=== PATIENT | female | born 1955 | race Caucasian/White ===

== ENCOUNTER 2017-01-14 17:44 | Emergency (ER) | payer MEDICARE, MEDICAID ==
[2017-01-14 18:28] VITALS: BP 126/82
--- NOTE | 2017-01-14 19:05 | UC ---
Respiratory Complaint HPI - HPI Summary HPI Summary: Cough and congestion for three days. She has hoarse voice as well. No fevers. Cough is dry. She has copd and is a smoker. - History of Current Complaint Chief Complaint: UCRespiratory Stated Complaint: CHEST CONGESTION Time Seen by Provider: 01/14/17 18:57 Hx Obtained From: Patient Hx Last Menstrual Period: n/a ?: No Onset/Duration: Gradual Onset, Lasting Days Timing: Constant Severity Initially: Moderate Severity Currently: Moderate Character: Cough: Nonproductive Aggravating Factors: Deep Breaths, Recumbent Position Alleviating Factors: Nothing Associated Signs And Symptoms: Positive: Wheezing, URI, Nasal Congestion, Hoarseness. Negative: Negative, Dyspnea, Fever, Chills, Pleuritic Chest Pain, Hemoptysis, Dizziness, Calf Pain, Calf Swelling - Allergies/Home Medications Allergies/Adverse Reactions: Allergies Allergy/AdvReac Type Severity Reaction Status Date / Time Penicillins Allergy Severe Hives Verified 01/14/17 18:28 Home Medications: Home Medications Gabapentin CAP(*) [Neurontin 300 CAP(*)] 300 mg PO BID 01/14/17 [History Confirmed 01/14/17] PMH/Surg Hx/FS Hx/Imm Hx Previously Healthy: No - copd and a smoker. - Surgical History Surgical History: Yes Surgery Procedure, Year, and Place: Hysterectomy, bilateral knee replacement, ankle surgery, appendectomy, cholecystectomy, R hand tendon surgery, stomach stapling. - Family History Known Family History: Positive: Other - no respiratory distress. - Social History Alcohol Use: Rare Alcohol Amount: states about every 2 weeks has a drink Substance Use Type: None Smoking Status (MU): Heavy Every Day Tobacco Smoker Type: Cigarettes Amount Used/How Often: 1 ppd - Immunization History Most Recent Influenza Vaccination: no Most Recent Tetanus Shot: unknown Most Recent Pneumonia Vaccination: none Review of Systems Constitutional: Negative Respiratory: Cough All Other Systems Reviewed And Are Negative: Yes Physical Exam Triage Information Reviewed: Yes Appearance: No Pain Distress, Well-Nourished, Other: - hoarse voice. No resp distress. Vital Signs: Initial Vital Signs Temp 98.2 F 01/14/17 18:24 Pulse 94 01/14/17 18:24 Resp 16 01/14/17 18:24 BP 126/82 01/14/17 18:24 Pulse Ox 99 01/14/17 18:24 Vital Signs Reviewed: Yes Eye Exam: Normal Eyes: Positive: Conjunctiva Clear ENT Exam: Normal ENT: Positive: Normal ENT inspection, Hearing grossly normal, Pharyngeal erythema, TMs normal. Negative: Tonsillar swelling, Tonsillar exudate, Trismus Neck exam: Normal Neck: Positive: Supple, Nontender, No Lymphadenopathy Respiratory Exam: Normal Respiratory: Positive: Chest non-tender, Lungs clear, No respiratory distress, No accessory muscle use, Crackles, Wheezing. Negative: Respiratory distress, Decreased breath sounds, Rhonchi, Stridor Cardiovascular Exam: Normal Cardiovascular: Positive: RRR, No Murmur, Pulses Normal, Brisk Capillary Refill Abdominal Exam: Normal Abdomen Description: Positive: Nontender, No Organomegaly, Soft Musculoskeletal Exam: Normal Musculoskeletal: Positive: Strength Intact, ROM Intact, No Edema Neurological: Positive: Alert, Muscle Tone Normal. Negative: Fatigued Skin: Negative: rashes UC Diagnostic Evaluation - Laboratory O2 Sat by Pulse Oximetry: 99 Respiratory Course/Dx - Course Course Of Treatment: we counselled on supportive care. start z pack if not improved by day #9. - Differential Dx/Diagnosis Provider Diagnoses: acute copd exacerbation Discharge - Discharge Plan Condition: Good Disposition: HOME Prescriptions: Albuterol HFA INHALER* [Ventolin HFA Inhaler*] 1 puff INH Q4H PRN #1 mdi PRN Reason: Cough Azithromyxin MARILU (NF) [Z-Marilu (Zithromax) 250 mg tabs #6] 1 tab PO .TODAY, THEN 1 DAILY #6 tab Benzonatate CAP* [Tessalon 100 MG CAP*] 100 mg PO TID PRN #20 cap PRN Reason: Cough Methylprednisolone [Medrol Dosepak 4 MG*] 4 mg PO .SEE MARILU INSTRUCTION #21 tab Spacer/Holding Chamber (NF) [Easivent CHAMBER (NF)] 1 applic INH Q4HR PRN #1 device PRN Reason: Cough Patient Education Materials: COPD (Chronic Obstructive Pulmonary Disease) (ED) Referrals: Pablo Blackwood NP [Primary Care Provider] - 2 Days Additional Instructions: start mucinex dm. Begin z pack if symptoms have not improved by day #9.
== END 2017-01-14 19:14 | disposition home or self-care (01) ==
LOC: UCCORT 17:44
DX: J44.1 Chronic obstructive pulmonary disease with (acute) exacerbation (principal)
CPT/HCPCS: 99212; G0463

== ENCOUNTER 2017-02-17 15:04 | Emergency (ER) | payer MEDICARE, MEDICAID ==
--- NOTE | 2017-02-17 16:24 | UC ---
Skin Complaint HPI - HPI Summary HPI Summary: 61 year old male presents with complains of rash under bilateral axilla and breasts. - History of Current Complaint Time Seen by Provider: 02/17/17 16:23 Stated Complaint: SKIN COMP Hx Obtained From: Patient Hx Last Menstrual Period: n/a Onset/Duration: Sudden Onset Skin Exposure Onset/Duration: Days Ago Onset Severity: Moderate Current Severity: Moderate - Allergy/Home Medications Allergies/Adverse Reactions: Allergies Allergy/AdvReac Type Severity Reaction Status Date / Time Penicillins Allergy Severe Hives Verified 02/17/17 16:25 Home Medications: Home Medications Aspirin [Aspirin Childrens 81 MG] 81 mg PO BEDTIME 02/17/17 [History Confirmed 02/17/17] Review of Systems Constitutional: Negative Skin: Rash Eyes: Negative ENT: Negative Respiratory: Negative Cardiovascular: Negative Gastrointestinal: Negative Genitourinary: Negative Motor: Negative Neurovascular: Negative Musculoskeletal: Negative Neurological: Negative Psychological: Negative All Other Systems Reviewed And Are Negative: Yes PMH/Surg Hx/FS Hx/Imm Hx - Surgical History Surgical History: Yes Surgery Procedure, Year, and Place: Hysterectomy, bilateral knee replacement, ankle surgery, appendectomy, cholecystectomy, R hand tendon surgery, stomach stapling. - Family History Known Family History: Positive: Other - no respiratory distress. - Social History Alcohol Use: Rare Alcohol Amount: states about every 2 weeks has a drink Substance Use Type: None Smoking Status (MU): Heavy Every Day Tobacco Smoker Type: Cigarettes Amount Used/How Often: 1 ppd - Immunization History Most Recent Influenza Vaccination: no Most Recent Tetanus Shot: unknown Most Recent Pneumonia Vaccination: none Physical Exam Triage Information Reviewed: Yes Vital Signs Reviewed: Yes Eye Exam: Normal ENT Exam: Normal Dental Exam: Normal Neck exam: Normal Neck: Positive: 1 Respiratory Exam: Normal Cardiovascular Exam: Normal Abdominal Exam: Normal Musculoskeletal Exam: Normal Neurological Exam: Normal Psychological Exam: Normal Skin: Positive: rashes Course/Dx - Diagnoses Provider Diagnoses: rash bilateral axilla. rash un both breasts Discharge - Discharge Plan Condition: Stable Disposition: HOME Prescriptions: Clotrimazole/Betamethasone* [Lotrisone Cream*] 1 applic TOPICAL BID #90 gm Erythromycin TAB* 500 mg PO QID #40 tab Fluconazole 150 MG (NF) [Diflucan 150 mg (NF)] 150 mg PO ONCE #1 tab Patient Education Materials: Tinea Corporis (ED) Referrals: Jacque Deng [Medical Doctor] - Pabol Blackwood NP [Primary Care Provider] -
[2017-02-17 16:36] VITALS: BP 123/66
== END 2017-02-17 16:52 | disposition home or self-care (01) ==
LOC: UCCORT 15:04
DX: R21 Rash and other nonspecific skin eruption (principal); Z72.0 Tobacco use
CPT/HCPCS: 99211; G0463

== ENCOUNTER 2017-03-28 14:06 | Emergency (ER) | payer MEDICARE, MEDICAID ==
--- NOTE | 2017-03-28 15:30 | UC ---
Complaint Female HPI - HPI Summary HPI Summary: 61 year old female presents with complains of rash, dysuria, and trouble swallowing liquids and solids. Patient is a smoker and has lost 12 pounds in 10 days. I will sen dher tot he er to rule out esophageal mass. - History Of Current Complaint Stated Complaint: ST/URINARY Time Seen by Provider: 03/28/17 15:30 Hx Obtained From: Patient Hx Last Menstrual Period: n/a Onset/Duration: Sudden Onset Timing: Constant Severity Initially: Moderate Severity Currently: Moderate Pain Scale Used: 0-10 Numeric - 5 Aggravating Factor(s): Movement Alleviating Factor(s): Position - Allergies/Home Medications Allergies/Adverse Reactions: Allergies Allergy/AdvReac Type Severity Reaction Status Date / Time Penicillins Allergy Severe Hives Verified 03/28/17 15:34 PMH/Surg Hx/FS Hx/Imm Hx Previously Healthy: Yes - Surgical History Surgical History: Yes Surgery Procedure, Year, and Place: Hysterectomy, bilateral knee replacement, ankle surgery, appendectomy, cholecystectomy, R hand tendon surgery, stomach stapling. - Family History Known Family History: Positive: Other - no respiratory distress. - Social History Alcohol Use: Rare Alcohol Amount: states about every 2 weeks has a drink Substance Use Type: None Smoking Status (MU): Heavy Every Day Tobacco Smoker Type: Cigarettes Amount Used/How Often: 1 ppd Household Exposure Type: Cigarettes - Immunization History Most Recent Influenza Vaccination: no Most Recent Tetanus Shot: unknown Most Recent Pneumonia Vaccination: none Review of Systems Constitutional: Negative Skin: Negative Eyes: Negative ENT: Sore Throat Respiratory: Negative Cardiovascular: Negative Gastrointestinal: Negative Genitourinary: Negative Motor: Negative Neurovascular: Negative Musculoskeletal: Negative Neurological: Negative Psychological: Negative All Other Systems Reviewed And Are Negative: Yes Physical Exam Triage Information Reviewed: Yes Vital Signs Reviewed: Yes Eye Exam: Normal ENT Exam: Normal ENT: Positive: Tonsillar swelling Dental Exam: Normal Neck exam: Normal Neck: Positive: 1 Respiratory Exam: Normal Cardiovascular Exam: Normal Abdominal Exam: Normal Musculoskeletal Exam: Normal Neurological Exam: Normal Psychological Exam: Normal Skin Exam: Normal Complaint Female Dx - Differential Dx/Diagnosis Provider Diagnoses: DYSPHAGIA. DYSURIA. RASH Discharge - Discharge Plan Condition: Stable Disposition: OTHER Discharge Disposition Comment: PATIENT SUGGESTED TO GO TO THE ER Patient Education Materials: Esophageal Spasm (ED), Dysphagia (ED) Referrals: Pablo Blackwood NP [Primary Care Provider] - Additional Instructions: patient suggested to go to the er for difficulty swallowing
--- OUTSIDE RECORDS SUMMARY | 2017-03-28 15:33 | XMS REPORT ---
:1955 External Reference #:[id number] Author Organization [facility] Address [address] [address] Phone [phone] Care Team Providers Name Role Phone Pablo Blackwood NP Primary Care Physician Unavailable Payers Type Date Identification Numbers Payment Provider Subscriber Medicare Primary Effective: Policy Number: Medicare Joyce Simpson 2007 [id number] PayID: [id number] [address] [place] [address] [employer] Part [address] Effective: Policy Number: Medicaid ### Joyce Silva 2012 [id number] >11 Calvin PayID: [id number] [address] [place] [address] Problems Date Description Provider Status Onset: 01/07/2007 Benign essential hypertension Raúl Henry MD Active Onset: 01/07/2007 Pure hypercholesterolemia Raúl Henry MD Active Onset: 04/21/2011 Chest pain Clarissa Howell NP Active Onset: 04/21/2011 Coronary arteriosclerosis Clarissa Howell NP Active Onset: 04/21/2011 Palpitations Clarissa Howell NP Active Onset: 08/06/2011 Pre-surgery evaluation Rafal Ruth MD Active Onset: 08/06/2011 Headache Rafal Ruth MD Active Onset: 10/21/2011 Deficiency anemias Rafal Ruth MD Active Onset: 10/21/2011 Overweight Rafal Ruth MD Active Onset: 11/17/2014 Dermatophytosis of the body Rafal Ruth MD Active Onset: 11/17/2014 Transient cerebral ischemia Rafal Ruth MD Active Onset: 11/17/2014 Electrocardiogram abnormal Rafal Ruth MD Active Onset: 08/13/2015 Preoperative cardiovascular Rafal Ruth MD Active examination Onset: 08/13/2015 Coronary atherosclerosis due to Rafal Ruth MD Active calcified coronary lesion Onset: 08/13/2015 Ex-smoker Rafal Ruth MD Active Onset: 06/11/2016 Dyspnea Rafal Ruth MD Active Onset: 12/04/2016 Iron deficiency anemia Pablo Blackwood, N.P. Active Onset: 12/04/2016 Vitamin B12 deficiency (non anaemic) Pablo Blackwood, N.P. Active Family History Date Family Member(s) Problem(s) Comments : (age 77 Years) Father due to Heart Disease : (age 65 Years) Mother due to Stroke Siblings 7 : (age 36 Years) First Sister due to Cancer, Breast Social History Type Date Description Comments Marital Status Occupation Unemployed Cigarette Use Patient is a current cigarette 1 PACK A DAY; 06/11/16 smoker, smokes every day smokes occasional cigarette now ETOH Use Rarely consumes alcohol Recreational Drug Use Denies Drug Use Smoking Patient is a current smoker, smokes every day Daily Caffeine Consumes on average 4 cups of DECAF coffee per day Allergies, Adverse Reactions, Alerts Date Description Reaction Status Severity Comments 01/27/2006 Pen VK active 02/26/2016 Cephalexin active Medications Medication Date Status Form Strength Qnty SIG Indications Ordering Provider Sulfamethoxazole 03/10 Active Tablets 800-160mg 14tabs 1 by /Trimethoprim mouth Mashelle, twice a N.P. day Cyanocobalamin 12/04 Active Solution 1000mcg/M 60units 1ml every L mos Mashelle, N.P. Iron Up 12/04 Active IV Mashelle, N.P. Fluconazole 08/12 Active Tablets 100mg 11tabs 2 by mouth on Mashel, day 1 N.P. then 1 every day x 9 days Gaviscon 07/23 Active Suspension 95-358mg/ 1 15ML tablespoo jeanna Lyles by mouth every night at bedtime Clopidogrel 09/04 Active Tablets 75mg 30tabs Take One Kyra Blackwood Tablet By Pablo, Mouth N.P. Every Day Potassium 12/20 Active Capsules 10Meq 30caps Take One Flory, Chloride ER ER Capsule Rafal, By Mouth Every Day Oxycodone HCL 12/11 Active Tablets 10mg 40tabs 1 po qid prn Masemmanuelle, N.P. Cyclobenzaprine 08/03 Active Tablets 10mg 30tabs take one Jaison tablet by Pablo, mouth two N.P. times a day Amitriptyline 08/03 Active Tablets 25mg 2 po qhs , Mashelle, N.P. Metoprolol 03/11 Active Tablets 50mg 180tabs take one I10 Flory, Tartrate tablet by flaquito Lyles MD twice a day Furosemide 02/19 Active Tablets 20mg 30tabs Take One Tablet By Pablo, Mouth N.P. Every Day Celebrex 01/17 Active Capsules 200mg samples 1 po bid Jaison Pablo, N.P. Lipitor 01/17 Active Tablets 20mg 90tabs Take One Tablet By Flaquito Lyles At MD Bedtime Effexor XR 12/17 Active Caps ER 150mg 30caps Take One 24HR Capsule Pablo, By Mouth N.P. Every Day Alprazolam 06/21 Active Tablets 0.25mg 90tabs 1 by F41.1 mouth Pablo, three N.P. times a day Methotrexate 10/19 Active Tablets 2.5mg / Eppolito Carlos Vargas MD Nitrostat Active Tablets 0.4mg 25tabs 1 sl Flory Sub every 5 tuyet Lyles MD times 3 for chest pain, if no relief, call 911 - [facility] keep on file Topiramate Active Tablets 200mg 1.5 Tabs Unknown 0000 by mouth twice a day Famotidine Active Tablets 20mg 1 by Unknown / mouth bid Enbrel Active Soln as Unknown 0000 Prefill directed Syringe Gabapentin Active Capsules 300mg take one Unknown /0000 capsule by mouth three times a day Azithromycin 02/24 Hx Tablets 250mg 6tabs 2 by mouth day Pablo, - one then N.P. 06/11 1 by mouth every day x 4 days Fluconazole 02/24 Hx Tablets 100mg 10tabs 1 by mouth Mashelle, - every day N.P. 06/11 x Azithromycin 04/16 Hx Tablets 250mg 6tabs 2 by mouth day Mashelle, - one then N.P. 08/12 1 by mouth every day x 4 days Nystatin 03/29 Hx Suspension [id number] 240ml 1 t/ML teaspoon Mashelle, - four N.P. 08/12 times day swish in mouth x 30 secs Diflucan 02/13 Hx Tablets 100mg 9tabs 2 by mouth on Mashel, - day one N.P. 02/24 and 1 by mouth every day x 7 days Ciprofloxacin 12/29 Hx Tablets 500mg 10tabs 1 by [place], mouth Mashelle, - twice a N.P. 08/12 day x days Fluconazole 12/29 Hx Tablets 150mg 2tabs 1 by mouth Mashelle, - today and N.P. 02/21 repeat in 5 days Medical Note 12/15 Hx patient is Pablo, - medically N.P. 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 12/29 Fluconazole 10/23 Hx Tablets 100mg 7tabs 1 by mouth Mashelle, - every day N.P. 11/17 x 7 Nystatin 10/23 Hx Cream [id number] 30gm apply t/GM three Maryannhelle, - times a N.P. 03/29 day to affected area Nicoderm CQ 09/04 Hx Patches 21mg/24HR 14units 1 patch 24HR every day Masyolande, - as N.P. 06/11 Levofloxacin 06/20 Hx Tablets 500mg 10tabs 1 po qd x10 days Masemmanuelle, - N.P. 10/23 Fluocinonide 04/10 Hx Cream 0.05% 60gm apply sparingly Mashelle, - to itchy N.P. 10/23 rash three times a day Fluconazole 01/12 Hx Tablets 100mg 12tabs 2 by mouth day Masemmanuelle, - one then N.P. 04/10 1 by mouth every day x 10 days Levofloxacin 01/12 Hx Tablets 500mg 10tabs 1 po qd x10 days Masemmanuelle, - N.P. 04/10 Nicotine Step 3 10/06 Hx Patches 7mg/24HR on in the 24HR morning Clarissa, - off at [employer]OSS 10/06 night Nicotine 10/06 Hx Patches 7mg/24HR 30units 1 patch 24HR transderm Clarissa, - al qday [employer] 12/20 directed on package Nicotine Step 2 09/05 Hx Patches 14mg/24HR 42units apply new 24HR patch Clarissa, - every 24 [employer] 10/06 hours: mg/day for 6 weeks, then 7 mg/day for 2 weeks, and then finish with 7 mg/day for 2 wks Nicotine Step 1 06/15 Hx Patches 21mg/24HR 42units use as 24HR directed Clarissa, - [employer] 09/05 Levofloxacin 05/24 Hx Tablets 500mg 10tabs 1 po qd x10 days Pablo, - N.P. 06/13 Proair HFA 05/24 Hx Aerosol 108(90Bas 1units 2 puffs e) qid prn Pablo, - mcg/Act N.P. 06/20 Prednisone 05/24 Hx Tablets 10mg 30tabs 4 po x 3 days, Pablo, - then 3 po N.P. 12/20 x 3 days then 2 po x 3 days then 1 po x 3 days Imdur 01/05 Hx Tablets ER 30mg 30tabs 1 po qd 24HR Clarissa, - [employer]OSS 01/26 Plavix 01/05 Hx Tablets 75mg 5tabs 4 tabs po Lynda, day prior Clarissa, - to [employer] 01/26 procedure , 1 tab po am of procedure Fluconazole 10/15 Hx Tablets 100mg 11tabs 2 by , mouth day Mashelle, - one then N.P. 12/20 1 by mouth every day x 10 days Levofloxacin 08/20 Hx Tablets 500mg 10tabs 1 po qd [place] x10 days Masemmanuelle, - N.P. 04/15 Levofloxacin 06/15 Hx Tablets 750mg 10tabs 1 po qd x Jaison 10 days Mashelle, - N.P. 07/14 Fluconazole 06/15 Hx Tablets 100mg 11tabs 2 po day one then Masemmanuelle, - 1 po qd x N.P. 08/20 Levaquin 04/15 Hx Tablets 750mg 10tabs 1 po qd x Jaison 10 days Masemmanuelle, - N.P. 06/15 Zithromax Z-Fernando 02/02 Hx Tablets 250mg 1tabs as directed Devile, - N.P. 04/15 Erythromycin 08/13 Hx Caps 250mg 40caps 1 po qid Part x 10 days Masemmanuelle, - N.P. 10/20 Topamax 08/03 Hx Tablets 200mg 1/2 tab q Jaison, am and 1 Pablo, - tab q hs N.P. 04/10 Cymbalta 08/03 Hx Caps 60mg 30caps 1 po qd Part Mashelle, - N.P. 04/10 Plaquenil 08/03 Hx Tablets 200mg 60tabs 2 by mouth Mashelle, - every day N.P. 12/04 Nicoderm CQ 06/17 Hx Patches 14mg/24HR 28units apply one 24HR patch qd Mashelle, - N.P. 08/03 Nicoderm CQ 05/06 Hx Patches 21mg/24HR 30units as 24HR directed Pablo, - N.P. 06/17 Aspirin 04/21 Hx Tablets 81mg 1 po qd Lynda Clarissa, - SPECIMEN BOSS 11/17 Amitriptyline 01/17 Hx Tablets 10mg 30tabs 1 po qhs [place], Masemmanuelle, - N.P. 08/03 Flexeril 01/17 Hx Tablets 10mg 15tabs 1 po tid Jaison, Masemmanuelle, - N.P. 01/17 Soma 01/17 Hx Tablets 350mg 32tabs 1 po qid [place] Masemmanuelle, - N.P. 08/03 Venlafaxine HCL 09/09 Hx Caps ER 150mg 30caps Take One 24HR Capsule Pablo, - By Mouth N.P. 01/17 Every Day Zithromax Z-Fernando 06/21 Hx Tablets 250mg 1tabs as directed Pablo, - N.P. 01/17 Cheratussin ac 06/21 Hx Syrup 100-10mg/ 236ml 1 5ML teaspoon Pablo, - every 4-6 N.P. 01/17 h prn cough Chantix 01/22 Hx Tablets 0.5mg 60tabs 1po qd 305.1 Per x 3 days Carlos Vargas - then bid 06/21 Zithromax Z-Fernando 07/10 Hx Tablets 250mg 1tabs as Jaison directed Pablo, - N.P. 01/22 Venlafaxine XR 02/27 Hx Tablets ER 150mg 30tabs 1 po qd Jaison 24HR Pablo, - N.P. 07/05 Lasix 11/07 Hx Tablets 20mg 30tabs 1 po qd Trabvickey Jayne Olsen MD 02/19 Nitrostat 10/12 Hx Tablets 0.4mg 30tabs 1 sl prn 714.0 Per Sub Jayne Genao MD 10/19 Gabapentin 08/03 Hx Capsules 300mg 30caps 1 po Per, bid Jayne Genao MD 11/02 Nicoderm CQ 06/27 Hx Patches 7mg/24HR 28units 1 po qd [place] 24HR Devile, - N.P. 06/27 Nicoderm CQ 06/27 Hx Patches 21mg/24HR 28units as 24HR directed Pablo, - N.P. 10/12 Maggi 06/01 Hx Tablets 60mg 60tabs 1 po bid Jaison Pablo, - N.P. 10/12 Enbrel 05/11 Hx Solution 50mg/ml Q week Kjsanjay Jayne Genao MD 01/26 Clarithromycin 05/11 Hx Tablets 500mg 14tabs 1 po Eppriddhi bid x Carlos Vargas - 14 days 10/12 Nicoderm CQ 04/25 Hx Patches 14mg/24HR 28units 1 patch 24HR qd Pablo, - N.P. 05/11 Chantix Starter 03/07 Hx #1Pack 1Pak as Jaison, Directed Pablo, - N.P. 04/25 Bactrim DS 08/18 Hx Tablets 800-160 14tabs 1 po bid Jayne Olsen MD 08/28 Guaifenesin DM 08/18 Hx Tablets ER 600-30mg 30tabs 2 tabs q 12HR 12 hours Jayne Olsen MD 05/11 Effexor XR 03/29 Hx Caps ER 150mg 30caps Take One 24HR Capsule Pablo, - By Mouth N.P. 09/09 Every Day Diltiazem HCL 03/25 Hx Caps ER 180mg 30caps 1 po qd Jaison 24HR Pablo, - N.P. 10/19 Percocet 02/08 Hx Tablets 5-325mg 40tabs 1-2 po q Jaison 6 hr prn Pablo - pain N.P. 08/18 Metoprolol 01/07 Hx Tablets 25mg 60tabs 1 po bid 401.1 Jaison, Tar Pablo, - N.P. 03/11 Prevacid 08/14 Hx Capsules 30mg 30caps 1 po bid 530.11 Mely, DR Dominga Funes, RN MS 06/20 NEUROPSYCHIATRIC AIDE /2014 Levaquin 06/23 Hx Tablets 500mg 10tabs 1 po qd x Jaison 10 days Pablo, - N.P. 01/07 Zithromax Z-Fernando 01/27 Hx Tablets 250mg 1Pak as Jaison, Directed Pablo, - N.P. 02/06 Duratuss GP 01/27 Hx Tablets 1200mg;12 24tabs 1 po q 12 Jaison 0 mg h Pablo, - N.P. 01/07 Enbrel 07/07 Hx Injection 25mg twice A Jaison week Pablo, - N.P. 01/27 warnowitz Methotrexate 07/07 Hx Tablets 2.5mg 9 pills Jaison, Dose weekly Pablo, - N.P. 01/27 Celebrex 07/07 Hx Capsules 200mg 30caps 1 po bid 715.90 Jaison Pablo, - N.P. 10/12 Zithromax Z-Fernando 07/07 Hx Tablets 250mg 1Pak as Jaison, directed Pablo, - N.P. 01/27 Hycotuss 07/07 Hx Liquid 100mg;5mg 120ml 1 tsp ac Jaison, Expectora /5ML hs Pablo, - N.P. 01/27 Clarinex 03/11 Hx Tablets 5mg 30tabs 1 po qd 477.0 July, Lisa Akhtar MD 06/01 Singulair 03/11 Hx Tablets 10mg 30tabs 1 po q pm 477.0 Elaine, Jayne Olsen MD 08/05 Alprazolam 09/19 Hx Tablets 0.25mg 90tabs 1 po tid 300.02 Jaison, Pablo, - N.P. 05/11 Bentyl 08/08 Hx Capsules 20mg 24caps 1 po qid Jaison, prn Pablo, - N.P. 08/18 Tequin 08/08 Hx Tablets 400mg 3tabs 1 po qd x Jaison 3 Masemmanuelle, - N.P. 07/07 Diovan 07/18 Hx Tablets 80mg 30tabs 1 po qd 401.1 Trabout Jayne Olsen MD 08/03 Avelox 07/08 Hx Tablets 400mg 10tabs 1 po qd x [place], 10 days Mashelle, - N.P. 07/07 Avelox 05/16 Hx Tablets 400mg 14tabs 1 po x 14 [place], days Mashelle, - N.P. 05/16 Nasonex 05/16 Hx Suspension 50mcg 1units 2 sprays Jaison, Intranasal [place] ea Pablo, - nostril N.P. 01/07 qd Cipro 05/16 Hx Tablets 500mg 20tabs 1 po bid Jaison x 10 days Mashelle, - N.P. 05/11 Furosemide Hx Tablets 20mg 30tabs 1 po qd Trabout Jayne Olsen MD 10/12 Medications Administered in Office Medication Date Status Form Strength Qnty SIG Indications Ordering Provider PPD Administered Injection Nurses 017 Schedule Grayson PPD Administered Injection Jaison, 014 Mashelle, N.P. Injection, Administered Injection Nuclear Regadenoson 013 Stress (Lexiscan) 0.1 Testing MG PPD Administered Injection Nurses 013 Schedule Grayson PPD Administered Injection Nurses 012 Schedule Grayson PPD Administered Injection Nurses 010 Schedule Grayson PPD Administered Injection Mely, 007 Dominga Funes, RN MS NEUROPSYCHIATRIC AIDE PPD Administered Injection Nurses 007 Schedule Grayson PPD Administered Injection Jaison, 005 Mashelle, N.P. Immunizations CPT Code Status Date Vaccine Lot # [id number] Given 03/10/2017 Influenza Vac, 3 Yrs & Older, Quadrivalent, [id number] Split, [place] Use [id number] Given 12/29/2014 Influenza Vac, 3 Yrs & Older, Quadrivalent, [id number] Split, Im Use Q2038 Given 04/07/2013 Fluzone Trivalent Immunization [id number] Q2038 Given 04/20/2012 Fluzone Trivalent Immunization [id number] Q2038 Given 01/17/2011 Fluzone Trivalent Immunization [id number] 49425 Given 01/22/2010 Tdap (Adacel) Ages 7 And Above Only [id number] 90009 Given 03/07/2009 Influenza Virus Vaccine Pandemic Formulation - [id number] Given 03/07/2009 Afluria Or Fluvirin Flu Vac Intramuscular [id number] 43202 Given 01/31/2008 Afluria Or Fluvirin Flu Vac Intramuscular [id number] 70371 Given 02/23/2006 Afluria Or Fluvirin Flu Vac Intramuscular 44120 Given 02/23/2006 Afluria Or Fluvirin Flu Vac Intramuscular [id number] 01884 Given 03/11/2005 Afluria Or Fluvirin Flu Vac Intramuscular [id number] Vital Signs Date Vital Result Comment 03/10/2017 Body Temperature 98.4 F Weight 218.00 lb Heart Rate 83 /min BP Systolic 111 mmHg BP Diastolic 70 mmHg O2 % BldC Oximetry 96 % 12/04/2016 Body Temperature 97.5 F Weight 218.00 lb Heart Rate 90 /min BP Systolic 122 mmHg BP Diastolic 74 mmHg 09/18/2016 Weight 226.00 lb Heart Rate 64 /min BP Systolic 110 mmHg BP Diastolic 70 mmHg Respiratory Rate 10 /min Height 65 inches 5'5" BMI (Body Mass Index) 37.6 kg/m2 08/19/2016 Body Temperature 96.8 F Weight 235.00 lb Heart Rate 85 /min BP Systolic 126 mmHg BP Diastolic 59 mmHg O2 % BldC Oximetry 98 % 07/23/2016 Weight 235.00 lb Heart Rate 72 /min Reg BP Systolic 110 mmHg BP Diastolic 74 mmHg Height 65 inches 5'5" BMI (Body Mass Index) 39.1 kg/m2 06/11/2016 Weight 238.00 lb Heart Rate 72 /min reg BP Systolic 104 mmHg BP Diastolic 70 mmHg Height 65 inches 5'5" O2 % BldC Oximetry 99 % O2 Saturation Level with Exercise 98 % BMI (Body Mass Index) 39.6 kg/m2 02/25/2016 Body Temperature 97.3 F Weight 233.00 lb Heart Rate 93 /min BP Systolic 128 mmHg BP Diastolic 70 mmHg O2 % BldC Oximetry 96 % 08/13/2015 Weight 226.00 lb BP Systolic 140 mmHg BP Diastolic 78 mmHg BP Systolic Recheck 126 mmHg nj BP Diastolic Recheck 82 mmHg nj Height 65 inches 5'5" BMI (Body Mass Index) 37.6 kg/m2 07/02/2015 Weight 224.00 lb Heart Rate 68 /min BP Systolic 108 mmHg BP Diastolic 68 mmHg Respiratory Rate 14 /min Height 65 inches 5'5" BMI (Body Mass Index) 37.3 kg/m2 04/16/2015 Body Temperature 97.0 F Weight 218.38 lb Heart Rate 72 /min BP Systolic 120 mmHg BP Diastolic 70 mmHg 12/29/2014 Body Temperature 97.5 F Weight 213.00 lb Heart Rate 70 /min BP Systolic 102 mmHg BP Diastolic 60 mmHg 11/17/2014 Weight 213.00 lb Heart Rate 64 /min Reg BP Systolic 104 mmHg BP Diastolic 64 mmHg Height 65 inches 5'5" BMI (Body Mass Index) 35.4 kg/m2 10/23/2014 Body Temperature 97.0 F Weight 213.25 lb Heart Rate 90 /min BP Systolic 110 mmHg BP Diastolic 70 mmHg O2 % BldC Oximetry 97 % 09/04/2014 Body Temperature 97.5 F Weight 214.25 lb Heart Rate 84 /min BP Systolic 104 mmHg BP Diastolic 63 mmHg O2 % BldC Oximetry 98 % 06/20/2014 Weight 225.00 lb Heart Rate 75 /min Reg BP Systolic 108 mmHg BP Diastolic 72 mmHg Respiratory Rate 18 /min 06/20/2014 Body Temperature 97.3 F Weight 226.38 lb Heart Rate 79 /min BP Systolic 118 mmHg BP Diastolic 76 mmHg O2 % BldC Oximetry 97 % 04/10/2014 Body Temperature 98.7 F Weight 225.38 lb Heart Rate 81 /min BP Systolic 108 mmHg BP Diastolic 66 mmHg O2 % BldC Oximetry 98 % 02/02/2014 Body Temperature 98.5 F Weight 231.00 lb Heart Rate 72 /min BP Systolic 130 mmHg BP Diastolic 80 mmHg Respiratory Rate 14 /min Height 65 inches 5'5" BMI (Body Mass Index) 38.4 kg/m2 01/12/2014 Body Temperature 98.5 F Weight 225.12 lb Heart Rate 68 /min BP Systolic 110 mmHg BP Diastolic 70 mmHg 12/20/2013 Weight 229.00 lb Heart Rate 66 /min reg BP Systolic 104 mmHg BP Diastolic 72 mmHg Respiratory Rate 16 /min Height 65 inches 5'5" BMI (Body Mass Index) 38.1 kg/m2 11/29/2013 Body Temperature 98.7 F Weight 223.00 lb Heart Rate 83 /min BP Systolic 110 mmHg BP Diastolic 70 mmHg O2 % BldC Oximetry 97 % 06/15/2013 Weight 233.00 lb Heart Rate 64 /min BP Systolic 106 mmHg BP Diastolic 64 mmHg Height 65 inches 5'5" BMI (Body Mass Index) 38.8 kg/m2 05/24/2013 Body Temperature 96.2 F Weight 233.00 lb Heart Rate 94 /min BP Systolic 140 mmHg BP Diastolic 80 mmHg O2 % BldC Oximetry 91 % 02/22/2013 Body Temperature 99.4 F Weight 233.00 lb Heart Rate 88 /min 87 retake BP Systolic 130 mmHg BP Diastolic 90 mmHg O2 % BldC Oximetry 93 % 98 retake 01/25/2013 Body Temperature 99.0 F Weight 233.00 lb Heart Rate 84 /min BP Systolic 102 mmHg BP Diastolic 70 mmHg Height 65 inches 5'5" BMI (Body Mass Index) 38.8 kg/m2 01/05/2013 Weight 235.00 lb Heart Rate 80 /min BP Systolic 114 mmHg BP Diastolic 64 mmHg Height 65 inches 5'5" BMI (Body Mass Index) 39.1 kg/m2 11/24/2012 Weight 236.00 lb Heart Rate 74 /min BP Systolic 104 mmHg BP Diastolic 64 mmHg Respiratory Rate 16 /min Height 65 inches 5'5" BMI (Body Mass Index) 39.3 kg/m2 08/20/2012 Body Temperature 96.0 F Weight 237.25 lb Heart Rate 108 /min BP Systolic 128 mmHg BP Diastolic 78 mmHg O2 % BldC Oximetry 94 % 06/15/2012 Body Temperature 98.5 F Weight 242.00 lb Heart Rate 94 /min BP Systolic 120 mmHg BP Diastolic 70 mmHg O2 % BldC Oximetry 98 % 05/04/2012 Weight 241.00 lb Heart Rate 88 /min BP Systolic 122 mmHg BP Diastolic 82 mmHg Height 65 inches 5'5" BMI (Body Mass Index) 40.1 kg/m2 04/15/2012 Body Temperature 96.1 F Weight 238.12 lb Heart Rate 114 /min BP Systolic 110 mmHg BP Diastolic 86 mmHg O2 % BldC Oximetry 93 % 11/10/2011 Body Temperature 98.5 F Weight 248.00 lb Heart Rate 87 /min BP Systolic 120 mmHg BP Diastolic 80 mmHg O2 % BldC Oximetry 98 % 10/21/2011 Weight 249.00 lb Heart Rate 80 /min reg BP Systolic 112 mmHg large cuff, LA BP Diastolic 82 mmHg large cuff, LA Respiratory Rate 18 /min Height 65 inches 5'5" BMI (Body Mass Index) 41.4 kg/m2 08/14/2011 Body Temperature 98.5 F Weight 248.00 lb Heart Rate 92 /min BP Systolic 144 mmHg BP Diastolic 86 mmHg O2 % BldC Oximetry 98 % 08/06/2011 Weight 250.00 lb Heart Rate 76 /min BP Systolic 108 mmHg BP Diastolic 70 mmHg Height 68 inches 5'8" BMI (Body Mass Index) 38.0 kg/m2 08/04/2011 Body Temperature 98.2 F Weight 244.00 lb Heart Rate 80 /min BP Systolic 118 mmHg BP Diastolic 68 mmHg O2 % BldC Oximetry 98 % 04/21/2011 Weight 250.00 lb Heart Rate 72 /min BP Systolic 118 mmHg BP Diastolic 60 mmHg 01/17/2011 Body Temperature 98.7 F Weight 237.00 lb Heart Rate 83 /min BP Systolic 112 mmHg BP Diastolic 72 mmHg O2 % BldC Oximetry 99 % 06/21/2010 Body Temperature 98.5 F Weight 242.00 lb Heart Rate 77 /min BP Systolic 100 mmHg BP Diastolic 70 mmHg O2 % BldC Oximetry 98 % 01/22/2010 Body Temperature 99.2 F Weight 235.00 lb Heart Rate 88 /min BP Systolic 128 mmHg BP Diastolic 84 mmHg Height 67 inches 5'7" O2 % BldC Oximetry 98 % BMI (Body Mass Index) 36.8 kg/m2 07/05/2009 Body Temperature 98.5 F Weight 220.00 lb Heart Rate 81 /min BP Systolic 120 mmHg BP Diastolic 80 mmHg Height 68 inches 5'8" O2 % BldC Oximetry 98 % BMI (Body Mass Index) 33.4 kg/m2 11/02/2008 Body Temperature 98.5 F Weight 214.00 lb Heart Rate 85 /min BP Systolic 120 mmHg BP Diastolic 80 mmHg O2 % BldC Oximetry 97 % 10/19/2008 Body Temperature 97.8 F Weight 213.00 lb Heart Rate 88 /min BP Systolic 120 mmHg BP Diastolic 78 mmHg 10/12/2008 Body Temperature 98.7 F Weight 215.00 lb Heart Rate 88 /min BP Systolic 124 mmHg BP Diastolic 72 mmHg O2 % BldC Oximetry 98 % 08/03/2008 Body Temperature 98.1 F Weight 222.00 lb Heart Rate 103 /min BP Systolic 130 mmHg BP Diastolic 82 mmHg O2 % BldC Oximetry 97 % 05/11/2008 Body Temperature 98.4 F Weight 233.00 lb Heart Rate 102 /min BP Systolic 118 mmHg BP Diastolic 76 mmHg O2 % BldC Oximetry 96 % 03/14/2008 Body Temperature 98.8 F Weight 236.00 lb Heart Rate 112 /min BP Systolic 138 mmHg BP Diastolic 86 mmHg 08/19/2007 Body Temperature 98.8 F Weight 234.00 lb Heart Rate 92 /min BP Systolic 120 mmHg BP Diastolic 80 mmHg 01/07/2007 Weight 228.00 lb Heart Rate 114 /min BP Systolic 146 mmHg BP Diastolic 86 mmHg Urine Dipstick - Blood NEGATIVE Urine Dipstick - Protein NEGATIVE Urine Dipstick - Glucose NEGATIVE 06/23/2006 Body Temperature 97.8 F Weight 237.00 lb Heart Rate 100 /min BP Systolic 130 mmHg BP Diastolic 80 mmHg 01/27/2006 Body Temperature 98.6 F Weight 236.00 lb Heart Rate 80 /min BP Systolic 134 mmHg BP Diastolic 82 mmHg 07/07/2005 Body Temperature 99.1 F Weight 234.00 lb Heart Rate 112 /min BP Systolic 124 mmHg BP Diastolic 84 mmHg 03/11/2005 Body Temperature 98.5 F Weight 229.00 lb Heart Rate 112 /min BP Systolic 110 mmHg BP Diastolic 78 mmHg 08/15/2004 Body Temperature 98.4 F Weight 252.00 lb Heart Rate 108 /min BP Systolic 120 mmHg BP Diastolic 70 mmHg 07/08/2004 Body Temperature 98.6 F Weight 250.00 lb Heart Rate 96 /min BP Systolic 130 mmHg BP Diastolic 86 mmHg 06/04/2004 Body Temperature 98.1 F Weight 252.00 lb Heart Rate 120 /min BP Systolic 130 mmHg BP Diastolic 82 mmHg 06/03/2004 Body Temperature 98.6 F Weight 252.00 lb Heart Rate 96 /min BP Systolic 128 mmHg BP Diastolic 76 mmHg 05/16/2004 Body Temperature 98.6 F Weight 220.00 lb Heart Rate 100 /min BP Systolic 120 mmHg BP Diastolic 80 mmHg Results Test Date Test Result H/L Range Note Laboratory test 03/10/2017 Urine Culture Microbiology res 1 finding <SEE NOTE> Hemoglobin A1c 01/20/2017 Hemoglobin A1c 5.5 % 4.1-5.9 Estimated Average Glucose Calc 111 71-140 Laboratory test 02/25/2016 Hepatitis C Virus NONREACTIVE Nonreactive 2 finding Antibody Lipid Treatment 02/25/2016 Cholesterol 135 mg/dL 50-199 2 Triglycerides 120 mg/dL 30-200 2 HDL 46 mg/dL 35-85 2, 3 Chol/ HDL Ratio 2.9 ratio Low 3.7-5.6 2 VLDL 24 mg/dL 2-29 2 LDL (Calc) 65 mg/dL 20-99 2, 4 Alt 14 U/L 3-42 2 Ast 19 U/L 8-42 2 Laboratory test finding 12/29/2014 Urine Culture Microbiology res <SEE 5 NOTE> CBC With Auto Diff 06/20/2014 WBC 8.4 K/uL 4.1-11.0 6 RBC 3.84 M/uL Low 4.00-5.40 6 Hemoglobin 10.0 gm/dL Low 12.0-16.0 6 Hematocrit 31.2 % Low 36.0-47.0 6 MCV 81.3 fL 80.0-97.0 6 MCH 26.1 pg Low 27.0-32.0 6 MCHC 32.1 g/dL 32.0-36.0 6 RDW 19.7 % High 11.5-14.5 6 PLT Count 214 K/ul 140-400 6 Neutrophil 69.6 % 35.0-75.0 6 Lymphocyte 20.5 % 16.0-52.0 6 Monocyte 6.5 % 2.0-10.0 6 Eosinophil 1.9 % 0.0-5.0 6 Basophil 1.5 % 0.0-4.0 6 Abs Neutrophils 5.8 K/uL 2.1-8.0 6 Abs Lymphocytes 1.7 K/uL 0.8-5.5 6 Abmon 0.5 K/uL 0.1-1.0 6 Abs Eosinophils 0.2 K/uL 0.0-0.5 6 Abs Basophils 0.1 K/uL 0.0-0.3 6 Comprehensive Metabolic (CMP) 06/20/2014 Sodium 134 mmol/L 134-142 6 Potassium 4.6 mmol/L 3.5-5.2 6 Chloride 105 mmol/L 97-109 6 Carbon Dioxide 21 mmol/L Low 24-34 6 Glucose 90 mg/dL 70-105 6 BUN 10 mg/dL 6-26 6 Creatinine 0.6 mg/dL 0.5-1.4 6 Calcium 9.0 mg/dL 8.5-10.2 6 Total Protein 6.9 g/dL 6.0-8.0 6 Albumin 4.1 g/dL 3.6-4.9 6 Globulin 2.8 g/dL 2.0-3.5 6 A/G Ratio 1.5 Ratio 1.0-2.2 6 Total Bilirubin 0.3 mg/dL 0.1-1.3 6 Alkaline Phosphatase 88 U/L 24-140 6 Alt 17 U/L 3-42 6 Ast 23 U/L 8-42 6 Anion Gap 13 mmol/L 6-14 6 Freda Egfr >60 >60 6, 7 Non Freda Egfr >60 >60 6, 8 Lipid 06/20/2014 Cholesterol 141 mg/dL 50-199 6 Triglycerides 84 mg/dL 30-200 6 HDL 41 mg/dL 35-85 6, 9 Chol/ HDL Ratio 3.4 ratio Low 3.7-5.6 6 VLDL 17 mg/dL 2-29 6 LDL (Calc) 83 mg/dL 20-99 6, 10 Urine Culture 09/21/2013 Urine Culture See Note 11 Urinalysis With Microscopic 09/21/2013 Urine Color YELLOW Yellow Urine Clarity CLEAR Clear Urine Glucose - Dipstick NEGATIVE mg/dL Negative Urine Bilirubin - Dipstick NEGATIVE Negative Urine Ketone NEGATIVE mg/dL Negative Urine Specific [place] 1.015 1.010-1.030 Urine Blood NEGATIVE Negative Urine PH 7.5 6.5-7.5 Urine Protein - Dipstick NEGATIVE mg/dL Negative Urine Urobilinogen - Dipstick 0.2 E.U./dL 0.2-1.0 Urine Nitrite - Dipstick NEGATIVE Negative Urine Leuk Esterase NEGATIVE Negative Urine RBC NONE SEEN rbc/hpf 0-7 Urine WBC 10-20 wbc/hpf High 0-7 Urine Epithelial Cells VERY FEW NONESEEN/lpf Urine Bacteria VERY FEW NONESEEN BMP (Basic) 01/05/2013 Sodium 139 mmol/L (136-145) Potassium 4.8 mmol/L (3.6-5.2) Chloride 104 mmol/L (100-108) Co2 25 mmol/L (22-31) Anion Gap 10 mmol/L (7-16) Urea Nitrogen 8 mg/dL (7-24) Creatinine 0.8 mg/dL (0.6-1.0) BUN/Creat Ratio 10.0 RATIO (10.0-20.0) Glucose 83 mg/dL (70-99) Calcium 8.8 mg/dL (8.4-10.2) GFR 79 ML/MIN/1.73M2 (>59) GFR ( Amer) >90 ML/MIN/1.73M2 (>59) GFR Interpretation <SEE NOTE> 12 CBC With Diff 01/05/2013 WBC 6.5 K/UL (4.1-11.0) RBC 4.11 M/UL (4.00-5.40) HGB 12.0 GM/DL (12.0-16.0) HCT 35.8 % Low (36.0-47.0) 13 MCV 87.1 FL (80.0-95.0) MCH 29.1 pg (27.0-32.0) MCHC 33.5 g/dL (32.0-36.0) RDW 16.9 % High (10.5-14.5) PLT 182 K/UL (150-400) MPV 8.6 FL (7.1-10.7) Neut % 58.5 % (35.0-75.0) Lymph % 31.2 % (16.0-52.0) Hettinger % 6.0 % (0-8.0) Eos % 3.6 % (0-5.0) Baso % 0.7 % (0-4.0) Neut # 3.8 K/UL (1.8-7.7) Lymph # 2.0 K/UL (1.2-4.8) Hettinger # 0.4 K/UL (0-0.8) Eos # 0.2 K/UL (0-0.5) Baso # 0.0 K/UL (0-0.2) Lipid 08/20/2012 Cholesterol 157 mg/dL 50-199 14 Triglycerides 232 mg/dL High 30-200 14 HDL 37 mg/dL 35-85 14, 15 Chol/ HDL Ratio 4.2 ratio 3.7-5.6 14 VLDL 46 mg/dL High 2-29 14 LDL (Calc) 74 mg/dL 20-99 14, 16 Comprehensive Metabolic (CMP) 08/20/2012 Sodium 140 mmol/L 134-142 14 Potassium 4.7 mmol/L 3.5-5.2 14 Chloride 106 mmol/L 97-109 14 Carbon Dioxide 25 mmol/L 24-34 14 Glucose 112 mg/dL High 70-105 14 BUN 13 mg/dL 6-26 14 Creatinine 0.8 mg/dL 0.5-1.4 14 Calcium 9.5 mg/dL 8.5-10.2 14 Total Protein 7.3 g/dL 6.0-8.0 14 Albumin 4.5 g/dL 3.6-4.9 14 Globulin 2.8 g/dL 2.0-3.5 14 A/G Ratio 1.6 Ratio 1.0-2.2 14 Total Bilirubin 0.3 mg/dL 0.1-1.3 14 Alkaline Phosphatase 93 U/L 24-140 14 Alt 25 U/L 3-42 14 Ast 30 U/L 8-42 14 Anion Gap 14 mmol/L 6-14 14 Freda Egfr >60 >60 14, 17 Non Freda Egfr >60 >60 14, 18 Laboratory test finding 08/20/2012 TSH 1.09 uIU/mL 0.34-5.60 14 Vitamin B12 392 pg/mL 180-914 14 CBC With Auto Diff 08/20/2012 WBC 7.1 K/uL 4.1-11.0 14 RBC 4.24 M/uL 4.00-5.40 14 Hemoglobin 12.1 gm/dL 12.0-16.0 14 Hematocrit 36.7 % 36.0-47.0 14 MCV 86.6 fL 80.0-97.0 14 MCH 28.4 pg 27.0-32.0 14 MCHC 32.8 g/dL 32.0-36.0 14 RDW 18.6 % High 11.5-14.5 14 PLT Count 234 K/ul 140-400 14 Neutrophil 64.0 % 35.0-75.0 14 Lymphocyte 25.2 % 16.0-52.0 14 Monocyte 6.2 % 2.0-10.0 14 Eosinophil 3.6 % 0.0-5.0 14 Basophil 1.0 % 0.0-4.0 14 Abs Neutrophils 4.5 K/uL 2.1-8.0 14 Abs Lymphocytes 1.8 K/uL 0.8-5.5 14 Abs Monocytes 0.4 K/uL 0.1-1.0 14 Abs Eosinophils 0.3 K/uL 0.0-0.5 14 Abs Basophils 0.1 K/uL 0.0-0.3 14 Lipid 08/11/2011 Cholesterol 157 mg/dL 50-199 19 Triglycerides 188 mg/dL 30-200 19 HDL 39 mg/dL 35-85 19, 20 Chol/ HDL Ratio 4.0 ratio 3.7-5.6 19 VLDL 38 mg/dL High 2-29 19 LDL (Calc) 80 mg/dL 20-129 19, 21 CBC With Auto Diff 08/11/2011 WBC 7.7 K/uL 4.1-11.0 19 RBC 4.32 M/uL 4.00-5.40 19 Hemoglobin 11.5 gm/dL Low 12.0-16.0 19 Hematocrit 35.2 % Low 36.0-47.0 19 MCV 81.6 fL 80.0-97.0 19 MCH 26.5 pg Low 27.0-32.0 19 MCHC 32.5 g/dL 32.0-36.0 19 RDW 19.6 % High 11.5-14.5 19 PLT Count 199 K/ul 140-400 19 Neutrophil 61.5 % 35.0-75.0 19 Lymphocyte 27.1 % 16.0-52.0 19 Monocyte 7.4 % 2.0-10.0 19 Eosinophil 2.6 % 0.0-5.0 19 Basophil 1.4 % 0.0-4.0 19 Abs Neutrophils 4.8 K/uL 2.1-8.0 19 Abs Lymphocytes 2.1 K/uL 0.8-5.5 19 Abs Monocytes 0.6 K/uL 0.1-1.0 19 Abs Eosinophils 0.2 K/uL 0.0-0.5 19 Abs Basophils 0.1 K/uL 0.0-0.3 19 Comprehensive Metabolic (CMP) 08/11/2011 Sodium 137 mmol/L 134-142 19 Potassium 4.7 mmol/L 3.5-5.2 19 Chloride 105 mmol/L 97-109 19 Carbon Dioxide 25 mmol/L 24-34 19 Glucose 93 mg/dL 70-105 19 BUN 16 mg/dL 6-26 19 Creatinine 0.9 mg/dL 0.5-1.4 19 Calcium 9.6 mg/dL 8.5-10.2 19 Total Protein 7.5 g/dL 6.0-8.0 19 Albumin 4.5 g/dL 3.6-4.9 19 Globulin 3.0 g/dL 2.0-3.5 19 A/G Ratio 1.5 Ratio 1.0-2.2 19 Total Bilirubin 0.3 mg/dL 0.1-1.3 19 Alkaline Phosphatase 94 U/L 24-140 19 Alt 27 U/L 3-42 19 Ast 26 U/L 8-42 19 Anion Gap 12 mmol/L 6-14 19 Freda Egfr >60 >60 19, 22 Non Freda Egfr >60 >60 19, 23 CMP 01/29/2010 Sodium 136 mmol/L 135-144 24 Potassium 4.8 mmol/L 3.6-5.2 24, 25 Chloride 104 mmol/L 97-110 24 Carbon Dioxide 27 mmol/L 23-32 24 Glucose 86 mg/dL 70-105 24 BUN 7 mg/dL 6-22 24 Creatinine 0.7 mg/dL 0.5-1.3 24 BUN/CR 10 Ratio 24 Calcium 9.4 mg/dL 8.6-10.2 24 Total Protein 6.6 g/dL 5.8-7.8 24 Albumin 3.8 g/dL 3.5-4.8 24 Globulin 2.8 g/dL 2.0-3.5 24 A/G Ratio 1.4 Ratio 1.0-2.2 24 Total Bilirubin 0.6 mg/dL 0.3-1.2 24 Alkaline Phosphatase 99 U/L 24-140 24 Alt 25 U/L 5-45 24 Ast 32 U/L 12-40 24 Anion Gap 10 mmol/L 8-16 24 GFR Calculation > 60 mL/min 60-175 24, 26 GFR For > 60 mL/min 60-175 24, 27 CBC With Auto Diff 01/29/2010 WBC 7.0 K/ul 4.0-10.9 24 RBC 4.28 M/ul 4.20-5.40 24 Hemoglobin 11.4 GM/dl Low 12.5-16.0 24 Hematocrit 34.8 % Low 36.0-47.0 24 MCV 81.3 FL 80.0-97.0 24 MCH 26.7 pg Low 27.0-31.0 24 MCHC 32.9 g/dL 32.0-36.0 24 RDW 21.7 % High 11.5-14.5 24 Platelet Count 254 K/ul 140-440 24 Neutrophils 68.3 % 50-70 24 Lymphocytes 19.1 % Low 20-44 24 Monocytes 7.9 % 2-9 24 Eosinophil 3.8 % 0-4 24 Basophil 0.9 % 0-2 24 Absolute Neutrophils 4.8 K/ul 2.05-7.63 24 Absolute Lymphocytes 1.3 K/ul 0.8-4.8 24 Absolute Monocytes 0.6 K/ul 0.1-1.0 24 Absolute Eosinophils 0.3 K/ul 0.1-0.5 24 Absolute Basophils 0.1 K/ul 0.0-0.3 24 Hematology Comment (Comm2) N/A 24 1 Occult Blood X 3 -In House 11/14/2008 1 Occult Blood (In-House) NEG #2 Occult Blood NEG #3 Occult Blood NEG Laboratory test finding 10/20/2008 Vitamin D, 25 Hydroxy 30 ng/mL Low 31- 100 Vitamin B12 376 pg/mL 180-914 CBC With Auto Diff 10/20/2008 WBC 6.2 K/ul 4.0-10.9 RBC 4.26 M/ul 4.20-5.40 Hemoglobin 11.2 GM/dl Low 12.5-16.0 Hematocrit 33.9 % Low 36.0-47.0 MCV 79.5 FL Low 80.0-97.0 MCH 26.2 pg Low 27.0-31.0 MCHC 33.0 g/dL 32.0-36.0 RDW 18.4 % High 11.5-14.5 Platelet Count 201 K/ul 140-440 Neutrophils 60.8 % 50-70 Lymphocytes 24.2 % 20-44 Monocytes 9.8 % High 2-9 Eosinophil 2.9 % 0-4 Basophil 2.3 % High 0-2 Absolute Neutrophils 3.8 K/ul 2.05-7.63 Absolute Lymphocytes 1.5 K/ul 0.8-4.8 Absolute Monocytes 0.6 K/ul 0.1-1.0 Absolute Eosinophils 0.2 K/ul 0.1-0.5 Absolute Basophils 0.1 K/ul 0.0-0.3 Hematology Comment (Comm2) N/A Iron Panel 10/20/2008 Iron, Total 18 g/dL Low 28-170 Transferrin 350 mg/dL 192-382 Tibc (Calc) 489 g/dL High 261-478 % Saturation (Calc) 3.7 % Low 13.0-45.0 Laboratory test 10/20/2008 TSH 1.51 uIU/ml 0.34-5.60 finding Laboratory test 10/12/2008 D-Dimer, Sensitive - 219 NG/ML 0-349.999 28, 29 finding LA Laboratory test 09/30/2008 CK 180 U/L 26-190 finding Troponin-I 0.0 NG/ML 0.0-0.6 30 Laboratory test finding 09/30/2008 CK 172 U/L 26-190 Troponin-I 0.1 NG/ML 0.0-0.6 31 Oximetry 09/30/2008 Oximetry 99 % High 93-98 Fio2 21 21-100 Heart Rate 97 BPM Patient Status RESTING Laboratory test finding 09/29/2008 CK-MB (Mass) 3.7 ng/mL 0.0-9.0 Relative % Index 1.4 % <5 32 Magnesium 2.0 mg/dL 1.7-2.3 CBC W/Automated Diff 09/29/2008 White Blood Count 7.9 K/uL 3.1-10.7 Red Blood Count 4.12 M/uL 3.90-5.40 Hemoglobin 10.8 gm/dL Low 11.6-15.8 Hematocrit 33.8 % Low 36.0-46.1 Mean Cell Volume 82.0 fl 80.9-99.0 Mean Corpuscular HGB 26.2 pg 25.9-32.7 Mean Corpuscular HGB Conc 32.0 g/dL 30.8-34.3 Platelet Count 174 K/uL 155-360 Red Cell Distri Width %CV 17.2 % High 11.7-14.4 Mean Platelet Volume 10.6 fL 8.9-12.4 Neut% 62.6 % 40.4-72.8 Lymph % 26.8 % 17.0-46.1 Hettinger % 6.5 % 4.3-13.2 Eo% 2.7 % 0.0-6.6 Bas% 1.4 % High 0.0-1.1 Neut# 4.9 K/uL 1.0-7.0 Lymph # 2.1 K/uL 0.8-3.4 Hettinger # 0.5 K/uL 0.3-0.9 Eos # 0.2 K/uL 0.0-0.5 Baso # 0.1 K/uL 0.0-0.1 Red Cell Distri Width SD 50 fl High 3-47 Laboratory test finding 09/29/2008 CK 270 U/L High 26-190 Troponin-I 0.0 NG/ML 0.0-0.6 33 Comprehensive Metabolic Panel 09/29/2008 Glucose 96 mg/dL 76-115 BUN 13 mg/dL 5-23 Creatinine 0.7 mg/dL 0.5-1.4 Glom Filtration Rate, Estimate >60 mL/min >60 If >60 mL/min >60 34 BUN/Creat 18.5 Sodium 139 mEq/L 136-145 Potassium 3.8 mEq/L 3.5-5.1 Chloride 103 mEq/L 98-107 Carbon Dioxide 25 mEq/L 21-32 Anion Gap 15 mEq/L 8-16 Calcium 9.0 mg/dL 8.5-10.1 Total Protein 7.7 g/dL 6.3-8.0 Albumin 3.8 g/dL 3.5-5.0 Globulin 3.9 gm/dL 1.9-4.3 Alb/Glob 1.0 Bilirubin,Total 0.2 mg/dL 0.2-1.2 Sgot/Ast 30 U/L 16-40 SGPT/Alt 38 U/L 30-65 Alkaline Phosphatase 129 U/L 50-136 Laboratory test finding 09/29/2008 Act Partial Thrombo 25.8 seconds 21.7- 35.7 Time Protime 09/29/2008 Protime 13.1 seconds 11.8-14.6 Inr 1.0 0.9-1.1 35 Laboratory test finding 09/29/2008 D-Dimer, Quantitative 0.38 ug/mL 36 CBC With Auto Diff 05/12/2008 WBC 6.2 K/ul 4.0-10.9 37 RBC 4.67 M/ul 4.20-5.40 37 Hemoglobin 11.9 GM/dl Low 12.5-16.0 37 Hematocrit 36.1 % 36.0-47.0 37 MCV 77.2 FL Low 80.0-97.0 37 MCH 25.4 pg Low 27.0-31.0 37 MCHC 32.9 g/dL 32.0-36.0 37 RDW 19.5 % High 11.5-14.5 37 Platelet Count 236 K/ul 140-440 37 Neutrophils 56.9 % 50-70 37 Lymphocytes 29.5 % 20-44 37 Monocytes 9.3 % High 2-9 37 Eosinophil 3.8 % 0-4 37 Basophil 0.5 % 0-2 37 Absolute Neutrophils 3.5 K/ul 2.05-7.63 37 Absolute Lymphocytes 1.8 K/ul 0.8-4.8 37 Absolute Monocytes 0.6 K/ul 0.1-1.0 37 Absolute Eosinophils 0.2 K/ul 0.1-0.5 37 Absolute Basophils 0.0 K/ul 0.0-0.3 37 Hematology Comment (Comm2) N/A 37 CMP 05/12/2008 Sodium 138 mmol/L 135-144 37 Potassium 4.2 mmol/L 3.6-5.2 37 Chloride 99 mmol/L 97-110 37 Carbon Dioxide 28 mmol/L 23-33 37 Glucose 87 mg/dL 70-105 37 BUN 8 mg/dL 6-22 37 Creatinine 0.6 mg/dL 0.5-1.3 37 BUN/CR 13 Ratio 12.0-20.0 37 Calcium 9.5 mg/dL 8.6-10.2 37 Total Protein 7.2 g/dL 5.8-7.8 37 Albumin 3.7 g/dL 3.5-4.8 37 Globulin 3.5 g/dL 2.0-3.5 37 A/G Ratio 1.1 Ratio 1.0-2.2 37 Total Bilirubin 0.5 mg/dL 0.3-1.2 37 Alkaline Phosphatase 135 U/L 24-140 37 Alt 29 U/L 4-45 37 Ast 36 U/L 12-40 37 Anion Gap 15 mmol/L 8-16 37 GFR Calculation > 60 mL/min 37, 38 GFR For > 60 mL/min 37, 39 Lipid Panel 05/12/2008 Cholesterol 200 mg/dL High 50-199 37 Triglycerides 322 mg/dL High 10-150 37, 40 HDL 28 mg/dL Low 35-85 37, 41 Chol/HDL Ratio 7.1 Ratio 37, 42 VLDL 64 mg/dL 37 LDL (Calc) Triglyceride moon <SEE NOTE> mg/dL 37, 43 Laboratory test finding 05/12/2008 Vitamin D, 25 Hydroxy 19 ng/mL Low 31- 100 37 Direct LDL 136 mg/dL High 20-129 37 CBC With Auto Diff 08/19/2007 WBC-LA 6.8 K/UL 4.1-11.0 44 RBC -LA 4.46 M/UL 4.00-5.40 44 Hemoglobin - LA 11.6 GM/DL Low 12.0-16.0 44 Hematocrit - LA 36.1 % 36.0-47.0 44 MCV -LA 81.0 FL 80.0-95.0 44 MCH -LA 26.1 pg (27.0-32.0) 44 MCHC -LA 32.2 g/dL 32.0-36.0 44 RDW -LA 20.2 % High 10.5-14.5 44 Platelet Count 225 K/ul 150-400 44 MPV -LA 8.8 FL 7.1-10.7 44 Dtype -LA AUTOMATED DIFFER <SEE NOTE> 44, 45 Neutrophil % -LA 54.8 % 35.0-75.0 44 Lymphocytes % -LA 29.7 % 16.0-52.0 44 Monocytes % -LA 11.5 % High 0-8.0 44 Eosinophils % -LA 3.3 % 0-5.0 44 Basophils % -LA 0.7 % 0-4.0 44 Absoulte Neutrophils -LA 3.7 K/UL 1.8-7.7 44 Absolute Lymphocytes -LA 2.0 K/UL 1.2-4.8 44 Absolute Monocytes -LA 0.8 K/UL 0-0.8 44 Absolute Eosinophils -LA 0.2 K/UL 0-0.5 44 Absolute Basophils -LA 0.0 K/UL 0-0.2 44 Lipid TX Panel 08/19/2007 Ast (Sgot) Liver Enzyme - LA 36 U/L 11-39 44 Alt (SGPT) Liver Enzyme -LA 48 U/L 25-69 44 Cholesterol DELETED mg/dL 50-199 44 Triglycerides DELETED mg/dL 10-150 44 HDL DELETED mg/dL 35-85 44 LDL (Calc) DELETED mg/dL 20-129 44 Chol/HDL Ratio DELETED Ratio 44 VLDL DELETED mg/dL 44 Basic (BMP) 08/19/2007 Sodium 144 mmol/L 136-145 44, 46 Potassium-LA 5.4 mmol/L High 3.6-5.2 44 Chloride - LA 104 mmol/L 100-108 44 Co2 (Carbon Dioxide) - LA 29 mmol/L 22-31 44 Glucose - LA 93 mg/dL 70-99 44 Calcium 9.5 mg/dL 8.4-10.2 44, 47 BUN 14 mg/dL 7-24 44, 48 Creatinine, Serum 0.8 mg/dL 0.6-1.0 44 BUN/Creat Ratio - LA 17.5 RATIO 10.0-20.0 44 Anion Gap - LA 11 mmol/L 7-16 44 GFR - LA 81 ML/MIN/1. 59.001-9999 44 GFR () - LA >90 ML/MIN/1. (>59) 44 Laboratory test 08/19/2007 TSH, Ultrasensitive-LA 1.130 mIU/mL 0.360- 3.740 44 finding Lipid Panel 08/19/2007 Cholesterol - LA 193 mg/dL 0-200 44 Triglyceride-LA 235 mg/dL High 30-200 44 HDL Cholesterol - LA 33 mg/dL (>40) 44, 49 Cholesterol/HDL Ratio-LA 5.8 RATIO 44, 50 LDL Cholesterol-LA 113 mg/dL 0-129.999 44, 51 Basic (BMP) 05/28/2006 Sodium-Na 139 mmol/L 136-145 52 Potassium-LA 4.9 mmol/L 3.6-5.2 52 Chloride - LA 101 mmol/L 100-108 52 Co2 (Carbon Dioxide) - LA 29 mmol/L 22-31 52 Glucose - LA 82 mg/dL 70-99 52 Calcium - LA 8.9 mg/dL 8.4-10.2 52 Urea Nitrogen (BUN) - LA 11 mg/dL 7-24 52 Creatinine, Serum 0.9 mg/dL 0.6-1.0 52 BUN/Creat Ratio - LA 12.2 RATIO 10.0-20.0 52 Anion Gap - LA 9 mmol/L 7-16 52 GFR - LA 71 ML/MIN/1.7 59.001-9999 52 GFR () - LA 86 ML/MIN/1.7 59.001-9999 52 CBC 10/21/2004 WBC 7.4 K/ul 4.1-10.9 RBC 4.24 M/ul 4.20-6.30 Hemoglobin 12.7 GM/dl 12.5-15.0 Hematocrit 38.4 % 36.0-47.0 MCV 90.5 FL 80.0-97.0 MCH 29.9 pg 26.0-32.0 MCHC 33.1 g/dL 31.0-36.0 RDW 14.1 % 11.5-14.5 Platelet Count 244 K/ul 140-440 Neutrophils 72.5 % High 50-70 Lymphocytes 18.7 % Low 20-44 Monocytes 7.2 % 2-9 Eosinophil 0.9 % 0-4 Basophil 0.7 % 0-2 Absolute Neutrophils 5.3 K/ul 2.05-7.63 Absolute Lymphocytes 1.4 K/ul 0.8-4.8 Absolute Monocytes 0.5 K/ul 0.1-1.0 Absolute Eosinophils 0.1 K/ul 0.1-0.5 Absolute Basophils 0.1 K/ul 0.1-0.3 Laboratory test finding 10/21/2004 TSH 0.58 uIU/ml 0.50-6.00 CMP 10/21/2004 Sodium 143 mmol/L 135-145 Potassium 4.8 mmol/L 3.4-5.3 Chloride 107 mmol/L 98-111 Carbon Dioxide 30 mmol/L 22-33 Glucose 87 mg/dL 70-105 BUN 9 mg/dL 6-26 Creatinine 1.0 mg/dL 0.5-1.5 BUN/CR 9 Ratio Low 12.0-20.0 Calcium 9.2 mg/dL 8.6-10.3 Total Protein 6.8 g/dL 6.2-8.3 Albumin 4.0 g/dL 3.5-5.0 Globulin 2.8 g/dL 2.7-4.3 A/G Ratio 1.4 Ratio 1.0-2.2 Total Bilirubin 0.6 mg/dL 0.1-1.3 Ast 26 U/L 8-42 Alt 22 U/L 3-42 Alkaline Phosphatase 73 U/L 24-108 Anion Gap 11 mmol/L 10-20 Laboratory test finding 05/11/2003 Potassium 4.7 mmol/L 3.4-5.3 Hepatic Liver Panel 06/09/2002 Total Protein 7.7 g/dL 6.2-8.3 Albumin 4.1 g/dL 3.5-5.0 Total Bilirubin 0.5 mg/dL 0.1-1.3 Direct Bilirubin 0.0 mg/dL 0.0-0.4 Ast 42 U/L 8-42 Alt 35 U/L 3-42 Alkaline Phosphatase 81 U/L 24-108 Laboratory test finding 05/26/2002 TSH 1.70 uIU/ml 0.50-6.00 Laboratory test finding 04/01/2002 Esr 47 MM/HR High 0-20 Rheumatoid Factor Screen NEGATIVE CBC 03/19/2002 WBC 7.7 K/ul 4.1-10.9 RBC 4.65 M/ul 4.2-6.3 Hemoglobin 11.7 GM/dl Low 12.0-16.0 Hematocrit 36.6 % Low 37.0-51.0 MCV 78.8 FL Low 80-97 MCH 25.1 pg Low 26.0-32.0 MCHC 31.8 g/dL 31.0-36.0 RDW 13.8 % 11.5-14.5 Platelet Count 317 K/ul 140-440 Neutrophils 72.2 % High 50-70 Lymphocytes 20.5 % 20-44 Monocytes 4.2 % 2-9 Eosinophil 2.6 % 0-4 Basophil 0.5 % 0-2 Absolute Neutrophils 5.6 K/ul 2.05-7.63 Absolute Lymphocytes 1.6 K/ul 0.8-4.8 Absolute Monocytes 0.3 K/ul 0.1-1.0 Absolute Eosinophils 0.2 K/ul 0.1-0.5 Absolute Basophils 0.0 K/ul Low 0.1-0.3 Laboratory test finding 03/19/2002 Esr 50 MM/HR High 0-20 Lipid Panel 03/19/2002 Cholesterol 207 mg/dL High 50-199 Triglycerides 278 mg/dL High 30-200 HDL 34 mg/dL Low 35-85 Chol/HDL Ratio 6.1 Ratio VLDL 56 mg/dL LDL (Calc) Triglyceride moon <SEE NOTE> mg/dL 20-129 53 Laboratory test finding 03/19/2002 [place] Screen Screen for DEIDRE p <SEE 54 NOTE> Basic (BMP) 03/19/2002 Sodium 143 mmol/L 135-145 Potassium 5.1 mmol/L 3.4-5.3 Chloride 108 mmol/L 98-111 Carbon Dioxide 26 mmol/L 22-33 Glucose 92 mg/dL 70-105 BUN 14 mg/dL 6-26 Creatinine 0.9 mg/dL 0.5-1.5 BUN/CR 16 Ratio 12.0-20.0 Anion Gap 14 mmol/L 10-20 Calcium 9.6 mg/dL 8.6-10.3 Laboratory test finding 03/19/2002 Direct LDL 140 mg/dL High 20-129 1 Microbiology results SOURCE Clean Catch Midstream COLONY COUNT >100,000 CFU/ML PRELIMINARY RESULT Gram Negative Julio. ID & Sensitivity to Follow. FINAL RESULT Escherichia coli (Isolate 1) FINAL RESULT Beta hemolytic strep group B. NOTE: Streptococcal sensitivities are predictable and are therefore NOT routinely performed. If you need specific antibiotics tested, please consult the laboratory. Sensitivity Analysis Isolate 1 --------- AMIKACIN <=16 S AMOXICILLIN/CLAVULANATE <=8/4 S AMPICILLIN <=8 S AMPICILLIN/SULBACTAM <=8/4 S CEFAZOLIN <=2 S CEFEPIME <=8 S CEFOTAXIME <=2 S CEFTRIAXONE <=1 S CEFUROXIME 8 S CIPROFLOXACIN <=1 S ERTAPENEM <=0.5 S GENTAMYCIN <=2 S IMIPENEM <=1 S LEVOFLOXACIN <=2 S NITROFURANTOIN <=32 S PIPERACILLIN/TAZOBACTAM <=16 S TETRACYCLINE <=4 S TOBRAMYCIN <=4 S TRIMETHOPRIM/SULFAMETHOXAZ <=2/38 S S=Sensitive;I=Indeterminate;R=Resistant 2 This sample is drawn by:[email or web address] 3 Per NCEP ATP III Guidelines: Results lower than 40 mg/dL are suggestive of increased risk for coronary artery disease. Results > or=to 60 mg/dL are considered a negative risk factor. 4 Per NCEP ATP III Guidelines: Normal Population <130 Patients with medical conditions: CHD/DM Optimal: <100 Borderline high: 130-159 High: 160-189 Very high: >189 5 Microbiology results SOURCE MIDU COLONY COUNT >100,000 CFU/ML PRELIMINARY RESULT Gram Negative Julio. ID & Sensitivity to Follow. FINAL RESULT Escherichia coli (Isolate 1) Sensitivity Analysis Isolate 1 --------- AMIKACIN <=16 S AMPICILLIN <=8 S AMPICILLIN/SULBACTAM <=8/4 S CEFAZOLIN <=2 S CEFEPIME <=8 S CEFTAZIDIME <=1 S CEFTRIAXONE <=1 S CIPROFLOXACIN <=1 S ERTAPENEM <=0.5 S GENTAMYCIN <=2 S IMIPENEM <=1 S LEVOFLOXACIN <=2 S NITROFURANTOIN <=32 S PIPERACILLIN/TAZOBACTAM <=16 S TETRACYCLINE <=4 S TOBRAMYCIN <=4 S TRIMETHOPRIM/SULFAMETHOXAZ <=2/38 S S=Sensitive;I=Indeterminate;R=Resistant 6 This sample is drawn by:[email or web address] 7 Concerning GFR Guidelines for Americans: Normal function or mild renal disease, if clinically at risk: >/=60 mL/min Moderately decreased: 30-59 Severely decreased: 15-29 Renal failure: <15 8 Concerning GFR Guidelines: Normal function or mild renal disease, if clinically at risk: >/=60 mL/min Moderately decreased: 30-59 Severely decreased: 15-29 Renal failure: <15 Glomerular Filtration Rate (GFR) is estimated based on the MDRD equation, which assumes a steady state for creatinine as recommended by the National Kidney Disease Education Program in conjunction with the National Institutes of Health and the National Kidney Foundation. Clinical conditions in which it may be necessary to measure GFR by using clearance methods include extremes of age and body size, severe malnutrition or obesity, diseases of skeletal muscle, paraplegia or quadriplegia, vegetarian diet, rapidly changing kidney function, and calculation of the dose of potentially toxic drugs that are excreted by the kidneys. 9 Per NCEP ATP III Guidelines: Results lower than 40 mg/dL are suggestive of increased risk for coronary artery disease. Results > or=to 60 mg/dL are considered a negative risk factor. 10 Per NCEP ATP III Guidelines: Normal Population <130 Patients with medical conditions: CHD/DM Optimal: <100 Borderline high: 130-159 High: 160-189 Very high: >189 11 COLONY COUNT ! 1,000 - 5,000 CFU/ml Organism 1 ! URETHRAL ERIKA 12 NORMAL KIDNEY FUNCTION OR MILD DISEASE - GFR >OR=60 CHRONIC KIDNEY DISEASE - GFR 15 - 59 RENAL FAILURE - GFR <15 Est. GFR calculation based on the MDRD study equation, which assumes a steady state for creatinine. Est. GFR should not be used for medication dosing. 13 PERFORMED AT [place] [id number] 14 This sample is drawn by:LISSETH/TAZ 15 Per NCEP ATP III Guidelines: Results lower than 40 mg/dL are suggestive of increased risk for coronary artery disease. Results > or=to 60 mg/dL are considered a negative risk factor. 16 Per NCEP ATP III Guidelines: Optimal: <100 Near optimal: 100-129 Borderline high: 130-159 High: 160-189 Very high: >189 17 Concerning GFR Guidelines for Americans: Normal function or mild renal disease, if clinically at risk: >/=60 mL/min Moderately decreased: 30-59 Severely decreased: 15-29 Renal failure: <15 18 Concerning GFR Guidelines: Normal function or mild renal disease, if clinically at risk: >/=60 mL/min Moderately decreased: 30-59 Severely decreased: 15-29 Renal failure: <15 Glomerular Filtration Rate (GFR) is estimated based on the MDRD equation, which assumes a steady state for creatinine as recommended by the National Kidney Disease Education Program in conjunction with the National Institutes of Health and the National Kidney Foundation. Clinical conditions in which it may be necessary to measure GFR by using clearance methods include extremes of age and body size, severe malnutrition or obesity, diseases of skeletal muscle, paraplegia or quadriplegia, vegetarian diet, rapidly changing kidney function, and calculation of the dose of potentially toxic drugs that are excreted by the kidneys. 19 This sample is drawn by:STEFANO/YULIANA 20 Per NCEP ATP III Guidelines: Results lower than 40 mg/dL are suggestive of increased risk for coronary artery disease. Results > or=to 60 mg/dL are considered a negative risk factor. 21 Per NCEP ATP III Guidelines: Optimal: <100 Near optimal: 100-129 Borderline high: 130-159 High: 160-189 Very high: >189 22 Concerning GFR Guidelines for Americans: Normal function or mild renal disease, if clinically at risk: >/=60 mL/min Moderately decreased: 30-59 Severely decreased: 15-29 Renal failure: <15 23 Concerning GFR Guidelines: Normal function or mild renal disease, if clinically at risk: >/=60 mL/min Moderately decreased: 30-59 Severely decreased: 15-29 Renal failure: <15 Glomerular Filtration Rate (GFR) is estimated based on the MDRD equation, which assumes a steady state for creatinine as recommended by the National Kidney Disease Education Program in conjunction with the National Institutes of Health and the National Kidney Foundation. Clinical conditions in which it may be necessary to measure GFR by using clearance methods include extremes of age and body size, severe malnutrition or obesity, diseases of skeletal muscle, paraplegia or quadriplegia, vegetarian diet, rapidly changing kidney function, and calculation of the dose of potentially toxic drugs that are excreted by the kidneys. 24 PLEASE SEND CBC,CMP RESULTS TO DR SAMM ROMERO IN [place].SAMPLE DRAWN BY [employer] 25 The difference between the most recent result of 4.2 and the current result of 4.8 exceeds the absolute delta value of 0.5 as defined for this test. 26 Concerning GFR GUIDELINES: Normal Function or Mild Renal Disease, if clinically at risk: >/=60mL/min Moderately decreased: 30-59 Severely decreased: 15-29 Renal Failure: <15 Glomerular Filtration Rate (GFR) is estimated based on the MDRD equation, which assumes a steady state for creatinine as recommended by the National Kidney Disease Education Program in conjunction with the National Institutes of Health and the National Kidney Foundation. Clinical conditions in which it may be necessary to measure GFR by using clearance methods include extremes of age and body size, severe malnutrition or obesity, diseases of skeletal muscle, paraplegia or quadriplegia, vegetarian diet, rapidly changing kidney function, and calculation of the dose of potentially toxic drugs that are excreted by the kidneys. 27 Concerning GFR GUIDELINES: Normal Function or Mild Renal Disease, if clinically at risk: >/=60mL/min Moderately decreased: 30-59 Severely decreased: 15-29 Renal Failure: <15 28 LAB DRAW KSN 29 Unless otherwise specified, testing performed by [facility] [address] [place] [id number] 30 0 - 0.6 NG/ML: NO EVIDENCE OF MYOCARDIAL INJURY 0.7 - 1.5 NG/ML: MILD ELEVATION, SUGGESTING POSSIBLE MYOCARDIAL INJURY > 1.5 NG/ML: CONSISTENT WITH MYOCARDIAL INJURY 31 0 - 0.6 NG/ML: NO EVIDENCE OF MYOCARDIAL INJURY 0.7 - 1.5 NG/ML: MILD ELEVATION, SUGGESTING POSSIBLE MYOCARDIAL INJURY > 1.5 NG/ML: CONSISTENT WITH MYOCARDIAL INJURY 32 < 5%=non AMI 5 - 10%=borderline for AMI > 10%=positive for AMI FOR DIAGNOSTIC PURPOSES, THE CK-MB RESULT (MASS AND RELATIVE PERCENT INDEX) SHOULD BE USED IN CONJUNCTION WITH OTHER PERTINENT CLINICAL DATA. 33 0 - 0.6 NG/ML: NO EVIDENCE OF MYOCARDIAL INJURY 0.7 - 1.5 NG/ML: MILD ELEVATION, SUGGESTING POSSIBLE MYOCARDIAL INJURY > 1.5 NG/ML: CONSISTENT WITH MYOCARDIAL INJURY 34 Note: Persistent reduction for 3 months or more in an eGFR <60 mL/min/1.73 m2 defines CKD. Patients with eGFR values >/=60 mL/min/1.73 m2 may also have CKD if evidence of persistent proteinuria is present. The original MDRD equation for estimated GFR is not valid for patients less than 18 years of age. Additional information may be found at www.kdoqi.org. 35 THERAPEUTIC INR RANGE: 2.0 - 3.0 DVT, Pulmonary embolus, prophylaxis against venous thrombosis or systemic embolization in high risk patients. 2.5 - 3.5 Mechanical heart valves 36 Note: [facility] has established a 97.89% negative predictive value for thrombotic disease when a cutoff value of 0.5 ug/mL is used. Additional performance parameters for local prevalence of 94.4% as follows: PPV: 9.92%, Sensitivity: 76.47%, Specificity: 61.12% 37 This sample is drawn by: 38 Concerning GFR GUIDELINES: Normal Function or Mild Renal Disease, if clinically at risk: >/=60mL/min Moderately decreased: 30-59 Severely decreased: 15-29 Renal Failure: <15 Glomerular Filtration Rate (GFR) is estimated based on the MDRD equation, which assumes a steady state for creatinine as recommended by the National Kidney Disease Education Program in conjunction with the National Institutes of Health and the National Kidney Foundation. Clinical conditions in which it may be necessary to measure GFR by using clearance methods include extremes of age and body size, severe malnutrition or obesity, diseases of skeletal muscle, paraplegia or quadriplegia, vegetarian diet, rapidly changing kidney function, and calculation of the dose of potentially toxic drugs that are excreted by the kidneys. 39 Concerning GFR GUIDELINES: Normal Function or Mild Renal Disease, if clinically at risk: >/=60mL/min Moderately decreased: 30-59 Severely decreased: 15-29 Renal Failure: <15 40 SPECIMEN SLIGHTLY LIPEMIC 41 PER NCEP ATP III GUIDELINES: RESULTS LOWER THAN 40 MG/DL ARE SUGGESTIVE OF INCREASED RISK FOR CORONARY ARTERY DISEASE. RESULTS > OR=TO 60 MG/DL ARE CONSIDERED A NEGATIVE RISK FACTOR. 42 INTERPRETATION OF CHOL-HDL RATIO CHD RISK FEMALE MALE VERY HIGH >8.3 >14.3 HIGH 5.6 - 8.3 6.7 - 14.3 AVERAGE 3.7 - 5.6 4.0 - 6.7 BELOW AVERAGE 2.5 - 3.7 2.7 - 4.0 PROTECTED <2.5 <2.7 43 Triglyceride value>300mg/dl, see Direct LDL result PER NCEP ATP III GUIDELINES: OPTIMAL: <100 NEAR OPTIMAL: 100 - 129 BORDERLINE HIGH: 130 - 159 HIGH: 160 - 189 VERY HIGH: >189 44 Test deleted. Reason: MEDICAID 45 AUTOMATED DIFFERENTIAL 46 * 47 * 48 * 49 PER NCEP ATP III GUIDELINES: RESULTS LOWER THAN 40 MG/DL ARE SUGGESTIVE OF INCREASED RISK FOR CORONARY ARTERY DISEASE. RESULTS > OR=TO 60 MG/DL ARE CONSIDERED A NEGATIVE RISK FACTOR. 50 INTERPRETATION OF CHOL-HDL RATIO CHD RISK FEMALE MALE VERY HIGH >8.3 >14.3 HIGH 5.6- 8.3 6.7- 14.3 AVERAGE 3.7- 5.6 4.0- 6.7 BELOW AVERAGE 2.5- 3.7 2.7- 4.0 PROTECTED <2.5 <2.7 51 PER NCEP ATP III GUIDELINES: OPTIMAL < 100 NEAR OPTIMAL 100 - 129 BORDERLINE HIGH 130 - 159 HIGH 160 - 189 VERY HIGH > 189 52 CC: [facility] FAX: [phone] ATTN: JONNY Duran Triglyceride value >250 mg/dl, see Direct LDL result 54 Screen for DEIDRE positive. Sent to Ref Lab for IFA Confirmation with titer and pattern if appropriate. Procedures Date CPT Code Description Status 03/10/2017 13866 Admin Of Inj (Therapeutic Phrophylactic Or Diagnostic Completed Subq Inj 06/11/[address] Review & Interpretation & Completed Report Only 06/11/2016 92634 Electrocardiogram Complete Completed 11/07/2015 Mammogram Completed 08/13/2015 73270 Electrocardiogram Complete Completed 01/16/2015 Colonoscopy Completed 12/29/2014 88640 Admin Of Inj (Therapeutic Phrophylactic Or Diagnostic Completed Subq Inj 11/17/2014 08637 Electrocardiogram Complete Completed 06/20/2014 15507 Electrocardiogram Complete Completed 12/20/2013 01778 Electrocardiogram Complete Completed 05/24/2013 49588 Measure Blood Oxygen Level Single Determination Completed 04/07/2013 88963 Admin Of Inj (Therapeutic Phrophylactic Or Diagnostic Completed Subq Inj 02/22/2013 53199 Measure Blood Oxygen Level Single Determination Completed 01/11/2013 41911 Coronary Angiography With LEFT Heart Catheterization Completed 12/29/2012 27312 Cardiovascular Stress Test W/Interpretation & Completed Report 12/29/2012 43179 Myocardial Perfusion Imaging,Multiple Studies At Completed Rest&Or Stress 11/24/2012 67605 Electrocardiogram Complete Completed 10/12/2012 50397 Admin Of Inj (Therapeutic Phrophylactic Or Diagnostic Completed Subq Inj 04/15/2012 82965 Measure Blood Oxygen Level Single Determination Completed 04/05/2012 Mammogram Completed 10/21/2011 40292 Electrocardiogram Complete Completed 08/04/2011 86043 Electrocardiogram Complete Completed 11/20/2010 Mammogram Completed 06/21/2010 75154 Measure Blood Oxygen Level Single Determination Completed 01/22/2010 68456 Admin Of Inj (Therapeutic Phrophylactic Or Diagnostic Completed Subq Inj 03/07/2009 79980 Admin Of Inj (Therapeutic,Prophylactic Or Diagnostic Completed Subq Or Intr 12/20/2008 Colonoscopy Completed 10/12/2008 36676 Spirometry /PFT W/O Bronchodialator Completed 07/03/2008 Bone Mineral Density Test Completed 07/03/2008 Mammogram Completed 05/28/2006 59707 Electrocardiogram Complete Completed 04/20/2003 60535 Electrocardiogram Complete Completed Encounters Type Date Location Provider CPT E/M Dx Office Visit 12/04/2016 10:00a Pablo Lowe, N.P. G0438 Z00.8 B37.0 I10 B35.9 Office Visit 09/18/2016 8:40a [facility]iology Clarissa Howell NP [id number] R06.02 I25.10 I10 E78.00 R94.31 Office Visit 08/19/2016 1:30p Pablo Lowe 96616 B37.0 N.P. Office Visit 07/23/2016 9:30a [facility] [place] [address] R06.02 E66.3 I25.84 I10 Z87.891 E78.00 R94.31 Office Visit 06/11/2016 11:00a [facility] [place] [address] R06.02 E66.3 I25.84 I10 Z87.891 E78.00 R94.31 Office Visit 02/25/2016 2:00p Pablo Lowe, N.P. 26339 Z11.59 J01.00 Z13.220 E66.9 Z72.89 Office Visit 08/13/2015 3:00p [facility] [place] [address] Z01.810 I25.84 Z87.891 I10 E78.0 R94.31 G45.9 Office Visit 07/02/2015 1:20p [facility] Clarissa Howell NP 00240T I25.84 Z87.891 I25.10 I10 E78.0 Office Visit 04/16/2015 1:00p Pablo Lowe, N.P. 00457 J06.9 J02.9 Office Visit 12/29/2014 8:00a Pablo Lowe, N.P. 59985 R30.0 Z23 Office Visit 11/17/2014 9:15a [facility] [place] [address] 110.5 435.9 V72.83 272.0 401.1 414.01 785.1 278.02 794.31 Office Visit 10/23/2014 2:30p Pablo Lowe, N.P. 42286 110.5 Office Visit 09/04/2014 11:15a Pablo Lowe, N.P. 69085 435.9 Office Visit 06/20/2014 9:30a Pablo Lowe, N.P. 47377 V72.83 272.0 Office Visit 06/20/2014 2:00p [facility] [place] [address] V72.83 272.0 401.1 414.01 785.1 278.02 Office Visit 04/10/2014 8:45a Pablo Lowe, 67581 782.1 N.P. Office Visit 02/02/2014 2:20p [facility] [place] [address] 401.1 414.01 785.1 276.9 478.9 Office Visit 01/12/2014 1:30p Pablo Lowe, N.P. 99890 529.0 461.0 Office Visit 12/20/2013 10:20a [facility] [place] [address] 401.1 272.0 414.01 785.1 Office Visit 11/29/2013 11:00a Pablo Lowe, N.P. 64866 401.1 272.0 V04.81 V74.1 Office Visit 06/15/2013 10:20a [facility] Clarissa Howell NP 28720Q 414.01 401.1 272.0 Office Visit 05/24/2013 3:15p Pablo Lowe, N.P. 09556 466.0 786.2 Office Visit 02/22/2013 11:15a Pablo Lowe, N.P. 12372 786.2 466.0 Office Visit 01/25/2013 10:00a [facility] [place] [address] 478.9 272.0 401.1 786.50 414.01 Office Visit 01/05/2013 10[facility]a [facility] Clarissa Howell [facility] [id number] 786.50 414.01 401.1 272.0 Office Visit 11/24/2012 2:00p [facility] Prerna Tobias OPAL [id number] 786.50 414.01 272.0 401.1 785.1 Office Visit 08/20/2012 11:00a Pablo Lowe, N.P. 93650 281.9 780.79 529.0 401.1 272.0 461.0 Office Visit 06/15/2012 2:30p Pablo Lowe, N.P. 43177 529.0 461.0 Office Visit 05/04/2012 10:00a [facility] Clarissa Howell NP [id number] 414.01 272.0 401.1 Office Visit 04/15/2012 2:15p Pablo Lowe, N.P. 30974 466.0 786.2 Office Visit 11/10/2011 2:00p Pablo Lowe, 42418 V72.83 N.P. Office Visit 10/21/2011 9:20a [facility] [place] [address] 272.0 V72.83 V72.84 401.1 414.01 281.9 278.02 Office Visit 08/14/2011 3:30p Pablo Lowe, 65514 527.9 N.P. Office Visit 08/06/2011 10:20a [facility] [place] [address] V72.83 401.1 V72.84 272.0 414.01 784.0 Office Visit 08/04/2011 10:30a Pablo Lowe, N.P. 74132 V72.84 401.1 281.9 Office Visit 04/21/2011 10:00a [facility]iology Clarissa Howell NP 14535A 401.1 786.59 272.0 414.01 785.1 Office Visit 01/17/2011 10:45a Pablo Lowe, N.P. 29904 784.0 V04.81 Office Visit 06/21/2010 9:00a Pablo Lowe, N.P. 38580 466.0 Office Visit 01/22/2010 2:30[place] [address] V72.84 401.1 714.0 305.1 V06.1 V04.89 Office Visit 07/05/2009 9:00a Pablo Lowe, N.P. 65278 V70.5 Office Visit 11/02/2008 1:50p [place] [address] 401.1 714.0 786.59 Office Visit 10/19/2008 2:30[place] [address] 401.1 714.0 786.59 704.00 780.79 Office Visit 10/12/2008 1:50p [place] [address] 786.59 401.1 714.0 780.50 Office Visit 08/03/2008 2:10p [place] [address] 729.2 079.99 784.0 401.1 Office Visit 05/11/2008 1:50p [place] [address] 461.0 714.0 780.79 401.1 Office Visit 03/14/2008 11:00a Pablo Lowe, N.P. 70435 461.0 Office Visit 08/19/2007 1:38p Pablo Lowe, N.P. 67178 461.0 Office Visit 08/19/2007 1:10p [place] [address] 272.0 401.1 780.79 461.0 Office Visit 01/07/2007 1:45p [place] [address] V72.84 401.1 714.0 272.2 715.90 327.23 530.11 300.02 477.0 Office Visit 06/23/2006 10:00a Pablo Lowe, N.P. 69946 034.0 461.0 Office Visit 05/28/2006 9:15a Pablo Lowe, N.P. 67097 V72.84 374.30 Office Visit 01/27/2006 3:30p Pablo Lowe, N.P. 35054 465.9 Office Visit 07/07/2005 3:15p Pablo Lowe, N.P. 48526 466.0 Office Visit 03/11/2005 2:00p Pablo Lowe, N.P. 83542 461.0 995.3 V04.81 Office Visit 10/21/2004 1:15p Pablo Lowe, N.P. 51997 401.1 780.79 424.0 714.0 Office Visit 08/15/2004 12:30p Pablo Lowe, N.P. 03460 789.00 Office Visit 08/08/2004 5:00p Pablo Lowe, N.P. 63068 789.00 Office Visit 07/08/2004 11:15a Pablo Lowe, N.P. 15433 401.1 477.0 789.00 530.11 Office Visit 06/04/2004 2:45p Pablo Lowe, N.P. 89435 053.9 785.6 Office Visit 06/03/2004 1:15p Pablo Lowe, N.P. 14246 401.1 300.02 053.9 Office Visit 05/16/2004 11:15a Pablo Lowe, N.P. 27531 401.1 461.0 Office Visit 03/12/2004 2:45p Pablo Lowe, N.P. 76961 715.10 530.11 461.0 Office Visit 10/05/2003 2:00p Pablo Lowe, N.P. 29888 300.02 569.3 455.3 Office Visit 08/31/2003 11:00a Pablo Lowe, N.P. 34756 401.1 530.11 719.00 726.90 Office Visit 08/10/2003 2:00p Pablo Lowe, N.P. 37012 719.47 Office Visit 04/20/2003 2:30p [place] [address] V72.83 401.1 272.2 719.46 Office Visit 12/19/2002 2:30p Pablo Lowe, N.P. 97252 477.0 Office Visit 11/03/2002 1:45p Raú[place] [address] 709.09 228.00 300.02 Office Visit 08/25/2002 1:15p Pablo Lowe, N.P. 37590 381.01 401.1 626.2 Office Visit 08/08/2002 3:15p Pablo Loew, N.P. 56143 401.1 461.0 465.9 477.0 Office Visit 06/16/2002 4:00p Pablo Lowe, N.P. 12961 716.90 535.00 Office Visit 06/09/2002 3:00p Pablo Lowe, N.P. 94866 789.00 Office Visit 05/26/2002 3:00p Pablo Lowe, N.P. 62646 V72.3 Office Visit 03/14/2002 4:00[place] [address] 461.0 401.1 715.90 Office Visit 02/28/2002 4:00[place] [address] 715.90 401.1 461.0 Office Visit 02/07/2002 4:00[place] [address] 401.1 473.9 Office Visit 01/31/2002 3:45[place] [address] 461.0 719.40 401.1 Office Visit 01/06/2002 3:15[place] [address] 466.0 401.1 381.01 Plan of Care Future Appointment(s):03/26/2017 9:00 am - Rafal Ruth MD at [facility] Ppsizajntm61/19/2017 - Pablo Blackwood, N.P.J02.9 Acute pharyngitis, unspecifiedComments:increase clear liquids, OTC robitussin, tylenol/ cigxqvllvE48.0 [id number] Encounter for immunizationComments:parent counseled regarding vaccine-need for, risks of not getting immun. and poss SE of vacc parentcounseled regarding vaccine-need for, risks of not getting immun. and poss SE of vaccAllNew Medication:Sulfamethoxazole/Trimethoprim DS 800-160 mg
[2017-03-28 15:41] VITALS: BP 116/56
== END 2017-03-28 16:14 ==
LOC: UCCORT 14:06
DX: R30.0 Dysuria (principal); R13.10 Dysphagia, unspecified; R21 Rash and other nonspecific skin eruption; F17.210 Nicotine dependence, cigarettes, uncomplicated; Z88.0 Allergy status to penicillin
CPT/HCPCS: 81003; 87086; 87651; 99212; G0463

== ENCOUNTER 2017-03-28 17:23 | Inpatient (IN) | payer MEDICARE, MEDICAID ==
[2017-03-28] MEDS ORDERED: Lidocaine 2% VISCOUS* 15 ML UDC PO ONE (18:53)
[2017-03-28] MEDS ORDERED: NS 0.9% 1000 ML* 2,000 ML IV ONE (18:53)
[2017-03-28] MEDS ORDERED: Al Hydrox/Mg Hydrox/Simet LIQ* 30 ML UDC PO ONE (18:53)
[2017-03-28 19:26] LABS: ABS Basophils 0.2 10^3/ul (0-0.2); ABS Eosinophils 0.5 10^3/ul (0-0.6); ABS Lymphocytes 2.2 10^3/ul (1.0-4.8); ABS Monocytes 1.2 10^3/ul (0-0.8); ABS Neutrophils 10.1 10^3/ul (1.5-7.7); ABS Nucleated RBC 0 10^3/ul; Eosinophil % 3.4 % (0-6); Hematocrit 41 % (35-47); Hemoglobin 14.3 g/dl (12.0-16.0); Lymphocyte % 15.4 % (25-47); Mean Corpuscular HGB Conc 35 g/dl (31-36); Mean Corpuscular Hemoglobin 33 pg (27-31); Mean Corpuscular Volume 94 fL (80-97); Mean Platelet Volume 7 um3 (7.4-10.4); Nucleated Red Blood Cells % 0; Platelet Count 250 10^3/ul (150-450); Red Blood Count 4.36 10^6/ul (4.0-5.4); Red Cell Distribution Width 14 % (10.5-15); White Blood Count 14.1 10^3/ul (3.5-10.8)
[2017-03-28 19:35] LABS: INR 0.95 (0.77-1.02)
[2017-03-28 19:37] LABS: EGFR Non-African American 108.6 (>60)
[2017-03-28] MEDS ORDERED: Iohexol 300* (CONTRAST) 10 ML SDV IV ONE (20:19)
--- NOTE | 2017-03-28 21:06 | RAD ---
INDICATION: Throat pain, horse voice. COMPARISON: Comparison is made with a prior CT angiogram of the neck from August 28, 2014. TECHNIQUE: A CT scan of the neck was performed with intravenous contrast following intravenous injection of 50 ml of Omnipaque 300 nonionic contrast. Contiguous axial sections were obtained from the skull base through the lung apices. Images were reconstructed in the coronal and sagittal planes. FINDINGS: The airway is patent. The epiglottis appears within normal limits. There is mild bilateral symmetric thickening of the aryepiglottic folds suggestive of inflammation or infection. No retropharyngeal soft tissue swelling is noted. No significant enlarged nodes are seen. The parotid and submandibular glands appear to be within normal limits. The thyroid gland appears normal. The lung apices appear clear. The paranasal sinuses and mastoid air cells appear clear. No significant focal osseous abnormality is seen. IMPRESSION: THICKENING OF THE ARYEPIGLOTTIC FOLDS SUGGESTIVE OF INFLAMMATION OR INFECTION. IF THE PATIENT'S SYMPTOMS PERSIST RECOMMEND DIRECT INSPECTION.
[2017-03-28 21:29] LABS: Urine Appearance Clear; Urine Blood Negative (Negative); Urine Color Yellow; Urine Ketones Negative (Negative); Urine Protein Negative (Negative); Urine Specific Gravity 1.004 (1.010-1.030); Urine Urobilinogen Negative (Negative)
[2017-03-28] MEDS ORDERED: cefTRIAXone(*) 1 GM in NS 0.9% 50 ML* 50 ML IVPB ONE ×2 (21:57→22:23)
[2017-03-28] MEDS ORDERED: NS 0.9% 1000 ML* 1,000 ML IV SCH (22:15)
--- NOTE | 2017-03-28 23:01 | ED ---
Bartolo Coker Tecjoon, scribed for Angel Martin MD on 03/28/17 at 1858 . Complex/Multi-Sys Presentation - HPI Summary HPI Summary: This patient is a 61 year old female presenting to [facility] with a chief complaint of throat pain since a week ago. Patient states that when she tries to swallow, it feels like its going down the wrong pipe. The pain is rated 9/10 in severity. Symptoms aggravated by swallowing. Symptoms alleviated by nothing. Patient additionally reports chills, rash all over body, diarrhea. Patient denies fever, ear pain, abd pain. Patient states that she also has a vaginal yeast infection. Patient was negative for a rapid strep throat test. Patient has a hx of reflux. - History Of Current Complaint Chief Complaint: EDThroatPain Time Seen by Provider: 03/28/17 18:35 Hx Obtained From: Patient Onset/Duration: Gradual Onset, Lasting Weeks - 1, Still Present Timing: Constant Severity Currently: Severe - 9/10 Location: Pain At: - throat Aggravating Factor(s): swallowing Alleviating Factor(s): nothing Associated Signs And Symptoms: Positive: Diarrhea, Other - chills, rash all over body". Negative: Abdominal Pain - Allergies/Home Medications Allergies/Adverse Reactions: Allergies Allergy/AdvReac Type Severity Reaction Status Date / Time Penicillins Allergy Severe Hives Verified 03/28/17 15:34 Home Medications: Home Medications Certolizumab Pegol [Cimzia] 200 mg SC MONTHLY 03/28/17 [History Confirmed ] PMH/Surg Hx/FS Hx/Imm Hx Previously Healthy: No Endocrine/Hematology History: Denies: Hx Diabetes, Hx Thyroid Disease Cardiovascular History: Reports: Hx Hypertension, Other Cardiovascular Problems/ Disorders - states leaky valve Denies: Hx Pacemaker/ICD Respiratory History: Reports: Hx Chronic Obstructive Pulmonary Disease (COPD), Other Respiratory Problems/Disorders - COPD Denies: Hx Asthma GI History: Reports: Other GI Disorders - cholecystectomy, stomach stapling Denies: Hx Ulcer Musculoskeletal History: Reports: Hx Arthritis, Other Musculoskeletal History - tendon surgery R hand, bilat knee replacements Sensory History: Reports: Hx Contacts or Glasses Denies: Hx Hearing Aid Opthamlomology History: Reports: Hx Contacts or Glasses Psychiatric History: Reports: Hx Depression Denies: Hx Panic Disorder - Surgical History Surgery Procedure, Year, and Place: Hysterectomy, bilateral knee replacement, ankle surgery, appendectomy, cholecystectomy, R hand tendon surgery, stomach stapling. Infectious Disease History: No Infectious Disease History: Reports: Hx Shingles Denies: Hx Hepatitis, Hx Human Immunodeficiency Virus (HIV), Traveled Outside the [place] in Last 30 Days - Family History Known Family History: Positive: Hypertension - Social History Alcohol Use: Occasionally Alcohol Amount: states about every 2 weeks has a drink Hx Substance Use: No Substance Use Type: Reports: None Hx Tobacco Use: Yes Smoking Status (MU): Heavy Every Day Tobacco Smoker Type: Cigarettes Amount Used/How Often: 1/2 PPD Review of Systems Positive: Chills. Negative: Fever ENT: Negative - ear pain Positive: Sore Throat Positive: Diarrhea. Negative: Abdominal Pain Positive: Rash All Other Systems Reviewed And Are Negative: Yes Physical Exam - Summary Physical Exam Summary: General: well-appearing, no pain distress Skin: Scattering of plaque rash on feet and rash and each plaque is 3-4mm in size Head: normal Eyes: EOMI, MELANI ENT: voice is hoarse. Oral mucosa is erythematous Neck: supple, nontender Respiratory: CTA, breath sounds present Cardiovascular: RRR Abdomen: soft, nontender Bowel: present Musculoskeletal: normal, strength/ROM intact Neurological: normal, sensory/motor intact, A&O x3 Psychological: affect/mood appropriate Triage Information Reviewed: Yes Vital Signs On Initial Exam: Initial Vitals Temp Pulse Resp BP Pulse Ox 97.2 F 89 18 114/62 100 03/28/17 17:33 03/28/17 17:33 03/28/17 17:33 03/28/17 17:33 03/28/17 17:33 Vital Signs Reviewed: Yes - Gaffney Coma Scale Coma Scale Total: 15 Diagnostics - Vital Signs Vital Signs Temp Pulse Resp BP Pulse Ox 03/28/17 17:33 97.2 F 89 18 114/62 100 - Laboratory Lab Results: Lab Results 03/28/17 03/28/17 03/28/17 Range/Units 19:10 19:10 19:10 WBC (3.5-10.8) 10^3/ul RBC (4.0-5.4) 10^6/ul Hgb (12.0-16.0) g/dl Hct (35-47) % MCV (80-97) fL MCH (27-31) pg MCHC (31-36) g/dl RDW (10.5-15) % Plt Count (150-450) 10^3/ul MPV (7.4-10.4) um3 Neut % (Auto) (38-83) % Lymph % (Auto) (25-47) % Lamb % (Auto) (1-9) % Eos % (Auto) (0-6) % Baso % (Auto) (0-2) % Absolute Neuts (auto) (1.5-7.7) 10^3/ul Absolute Lymphs (auto) (1.0-4.8) 10^3/ul Absolute Monos (auto) (0-0.8) 10^3/ul Absolute Eos (auto) (0-0.6) 10^3/ul Absolute Basos (auto) (0-0.2) 10^3/ul Absolute Nucleated RBC 10^3/ul Nucleated RBC % ESR (0-30) mm/Hr INR (Anticoag Therapy) 0.95 (0.77-1.02) APTT 30.4 (26.0-36.3) seconds Sodium 130 L (133-145) mmol/L Potassium TNP Chloride 107 (101-111) mmol/L Carbon Dioxide 18 L (22-32) mmol/L Anion Gap 5 (2-11) mmol/L BUN 8 (6-24) mg/dL Creatinine 0.57 (0.51-0.95) mg/dL Est GFR ( Amer) 139.6 (>60) Est GFR (Non-Af Amer) 108.6 (>60) BUN/Creatinine Ratio 14.0 (8-20) Glucose 74 (70-100) mg/dL Lactic Acid (0.5-2.0) mmol/L Calcium 8.8 (8.6-10.3) mg/dL Magnesium TNP Total Bilirubin 0.40 (0.2-1.0) mg/dL AST TNP ALT 29 (7-52) U/L Alkaline Phosphatase 81 (34-104) U/L C-Reactive Protein 6.91 H (< 5.00) mg/L B-Natriuretic Peptide 184 H ( - 100) pg/mL Total Protein 7.2 (6.4-8.9) g/dL Albumin 4.0 (3.2-5.2) g/dL Globulin 3.2 (2-4) g/dL Albumin/Globulin Ratio 1.3 (1-3) TSH 1.03 (0.34-5.60) mcIU/mL Urine Color Urine Appearance Urine pH (5-9) Ur Specific [place] (1.010-1.030) Urine Protein (Negative) Urine Ketones (Negative) Urine Blood (Negative) Urine Nitrate (Negative) Urine Bilirubin (Negative) Urine Urobilinogen (Negative) Ur Leukocyte Esterase (Negative) Urine WBC (Auto) (Absent) Urine RBC (Auto) (Absent) Ur Squamous Epith Cells (Absent) Urine Bacteria (Absent) Urine Glucose (Negative) 03/28/17 03/28/17 03/28/17 Range/Units 19:10 19:10 20:59 WBC 14.1 H (3.5-10.8) 10^3/ul RBC 4.36 (4.0-5.4) 10^6/ul Hgb 14.3 (12.0-16.0) g/dl Hct 41 (35-47) % MCV 94 (80-97) fL MCH 33 H (27-31) pg MCHC 35 (31-36) g/dl RDW 14 (10.5-15) % Plt Count 250 (150-450) 10^3/ul MPV 7 L (7.4-10.4) um3 Neut % (Auto) 71.6 (38-83) % Lymph % (Auto) 15.4 L (25-47) % Lamb % (Auto) 8.5 (1-9) % Eos % (Auto) 3.4 (0-6) % Baso % (Auto) 1.1 (0-2) % Absolute Neuts (auto) 10.1 H (1.5-7.7) 10^3/ul Absolute Lymphs (auto) 2.2 (1.0-4.8) 10^3/ul Absolute Monos (auto) 1.2 H (0-0.8) 10^3/ul Absolute Eos (auto) 0.5 (0-0.6) 10^3/ul Absolute Basos (auto) 0.2 (0-0.2) 10^3/ul Absolute Nucleated RBC 0 10^3/ul Nucleated RBC % 0 ESR 15 (0-30) mm/Hr INR (Anticoag Therapy) (0.77-1.02) APTT (26.0-36.3) seconds Sodium (133-145) mmol/L Potassium 3.5 Chloride (101-111) mmol/L Carbon Dioxide (22-32) mmol/L Anion Gap (2-11) mmol/L BUN (6-24) mg/dL Creatinine (0.51-0.95) mg/dL Est GFR ( Amer) (>60) Est GFR (Non-Af Amer) (>60) BUN/Creatinine Ratio (8-20) Glucose (70-100) mg/dL Lactic Acid 0.9 (0.5-2.0) mmol/L Calcium (8.6-10.3) mg/dL Magnesium 2.0 Total Bilirubin (0.2-1.0) mg/dL AST 32 ALT (7-52) U/L Alkaline Phosphatase (34-104) U/L C-Reactive Protein (< 5.00) mg/L B-Natriuretic Peptide ( - 100) pg/mL Total Protein (6.4-8.9) g/dL Albumin (3.2-5.2) g/dL Globulin (2-4) g/dL Albumin/Globulin Ratio (1-3) TSH (0.34-5.60) mcIU/mL Urine Color Urine Appearance Urine pH (5-9) Ur Specific [place] (1.010-1.030) Urine Protein (Negative) Urine Ketones (Negative) Urine Blood (Negative) Urine Nitrate (Negative) Urine Bilirubin (Negative) Urine Urobilinogen (Negative) Ur Leukocyte Esterase (Negative) Urine WBC (Auto) (Absent) Urine RBC (Auto) (Absent) Ur Squamous Epith Cells (Absent) Urine Bacteria (Absent) Urine Glucose (Negative) 03/28/17 Range/Units 21:05 WBC (3.5-10.8) 10^3/ul RBC (4.0-5.4) 10^6/ul Hgb (12.0-16.0) g/dl Hct (35-47) % MCV (80-97) fL MCH (27-31) pg MCHC (31-36) g/dl RDW (10.5-15) % Plt Count (150-450) 10^3/ul MPV (7.4-10.4) um3 Neut % (Auto) (38-83) % Lymph % (Auto) (25-47) % Lamb % (Auto) (1-9) % Eos % (Auto) (0-6) % Baso % (Auto) (0-2) % Absolute Neuts (auto) (1.5-7.7) 10^3/ul Absolute Lymphs (auto) (1.0-4.8) 10^3/ul Absolute Monos (auto) (0-0.8) 10^3/ul Absolute Eos (auto) (0-0.6) 10^3/ul Absolute Basos (auto) (0-0.2) 10^3/ul Absolute Nucleated RBC 10^3/ul Nucleated RBC % ESR (0-30) mm/Hr INR (Anticoag Therapy) (0.77-1.02) APTT (26.0-36.3) seconds Sodium (133-145) mmol/L Potassium Chloride (101-111) mmol/L Carbon Dioxide (22-32) mmol/L Anion Gap (2-11) mmol/L BUN (6-24) mg/dL Creatinine (0.51-0.95) mg/dL Est GFR ( Amer) (>60) Est GFR (Non-Af Amer) (>60) BUN/Creatinine Ratio (8-20) Glucose (70-100) mg/dL Lactic Acid (0.5-2.0) mmol/L Calcium (8.6-10.3) mg/dL Magnesium Total Bilirubin (0.2-1.0) mg/dL AST ALT (7-52) U/L Alkaline Phosphatase (34-104) U/L C-Reactive Protein (< 5.00) mg/L B-Natriuretic Peptide ( - 100) pg/mL Total Protein (6.4-8.9) g/dL Albumin (3.2-5.2) g/dL Globulin (2-4) g/dL Albumin/Globulin Ratio (1-3) TSH (0.34-5.60) mcIU/mL Urine Color Yellow Urine Appearance Clear Urine pH 7.0 (5-9) Ur Specific [place] 1.004 L (1.010-1.030) Urine Protein Negative (Negative) Urine Ketones Negative (Negative) Urine Blood Negative (Negative) Urine Nitrate Negative (Negative) Urine Bilirubin Negative (Negative) Urine Urobilinogen Negative (Negative) Ur Leukocyte Esterase 2+ H (Negative) Urine WBC (Auto) 1+(6-10/hpf) H (Absent) Urine RBC (Auto) Trace(0-2/hpf) (Absent) Ur Squamous Epith Cells Present H (Absent) Urine Bacteria Absent (Absent) Urine Glucose Negative (Negative) Result Diagrams: 03/28/17 19:10 03/28/17 20:59 Lab Statement: Any lab studies that have been ordered have been reviewed, and results considered in the medical decision making process. - CT CT Neck CT Interpretation: Positive (See Comments) - IMPRESSION: THICKENING OF THE ARYEPIGLOTTIC FOLDS SUGGESTIVE OF INFLAMMATION OR INFECTION. IF THE PATIENT'S SYMPTOMS PERSIST RECOMMEND DIRECT INSPECTION. ED physician has reviewed this radiology report. CT Interpretation Completed By: Radiologist Neetu Multi-Symp Course/Dx Course Of Treatment: CT SHOWS THICKENING OF THE ARYEPIGLOTTIC FOLDS. THIS WAS DISCUSSED WITH DR PENA, ENT. THE PLAN IS IV ROCEPHIN AND ADMISSION. NO STEROIDS AT THIS TIME THE PATIENT IS POTENTIALLY IMMUNOCOMPROMISED FROM RA MEDICATIONS. THERE IS NO AIRWAY COMPROMISE IN THE EMERGENCY DEPARTMENT. ADMIT HOSPITALIST. - Diagnoses Provider Diagnoses: Sore throat Discharge - Discharge Plan Condition: Stable Disposition: ADMITTED TO [facility] Referrals: Pablo Blackwood NP [Primary Care Provider] - The documentation as recorded by the Bartolo conte Tecjoon accurately reflects the service I personally performed and the decisions made by me, Angel Martin MD.
--- NOTE | 2017-03-29 03:34 | HP ---
H&P (Free Text) History and Physical: PCP: Hermilo Laws NP Date/Time: 03/29/2017 0100 CC: sore throat HPI: Mrs Simpson is a 61YO female HX RA on certolizumab & methotrexate who experienced the onset of sore throat ~1 week ago with gradual progression yesterday to severe pain preventing her from being able to swallow as well as a choking sensation for which she presented. She denied F/C, sweats, N/V, diarrhea , headache, chest pain, cough, congestion, or other issues. Choking sensation is worse in supine position. CT neck reveals swollen aryepiglottic folds giving rise to concern of progression to epiglotitis and potential airway obstruction. A MD Mel ORL was consulted advising no initial steroids to avoid further immunocompromise, IV ceftriaxone, & close observation. PMedHx CVA w/ residual dysesthesia LUE RA on certolizumab & methotrexate COPD HTN HLD anxiety GERD Ambulatory Orders ALPRAZolam TAB* [Xanax TAB*] 0.25 mg PO DAILY 09/29/12 Amitriptyline TAB* [Elavil TAB*] 50 mg PO QPM 09/29/12 Atorvastatin* [Lipitor*] 20 mg PO QPM 09/29/12 Cyclobenzaprine TAB* [Flexeril 10 MG TAB*] 20 mg PO QPM 09/29/12 Furosemide TAB* [Lasix TAB*] 20 mg PO DAILY PRN 09/29/12 Hydroxychloroquine TAB* [Plaquenil TAB*] 400 mg PO DAILY 09/29/12 Methotrexate TAB* 2.5 mg PO WEEKLY 09/29/12 Metoprolol Tartrate TAB* [Lopressor TAB*] 50 mg PO BID 09/29/12 Topiramate TAB(*) [Topamax(*)] 300 mg PO BID 09/29/12 Venlafaxine TAB (NF) [Effexor TAB (NF)] 150 mg PO DAILY 09/29/12 celeCOXIB CAP* [Celebrex CAP*] 200 mg PO BID 09/29/12 Famotidine TAB* [Pepcid TAB*] 20 mg PO BID 08/28/14 Potassium Chlor TAB* [Klor Con ER TAB 10 MEQ*] 10 mg PO DAILY 08/28/14 Clopidogrel TAB* [Plavix TAB*] 75 mg PO DAILY 10/11/14 Gabapentin CAP(*) [Neurontin 300 CAP(*)] 300 mg PO BID 01/14/17 Aspirin [Aspirin Childrens 81 MG] 81 mg PO BEDTIME 02/17/17 Certolizumab Pegol [Cimzia] 200 mg SC MONTHLY 03/28/17 Allergies Penicillins Allergy (Severe, Verified 03/28/17 15:34) Hives PSurgHx cholecystectomy gastric bypass appendectomy tubal ligation B TKA SocHx: 1/2-3/4 PPD cigarettes, no alcohol or recreational drugs; , lives with a roommate; full code status FamHx: daughter: passed of aplastic anemia of unkown cause ROS: as above, otherwise reviewed and all were negative vitals: Vital Signs Temp 36.4 C 03/29/17 02:37 Pulse 90 03/29/17 04:15 Resp 19 03/29/17 04:15 BP 139/86 03/29/17 04:15 Pulse Ox 94 03/29/17 04:15 Intake & Output 03/28/17 03/28/17 03/29/17 11:59 23:59 11:59 Intake Total 1100 Balance 1100 Weight 92.533 kg 94.7 kg Intake: IV Fluids 1100 Constitutional: NAD, normally developed, obese white female HEENM: atraumatic; sclera/conjunctiva: anicteric/clear; hearing: clinically intact; oropharynx: mild/mod erythema, mucosa moist, managing secretions Neck: soft tissue: no nuchal rigidity, tender anteriorly; thyroid: normal Pulmonary: clear to auscultation bilaterally, good aeration, no accessory muscle use CV: RR/RR, normal S1S2, no carotid bruit, no jugular venous distention, 2+ B DP/ PT, no edema Abdominal: soft, non-distended, non-tender, no rebound/guarding/rigidity, normoactive bowel sounds, no hepatosplenomegaly or masses, no costovertebral angle tenderness Musculoskeletal: general: grossly intact w/o tenderness w/ palpation Integumental: normal appearance and texture of exposed skin Psychiatric orientation: AA&O to PPS affect: calm mood: cooperative eye contact: good content: reliable responses: timely insight: good Testing: Lab Results 03/28/17 03/28/17 03/28/17 Range/Units 19:10 19:10 19:10 WBC (3.5-10.8) 10^3/ul RBC (4.0-5.4) 10^6/ul Hgb (12.0-16.0) g/dl Hct (35-47) % MCV (80-97) fL MCH (27-31) pg MCHC (31-36) g/dl RDW (10.5-15) % Plt Count (150-450) 10^3/ul MPV (7.4-10.4) um3 Neut % (Auto) (38-83) % Lymph % (Auto) (25-47) % [place] % (Auto) (1-9) % Eos % (Auto) (0-6) % Baso % (Auto) (0-2) % Absolute Neuts (auto) (1.5-7.7) 10^3/ul Absolute Lymphs (auto) (1.0-4.8) 10^3/ul Absolute Monos (auto) (0-0.8) 10^3/ul Absolute Eos (auto) (0-0.6) 10^3/ul Absolute Basos (auto) (0-0.2) 10^3/ul Absolute Nucleated RBC 10^3/ul Nucleated RBC % ESR (0-30) mm/Hr INR (Anticoag Therapy) 0.95 (0.77-1.02) APTT 30.4 (26.0-36.3) seconds Sodium 130 L (133-145) mmol/L Potassium TNP Chloride 107 (101-111) mmol/L Carbon Dioxide 18 L (22-32) mmol/L Anion Gap 5 (2-11) mmol/L BUN 8 (6-24) mg/dL Creatinine 0.57 (0.51-0.95) mg/dL Est GFR ( Amer) 139.6 (>60) Est GFR (Non-Af Amer) 108.6 (>60) BUN/Creatinine Ratio 14.0 (8-20) Glucose 74 (70-100) mg/dL Lactic Acid (0.5-2.0) mmol/L Calcium 8.8 (8.6-10.3) mg/dL Magnesium TNP Total Bilirubin 0.40 (0.2-1.0) mg/dL AST TNP ALT 29 (7-52) U/L Alkaline Phosphatase 81 (34-104) U/L C-Reactive Protein 6.91 H (< 5.00) mg/L B-Natriuretic Peptide 184 H ( - 100) pg/mL Total Protein 7.2 (6.4-8.9) g/dL Albumin 4.0 (3.2-5.2) g/dL Globulin 3.2 (2-4) g/dL Albumin/Globulin Ratio 1.3 (1-3) TSH 1.03 (0.34-5.60) mcIU/mL Urine Color Urine Appearance Urine pH (5-9) Ur Specific [place] (1.010-1.030) Urine Protein (Negative) Urine Ketones (Negative) Urine Blood (Negative) Urine Nitrate (Negative) Urine Bilirubin (Negative) Urine Urobilinogen (Negative) Ur Leukocyte Esterase (Negative) Urine WBC (Auto) (Absent) Urine RBC (Auto) (Absent) Ur Squamous Epith Cells (Absent) Urine Bacteria (Absent) Urine Glucose (Negative) 03/28/17 03/28/17 03/28/17 Range/Units 19:10 19:10 20:59 WBC 14.1 H (3.5-10.8) 10^3/ul RBC 4.36 (4.0-5.4) 10^6/ul Hgb 14.3 (12.0-16.0) g/dl Hct 41 (35-47) % MCV 94 (80-97) fL MCH 33 H (27-31) pg MCHC 35 (31-36) g/dl RDW 14 (10.5-15) % Plt Count 250 (150-450) 10^3/ul MPV 7 L (7.4-10.4) um3 Neut % (Auto) 71.6 (38-83) % Lymph % (Auto) 15.4 L (25-47) % [place] % (Auto) 8.5 (1-9) % Eos % (Auto) 3.4 (0-6) % Baso % (Auto) 1.1 (0-2) % Absolute Neuts (auto) 10.1 H (1.5-7.7) 10^3/ul Absolute Lymphs (auto) 2.2 (1.0-4.8) 10^3/ul Absolute Monos (auto) 1.2 H (0-0.8) 10^3/ul Absolute Eos (auto) 0.5 (0-0.6) 10^3/ul Absolute Basos (auto) 0.2 (0-0.2) 10^3/ul Absolute Nucleated RBC 0 10^3/ul Nucleated RBC % 0 ESR 15 (0-30) mm/Hr INR (Anticoag Therapy) (0.77-1.02) APTT (26.0-36.3) seconds Sodium (133-145) mmol/L Potassium 3.5 Chloride (101-111) mmol/L Carbon Dioxide (22-32) mmol/L Anion Gap (2-11) mmol/L BUN (6-24) mg/dL Creatinine (0.51-0.95) mg/dL Est GFR ( Amer) (>60) Est GFR (Non-Af Amer) (>60) BUN/Creatinine Ratio (8-20) Glucose (70-100) mg/dL Lactic Acid 0.9 (0.5-2.0) mmol/L Calcium (8.6-10.3) mg/dL Magnesium 2.0 Total Bilirubin (0.2-1.0) mg/dL AST 32 ALT (7-52) U/L Alkaline Phosphatase (34-104) U/L C-Reactive Protein (< 5.00) mg/L B-Natriuretic Peptide ( - 100) pg/mL Total Protein (6.4-8.9) g/dL Albumin (3.2-5.2) g/dL Globulin (2-4) g/dL Albumin/Globulin Ratio (1-3) TSH (0.34-5.60) mcIU/mL Urine Color Urine Appearance Urine pH (5-9) Ur Specific [place] (1.010-1.030) Urine Protein (Negative) Urine Ketones (Negative) Urine Blood (Negative) Urine Nitrate (Negative) Urine Bilirubin (Negative) Urine Urobilinogen (Negative) Ur Leukocyte Esterase (Negative) Urine WBC (Auto) (Absent) Urine RBC (Auto) (Absent) Ur Squamous Epith Cells (Absent) Urine Bacteria (Absent) Urine Glucose (Negative) 03/28/17 Range/Units 21:05 WBC (3.5-10.8) 10^3/ul RBC (4.0-5.4) 10^6/ul Hgb (12.0-16.0) g/dl Hct (35-47) % MCV (80-97) fL MCH (27-31) pg MCHC (31-36) g/dl RDW (10.5-15) % Plt Count (150-450) 10^3/ul MPV (7.4-10.4) um3 Neut % (Auto) (38-83) % Lymph % (Auto) (25-47) % [place] % (Auto) (1-9) % Eos % (Auto) (0-6) % Baso % (Auto) (0-2) % Absolute Neuts (auto) (1.5-7.7) 10^3/ul Absolute Lymphs (auto) (1.0-4.8) 10^3/ul Absolute Monos (auto) (0-0.8) 10^3/ul Absolute Eos (auto) (0-0.6) 10^3/ul Absolute Basos (auto) (0-0.2) 10^3/ul Absolute Nucleated RBC 10^3/ul Nucleated RBC % ESR (0-30) mm/Hr INR (Anticoag Therapy) (0.77-1.02) APTT (26.0-36.3) seconds Sodium (133-145) mmol/L Potassium Chloride (101-111) mmol/L Carbon Dioxide (22-32) mmol/L Anion Gap (2-11) mmol/L BUN (6-24) mg/dL Creatinine (0.51-0.95) mg/dL Est GFR ( Amer) (>60) Est GFR (Non-Af Amer) (>60) BUN/Creatinine Ratio (8-20) Glucose (70-100) mg/dL Lactic Acid (0.5-2.0) mmol/L Calcium (8.6-10.3) mg/dL Magnesium Total Bilirubin (0.2-1.0) mg/dL AST ALT (7-52) U/L Alkaline Phosphatase (34-104) U/L C-Reactive Protein (< 5.00) mg/L B-Natriuretic Peptide ( - 100) pg/mL Total Protein (6.4-8.9) g/dL Albumin (3.2-5.2) g/dL Globulin (2-4) g/dL Albumin/Globulin Ratio (1-3) TSH (0.34-5.60) mcIU/mL Urine Color Yellow Urine Appearance Clear Urine pH 7.0 (5-9) Ur Specific [place] 1.004 L (1.010-1.030) Urine Protein Negative (Negative) Urine Ketones Negative (Negative) Urine Blood Negative (Negative) Urine Nitrate Negative (Negative) Urine Bilirubin Negative (Negative) Urine Urobilinogen Negative (Negative) Ur Leukocyte Esterase 2+ H (Negative) Urine WBC (Auto) 1+(6-10/hpf) H (Absent) Urine RBC (Auto) Trace(0-2/hpf) (Absent) Ur Squamous Epith Cells Present H (Absent) Urine Bacteria Absent (Absent) Urine Glucose Negative (Negative) CXR, personally reviewed: IMPRESSION: THICKENING OF THE ARYEPIGLOTTIC FOLDS SUGGESTIVE OF INFLAMMATION OR INFECTION. IF THE PATIENT'S SYMPTOMS PERSIST RECOMMEND DIRECT INSPECTION. 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
[2017-03-29] MEDS ORDERED: Acetaminophen SUPP* 650 MG SUPP PR PRN (05:59)
[2017-03-29] MEDS ORDERED: Albuterol 2.5 MG/3 ML NEB.SOL* (0.083%) INH PRN (05:59)
[2017-03-29] MEDS ORDERED: LORazepam INJ* 2 MG/ML 1 ML VIAL IV PRN (05:59)
[2017-03-29] MEDS ORDERED: Ondansetron INJ* 2 MG/ML VIAL IV PRN (05:59)
[2017-03-29] MEDS ORDERED: NS 0.9% 1000 ML* 1,000 ML IV SCH (06:00)
[2017-03-29] MEDS ORDERED: cefTRIAXone VIAL(*) 1,000 MG in NS 0.9% 50 ML* 50 ML IVPB SCH (06:00)
[2017-03-29 07:10] LABS: EGFR Non-African American 363.6 (>60)
[2017-03-29] MEDS ORDERED: Pantoprazole IV* 40 MG IV SCH (09:00)
[2017-03-29] MEDS: cefTRIAXone VIAL(*) 1,000 MG in NS 0.9% 50 ML* 50 ML IVPB SCH ×2 (09:37→21:11)
[2017-03-29 09:39] LABS: ABS Basophils 0.2 10^3/ul (0-0.2); ABS Eosinophils 0.4 10^3/ul (0-0.6); ABS Lymphocytes 2.1 10^3/ul (1.0-4.8); ABS Monocytes 0.8 10^3/ul (0-0.8); ABS Neutrophils 5.5 10^3/ul (1.5-7.7); ABS Nucleated RBC 0 10^3/ul; Eosinophil % 4.5 % (0-6); Hematocrit 37 % (35-47); Hemoglobin 12.5 g/dl (12.0-16.0); Lymphocyte % 23.2 % (25-47); Mean Corpuscular HGB Conc 34 g/dl (31-36); Mean Corpuscular Hemoglobin 33 pg (27-31); Mean Corpuscular Volume 96 fL (80-97); Mean Platelet Volume 8 um3 (7.4-10.4); Nucleated Red Blood Cells % 0; Platelet Count 197 10^3/ul (150-450); Red Blood Count 3.83 10^6/ul (4.0-5.4); Red Cell Distribution Width 14 % (10.5-15)
--- NOTE | 2017-03-29 13:58 | PN ---
Progress Note - Progress Note Date of Service: 03/29/17 Note: CRITICAL CARE MEDICINE Date: 03/29/17 Time: 1320 SUBJECTIVE: Patient seen and examined. sister at bedside PHYSICAL EXAM: Vital Signs: Reviewed. Neurologic: stable. communicating well. HEENT: pupils equal. Sclera anicteric. Trachea midline. no edema palpable. coarse voice Cardiovascular: S1 S2 Respiratory: no distress. good phases. no stridor. Abdomen: Soft, nt. Extremities: Warm. Access: piv LABS: Reviewed. IMAGING: Reviewed. MEDICATIONS: Reviewed. ASSESSMENT: 61 F Tx for epiglottis h/o RA on immunosuppressives copd - without exac PLAN: doing fine. Throat feels about the same to her. no breathing issues. on C3. wbc down. steroids reserved. can start clears until ent eval. ent eval pending for direct visualization but non-emergent need. She may need some more time with IV abx to ensure improving direction prior to out of hosp dispo needs but shes ok for floor If any change can consider steroids. Supportive and preventative care as ordered. Disposition: ok for floor; pt expressed understanding Code Status: Full Critical Care Time: 20min FRikki Cornejo DO
[2017-03-29] MEDS ORDERED: Cyclobenzaprine TAB* 10 MG PO PRN (17:12)
[2017-03-29] MEDS ORDERED: Cyclobenzaprine TAB* 10 MG PO SCH (18:00)
[2017-03-29] MEDS: Amitriptyline TAB* 25 MG PO SCH (18:13)
[2017-03-29] MEDS: Metoprolol Tartrate TAB* 50 mg PO SCH (20:44)
[2017-03-29] MEDS: Famotidine TAB* 20 MG PO SCH (20:45)
[2017-03-29] MEDS: Aspirin Low Dose CHEW TAB* 81 MG PO SCH (20:45)
[2017-03-29] MEDS ORDERED: Fluconazole 100 MG TAB* TAB PO ONE (22:27)
[2017-03-30 05:52] LABS: ABS Basophils 0.1 10^3/ul (0-0.2); ABS Eosinophils 0.4 10^3/ul (0-0.6); ABS Lymphocytes 1.6 10^3/ul (1.0-4.8); ABS Monocytes 0.5 10^3/ul (0-0.8); ABS Neutrophils 4.8 10^3/ul (1.5-7.7); ABS Nucleated RBC 0 10^3/ul; Eosinophil % 5.2 % (0-6); Hematocrit 37 % (35-47); Hemoglobin 12.8 g/dl (12.0-16.0); Lymphocyte % 21.7 % (25-47); Mean Corpuscular HGB Conc 35 g/dl (31-36); Mean Corpuscular Hemoglobin 33 pg (27-31); Mean Corpuscular Volume 94 fL (80-97); Mean Platelet Volume 7 um3 (7.4-10.4); Nucleated Red Blood Cells % 0; Platelet Count 210 10^3/ul (150-450); Red Blood Count 3.93 10^6/ul (4.0-5.4); Red Cell Distribution Width 14 % (10.5-15); White Blood Count 7.3 10^3/ul (3.5-10.8)
[2017-03-30 06:08] LABS: EGFR Non-African American 158.8 (>60)
[2017-03-30] MEDS: Famotidine TAB* 20 MG PO SCH ×2 (10:31→20:21)
[2017-03-30] MEDS: ALPRAZolam TAB* 0.25 MG PO SCH (10:32)
[2017-03-30] MEDS: Metoprolol Tartrate TAB* 50 mg PO SCH ×2 (10:32→20:21)
[2017-03-30] MEDS: Clopidogrel TAB* 75 MG PO SCH (10:33)
[2017-03-30] MEDS: Venlafaxine EXT RELEASE CAP* 75 MG PO SCH (10:34)
[2017-03-30] MEDS: cefTRIAXone VIAL(*) 1,000 MG in NS 0.9% 50 ML* 50 ML IVPB SCH ×2 (10:34→21:59)
--- NOTE | 2017-03-30 16:02 | PN ---
Subjective Date of Service: 03/30/17 Interval History: Tolerating liquids well. Pain in throat better today. No new c/o. Objective Active Medications: Acetaminophen (Tylenol Supp*) 650 mg [place] Q6H PRN PRN Reason: FEVER/PAIN Albuterol (Ventolin 2.5 Mg/3 Ml Neb.Janet*) 2.5 mg INH Q2H PRN PRN Reason: SOB/WHEEZING Alprazolam (Xanax Tab*) 0.25 mg PO DAILY [facility] Last Admin: 03/30/17 10:32 Dose: 0.25 mg Amitriptyline HCl (Elavil Tab*) 50 mg PO QPM [facility] Last Admin: 03/29/17 18:13 Dose: 50 mg Aspirin (Aspirin Low Dose Tab*) 81 mg PO BEDTIME [facility] Last Admin: 03/29/17 20:45 Dose: 81 mg Atorvastatin Calcium (Lipitor*) 20 mg PO QPM [facility] Celecoxib (Celebrex Cap*) 200 mg PO BID [facility] Clopidogrel Bisulfate (Plavix Tab*) 75 mg PO DAILY [facility] Last Admin: 03/30/17 10:33 Dose: 75 mg Cyclobenzaprine HCl (Flexeril Tab*) 10 mg PO TID PRN PRN Reason: SPASMS Last Admin: 03/29/17 18:14 Dose: 10 mg Famotidine (Pepcid Tab*) 20 mg PO BID [facility] Last Admin: 03/30/17 10:31 Dose: 20 mg Gabapentin (Neurontin Cap(*)) 300 mg PO BID [facility] Ceftriaxone Sodium 1,000 mg/ (Sodium Chloride) 50 mls @ 200 mls/hr IVPB Q12H [facility] Last Admin: 03/30/17 10:34 Dose: 200 mls/hr Lorazepam (Ativan Inj*) 0.5 mg IV Q6H PRN PRN Reason: ANXIETY Metoprolol Tartrate (Lopressor Tab*) 50 mg PO BID [facility] Last Admin: 03/30/17 10:32 Dose: 50 mg Ondansetron HCl (Zofran Inj*) 4 mg IV Q6H PRN PRN Reason: NAUSEA Topiramate (Topamax(*)) 300 mg PO BID [facility] Venlafaxine HCl (Effexor Xr Cap*) 150 mg PO DAILY [facility] Last Admin: 03/30/17 10:34 Dose: Not Given Vital Signs - 8 hr 03/30/17 03/30/17 03/30/17 08:00 08:17 08:19 Temperature 97.1 F Pulse Rate 64 87 Respiratory 15 13 Rate Blood Pressure 146/89 138/90 (mmHg) O2 Sat by Pulse 98 98 Oximetry 03/30/17 03/30/17 03/30/17 09:13 09:15 10:32 Temperature 97.1 F Pulse Rate 92 Respiratory 16 16 16 Rate Blood Pressure 154/73 (mmHg) O2 Sat by Pulse 100 Oximetry 03/30/17 13:11 Temperature Pulse Rate Respiratory 16 Rate Blood Pressure (mmHg) O2 Sat by Pulse Oximetry Oxygen Devices in Use Now: None Appearance: Alert, sitting on the edge of her bed. In fair spirits. Looks comfortable. Eyes: No Scleral Icterus Neck: NL Appearance and Movements; NL JVP, No Thyroid Enlargement, Masses Respiratory: Symmetrical Chest Expansion and Respiratory Effort, Clear to Auscultation, Clear to Percussion Cardiovascular: NL Sounds; No Murmurs; No JVD, RRR, No Edema, - Extremities: No Edema, No Clubbing, Cyanosis, - Skin: No Rash or Ulcers, No Nodules or Sclerosis, - Neurological: Alert and Oriented x 3, NL Sensation Result Diagrams: 03/30/17 05:40 03/30/17 05:40 Additional Lab and Data: Lab Results 03/28/17 03/28/17 03/28/17 Range/Units 19:10 19:10 19:10 WBC (3.5-10.8) 10^3/ul RBC (4.0-5.4) 10^6/ul Hgb (12.0-16.0) g/dl Hct (35-47) % MCV (80-97) fL MCH (27-31) pg MCHC (31-36) g/dl RDW (10.5-15) % Plt Count (150-450) 10^3/ul MPV (7.4-10.4) um3 Neut % (Auto) (38-83) % Lymph % (Auto) (25-47) % [place] % (Auto) (1-9) % Eos % (Auto) (0-6) % Baso % (Auto) (0-2) % Absolute Neuts (auto) (1.5-7.7) 10^3/ul Absolute Lymphs (auto) (1.0-4.8) 10^3/ul Absolute Monos (auto) (0-0.8) 10^3/ul Absolute Eos (auto) (0-0.6) 10^3/ul Absolute Basos (auto) (0-0.2) 10^3/ul Absolute Nucleated RBC 10^3/ul Nucleated RBC % ESR (0-30) mm/Hr INR (Anticoag Therapy) 0.95 (0.77-1.02) APTT 30.4 (26.0-36.3) seconds Sodium 130 L (133-145) mmol/L Potassium TNP Chloride 107 (101-111) mmol/L Carbon Dioxide 18 L (22-32) mmol/L Anion Gap 5 (2-11) mmol/L BUN 8 (6-24) mg/dL Creatinine 0.57 (0.51-0.95) mg/dL Est GFR ( Amer) 139.6 (>60) Est GFR (Non-Af Amer) 108.6 (>60) BUN/Creatinine Ratio 14.0 (8-20) Glucose 74 (70-100) mg/dL Lactic Acid (0.5-2.0) mmol/L Calcium 8.8 (8.6-10.3) mg/dL Magnesium TNP Total Bilirubin 0.40 (0.2-1.0) mg/dL AST TNP ALT 29 (7-52) U/L Alkaline Phosphatase 81 (34-104) U/L C-Reactive Protein 6.91 H (< 5.00) mg/L B-Natriuretic Peptide 184 H ( - 100) pg/mL Total Protein 7.2 (6.4-8.9) g/dL Albumin 4.0 (3.2-5.2) g/dL Globulin 3.2 (2-4) g/dL Albumin/Globulin Ratio 1.3 (1-3) TSH 1.03 (0.34-5.60) mcIU/mL Urine Color Urine Appearance Urine pH (5-9) Ur Specific [place] (1.010-1.030) Urine Protein (Negative) Urine Ketones (Negative) Urine Blood (Negative) Urine Nitrate (Negative) Urine Bilirubin (Negative) Urine Urobilinogen (Negative) Ur Leukocyte Esterase (Negative) Urine WBC (Auto) (Absent) Urine RBC (Auto) (Absent) Ur Squamous Epith Cells (Absent) Urine Bacteria (Absent) Urine Glucose (Negative) 03/28/17 03/28/17 03/28/17 Range/Units 19:10 19:10 20:59 WBC 14.1 H (3.5-10.8) 10^3/ul RBC 4.36 (4.0-5.4) 10^6/ul Hgb 14.3 (12.0-16.0) g/dl Hct 41 (35-47) % MCV 94 (80-97) fL MCH 33 H (27-31) pg MCHC 35 (31-36) g/dl RDW 14 (10.5-15) % Plt Count 250 (150-450) 10^3/ul MPV 7 L (7.4-10.4) um3 Neut % (Auto) 71.6 (38-83) % Lymph % (Auto) 15.4 L (25-47) % [place] % (Auto) 8.5 (1-9) % Eos % (Auto) 3.4 (0-6) % Baso % (Auto) 1.1 (0-2) % Absolute Neuts (auto) 10.1 H (1.5-7.7) 10^3/ul Absolute Lymphs (auto) 2.2 (1.0-4.8) 10^3/ul Absolute Monos (auto) 1.2 H (0-0.8) 10^3/ul Absolute Eos (auto) 0.5 (0-0.6) 10^3/ul Absolute Basos (auto) 0.2 (0-0.2) 10^3/ul Absolute Nucleated RBC 0 10^3/ul Nucleated RBC % 0 ESR 15 (0-30) mm/Hr INR (Anticoag Therapy) (0.77-1.02) APTT (26.0-36.3) seconds Sodium (133-145) mmol/L Potassium 3.5 Chloride (101-111) mmol/L Carbon Dioxide (22-32) mmol/L Anion Gap (2-11) mmol/L BUN (6-24) mg/dL Creatinine (0.51-0.95) mg/dL Est GFR ( Amer) (>60) Est GFR (Non-Af Amer) (>60) BUN/Creatinine Ratio (8-20) Glucose (70-100) mg/dL Lactic Acid 0.9 (0.5-2.0) mmol/L Calcium (8.6-10.3) mg/dL Magnesium 2.0 Total Bilirubin (0.2-1.0) mg/dL AST 32 ALT (7-52) U/L Alkaline Phosphatase (34-104) U/L C-Reactive Protein (< 5.00) mg/L B-Natriuretic Peptide ( - 100) pg/mL Total Protein (6.4-8.9) g/dL Albumin (3.2-5.2) g/dL Globulin (2-4) g/dL Albumin/Globulin Ratio (1-3) TSH (0.34-5.60) mcIU/mL Urine Color Urine Appearance Urine pH (5-9) Ur Specific [place] (1.010-1.030) Urine Protein (Negative) Urine Ketones (Negative) Urine Blood (Negative) Urine Nitrate (Negative) Urine Bilirubin (Negative) Urine Urobilinogen (Negative) Ur Leukocyte Esterase (Negative) Urine WBC (Auto) (Absent) Urine RBC (Auto) (Absent) Ur Squamous Epith Cells (Absent) Urine Bacteria (Absent) Urine Glucose (Negative) 03/28/17 Range/Units 21:05 WBC (3.5-10.8) 10^3/ul RBC (4.0-5.4) 10^6/ul Hgb (12.0-16.0) g/dl Hct (35-47) % MCV (80-97) fL MCH (27-31) pg MCHC (31-36) g/dl RDW (10.5-15) % Plt Count (150-450) 10^3/ul MPV (7.4-10.4) um3 Neut % (Auto) (38-83) % Lymph % (Auto) (25-47) % [place] % (Auto) (1-9) % Eos % (Auto) (0-6) % Baso % (Auto) (0-2) % Absolute Neuts (auto) (1.5-7.7) 10^3/ul Absolute Lymphs (auto) (1.0-4.8) 10^3/ul Absolute Monos (auto) (0-0.8) 10^3/ul Absolute Eos (auto) (0-0.6) 10^3/ul Absolute Basos (auto) (0-0.2) 10^3/ul Absolute Nucleated RBC 10^3/ul Nucleated RBC % ESR (0-30) mm/Hr INR (Anticoag Therapy) (0.77-1.02) APTT (26.0-36.3) seconds Sodium (133-145) mmol/L Potassium Chloride (101-111) mmol/L Carbon Dioxide (22-32) mmol/L Anion Gap (2-11) mmol/L BUN (6-24) mg/dL Creatinine (0.51-0.95) mg/dL Est GFR ( Amer) (>60) Est GFR (Non-Af Amer) (>60) BUN/Creatinine Ratio (8-20) Glucose (70-100) mg/dL Lactic Acid (0.5-2.0) mmol/L Calcium (8.6-10.3) mg/dL Magnesium Total Bilirubin (0.2-1.0) mg/dL AST ALT (7-52) U/L Alkaline Phosphatase (34-104) U/L C-Reactive Protein (< 5.00) mg/L B-Natriuretic Peptide ( - 100) pg/mL Total Protein (6.4-8.9) g/dL Albumin (3.2-5.2) g/dL Globulin (2-4) g/dL Albumin/Globulin Ratio (1-3) TSH (0.34-5.60) mcIU/mL Urine Color Yellow Urine Appearance Clear Urine pH 7.0 (5-9) Ur Specific [place] 1.004 L (1.010-1.030) Urine Protein Negative (Negative) Urine Ketones Negative (Negative) Urine Blood Negative (Negative) Urine Nitrate Negative (Negative) Urine Bilirubin Negative (Negative) Urine Urobilinogen Negative (Negative) Ur Leukocyte Esterase 2+ H (Negative) Urine WBC (Auto) 1+(6-10/hpf) H (Absent) Urine RBC (Auto) Trace(0-2/hpf) (Absent) Ur Squamous Epith Cells Present H (Absent) Urine Bacteria Absent (Absent) Urine Glucose Negative (Negative) Microbiology and Other Data: Microbiology 03/29/17 02:37 Nasal Screen MRSA (PCR)(KAYLIE) - Final Nasal Mrsa Positive Assess/Plan/Problems-Billing Assessment: - Patient Problems (1) Pharyngitis Current Visit: Yes Status: Acute Code(s): J02.9 - ACUTE PHARYNGITIS, UNSPECIFIED SNOMED Code(s): 004084656 Comment: Thickening of the ariepiglottic folds seen on CT scan. Continue ceftriaxone. Dr. Leal to see 03/30. (2) Rheumatoid arthritis Current Visit: Yes Status: Acute Code(s): M06.9 - RHEUMATOID ARTHRITIS, UNSPECIFIED SNOMED Code(s): 44455714 Comment: Patient sees a [facility] in [place]. MTX, certolizumab, hydroxychloroquine on hold. until infection completely resolved. (3) Tobacco abuse Current Visit: Yes Status: Acute Code(s): Z72.0 - TOBACCO USE SNOMED Code( s): 985888381 Comment: Pt advised to quit smoking and avoid second hand smoke. Nicotine patch ordered.
[2017-03-30] MEDS: Amitriptyline TAB* 25 MG PO SCH (17:38)
[2017-03-30] MEDS: Atorvastatin* 20 MG TAB PO SCH (17:39)
[2017-03-30] MEDS: Fluconazole ORAL.SUSP* 40 MG/ML 35 ML BTL PO SCH (18:34)
[2017-03-30] MEDS: Topiramate TAB(*) 100 MG PO SCH (20:21)
[2017-03-30] MEDS: Aspirin Low Dose CHEW TAB* 81 MG PO SCH (20:22)
[2017-03-30] MEDS: celeCOXIB CAP* 200 MG PO SCH (20:23)
[2017-03-30] MEDS: Gabapentin CAP(*) 300 MG PO SCH (20:24)
[2017-03-30] MEDS ORDERED: Nicotine Patch Removal NOTE PATCH OFF SCH (21:00)
--- NOTE | 2017-03-30 22:12 | CONS ---
CONSULTATION REPORT: DATE OF CONSULT: 03/30/17 This is for the hospitalist service by Dr. Leal. BRIEF HISTORY: This pleasant 61-year-old female presented to the emergency room on Thursday night with significant odynophagia and mild symptoms suggestive of laryngitis. She was admitted, placed on IV antibiotics as there is clinical suspicion of laryngeal edema. There was no evidence of airway compromise. She was not stridorous, but she did have moderate odynophagia. She has a remote history in the past having had significant symptoms of dysphagia with a feeling of choking. She is also immunocompromised in that she is taking medication for rheumatoid arthritis. She had been placed on IV antibiotic Rocephin with gradual improvement in her symptoms. She continued to have odynophagia at the bedside. She was handling her secretions without difficulty. PHYSICAL EXAMINATION: On physical examination, the ear canals are clear. Nasal cavity, oral cavity and oropharynx is unremarkable. PROCEDURE NOTE: Flexible endoscopy was carried out through the left nare. It was evidently obvious that the patient had evidence of aryepiglottic and arytenoid erythema with some whitish plaque suggestive of an acute laryngitis, possible bacterial etiology versus fungal etiology. The airway was adequate without any evidence of laryngeal edema suggestive of airway compromise. The glottis, otherwise was clear. There was some erythema of the aryepiglottic area with some arytenoid edema. CLINICAL IMPRESSION: The patient with what appears to be laryngitis, possible bacterial etiologies predominantly involving the posterior larynx and posterior pharyngeal mucosa. This could represent some fungal etiology versus a bacterial etiology. She is on Rocephin. I would add Diflucan 150 mg liquid once a day. I will reexamine her tomorrow. If she is clinically slowly improving, we will probably have to discharge her on Diflucan as well as a third generation cephalosporin. She may be somewhat immunocompromised and this may be contributing to her acute infection. [id number]/[facility] #: [id number] MTDD
[2017-03-31] MEDS ORDERED: Nicotine PATCH 21 MG/24 HR* PATCH TRANSDERM SCH (09:00)
[2017-03-31] MEDS: Topiramate TAB(*) 100 MG PO SCH (09:03)
[2017-03-31] MEDS: Metoprolol Tartrate TAB* 50 mg PO SCH (09:03)
[2017-03-31] MEDS: celeCOXIB CAP* 200 MG PO SCH (09:04)
[2017-03-31] MEDS: Clopidogrel TAB* 75 MG PO SCH (09:05)
[2017-03-31] MEDS: ALPRAZolam TAB* 0.25 MG PO SCH (09:05)
[2017-03-31] MEDS: Fluconazole ORAL.SUSP* 40 MG/ML 35 ML BTL PO SCH (09:05)
[2017-03-31] MEDS: Famotidine TAB* 20 MG PO SCH (09:05)
[2017-03-31] MEDS: Venlafaxine EXT RELEASE CAP* 75 MG PO SCH (09:05)
[2017-03-31] MEDS: Gabapentin CAP(*) 300 MG PO SCH (09:06)
[2017-03-31 12:04] VITALS: BP 123/73
[2017-03-31] MEDS ORDERED: Clotrimazole 1% CREAM* 30 GM TOPICAL SCH (13:00)
--- NOTE | 2017-03-31 13:09 | PN ---
Subjective Date of Service: 03/31/17 Interval History: Somewhat better today, less pain, tolerating full liquid diet. C/O rash L axilla. Objective Active Medications: Acetaminophen (Tylenol Supp*) 650 mg [place] Q6H PRN PRN Reason: FEVER/PAIN Albuterol (Ventolin 2.5 Mg/3 Ml Neb.Janet*) 2.5 mg INH Q2H PRN PRN Reason: SOB/WHEEZING Alprazolam (Xanax Tab*) 0.25 mg PO DAILY [facility] Last Admin: 03/31/17 09:05 Dose: 0.25 mg Amitriptyline HCl (Elavil Tab*) 50 mg PO QPM [facility] Last Admin: 03/30/17 17:38 Dose: 50 mg Aspirin (Aspirin Low Dose Tab*) 81 mg PO BEDTIME [facility] Last Admin: 03/30/17 20:22 Dose: 81 mg Atorvastatin Calcium (Lipitor*) 20 mg PO QPM [facility] Last Admin: 03/30/17 17:39 Dose: 20 mg Celecoxib (Celebrex Cap*) 200 mg PO BID [facility] Last Admin: 03/31/17 09:04 Dose: 200 mg Clopidogrel Bisulfate (Plavix Tab*) 75 mg PO DAILY [facility] Last Admin: 03/31/17 09:05 Dose: 75 mg Clotrimazole (Clotrimazole 1%*) 1 applic TOPICAL BID [facility] Cyclobenzaprine HCl (Flexeril Tab*) 10 mg PO TID PRN PRN Reason: SPASMS Last Admin: 03/29/17 18:14 Dose: 10 mg Famotidine (Pepcid Tab*) 20 mg PO BID [facility] Last Admin: 03/31/17 09:05 Dose: 20 mg Fluconazole (Diflucan Oral.Susp*) 150 mg PO DAILY [facility] Stop: 04/05/17 23:00 Last Admin: 03/31/17 09:05 Dose: 150 mg Gabapentin (Neurontin Cap(*)) 300 mg PO BID [facility] Last Admin: 03/31/17 09:06 Dose: 300 mg Ceftriaxone Sodium 1,000 mg/ (Dextrose) 50 mls @ 200 mls/hr IVPB 1000,2200 [facility] Lorazepam (Ativan Inj*) 0.5 mg IV Q6H PRN PRN Reason: ANXIETY Metoprolol Tartrate (Lopressor Tab*) 50 mg PO BID [facility] Last Admin: 03/31/17 09:03 Dose: 50 mg Nicotine (Nicotine Patch 21 Mg/24 Hr*) 1 patch TRANSDERM DAILY [facility] Last Admin: 03/31/17 09:06 Dose: Not Given Ondansetron HCl (Zofran Inj*) 4 mg IV Q6H PRN PRN Reason: NAUSEA Pharmacy Profile Note (Nicotine Patch Removal Note*) 1 note PATCH OFF 2100 [facility] Last Admin: 03/30/17 20:26 Dose: Not Given Topiramate (Topamax(*)) 300 mg PO BID [facility] Last Admin: 03/31/17 09:03 Dose: 300 mg Venlafaxine HCl (Effexor Xr Cap*) 150 mg PO DAILY [facility] Last Admin: 03/31/17 09:05 Dose: 150 mg Vital Signs - 8 hr 03/31/17 03/31/17 03/31/17 07:14 09:00 09:05 Temperature 98.4 F Pulse Rate 68 Respiratory 16 16 14 Rate Blood Pressure 131/60 (mmHg) O2 Sat by Pulse 100 Oximetry 03/31/17 03/31/17 09:06 11:44 Temperature 98.2 F Pulse Rate 65 Respiratory 14 16 Rate Blood Pressure 123/73 (mmHg) O2 Sat by Pulse 97 Oximetry Oxygen Devices in Use Now: None Appearance: Alert, sitting up in bed. In good spirits. Looks comfortable. Eyes: No Scleral Icterus Skin: No Nodules or Sclerosis, - - typical fungal dermatitis 8 x8 cm L axilla. Result Diagrams: 03/30/17 05:40 03/30/17 05:40 Additional Lab and Data: Lab Results 03/28/17 03/28/17 03/28/17 Range/Units 19:10 19:10 19:10 WBC (3.5-10.8) 10^3/ul RBC (4.0-5.4) 10^6/ul Hgb (12.0-16.0) g/dl Hct (35-47) % MCV (80-97) fL MCH (27-31) pg MCHC (31-36) g/dl RDW (10.5-15) % Plt Count (150-450) 10^3/ul MPV (7.4-10.4) um3 Neut % (Auto) (38-83) % Lymph % (Auto) (25-47) % [place] % (Auto) (1-9) % Eos % (Auto) (0-6) % Baso % (Auto) (0-2) % Absolute Neuts (auto) (1.5-7.7) 10^3/ul Absolute Lymphs (auto) (1.0-4.8) 10^3/ul Absolute Monos (auto) (0-0.8) 10^3/ul Absolute Eos (auto) (0-0.6) 10^3/ul Absolute Basos (auto) (0-0.2) 10^3/ul Absolute Nucleated RBC 10^3/ul Nucleated RBC % ESR (0-30) mm/Hr INR (Anticoag Therapy) 0.95 (0.77-1.02) APTT 30.4 (26.0-36.3) seconds Sodium 130 L (133-145) mmol/L Potassium TNP Chloride 107 (101-111) mmol/L Carbon Dioxide 18 L (22-32) mmol/L Anion Gap 5 (2-11) mmol/L BUN 8 (6-24) mg/dL Creatinine 0.57 (0.51-0.95) mg/dL Est GFR ( Amer) 139.6 (>60) Est GFR (Non-Af Amer) 108.6 (>60) BUN/Creatinine Ratio 14.0 (8-20) Glucose 74 (70-100) mg/dL Lactic Acid (0.5-2.0) mmol/L Calcium 8.8 (8.6-10.3) mg/dL Magnesium TNP Total Bilirubin 0.40 (0.2-1.0) mg/dL AST TNP ALT 29 (7-52) U/L Alkaline Phosphatase 81 (34-104) U/L C-Reactive Protein 6.91 H (< 5.00) mg/L B-Natriuretic Peptide 184 H ( - 100) pg/mL Total Protein 7.2 (6.4-8.9) g/dL Albumin 4.0 (3.2-5.2) g/dL Globulin 3.2 (2-4) g/dL Albumin/Globulin Ratio 1.3 (1-3) TSH 1.03 (0.34-5.60) mcIU/mL Urine Color Urine Appearance Urine pH (5-9) Ur Specific [place] (1.010-1.030) Urine Protein (Negative) Urine Ketones (Negative) Urine Blood (Negative) Urine Nitrate (Negative) Urine Bilirubin (Negative) Urine Urobilinogen (Negative) Ur Leukocyte Esterase (Negative) Urine WBC (Auto) (Absent) Urine RBC (Auto) (Absent) Ur Squamous Epith Cells (Absent) Urine Bacteria (Absent) Urine Glucose (Negative) 03/28/17 03/28/17 03/28/17 Range/Units 19:10 19:10 20:59 WBC 14.1 H (3.5-10.8) 10^3/ul RBC 4.36 (4.0-5.4) 10^6/ul Hgb 14.3 (12.0-16.0) g/dl Hct 41 (35-47) % MCV 94 (80-97) fL MCH 33 H (27-31) pg MCHC 35 (31-36) g/dl RDW 14 (10.5-15) % Plt Count 250 (150-450) 10^3/ul MPV 7 L (7.4-10.4) um3 Neut % (Auto) 71.6 (38-83) % Lymph % (Auto) 15.4 L (25-47) % [place] % (Auto) 8.5 (1-9) % Eos % (Auto) 3.4 (0-6) % Baso % (Auto) 1.1 (0-2) % Absolute Neuts (auto) 10.1 H (1.5-7.7) 10^3/ul Absolute Lymphs (auto) 2.2 (1.0-4.8) 10^3/ul Absolute Monos (auto) 1.2 H (0-0.8) 10^3/ul Absolute Eos (auto) 0.5 (0-0.6) 10^3/ul Absolute Basos (auto) 0.2 (0-0.2) 10^3/ul Absolute Nucleated RBC 0 10^3/ul Nucleated RBC % 0 ESR 15 (0-30) mm/Hr INR (Anticoag Therapy) (0.77-1.02) APTT (26.0-36.3) seconds Sodium (133-145) mmol/L Potassium 3.5 Chloride (101-111) mmol/L Carbon Dioxide (22-32) mmol/L Anion Gap (2-11) mmol/L BUN (6-24) mg/dL Creatinine (0.51-0.95) mg/dL Est GFR ( Amer) (>60) Est GFR (Non-Af Amer) (>60) BUN/Creatinine Ratio (8-20) Glucose (70-100) mg/dL Lactic Acid 0.9 (0.5-2.0) mmol/L Calcium (8.6-10.3) mg/dL Magnesium 2.0 Total Bilirubin (0.2-1.0) mg/dL AST 32 ALT (7-52) U/L Alkaline Phosphatase (34-104) U/L C-Reactive Protein (< 5.00) mg/L B-Natriuretic Peptide ( - 100) pg/mL Total Protein (6.4-8.9) g/dL Albumin (3.2-5.2) g/dL Globulin (2-4) g/dL Albumin/Globulin Ratio (1-3) TSH (0.34-5.60) mcIU/mL Urine Color Urine Appearance Urine pH (5-9) Ur Specific [place] (1.010-1.030) Urine Protein (Negative) Urine Ketones (Negative) Urine Blood (Negative) Urine Nitrate (Negative) Urine Bilirubin (Negative) Urine Urobilinogen (Negative) Ur Leukocyte Esterase (Negative) Urine WBC (Auto) (Absent) Urine RBC (Auto) (Absent) Ur Squamous Epith Cells (Absent) Urine Bacteria (Absent) Urine Glucose (Negative) 03/28/17 Range/Units 21:05 WBC (3.5-10.8) 10^3/ul RBC (4.0-5.4) 10^6/ul Hgb (12.0-16.0) g/dl Hct (35-47) % MCV (80-97) fL MCH (27-31) pg MCHC (31-36) g/dl RDW (10.5-15) % Plt Count (150-450) 10^3/ul MPV (7.4-10.4) um3 Neut % (Auto) (38-83) % Lymph % (Auto) (25-47) % [place] % (Auto) (1-9) % Eos % (Auto) (0-6) % Baso % (Auto) (0-2) % Absolute Neuts (auto) (1.5-7.7) 10^3/ul Absolute Lymphs (auto) (1.0-4.8) 10^3/ul Absolute Monos (auto) (0-0.8) 10^3/ul Absolute Eos (auto) (0-0.6) 10^3/ul Absolute Basos (auto) (0-0.2) 10^3/ul Absolute Nucleated RBC 10^3/ul Nucleated RBC % ESR (0-30) mm/Hr INR (Anticoag Therapy) (0.77-1.02) APTT (26.0-36.3) seconds Sodium (133-145) mmol/L Potassium Chloride (101-111) mmol/L Carbon Dioxide (22-32) mmol/L Anion Gap (2-11) mmol/L BUN (6-24) mg/dL Creatinine (0.51-0.95) mg/dL Est GFR ( Amer) (>60) Est GFR (Non-Af Amer) (>60) BUN/Creatinine Ratio (8-20) Glucose (70-100) mg/dL Lactic Acid (0.5-2.0) mmol/L Calcium (8.6-10.3) mg/dL Magnesium Total Bilirubin (0.2-1.0) mg/dL AST ALT (7-52) U/L Alkaline Phosphatase (34-104) U/L C-Reactive Protein (< 5.00) mg/L B-Natriuretic Peptide ( - 100) pg/mL Total Protein (6.4-8.9) g/dL Albumin (3.2-5.2) g/dL Globulin (2-4) g/dL Albumin/Globulin Ratio (1-3) TSH (0.34-5.60) mcIU/mL Urine Color Yellow Urine Appearance Clear Urine pH 7.0 (5-9) Ur Specific [place] 1.004 L (1.010-1.030) Urine Protein Negative (Negative) Urine Ketones Negative (Negative) Urine Blood Negative (Negative) Urine Nitrate Negative (Negative) Urine Bilirubin Negative (Negative) Urine Urobilinogen Negative (Negative) Ur Leukocyte Esterase 2+ H (Negative) Urine WBC (Auto) 1+(6-10/hpf) H (Absent) Urine RBC (Auto) Trace(0-2/hpf) (Absent) Ur Squamous Epith Cells Present H (Absent) Urine Bacteria Absent (Absent) Urine Glucose Negative (Negative) Microbiology and Other Data: Microbiology 03/29/17 02:37 Nasal Screen MRSA (PCR)(KAYLIE) - Final Nasal Mrsa Positive Assess/Plan/Problems-Billing Assessment: - Patient Problems (1) Pharyngitis Status: Acute Code(s): J02.9 - ACUTE PHARYNGITIS, UNSPECIFIED SNOMED Code(s) : 711927047 Comment: Thickening of the ariepiglottic folds seen on CT scan. Continue ceftriaxone. Dr. Leal to [facility] 03/31. If improved will discharge on cefuroxime 500 mg bid x 8 d, clotrimazole cream bid, fluconazole suspension 150 mg daily x 8 days. (2) Rheumatoid arthritis Status: Acute Code(s): M06.9 - RHEUMATOID ARTHRITIS, UNSPECIFIED SNOMED Code (s): 06100511 Comment: Patient sees a [employer] in [place]. MTX, certolizumab, hydroxychloroquine on hold. until infection completely resolved. (3) Tobacco abuse Status: Acute Code(s): Z72.0 - TOBACCO USE SNOMED Code(s): 463602005 Comment: Pt advised to quit smoking and avoid second hand smoke. Nicotine patch ordered. (4) Fungal dermatitis Status: Acute Comment: Clotrimazole cream started 03/31.
[2017-03-31] MEDS: Amitriptyline TAB* 25 MG PO SCH (17:33)
[2017-03-31] MEDS: Atorvastatin* 20 MG TAB PO SCH (17:33)
--- NOTE | 2017-03-31 17:50 | PN ---
Progress Note - Progress Note Date of Service: 03/31/17 Note: Time spent on discharge 45 minutes.
[2017-03-31] MEDS ORDERED: Fluconazole ORAL.SUSP* 40 MG/ML 35 ML BTL PO ONE (18:00)
[2017-03-31] MEDS ORDERED: ceFUROXime TAB(*) 250 MG PO SCH (21:00)
[2017-03-31] MEDS ORDERED: Amoxicillin/Clavulanate TAB* 875 MG PO SCH (21:00)
[2017-03-31] MEDS ORDERED: cefTRIAXone VIAL(*) 1,000 MG in D5W 50 ML BAG* 50 ML IVPB SCH (22:00)
== END 2017-03-31 18:40 | disposition home or self-care (01) | DRG 153 ==
LOC: ED 17:23 → ICU 03-29 01:06 → SSU 03-30 09:12 → OBSVTOIN 03-30 11:00
PROVIDERS: ADMIT Hospitalist; ATTEND Internal Medicine
PROC: 0CJS8ZZ Inspection of Larynx, Via Natural or Artificial Opening Endoscopic (ICD-10-PCS; principal; 2017-03-30)
DX: J02.9 Acute pharyngitis, unspecified (principal); J05.10 Acute epiglottitis without obstruction; B36.9 Superficial mycosis, unspecified; E66.9 Obesity, unspecified; E78.5 Hyperlipidemia, unspecified; F17.210 Nicotine dependence, cigarettes, uncomplicated; M06.9 Rheumatoid arthritis, unspecified; R20.8 Other disturbances of skin sensation; J44.9 Chronic obstructive pulmonary disease, unspecified; F41.9 Anxiety disorder, unspecified; K21.9 Gastro-esophageal reflux disease without esophagitis; Z96.653 Presence of artificial knee joint, bilateral; M19.90 Unspecified osteoarthritis, unspecified site; F32.9 Major depressive disorder, single episode, unspecified; R40.2412 Glasgow coma scale score 13-15, at arrival to emergency department; I10 Essential (primary) hypertension; I69.398 Other sequelae of cerebral infarction; Z88.0 Allergy status to penicillin; Z90.49 Acquired absence of other specified parts of digestive tract; Z98.84 Bariatric surgery status; Z98.51 Tubal ligation status; Z83.2 Family history of diseases of the blood and blood-forming organs and certain disorders involving the immune mechanism; Z68.33 Body mass index [BMI] 33.0-33.9, adult; Z90.710 Acquired absence of both cervix and uterus; Z82.49 Family history of ischemic heart disease and other diseases of the circulatory system
CPT/HCPCS: 36415; 70491; 80048; 80053; 81003; 81015; 83605; 83735; 83880; 84443; 85025; 85610; 85652; 85730; 86140; 87040; 87480; 87491; 87510; 87591; 87641; 87661; 94760; 96374; 96375; 99285; A9270-GY; G0378; J0696; Q9967

== ENCOUNTER 2018-09-28 16:02 | Emergency (ER) | payer MEDICARE, MEDICAID ==
--- OUTSIDE RECORDS SUMMARY | 2018-09-28 16:13 | XMS REPORT | Continuity of Care Document ---
:1955 Author Name Straight Line Edger, System Address Unavailable Unavailable , Care Team Providers Name Role Phone Per KAUFMAN, Jessica Vargas Unavailable Estefany KAUFMAN, Dr. Leonid Hodges Unavailable Kasandra KAUFMAN, Moncho Unavailable Unavailable Valentino KAUFMAN, Sudeep Amanda Unavailable Aleyda KAUFMAN, Ramón Fong Unavailable Zander MSN NPC, Carolina Unavailable Anya Msn Npc, Taryn A Unavailable More LRT, Jessica Unavailable Unavailable Collazo CLAMP OPERATOR, Malorie Unavailable Unavailable Favian CLAMP OPERATOR, Stacy Unavailable Unavailable Slowik CLAMP OPERATOR, Maritza Unavailable Unavailable Reji NPC, Naty M Unavailable Unavailable Unavailable Problems ABNORMAL CHEST CT (R93.89) (793.2) MD Leonid Allison Dr. BRONCHIECTASIS (J47.9) (494.0) Anya, Msn Npc Taryn Amanda CHRONIC SINUSITIS (J32.9) (473.9) MD Leonid Allison Dr. CVA (CEREBRAL INFARCTION) (I63.9) (434.91) MD Leonid Allison Dr. Comments : residual right arm weakness DYSPHONIA (R49.0) (784.42) MD Leonid Allison Dr. Prognosis: Former smoker, cxr appears normal as of 12-Jul-2018 DYSPNEA (R06.00) (786.09) MD Leonid Allison Dr. FIBROMYALGIA (Renamed from DIFFUSE MYOFASCIAL PAIN SYNDROME) (M79.7) (729.1) MD Leonid Allison Dr. HEMOPTYSIS (R04.2) (786.30) MD Leonid Allison Dr. Prognosis: patient had an episode of hemoptysis after discharge from the hospital, but this once again is resolved. She has significant bronchiectasis. as of 12-Jul-2018 HYPERTENSION (I10) (401.9) MD Leonid Allison Dr. OBESITY (Renamed from OBESE) (E66.9) (278.00) MD Leonid Allison Dr. BONITA (OBSTRUCTIVE SLEEP APNEA) (G47.33) (327.23) MD Leonid Allison Dr. Comments: MILD AHI 13 LOW SAT 92% CPAP + 8CM OSTEOARTHRITIS (M19.90) (715.90) MD Leonid Allison Dr. Comments: S/P RIGHT TKR PNEUMONIA (J18.9) (486) AYLA Mendoza Comments: WITH MRSA. hospitalized December 2016 PREOP RESPIRATORY EXAM (Z01.811) (V72.82) MD Leonid Allison Dr. Prognosis: Patient is recovering from a recent sinus infection and continues to have active symptoms of infection. She was also recently on prednisone. We' ll treat with another course of antibiotics. PFT and ch est x-ray are normal. Surgery not prohibitive from our perspective as long as she is infection free. She may require stress steroids given her recent use of prednisone. We recommend the use of nasal CPAP postoperatively. If CPAP is unavailable or she is unable to use it, then the head of the bed should be elevated, sedatives should be avoided, and narcotic exposure should be minimized. as of 12-Jul-2018 RHEUMATOID ARTHRITIS (Renamed from ARTHRITIS OR POLYARTHRITIS, RHEUMATOID) ( M06.9) (714.0) MD Leonid Allison Dr. SHORTNESS OF BREATH (R06.02) (786.05) MD Leonid Allison Dr. STATUS POST GASTRIC BYPASS FOR OBESITY (Renamed from GASTRIC BYPASS STATUS FOR OBESITY) (Z98.84) (V45.86) MD Leonid Allison Dr. Allergies and Adverse Reactions Penicillins (Allergy) Reaction: Hives Medications Albuterol Sulfate (2.5 MG/3ML) 0.083% Inhalation Nebulization Solution; 1 (one ) Ampule every six hours for 30 days Ordered: 15-Apr-2018 Start: 15-Apr-2018 Quantity: 120 {Ampule} Benigno Joyner Npc Taryn Amanda Comments: BILL MEDICARE PART B, USING J CODE Refills: 5 ALPRAZOLAM, 0.25MG (Oral Tablet); Comments: Medication taken 1 as needed (0.25 MG) as needed. AMITRIPTYLINE HCL, 25MG (Oral Tablet); 2 AT bedtime (25 MG) Bactrim DS 800-160 MG Oral Tablet; 1 (one) Tablet every twelve hours for 14 days Ordered: 21-Sep-2018 Start: 21-Sep-2018 Quantity: 28 {Tablet} AYLA Mendoza Naty Akhtar Refills: 0 CELEBREX, 200MG (Oral Capsule); 1 two times daily (200 MG) Cimzia Prefilled 2 X 200 MG/ML Subcutaneous Kit; MONTHLY (2 X 200 MG/ML) CPAP ( Device) (Free Text); AT Comments: DOES NOT USE bedtime CYCLOBENZAPRINE HCL, 10MG (Oral Tablet); 3 AT bedtime (10 MG) Famotidine 20 MG Oral Tablet; 1 Daily (20 MG) FUROSEMIDE, 20MG (Oral Tablet); 1 Daily (20 MG) Gabapentin 300 MG Oral Capsule; 2 THree times daily (300 MG) HYDROXYCHLOROQUINE SULFATE, 200MG (Oral Tablet); 1 Two times daily (200 MG) LIPITOR, 20MG (Oral Tablet); 1 Daily (20 MG) METOPROLOL TARTRATE, 50MG (Oral Tablet); 1 three times daily (50 MG) OXYCODONE-ACETAMINOPHEN, 5-325MG Comments: Medication taken (Oral Tablet); needed (5-325 as needed. MG) RANITIDINE HCL, 150MG (Oral Tablet); 1 Two times daily (150 MG) TOPIRAMATE, 200MG (Oral Tablet); 1 1/2 Daily (200 MG) VENLAFAXINE HCL ER, 150MG (Oral Capsule Extended Release 24 Hour); 1 Daily (150 MG) Ventolin HFA 108 (90 Base) MCG/ACT Inhalation Aerosol Solution; 2 Inhalation four times daily, as needed for 30 days Ordered: 13-Jul-2018 Start: 2018 Quantity: 1 {Inhalation} Benigno Joynerjean Amanda Comments: Medication taken as needed. Refills: 5 C-Pap machine @ +8cm; at bedtime Status: Inactive Doxycycline Monohydrate 100 MG Oral Capsule; 1 (one) Capsule Capsule two times daily for 14 days Ordered: 02-Apr-2018 Start: 02-Apr-2018 End: 2018 Quantity: 28 {Capsule} TAZ Collazo Status: Inactive Refills: 0 Comments: Take probiotics while on antibiotic ENBREL, 25MG (Subcutaneous Kit); End: 16-Jul-2015 Daily (25 MG) Status: Inactive ENBREL, 50MG/ML (Subcutaneous End: 16-Jul-2015 Solution Prefilled Syringe); 1 Status: Inactive injection once a week (50 MG/ML) HYDROCODONE-ACETAMINOPHEN, Status: Inactive 5-500MG (Oral Tablet); 1 at bedtime (5-500 MG) LEVOFLOXACIN, 500MG (Oral Tablet); 1 (one) Tablet daily for 7 days Ordered: 04-Jul-2014 Start: 04-Jul-2014 End: 11-Jul-2014 Quantity: 7 {Tablet} Kitty Dorado Status: Inactive Refills: 0 METHOTREXATE, 2.5MG (Oral Status: Inactive Tablet); 9 tablets once a week (2.5 MG) Moxifloxacin HCl 400 MG Oral Tablet; 1 (one) Tablet daily for 10 days Ordered : 30-Aug-2018 Start: 30-Aug-2018 End: 09-Sep-2018 Quantity: 10 {Tablet} AYLA Mendoza Status: Inactive Refills: 0 Comments: Patient should take probiotics while on medication. At first sign of pain in area of achilles tendon, patient should stop the drug and call. PLAQUENIL, 200MG (Oral Tablet); Status: Inactive 2 tabs daily (200 MG) POTASSIUM CHLORIDE ER, 10MEQ Status: Inactive (Oral Capsule Extended Release); 1 Daily (10 MEQ) predniSONE 5 MG Oral Tablet; 6 Tablet DAILY DECREASING BY 5 MG QOD UNTIL GONE for 12 days Ordered: 30-Aug-2018 Start: 30-Aug-2018 End: 11-Sep-2018 Quantity: 42 {Tablet} AYLA Mendoza Status: Inactive Refills: 0 PREDNISONE, 5MG (Oral Tablet); End: 16-Jul-2015 (5 MG) Status: Inactive SUMATRIPTAN SUCCINATE, 50MG (Oral End: 16-Jul-2015 Tablet); 1 Daily (50 MG) Status: Inactive VENLAFAXINE HCL, 150MG (Oral Status: Inactive Tablet Extended Release 24 Hour); 1 daily (150 MG) Cymbalta 60 MG Oral Capsule End: 11-Sep-2016 Delayed Release Particles; 1 Status: Discontinued Daily (60 MG) ProAir HFA 108 (90 Base) MCG/ACT Inhalation Aerosol Solution; 2 (two) Puff(s) four times daily as needed for 30 days Ordered: 18-Dec-2017 Start: 2017 End: 13-Jul-2018 Quantity: 1 {Inhaler} TAZ Collazo Status: Discontinued Refills: 6 Comments: Medication taken as needed. Please substitute formulary preferred med prn Procedures EXHALED NITRIC OXIDE MEASUREMENT (92576) Status: Completed 12-Jul-2018 PRE AND POST (23157) Status: Completed 12-Jul-2018 RESPIRATORY FLOW VOLUME LOOP (56689) Status: Completed 04-Jul-2014 PRE AND POST (64190) Status: Completed 04-Jul-2014 Arthroscopic Ankle Surgery - Left Status: Completed Sep-2011 Comments: DR CHAPMAN Chest X-ray Status: Completed 12-Jul-2018 Comments: Lungs grossly clear. Improved compared to 01/21/18. Chest X-ray Status: Completed 16-Jul-2015 Comments: compared to 07/04/14: stable, no infiltrates, effusions, normal cariac and mediastinal contours Cpap titration Status: Completed Comments: [facility] sleep lab; 04/08/2005 CT Scan of Chest Status: Completed 10-Dec-2017 Comments: Diffuse left lower lobe and lingular airspace disease with air bronchograms, and RLL patchy infiltrates, with tiny areas of necrosis. #02/08/18 : Left lower lobe bronchiectasis. Persistent but decreased left lower lobe infiltrate and decreased groundglass changes compared to hospital CT from 01/20/18. #04/15/18:Improved left upper lobe groundglass opacities. Bronchiectasis unchanged. Unchanged left l ower lobe atelectasis and/or pneumonia, unchanged secretions within the trachea. New 2 mm nodules (3), MARIA ISABEL. FeNO Status: Completed 12-Jul-2018 Comments: 17 ppb Flu Vaccine Status: Completed 21-Jan-2014 Flu Vaccine Status: Completed 21-Dec-2014 Comments: 12/2016 Hospitalization Status: Completed 05-Jan-2018 Comments: Abnormal. [facility]; consultation Mary KAUFMAN; LLL pneumonia on chest film Hospitalization Status: Completed Jun-2017 Comments: [facility], sinusitis and RLL pneumonia PFT Status: Completed 12-Jul-2018 Comments: Possible moderate restriction. Forced vital capacity 1.83 (50%) , FEV1 1.51 (53%), FEV1/FVC 83%. Improved compared to 04/15/18. PFT Status: Completed 15-Apr-2018 Comments: Restriction Possible. No Obstruction. FVC 1.63 (44%) FEV1 1.32 ( 46%) FEV1/FVC ratio 81, slightly decreased from previous study of 12/10/2017 PFT Status: Completed 10-Dec-2017 Comments: Restriction Possible. No Obstruction. FVC 1.75 (47%) FEV1 1.41 ( 49%) ratio 80 PFT Status: Completed 04-Jul-2014 Comments: Normal. FEV1 2.34 (83) Polysomnography Status: Completed Comments: [facility] sleep lab; 02/26/2005 QUAD REPAIR Status: Completed 2008 Comments: Right. DR CHAPMAN Sputum gram stain C & S Status: Completed Comments: Positive. (12/18/), + MRSA, and (03/07/18) + for MRSA, and corynebacterium striatum # 05/26/18: Many Moraxella catarrhalis. Sputum gram stain C & S Status: Completed 02-Sep-2018 Comments: MRSA and Klebsiella pneumoniae treated with moxifloxacin per Dr Allison Total Knee Replacement - Right Status: Completed 2008 Comments: DR CHAPMAN CXR PA & LAT ([id number])Result: Are you or could Status: Completed Jun-2018 you become ?: No; When was you last CXR/CT?: over week ago; Crystal Grinder: IGNACIA Pacheco CT THORAX W/O DYE ([id number])Result: Are you or Date: 15-Apr-2018 could you become ?: No; When was you last Status: Completed 2018 CXR/CT?: over week ago; Crystal Grinder: Jessica More, LRT PRE AND POST W/ RT ([id number])Result: Hemoptysis: No Status: Completed 2018 CAT SCAN OF CHEST: CT THORAX W/O DYE ([id number])Result: Date: 10-Apr-2018 Are you or could you become ?: No; Status: Completed 2018 When was you last CXR/CT?: over week ago; Crystal Grinder: LETICIA PachecoT CT THORAX W/O DYE ([id number])Result: Are you or Date: 08-Feb-2018 could you become ?: No; When was you last Status: Completed 2018 CXR/CT?: over week ago; Crystal Grinder: LETICIA PachecoT PRE AND POST ([id number])Result: Hemoptysis: No Status: Completed 10-Dec-2017 CAT SCAN OF CHEST: CT THORAX W/O DYE ([id number])Result: Status: Completed 2017 Are you or could you become ?: No; When was you last CXR/CT?: over week ago; Crystal Grinder: LETICIA PachecoT CHEST X-RAY, PA AND LATERAL ([id number])Result: Are you Status: Completed 2015 or could you become ?: No; When was you last CXR/CT?: OVER WEEK AGO; Crystal Grinder: LETICIA PachecoT CHEST X-RAY, PA AND LATERAL ([id number])Result: Are you Status: Completed 2014 or could you become ?: No; When was you last CXR/CT?: over 1 week ago; Crystal Grinder: IGNACIA Pacheco Immunizations Influenza (3 years and up) On: Jan-2011 Influenza (3 years and up) On: 21-Jan-2014 Influenza (3 years and up) On: 21-Dec-2014 Comments:approx date Influenza (3 years and up) On: 13-Jan-2017 Comments:Date approximate Family History Negative Family History of: Status: Active Comments: LUNG DISEASE Social History Tobacco use: Former smoker. Smoked Comments: 1-2 PPD FOR 24 YRS, QUIT IN cigarettes. 2004, restarted and quit 03/2017 Former smoker Female Plan of Treatment CAT SCAN OF CHEST: CT THORAX W/O DYE ([id number]) Start: 10-Nov-2018 Intent PRE AND POST W/ RT ([id number]) Start: 10-Nov-2018 Intent Pre/Post ([id number]) Start: 14-Nov-2011 Intent RESPIRATORY FLOW VOLUME LOOP ([id number]) Start: 14-Nov-2011 Intent Medical; PRE AND POST RT - Start: 29-Sep-2018 9:15 Appointment Request [facility] Resp Therapy [place] 2, RT2 Medical; CT SCAN CHEST - Start: 29-Sep-2018 9:30 Appointment Request [facility] XRAY [facility] Medical; CT SCAN CHEST - Start: 11-Nov-2018 14:30 Appointment Request [facility] XRAY [facility], Xray Medical; PRE AND POST RT - Start: 11-Nov-2018 14:45 Appointment Request [facility] Resp Therapy [facility], RT Medical; FOLLOW UP 30 - 4MO FU NP30,PPRT Start: 11-Nov-2018 15:00 Appointment Request [facility] Anya, Benigno Amanda SPUTUM CULTURE ([id number]) Start: 30-Aug-2018 16:46 Request SPUTUM CYTOLOGY ([id number]) Start: 24-May-2018 16:53 Request [employer]UM AF[employer] ([id number]) Start: 10-Dec-2017 15:59 Request SPUTUM CYTOLOGY ([id number]) Start: 10-Dec-2017 15:38 Request PNEUMONIA : Referral to Vacation Guide? IMMUNOLOGY Indication:PNEUMONIA BONITA (OBSTRUCTIVE SLEEP APNEA) : FU EITHER Indication:BONITA (OBSTRUCTIVE SLEEP APNEA) BONITA (OBSTRUCTIVE SLEEP APNEA) : FU EITHER - Estefany/Anya Indication:BONITA (OBSTRUCTIVE SLEEP APNEA) Results SPUTUM CULTURE ([id number]) Ordered On: 24-May-2018 CULTURE, SPUTUM see document (Normal) SPUTUM CULTURE ([id number]) Ordered On: 01-Mar-2018 CULTURE, SPUTUM see document (Normal) SPUTUM CULTURE ([id number]) Ordered On: 10-Dec-2017 CULTURE, SPUTUM SEE DOCUMENT (Normal) SPUTUM CULTURE ([id number]) Ordered On: 13-Nov-2017 CULTURE, SPUTUM see document (Normal) Vital Signs 12-Jul-2018 15:00 Temperature 96.7 f Comments: Method: Tympanic Pulse 88 /min Comments: Pattern: Regular Respiration Rate 16 /min Comments: Pattern: Unlabored O2 SAT 98 % Comments: Room air BP Systolic 118 mm[Hg] Comments: Patient Position: Sitting; Cuff Location: Left Arm; Cuff Size: Large BP Diastolic 72 mm[Hg] Comments: Patient Position: Sitting; Cuff Location: Left Arm; Cuff Size: Large Weight 191 lb Height 67 in BMI 29.91 kg/m2 BSA 1.98 m2 15-Apr-2018 11:10 Temperature 97.5 f Comments: Method: Tympanic Pulse 69 /min Comments: Pattern: Regular Respiration Rate 14 /min Comments: Pattern: Unlabored O2 SAT 96 % Comments: Room air BP Systolic 110 mm[Hg] Comments: Patient Position: Sitting; Cuff Location: Left Arm; Cuff Size: Large BP Diastolic 64 mm[Hg] Comments: Patient Position: Sitting; Cuff Location: Left Arm; Cuff Size: Large Weight 186 lb Height 67 in BMI 29.13 kg/m2 BSA 1.96 m2 08-Feb-2018 11:30 Temperature 98.5 f Comments: Method: Tympanic Pulse 76 /min Comments: Pattern: Regular Respiration Rate 20 /min Comments: Pattern: Unlabored O2 SAT 95 % Comments: Room air BP Systolic 110 mm[Hg] Comments: Patient Position: Sitting; Cuff Location: Left Arm; Cuff Size: Large BP Diastolic 62 mm[Hg] Comments: Patient Position: Sitting; Cuff Location: Left Arm; Cuff Size: Large Weight 192 lb Height 67 in BMI 30.07 kg/m2 BSA 1.99 m2 10-Dec-2017 14:43 Temperature 97.5 f Comments: Method: Tympanic Pulse 73 /min Comments: Pattern: Regular Respiration Rate 12 /min Comments: Pattern: Unlabored O2 SAT 96 % Comments: Room air BP Systolic 116 mm[Hg] Comments: Patient Position: Sitting; Cuff Location: Left Arm; Cuff Size: Standard BP Diastolic 72 mm[Hg] Comments: Patient Position: Sitting; Cuff Location: Left Arm; Cuff Size: Standard Weight 194 lb Height 67 in BMI 30.38 kg/m2 BSA 2 m2 13-Nov-2017 15:21 Temperature 97.6 f Comments: Method: Tympanic Pulse 68 /min Comments: Pattern: Regular Respiration Rate 12 /min Comments: Pattern: Unlabored O2 SAT 99 % Comments: Room air BP Systolic 106 mm[Hg] Comments: Patient Position: Sitting; Cuff Location: Left Arm; Cuff Size: Standard BP Diastolic 80 mm[Hg] Comments: Patient Position: Sitting; Cuff Location: Left Arm; Cuff Size: Standard Weight 196 lb Height 67 in BMI 30.7 kg/m2 BSA 2 m2 11-Sep-2016 11:48 Temperature 97.7 f Comments: Method: Tympanic Pulse 70 /min Comments: Pattern: Regular Respiration Rate 20 /min Comments: Pattern: Unlabored O2 SAT 98 % Comments: Room air BP Systolic 90 mm[Hg] Comments: Patient Position: Sitting; Cuff Location: Left Arm; Cuff Size: Large BP Diastolic 62 mm[Hg] Comments: Patient Position: Sitting; Cuff Location: Left Arm; Cuff Size: Large Weight 227 lb Height 67 in BMI 35.55 kg/m2 BSA 2.13 m2 16-Jul-2015 13:08 Temperature 98 f Comments: Method: Tympanic Pulse 100 /min Comments: Pattern: Regular Respiration Rate 16 /min Comments: Pattern: Unlabored O2 SAT 96 % Comments: Room air BP Systolic 110 mm[Hg] Comments: Patient Position: Sitting; Cuff Location: Left Arm; Cuff Size: Standard BP Diastolic 70 mm[Hg] Comments: Patient Position: Sitting; Cuff Location: Left Arm; Cuff Size: Standard Weight 223 lb Height 67 in BMI 34.93 kg/m2 BSA 2.12 m2 04-Jul-2014 13:26 Temperature 97.1 f Comments: Method: Tympanic Pulse 80 /min Comments: Pattern: Regular Respiration Rate 16 /min Comments: Pattern: Unlabored O2 SAT 92 % Comments: Room air BP Systolic 120 mm[Hg] Comments: Patient Position: Sitting; Cuff Location: Left Arm; Cuff Size: Large BP Diastolic 70 mm[Hg] Comments: Patient Position: Sitting; Cuff Location: Left Arm; Cuff Size: Large Weight 221 lb Height 67 in BMI 34.61 kg/m2 BSA 2.11 m2 14-Nov-2011 12:48 Temperature 96.8 f Pulse 64 /min Comments: Pattern: Regular Respiration Rate 16 /min Comments: Pattern: Unlabored O2 SAT 97 % Comments: Room air BP Systolic 118 mm[Hg] Comments: Patient Position: Sitting; Cuff Location: Left Arm; Cuff Size: Standard BP Diastolic 78 mm[Hg] Comments: Patient Position: Sitting; Cuff Location: Left Arm; Cuff Size: Standard Weight 251 lb Height 67.5 in BMI 38.73 kg/m2 BSA 2.24 m2 Advance Directives HIPAA - Effective on 07/12/2018. Expiration date unspecified Effective: 2018 Consent of Care Agreement - Effective on 12/10/2017. Effective: 10-Dec-2017 Expiration date unspecified Encounters Historical Summary 06-Sep-2018 9:26 To 06-Sep-2018 16:37 [facility] Medication Order 30-Aug-2018 16:41 To 31-Aug-2018 8:20 Encounter Diagnosis: PNEUMONIA [facility] Office Medication Order 13-Jul-2018 9:42 To 13-Jul-2018 9:50 Encounter Diagnosis: BRONCHIECTASIS [facility] Historical Summary 13-Jul-2018 9:28 To 13-Jul-2018 9:30 [facility] Office Visit 12-Jul-2018 15:00 To 12-Jul-2018 15:35 Encounter Reason: Abnormal Chest Imaging - The referring provider is Dr. JESSICA YOUNG. The primary physician is TAI [facility] Office Whitney GOEL NP (The patient was seen for routine annual BONITA fu in Oct 2017. She has mild BONITA with an AHI 13, low saturation 92% and is intermittently compliant with CPAP at 8 cm. She has a history of chronic sinusitis, obesity, previous CVA, rheumatoid arthritis and osteoarthritis status post right total knee replacement, history of gastric bypass surgery, and hypertension.She is on methotrexate and plaquenil for her RA. She is a former smoker of one to 2 packs a day who quit in 2004 restarted in 2015, and quit in March 2017. We received a request in August 2017 to see the pa kailey who had been hospitalized In [facility], in late June 2017 with cough, stridor, and shortness of breath. She was also inpt at [facility] in May 2017, reported by the pt. She had throat swelling, ultimately was placed in the ICU for 5 days but did not require intubation or mechanical ventilation she was on antibiotics and steroids she was seen by ENT and reportedly and laryngosc opy. in [place], She was seen in consultation by ENT also. A CT neck with contrast did show ethmoidal and maxillary sinusitis. A CT of the chest did show right lower lobe airspace disease a nd the patient was treated iinpatient , and further antibiotic treatment outpatient. Her stridor improved but the patient has continued voice changes, shortness of breath and purulent sputum pro duction. She developed diffuse pneumonia in November 2017. Sputum culture grew MRSA. Treated with 14 day course of Avelox. Admitted January 07, 2018 with left lower lobe pneumonia and also secondary to MRSA. Treated with vancomycin. Repeat sputum culture 01/09 negative for MRSA. Discharge 01/14 on IV antibiotics which were completed in 01/18. Readmitted 01/19 with several episodes of hemoptysis. CT chest on 01/20 showed patchy consolidation of bronchiectasis in the left lower lobe with a few scattered groundglass changes. She denied shortness of breath and fever and hemoptysis resolved at that time. Sputum culture showed normal vanesa. She remained off agents for rheumatoid arthritis. Hemoptysis later recurred. In February, after reporting recurrent cough and hemoptysis, repeat sputum showed MRSA, and corynebacterium striatum. She was treated with 2 wks of Bactrim. Ten days after completing course, she again called reporting cough and shortness of breath were worsening. On 04/02/18, she was started on 2 wk course of Doxycycline. Sputum culture early May 2018 showed Moraxella catarrhalis. She received 2 courses of Avelox and one course of pred nisone.). Radiographic findings include an infiltrate and bronchiectasis. The patient was referred by a primary care provider. Initial presentation was 8 month(s) ago. Presentation included cough and in cidental findings on chest x-ray. Past evaluation has included chest x-ray and chest CT (June AND CT NECK). Treatment has included antibiotics and corticosteroids. The last clinic visit was 3 month(s) ago. Management changes made at the last visit include ordering test(s ) (IMMUNOLOGY EVALUATION). Symptoms include cough (BUT BETTER THAN LAST MONTH) and dyspnea (WALKING), while symptoms do not include hemoptysis or wheezing (OCCASIONALLY). Onset was gradual 8 month(s) ago. The patient describes this as improving (slightly). Associated symptoms do not include fever, weight loss, rash or arthr algia. Current treatment includes antibiotics (completing 14 day course of Doxy ). Risk factors include tobacco use. Encounter Diagnosis: BRONCHIECTASIS, OBESITY ( Renamed from OBESE), BONITA (OBSTRUCTIVE SLEEP APNEA), RHEUMATOID ARTHRITIS ( Renamed from ARTHRITIS OR POLYARTHRITIS, RHEUMATOID) Order Only 24-Jun-2018 8:49 To 24-Jun-2018 9:05 Encounter Diagnosis: PNEUMONIA, BRONCHIECTASIS , ABNORMAL CHEST CT, RHEUMATOID ARTHRITIS (Renamed from ARTHRITIS OR POLYARTHRITIS, RHEUMATOID) [facility] Office Medication Order 10-Jun-2018 16:12 To 10-Jun-2018 16:17 Encounter Diagnosis: BRONCHIECTASIS [facility] Office Medication Order 28-May-2018 14:08 To 28-May-2018 14:54 Encounter Diagnosis: BRONCHIECTASIS [facility] Office Order Only 24-May-2018 16:41 To 24-May-2018 16:58 Encounter Diagnosis: PNEUMONIA [facility] Office Visit 15-Apr-2018 11:04 To 15-Apr-2018 15:56 Encounter Reason: Abnormal Chest Imaging - The referring provider is Dr. JESSICA YOUNG. The primary physician is TAI [facility] Whitney GOEL NP (The patient was seen for routine annual BONITA fu in Oct 2017. She has mild BONITA with an AHI 13, low saturation 92% and is intermittently compliant with CPAP at 8 cm. She has a history of chronic sinusitis, obesity, previous CVA, rheumatoid arthritis and osteoarthritis status post right total knee replacement, history of gastric bypass surgery, and hypertension.She is on methotrexate and plaquenil for her RA. She is a former smoker of one to 2 packs a day who quit in 2004 restarted in 2015, and quit in March 2017. We received a request in August 2017 to see the jordan bonner who had been hospitalized In [facility], in late June 2017 with cough, stridor, and shortness of breath. She was also inpt at [facility] in May 2017, reported by the pt. She had throat swelling, ultimately was placed in the ICU for 5 days but did not require intubation or mechanical ventilation she was on antibiotics and steroids she was seen by ENT and reportedly and laryngosc opy. in [place], She was seen in consultation by ENT also. A CT neck with contrast did show ethmoidal and maxillary sinusitis. A CT of the chest did show right lower lobe airspace disease a nd the patient was treated iinpatient , and further antibiotic treatment outpatient. Her stridor improved but the patient has continued voice changes, shortness of breath and purulent sputum pro duction. She developed diffuse pneumonia in November 2017. Sputum culture grew MRSA. Treated with 14 day course of Avelox. Admitted January 07, 2018 with left lower lobe pneumonia and also secondary to MRSA. Treated with vancomycin. Repeat sputum culture 01/09 negative for MRSA. Discharge 01/14 on IV antibiotics which were completed in 01/18. Readmitted 01/19 with several episodes of hemoptysis. CT chest on 01/20 showed patchy consolidation of bronchiectasis in the left lower lobe with a few scattered groundglass changes. She denied shortness of breath and fever and hemoptysis resolved at that time. Sputum culture showed normal vnaesa. She remained off agents for rheumatoid arthritis. Hemoptysis later recurred. In February, after reporting recurrent cough and hemoptysis, repeat sputum showed MRSA, and corynebacterium striatum. She was treated with 2 wks of Bactrim. Ten days after completing course, she again called reporting cough and shortness of breath were worsening. On 04/02/18, she was started on 2 wk course of Doxycycline.). Radiographic findings include an infiltrate and bronchiectasis. The patient was referred by a primary care provider. I nitial presentation was 8 month(s) ago. Presentation included cough and incidental findings on chest x-ray. Past evaluation has included chest x-ray and chest CT (June AND CT NECK). Treatment has included antibiotics and corticosteroids. The last clinic visit was 2 month (s) ago. Management changes made at the last visit include ordering test(s) ( SPUTUM CULTURE and CT CHEST). Symptoms include cough and dyspnea (WALKING, unchanged), while symptoms do not include hemoptysis (recently resolved) or wheezing. Onset was gradual 8 month(s) ago. The patient describes this as improving (slightly). A ssociated symptoms do not include fever, weight loss, rash or arthralgia. Current treatment includes antibiotics (completing 14 day course of Doxy). Risk factors include tobacco use. Encounter Diagnosis: BRONCHIECTASIS, PNEUMONIA Historical Summary 02-Apr-2018 13:07 To 02-Apr-2018 13:49 Encounter Reason: Abnormal Chest Imaging - The referring provider is Dr. JESSICA YOUNG. The primary physician is [facility] Marcelo GOEL NP (The patient was seen for routine annual BONITA fu in Oct 2017. She has mild BONITA with an AHI 13, low saturation 92% and is intermittently compliant with CPAP at 8 cm. She has a history of chronic sinusitis, obesity, previous CVA, rheumatoid arthritis and osteoarthritis status post right total knee replacement, history of gastric bypass surgery, and hypertension.She is on methotrexate and plaquenil for her RA. She is a former smoker of one to 2 packs a day who quit in 2004 restarted in 2015, and quit in March 2017. We received a request in August 2017 to see the jordan bonner who had been hospitalized In [facility], in late June 2017 with cough, stridor, and shortness of breath. She was also inpt at [facility] in May 2017, reported by the pt. She had throat swelling, ultimately was placed in the ICU for 5 days but did not require intubation or mechanical ventilation she was on antibiotics and steroids she was seen by ENT and reportedly and laryngosc opy. in [place], She was seen in consultation by ENT also. A CT neck with contrast did show ethmoidal and maxillary sinusitis. A CT of the chest did show right lower lobe airspace disease a nd the patient was treated iinpatient , and further antibiotic treatment outpatient. Her stridor improved but the patient has continued voice changes, shortness of breath and purulent sputum pro duction. She developed diffuse pneumonia in November 2017. Sputum culture grew MRSA. Treated with 14 day course of Avelox. Admitted January 07, 2018 with left lower lobe pneumonia and also secondary to MRSA. Treated with vancomycin. Repeat sputum culture 01/09 negative for MRSA. Discharge 01/14 on IV antibiotics which were completed in 01/18. Readmitted 01/19 with several episodes of hemoptysis. CT chest on 01/20 showed patchy consolidation of bronchiectasis in the left lower lobe with a few scattered groundglass changes. She denied shortness of breath and fever and hemoptysis resolved at that time. Sputum culture showed normal vanesa. She remained off agents for rheumatoid arthritis. Hemoptysis later recurred. In February, after reporting recurrent cough and hemoptysis, repeat sputum showed MRSA, and corynebacterium striatum. She was treated with 2 wks of Bactrim. Ten days after completing course, she again called reporting cough and shortness of breath were worsening. On 04/02/18, she was started on 2 wk course of Doxycycline.). The patient was referred by a primary care provider. Initial presentation was 6 month(s) ago. Presentation included co ugh and incidental findings on chest x-ray. Past evaluation has included chest x-ray and chest CT (June AND CT NECK). Treatment has included antibiotics and corticosteroids. The last clinic vi sit was 2 month(s) ago. Management changes made at the last visit include ordering test(s) (SPUTUM CULTURE). Symptoms include cough, dyspnea (WALKING) and wheezing (SLIGHT OVER NECK), while symptoms do not include hemoptysis (RESOLVED AGAIN). Onset was gradual 8 month(s) ago. Onset followed a recent respiratory illness (SINUS INFECTION). The patient describes this as improving (slightly). Associated s ymptoms do not include fever, weight loss, rash or arthralgia. The patient is not currently being treated for this problem. Risk factors include tobacco use. Encounter Diagnosis: PNEUMONIA Medication Order 08-Mar-2018 16:20 To 09-Mar-2018 8:30 Encounter Diagnosis: PNEUMONIA [facility] Office Order Only 01-Mar-2018 14:59 To 01-Mar-2018 15:49 Encounter Diagnosis: PNEUMONIA [facility] Office Historical Summary 08-Feb-2018 11:22 To 08-Feb-2018 11:36 Encounter Reason: Abnormal Chest Imaging - The referring provider is Dr. JESSICA YOUNG. The primary physician is TAI [facility] Office Whitney GOEL NP (The patient was seen for routine annual BONITA fu in Oct 2017. She has mild BONITA with an AHI 13, low saturation 92% and is intermittently compliant with CPAP at 8 cm. She has a history of chronic sinusitis, obesity, previous CVA, rheumatoid arthritis and osteoarthritis status post right total knee replacement, history of gastric bypass surgery, and hypertension.She is on methotrexate and plaquenil for her RA. She is a former smoker of one to 2 packs a day who quit in 2004 restarted in 2015, and quit in March 2017. We received a request in August 2017 to see the jordan bonner who had been hospitalized In [facility], in late June 2017 with cough, stridor, and shortness of breath. She was also inpt at [facility] in May 2017, reported by the pt. She had throat swelling, ultimately was placed in the ICU for 5 days but did not require intubation or mechanical ventilation she was on antibiotics and steroids she was seen by ENT and reportedly and laryngosc opy. in [place], She was seen in consultation by ENT also. A CT neck with contrast did show ethmoidal and maxillary sinusitis. A CT of the chest did show right lower lobe airspace disease a nd the patient was treated iinpatient , and further antibiotic treatment outpatient. Her stridor improved but the patient has continued voice changes, shortness of breath and purulent sputum pro duction. She developed diffuse pneumonia in November 2017. Sputum culture grew MRSA. Treated with 14 day course of Avelox. Admitted January 07, 2018 with left lower lobe pneumonia and also secondary to MRSA. Treated with vancomycin. Repeat sputum culture 01/09 negative for MRSA. Discharge 01/14 on IV antibiotics which were completed in 01/18. Readmitted 01/19 with several episodes of hemoptysi s. CT chest on 01/20 showed patchy consolidation of bronchiectasis in the left lower lobe with a few scattered groundglass changes. She denied shortness of breath and fever and hemoptysis resolved at that time. Sputum culture showed normal vanesa. She remained off agents for rheumatoid arthritis. Hemoptysis later recurred.). The patient was referred by a primary care provider. Initial presentation was 6 month(s) ago. Presentation included cough and incidental findings on chest x-ray. Past evaluation has included chest x-ray and chest CT ([facility] AND CT NECK). Treatment has included antibi otics and corticosteroids. Symptoms include cough and dyspnea, while symptoms do not include hemoptysis. Onset was gradual 8 month(s) ago. Onset followed a recent respiratory illness (SINUS INFECTION). The patient describes this as improving (slightly). Associated symptoms do not include fever, weight loss, rash or arthralgia. The patient is not currently being treated for this problem. Risk factors include tobacco use. Office Visit 08-Feb-2018 11:17 To 08-Feb-2018 12:08 Encounter Reason: Abnormal Chest Imaging - The referring provider is Dr. JESSICA YOUNG. The primary physician is [facility] Pulmonary [facility] Marcelo GOEL NP (The patient was seen for routine annual BONITA fu in Oct 2017. She has mild BONITA with an AHI 13, low saturation 92% and is intermittently compliant with CPAP at 8 cm. She has a history of chronic sinusitis, obesity, previous CVA, rheumatoid arthritis and osteoarthritis status post right total knee replacement, history of gastric bypass surgery, and hypertension.She is on methotrexate and plaquenil for her RA. She is a former smoker of one to 2 packs a day who quit in 2004 restarted in 2015, and quit in March 2017. We received a request in August 2017 to see the jordan bonner who had been hospitalized In [facility], in late June 2017 with cough, stridor, and shortness of breath. She was also inpt at [facility] in May 2017, reported by the pt. She had throat swelling, ultimately was placed in the ICU for 5 days but did not require intubation or mechanical ventilation she was on antibiotics and steroids she was seen by ENT and reportedly and laryngosc opy. in [place], She was seen in consultation by ENT also. A CT neck with contrast did show ethmoidal and maxillary sinusitis. A CT of the chest did show right lower lobe airspace disease a nd the patient was treated iinpatient , and further antibiotic treatment outpatient. Her stridor improved but the patient has continued voice changes, shortness of breath and purulent sputum pro duction. She developed diffuse pneumonia in November 2017. Sputum culture grew MRSA. Treated with 14 day course of Avelox. Admitted January 07, 2018 with left lower lobe pneumonia and also secondary to MRSA. Treated with vancomycin. Repeat sputum culture 01/09 negative for MRSA. Discharge 01/14 on IV antibiotics which were completed in 01/18. Readmitted 01/19 with several episodes of hemoptysis. CT chest on 01/20 showed patchy consolidation of bronchiectasis in the left lower lobe with a few scattered groundglass changes. She denied shortness of breath and fever and hemoptysis resolved at that time. Sputum culture showed normal vanesa. She remained off agents for rheumatoid arthritis. Hemoptysis later recurred.). The patient was referred by a primary care provider. Initial presentation was 6 month(s) ago. Presentation included cough and incidental findings on chest x-ray. Past evaluation has included chest x-ray and chest CT (June AND CT NECK). Treatment has included antibiotics and corticosteroids. The last clinic visit was 2 month(s) ago. Management changes made at the last visit include ordering test(s) (SPUTUM CULTURE). Symptoms inc lude cough, dyspnea (WALKING) and wheezing (SLIGHT OVER NECK), while symptoms do not include hemoptysis (RESOLVED AGAIN). Onset was gradual 8 month(s) ago. Onset followed a recent respiratory illness (S INUS INFECTION). The patient describes this as improving (slightly). Associated symptoms do not include fever, weight loss, rash or arthralgia. The patient is not currently being treated for this problem. Risk factors include tobacco use. Encounter Diagnosis: BRONCHIECTASIS, HEMOPTYSIS , PNEUMONIA, BONITA (OBSTRUCTIVE SLEEP APNEA) Historical Summary 07-Jan-2018 10:30 To 07-Jan-2018 10:34 [facility] Office Medication Order 23-Dec-2017 10:40 To 23-Dec-2017 12:02 Encounter Diagnosis: PNEUMONIA [facility] Office Medication Order 18-Dec-2017 13:33 To 21-Dec-2017 8:03 Encounter Diagnosis: SHORTNESS OF BREATH [place] [facility] Office Office Visit 10-Dec-2017 15:00 To 11-Dec-2017 10:02 Encounter Reason: Abnormal Chest Imaging - The referring provider is Dr. JESSICA YOUNG. The primary physician is [facility] Pulmonary [facility] Office Whitney GOEL NP (The patient was seen for routine annual BONITA fu in Oct 2017. She has mild BONITA with an AHI 13, low saturation 92% and is intermittently compliant with CPAP at 8 cm. She has a history of chr onic sinusitis, obesity, previous CVA, rheumatoid arthritis and osteoarthritis status post right total knee replacement, history of gastric bypass surgery, and hypertension.She is on methotrexate and pl aquenil for her RA. She is a former smoker of one to 2 packs a day who quit in 2004 restarted in 2015, and quit in March 2017. We received a request in August 2017 to see the patient who had paulie ayala hospitalized In [facility], in late June with cough, stridor, and shortness of breath. She was also inpt at [facility] in May 2017, reported by the pt. She had throat swelling, ult imately was placed in the ICU for 5 days but did not require intubation or mechanical ventilation she was on antibiotics and steroids she was seen by ENT and reportedly and laryngoscopy. in [facility] he was seen in consultation by ENT also. A CT neck with contrast did show ethmoidal and maxillary sinusitis. A CT of the chest did show right lower lobe airspace disease and the patient was treated ii npatient , and further antibiotic treatment outpatient. Her stridor improved but the patient has continued voice changes, shortness of breath and purulent sputum production.). The patient was referred by a primary care provider. Initial presentation was 6 month(s) ago. Presentation included cough and incidental findings on chest x-ray. Past evaluation has included chest x-ray and chest CT ([facility] AND CT NECK). Treatment has included antibiotics and corticosteroids. Symptoms include cough and dyspnea, while symptoms do not include hemoptysis. Onset was gradual 8 month(s) ago. Onset followed a recent respiratory illness (SINUS INFECTION). The patient describes this as improving (slightly). Associated symptoms do not include fever, weight loss, rash or arthralgia. The patient is not current ly being treated for this problem. Risk factors include tobacco use., [ ADDITIONAL REASON] Sleep follow up - The referring provider is Dr. SLAUGHTER. The primary physician is Daniel YOUNG. The sleep disorder is characterized as obstructive sleep apnea (MILD AHI 13 LOW SAT 92% ). The last office visit was 14 month(s) ago. No changes in management were made at the last vis it. The patient gets approximately 7 hours of sleep per night. The patient is not currently being treated for this problem. Symptoms are exacerbated by fatigue (WITH ANEMIA, IRON INFUSIONS PERIODICALLY) . Associated symptoms include nocturia, while associated symptoms do not include morning headaches or shortness of breath. Since diagnosis the disease has been unchanged. Pertinent medical history inclu partha obesity. Initial diagnosis of sleep disorder was 10 year(s) ago. Recently the disease has been unchanged. Past evaluation has included complete polysomnography. Encounter Diagnosis: SHORTNESS OF BREATH, ABNORMAL CHEST CT, CHRONIC SINUSITIS, BONITA (OBSTRUCTIVE SLEEP APNEA) Office Visit 13-Nov-2017 15:21 To 13-Nov-2017 16:59 Encounter Reason: Sleep follow up - The referring provider is Dr. SLAUGHTER. The primary physician is Dr. JESSICA YOUNG (The [facility] Office patient was scheduled for annual followup for sleep apnea in August 2017. She has mild BONITA with an AHI 13, low saturation 92% and is intermittently compliant with CPAP at 8 cm. She has a history of sinusitis, obesity, previous CVA, rheumatoid arthritis and osteoarthritis status post right total knee replacement, history of gastric bypass surgery, and hypertension.She is on methotrexate and plaq uenil for her RA. She is a former smoker of one to 2 packs a day who quit in 2004 restarted briefly and quit in March 2017. We received a request in August 2017 to see the patient who would been hospitalized in late June with cough, stridor, and shortness of breath. She was seen in consultation by ENT. A CT neck with contrast did show ethmoidal and maxillary sinusitis. A CT of the chest did show right lower lobe airspace disease and the patient was treated appropriately. Her stridor improved but the patient has continued voice changes, shortness of breath and purulent sputum production.). The sleep disorder is characterized as obstructive sleep apnea ( MILD AHI 13 LOW SAT 92% ). The last office visit was 14 month(s) ago. No changes in management were made at the last visit. The patient gets approximately 7 hours of sleep per night. The patient is not currently being treated for this problem. Symptoms are exacerbated by fatigue ( WITH ANEMIA, IRON INFUSIONS PERIODICALLY). A ssociated symptoms include nocturia, while associated symptoms do not include morning headaches or shortness of breath. Since diagnosis the disease has been unchanged. Pertinent medical history includes obesity. Initial diagnosis of sleep disorder was 10 year(s) ago. Recently the disease has been unchanged. Past evaluation has included complete polysomnography. Encounter Diagnosis: BONITA (OBSTRUCTIVE SLEEP APNEA), SHORTNESS OF BREATH Office Visit 11-Sep-2016 11:48 To 11-Sep-2016 13:59 Encounter Reason: Sleep follow up - The referring provider is Dr. SLAUGHTER. The primary physician is Dr. JESSICA YOUNG. The [facility] Office sleep disorder is characterized as obstructive sleep apnea (MILD AHI 13 LOW SAT 92% ). The last office visit was 1 year(s) ago. No changes in management were made at the last visit. The patient gets ap proximately 7 hours of sleep per night. Current treatment includes CPAP therapy. By report there is fair compliance with treatment (USING MORE OFTEN), fair tolerance of treatment and fair symptom contro l. Current symptoms include sleepiness when sedentary (WHEN NOT USING) and unrefreshing sleep, while current symptoms do not include excessive daytime sleepiness, witnessed apnea during sleep, witnessed gasping during sleep or weight gain. The patient describes this as improving. Symptoms are exacerbated by fatigue (WITH ANEMIA, IRON INFUSIONS PERIODICALLY). Symptoms are relieved by CPAP use. Associat ed symptoms include nocturia, while associated symptoms do not include morning headaches or shortness of breath. Since diagnosis the disease has been unchanged. Pertinent medical history includes obesit y. Initial diagnosis of sleep disorder was 9 year(s) ago. Recently the disease has been unchanged. Past evaluation has included complete polysomnography. Encounter Diagnosis: BONITA (OBSTRUCTIVE SLEEP APNEA), OBESITY (Renamed from OBESE) Office Visit 16-Jul-2015 12:49 To 16-Jul-2015 15:59 Encounter Reason: Sleep follow up - The referring provider is Dr. SLAUGHTER. The primary physician is Dr. JESSICA YOUNG. The [facility] Office sleep disorder is characterized as obstructive sleep apnea (MILD AHI 13 LOW SAT 92% ). The last office visit was 1 year(s) ago. No changes in management were made at the last visit. The patient gets ap proximately 7 hours of sleep per night. Current treatment includes none (Can't sleep with it). By report there is poor compliance with treatment and poor tolerance of treatment. Current symptoms include sleepiness when sedentary and unrefreshing sleep, while current symptoms do not include excessive daytime sleepiness, witnessed apnea during sleep, witnessed gasping during sleep or weight gain. The jordan bonner describes this as unchanged. Associated symptoms include nocturia, while associated symptoms do not include morning headaches or shortness of breath. Since diagnosis the disease has been unchanged . Pertinent medical history includes obesity. Initial diagnosis of sleep disorder was 8 year(s) ago. Recently the disease has been unchanged. Past evaluation has included complete polysomnography. Encounter Diagnosis: SLEEP APNEA, DYSPHONIA, OBESITY (Renamed from OBESE), CVA (CEREBRAL INFARCTION) Office Visit 04-Jul-2014 12:43 To 04-Jul-2014 13:54 Encounter Reason: Pre-Op Visit - The procedure scheduled is a Right thumb CMC arthroplasty on July 10, 2014. The [facility] Office mervat for the procedure will be [place]. The chief complaint is Joint pain. Recent symptoms include chills, cough (green/yellow mucous), dyspnea and poor exercise tolerance, while recent symptoms do not include fever, fatigue, chest pain, dysuria, urinary frequency, nausea , vomiting, diarrhea, abdominal pain, easy bruising or lower extremity swelling. Pertinent medical history includes prior an esthesia, cardiovascular disease (SLIGHT "LEAKY HEART VALVE"), sleep apnea ( untreated), corticosteroid use in the last six months (By Dr Slaughter) and frequent aspirin use (81 mg), while pertinent medical h istory does not include previous anesthesia reaction, diabetes, renal disease, gastrointestinal disease, thromboembolic problems, clotting disorder, bleeding disorder, transfusion reaction or impaired i mmunity. Pertinent social history includes tobacco use and wearing dentures or partial plates (UPPER AND LOWER), while pertinent social history does not include aspirin use. After surgery the patient pl ans to recover at home with family and in a rehabilitation center., [ ADDITIONAL REASON] Sleep follow up - The referring provider is Dr. SLAUGHTER. The primary physician is Daniel YOUNG. The sleep disorder is characterized as obstructive sleep apnea (MILD AHI 13 LOW SAT 92% ). The last office visit was 22 month(s) ago. No changes in management were made at the last vis it. Current treatment includes none (Can't sleep with it). By report there is poor compliance with treatment and poor tolerance of treatment. Current symptoms include sleepiness when sedentary and weigh t gain, while current symptoms do not include excessive daytime sleepiness, witnessed apnea during sleep, witnessed gasping during sleep or unrefreshing sleep. The patient describes this as unchanged. A ssociated symptoms include nocturia, while associated symptoms do not include morning headaches or shortness of breath. Pertinent medical history includes obesity. Initial diagnosis of sleep disorder wa s 7 year(s) ago. Recently the disease has been unchanged. Past evaluation has included complete polysomnography. Encounter Diagnosis: PREOP RESPIRATORY EXAM, SLEEP APNEA, ACUTE SINUSITIS Office Visit 14-Nov-2011 12:42 To 14-Nov-2011 13:53 Encounter Reason: Sleep follow up - The referring provider is Dr. SLAUGHTER. The primary physician is Dr. JESSICA YOUNG. The [facility] Office sleep disorder is characterized as obstructive sleep apnea (MILD AHI 13 LOW SAT 92% ). The last office visit was 22 month(s) ago. No changes in management were made at the last visit. Current treatment includes none ("I CAN'T SLEEP WITH IT AT ALL", HAS ONLY SLEPT WITH IT TWICE, SAYS SHE TRIES IT ONCE PER WEEK). By report there is poor compliance with treatment and poor tolerance of treatment. Current symptoms include sleepiness when sedentary and weight gain, while current symptoms do not include excessive daytime sleepiness, witnessed apnea during sleep, witnessed gasping during sleep or unrefresh ing sleep. The patient describes this as unchanged. Associated symptoms do not include morning headaches, nocturia or shortness of breath. Pertinent medical history includes obesity. Initial diagnosis o f sleep disorder was 7 year(s) ago. Recently the disease has been unchanged. Past evaluation has included complete polysomnography., [ADDITIONAL REASON] Pre -Op Visit - The procedure scheduled is a LEFT TOTAL KNEE REPLACEMTN on 2011 AT [facility]. The surgeon for the procedure will be DR ROMERO. The chief complaint is KNEE PAIN, ARTHRITIS. Recent symptoms include poor exercise tolerance, while recent symptoms do not include fever, chills, fatigue, chest pain, cough, dyspnea, dysuria, urinary frequency , nausea, vomiting, diarrhea, abdominal pain, easy bruising or lower extremity swelling. The patient's last [facility] visit was 22 month(s) ago. Pertinent medical history includes prior anesthesia, cardiovascular disease (SLIGHT "LEAKY HEART VALVE"), sleep apnea and frequent aspirin use (OFF SINCE LAST WEEK), while pertinent medical history does not include previous anesthesia reaction, diabetes, renal disease, gastrointestinal disease, thromboembolic problems, clotting disorder, bleeding disorder, transfusion camilo ction, impaired immunity or corticosteroid use in the last six months. Pertinent social history includes wearing dentures or partial plates (UPPER AND LOWER), while pertinent social history does not inc lude aspirin use or tobacco use. After surgery the patient plans to recover in a rehabilitation center. Encounter Diagnosis: SLEEP APNEA (780.57), OBESITY (278.00), PREOP PULMONARY/RESPIRATORY EXAM (V72.82) Historical Summary 02-Jan-2011 8:43 To 02-Jan-2011 8:54 [facility] Office Historical Summary 31-Dec-2010 17:01 To 31-Dec-2010 17:10 [facility] Office Payers Medicare [facility] [address] [facility] [id number] [place] Group Number: [id number] tel: Medicaid/[employer] [address] [facility] [address] [place] Group Number: [id number] tel: ROSA FIGUEREDO [id number] [facility] [id number] tel:
--- OUTSIDE RECORDS SUMMARY | 2018-09-28 16:14 | XMS REPORT | Continuity of Care Document ---
:1955 Author Organization [facility] Address [address], [place] [id number] Phone Care Team Providers Name Role Phone Moncho Slaughter MD Unavailable Unavailable Allergies, Adverse Reactions, Alerts Substance Reaction Status Penicillins Active Medications Medication Instructions Dosage Effective Dates Status Comments (start - stop) Percocet 5 mg-325 take 1 tablet by - Active MDD# 4 DO mg tablet oral route every NOT FILL TILL 6 hours as needed 09/05/18 Plaquenil 200 mg TAKE TWO TABLETS - Active tablet BY MOUTH EVERY DAY methotrexate sodium take 9 Tablet by 22.5 MG - Active 2.5 mg tablet Oral route every week CELECOXIB 200 MG TAKE ONE CAPSULE - Active CAPSULE BY MOUTH TWICE A DAY NEEDED prednisone 5 mg take 1 q.i.d., - Active tablet t.id., b.i.d. and q.d. each for 3 days amitriptyline 25 mg take 2 Tablet by 50 MG - Active tablet oral route every bedtime levofloxacin 500 mg take 1 tablet by 500 MG - Active tablet oral route every 24 hours gabapentin 300 mg take 2 capsule by 600 MG - Active capsule oral route 3 times every day Plavix 75 mg tablet take 1 tablet by 75 MG - Active oral route every day Topamax 200 mg take 1 tablet by 200 MG - Active tablet oral route every day Lasix 20 mg tablet take 1 tablet by 20 MG - Active oral route every day as needed Effexor 37.5 mg Tab take 1 tablet 37.5 MG - Active (37.5MG) by oral route every day with food Lipitor 20 mg Tab take 1 tablet 20 MG - Active (20MG) by oral route every day Percocet 5 mg-325 take 1 tablet by - No Longer MDD# 4 DO mg tablet oral route every Active NOT FILL TILL 6 hours as needed 08/06/18 Problems Condition Effective Dates Clinical Status Comments (start - stop) Rheumatoid arthritis w/o rheumatoid factor, multiple sites Rheumatoid arthritis w/o rheumatoid factor, multiple sites Rheumatoid arthritis w/o rheumatoid factor, multiple sites Other intermediate teacher (current) drug therapy Rheumatoid arthritis w/o rheumatoid factor of multiple sites Other intermediate teacher (current) drug therapy Rheumatoid arthritis w/o rheumatoid factor of multiple sites Other intermediate teacher (current) drug therapy Rheumatoid arthritis w/o rheumatoid factor of multiple sites Rheumatoid arthritis w/o rheumatoid factor of multiple sites Other correction (current) drug therapy Rheumatoid arthritis w/o rheumatoid factor of multiple sites Other correction (current) drug therapy Rheumatoid arthritis w/o rheumatoid factor of multiple sites Other correction (current) drug therapy Rheumatoid arthritis w/o rheumatoid factor of multiple sites Other correction (current) drug therapy Rheumatoid arthritis w/o rheumatoid factor of multiple sites Other intermediate teacher (current) drug therapy Iron deficiency anemia, unspecified Anemia, unspecified Rheumatoid arthritis w/o rheumatoid factor of multiple sites Other intermediate teacher (current) drug therapy Rheumatoid arthritis w/o rheumatoid factor of multiple sites Rheumatoid arthritis, unspecified Other correction (current) drug therapy Rheumatoid factor negative - Active High risk drug monitoring - Active Mapped from [facility] status Chronic Conditions table on 07/31/2014 by the ICD9 to SNOMED Bulk Mapping Utility. 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 Onset date 03/14/2014; last addressed on 03/14/2014. Localized, primary - Active Mapped from [facility] osteoarthritis of the hand Chronic Conditions table on 05/30/2014 by the ICD9 to SNOMED Bulk Mapping Utility. The mapped diagnosis code was Osteoarthritis, primary, hand, 715.14, added by Moncho Slaughter MD, with responsible provider Moncho Slaughter MD. Onset date 06/02/2012; last addressed on 03/14/2014. Rheumatoid arthritis - Active Mapped from [facility] Chronic Conditions table on 05/30/2014 by the ICD9 to SNOMED Bulk Mapping Utility. The mapped diagnosis code was Rheumatoid Arthritis, 714.0, added by Moncho Slaughter MD, with responsible provider Moncho Slaughter MD. Onset date 03/03/2012; last addressed on 03/14/2014. Procedures Procedure Date No information Results Test Name Date and Time Measure Units Reference Range Abnormal Flag Status Comments No information Advance Directives Directive Yes / No Effective Date File Name No information Encounters Encounter Practice Location Reason(s) Diagnoses Date Provider Providers Description For Visit Copied on Encounter Arthritis Arthritis Aug- Kasandra KAUFMAN [facility] Moncho. [facility] [address] [facility], [facility], [place], [place], [place], [id number], [place], [place]. [id number], tel:[phone] [place] [address] tel:[phone] Arthritis Arthritis Kasandra KAUFMAN [facility] Moncho. [facility] [address] [facility], [facility], [place], [place], [place], [id number], [place], [place]. [id number], tel:[phone] [place] 946174 tel:[phone] Arthritis Arthritis July- Kasandra KAUFMAN [facility] Moncho. [facility] [address] [place], [facility], [place], [place], [place], [id number], [place], [place]. [id number], tel:[phone] [place] 747752 tel:[phone] Arthritis Arthritis July- Kasandra KAUFMAN [facility] Moncho. [facility] [address] [place], [facility], [place], [place], [place], [id number], [place], [place]. [id number], tel:[phone] [place] 467741 tel:[phone] Arthritis Arthritis July-1 Kasandra KAUFMAN [facility] 0 Moncho. [facility] [address] [place], [facility], [place], [place], [place], [id number], [place], [place]. [id number], tel:[phone] [place] 241714 tel:[phone] Arthritis Arthritis Rheumatoid Apr-1 Kasandra KAUFMAN [facility] arthritis w/o Moncho. 5794 Provider: Zehra Shahid rheumatoid 9 [facility], 5[facility] PLLC jeimyHi Downing MD, [facility] multiple sites [place], [address] [place], [place], [facility], [id number], [facility], [facility], [place]. [place], [id number], tel:[phone] [email or web address] [address] [place], [address]. tel:[phone] tel:[phone] lting Provider: Roberto Dobson MD, [facility] [address], [address], [place], [address]. tel:[phone] lting Provider: Rafal Ruth MD, [address] [facility] [address], [place], [address]. tel:[phone] lting Provider: Prerna Euceda MD, [address] [facility], [address], [place], [address]. tel:[phone] [facility] Provider: Moncho Slaughter MD, [address], [place], [id number]. tel:[phone] Arthritis Arthritis Rheumatoid Dec-0 Kasandra KAUFMAN [facility] arthritis w/o Moncho. 5794 Provider: Zehra Shahid rheumatoid 8 [facility], 5794 PLLC Hi munson Downing MD, [facility] multiple sites [place], [address] [place], [place], [facility], [id number], St, [facility], [place]. [place], [id number], tel:[phone] [facility] [address] [place], [address]. tel:[phone] tel:[phone] lting Provider: Roberto Dobson MD, [facility] [address], [address], [place], [address]. tel:[phone] lting Provider: Rafal Ruth MD, [address] [facility]. [address], [place], [address]. tel:[phone] lting Provider: Prerna Euceda MD, [address] [facility], [address], [place], [address]. tel:[phone] ring Provider: Moncho Slaughter MD, [address], [place], [id number]. tel:[phone] Arthritis Arthritis Rheumatoid Oct-2 Kasandra KAUFMAN [facility] arthritis w/o Moncho. 8392 Provider: Zehra Shahid rheumatoid 8 [facility], 5794 PLLC factor, Rashida Do MD, [facility], [address] [place] [address], [facility], [facility], intermediate teacher [id number], Blvd. [facility], (current) drug [place]. [place], [id number], therapy tel:[phone] [place], [place] [address] [place], [address]. tel:[phone] tel:[phone] lting Provider: Roberto Dobson MD, [facility] [place] [facility], [address], [place], [address]. tel:[phone] lting Provider: Ramón Jurado MD, [address] [place], [address]. tel:[phone] lting Provider: Prerna Euceda MD, [address] [facility], [address], [place], [address]. tel:[phone] [facility] Provider: Moncho Slaughter MD, [address], [place], [id number]. tel:[phone] Arthritis Arthritis Rheumatoid July- Kasandra KAUFMAN [facility] arthritis w/o Moncho. 1604 Provider: Zehra Shahid rheumatoid 8 [facility], 5794 PLLC factor of Rashida Do MD, [facility], [address] [place] [address], [facility], [place], intermediate teacher [id number], Blvd. [facility], (current) drug [place]. [place], [id number], therapy tel:[phone] [place], [place] [address] [place], [address]. tel:+ tel:[phone] lting Provider: Roberto Dobson MD, [facility] [address], Suite [facility], [place], [address]. tel:[phone] lting Provider: Ramón Jurado MD, [address] [place], [address]. tel:[phone] lting Provider: Tom Haley MD, [address] [place] [address], [address]. tel:[phone] ring Provider: Moncho Slaughter MD, [address], [place], [id number]. tel:[phone] Arthritis Arthritis Rheumatoid Mar-2 Kasandra KAUFMAN [facility] arthritis w/o 8-201 Moncho. 5794 Provider: Associates Associates rheumatoid 8 [facility], [facility], Rashida KAUFMAN, [facility], [address] [place] [address], [facility], [facility] [place], intermediate teacher [id number], [address]. [address] [place], (current) drug [place]. [place], [id number], therapy tel:+[phone] [place] [address] [place], [address]. tel:+ tel:[phone] lting Provider: Roberto Dobson MD, [facility] [address], Suite [facility], [place], [address]. tel:[phone] lting Provider: Ramón Jurado MD, [address] [place], [address]. tel:[phone] lting Provider: Tom Haley MD, [address] [place], [address]. tel:[phone] ring Provider: Moncho Slaughter MD, [address], [place], [id number]. tel:[phone] Arthritis Arthritis Rheumatoid Apr- Kasandra KAUFMAN [facility] arthritis w/o Moncho. 5794 Provider: Zehra Shahid rheumatoid 8 [facility], 5794 PLLC factor of Rashida Do MD, [facility], [address] [place], [place], [facility], [id number], [address]. [address] [place], [place]. [place], [id number], tel:[phone] [place], [place] [address] [place], [address]. tel:[phone] tel:[phone] lting Provider: Roberto Dobson MD, [facility] [address], [address] [place] [address], [address]. tel:[phone] lting Provider: Ramón Jurado MD, [address] [place], [address]. tel:[phone] lting Provider: Yonis Leal MD, [address] [place] [address], [address]. tel:[phone] ring Provider: Moncho Slaughter MD, [address], [place], [id number]. tel:[phone] Arthritis Arthritis Rheumatoid Dec-0 Kasandra KAUFMAN [facility] arthritis w/o Moncho. 5794 Provider: Zehra salazar 7 [facility], 5794 PLLC factor of Rashida Do MD, [facility], [address], [facility], [facility], intermediate teacher [id number], Bl[address]. [address] [place], (current) drug [place]. [place], [id number], therapy tel:[phone] [place], [place] [address] [place], [address]. tel:[phone] tel:[phone] lting Provider: Roberto Dobson MD, [facility] [address], [place] [address], [place], [address]. tel:[phone] lting Provider: Ramón Jurado MD, [address] [place], [address]. tel:[phone] lting Provider: [facility], [address] [place], [address]. tel:[phone] ring Provider: Moncho Slaughter MD, [address], [place], [id number]. tel:[phone] Arthritis Arthritis Rheumatoid Alli-0 Kasandra KAUFMAN [facility] arthritis w/o Moncho. 5794 Provider: Zehra Shahid [facility] 7 [facility], 5794 PLLC factor of Rashida Do MD, [facility], [address] [place] [address], [facility], [facility], intermediate teacher [id number], Bl[address]. [address] [place], (current) drug [place]. [place], [id number], therapy tel:[phone] [place], [place] [address] [place], [address]. tel:[phone] tel:[phone] lting Provider: Roberto Dobson MD, [facility] [address], Suite [facility], [place], [address]. tel:[phone] lting Provider: Ramón Jurado MD, [address] [place] [address], [address]. tel:[phone] lting Provider: [place] [facility], [address] [place], [address]. tel:[phone] ring Provider: Moncho Slaughter MD, [address], [place], [id number]. tel:[phone] Arthritis Arthritis Rheumatoid Mar- Kasandra KAUFMAN Consulting [facility] Health arthritis w/o Moncho. 5794 Provider: Zehra Shahid rheumatoid 7 [facility], 5794 PLLC factor of Rashida Do MD, [facility], [address], [facility], [place], intermediate teacher [id number], Blvd. [facility], (current) drug [place]. [place], [id number], therapy tel:+[phone] [place], [place] [address] [place], [address]. tel:+ tel:[phone] lting Provider: Roberto Dobson MD, [facility] [address], Suite [facility], [place], [address]. tel:[phone] lting Provider: Ramón Jurado MD, [address] [place], [address]. tel:[phone] lting Provider: [facility], [address] [place], [address]. tel:[phone] [facility] Provider: Moncho Slaughter MD, [address], [place], [id number]. tel:[phone] Arthritis Arthritis Rheumatoid Sep-2 Kasandra KAUFMAN Consulting [facility] arthritis w/o 6-201 Moncho. 5794 Provider: Associates Associates rheumatoid 6 [facility], 5[facility], [facility], [address] [place] [address], [facility], [facility] [place], correction [id number], Blvd. [facility], (current) drug [place]. [place], [id number], therapy tel:+4 [place], [place] [address] [place], [address]. tel: [phone] lting Provider: Roberto Dobson MD, [facility] [address], Suite [facility], [place], [address]. tel:[phone] lting Provider: Ramón Jurado MD, [address] [place], [address]. tel:[phone] ring Provider: Moncho Slaughter MD, [address], [place], [id number]. tel:[phone] Arthritis Arthritis Rheumatoid Alli-2 Kasandra KAUFMAN Consulting [facility] arthritis w/o Moncho. 5794 Provider: Associates Associates rheumatoid 6 [facility], 5794 PLLC factor of Rashida Do MD, [facility] [place], [address], [facility], [facility] [place], correction [id number], Blvd. [facility], (current) drug [place]. [place], [id number], therapyIron tel:[phone] [place], [place] [address] [place], [address]. tel:[phone] anemia, tel:[phone] unspecified [phone] lting Provider: Roberto Dobson MD, [facility] [address], [place], [address]. tel:[phone] ring Provider: Moncho Slaughter MD, [address], [place], [id number]. tel:[phone] Arthritis Arthritis Anemia, Mar-2 Kasandra KAUFMAN [facility] unspecified [place]. 5[facility] 6 [facility], [address] [place], [facility], [place], [place], [place], [id number], [place], [place]. [id number], tel:[phone] [place] 283961 tel:[phone] Arthritis Arthritis Rheumatoid Mar-2 Kasandra KAUFMAN Consulting [facility] arthritis w/o 3 Moncho. 5794 Provider: Zehra Shahid rheumatoid 6 [facility] Roberto Dobson [facility], 5794 PLLC factor of MD Hi, [facility] [place], Neurology [place], [facility], Services Of [place], intermediate teacher [id number], [address], (current) drug [place] [id number], therapy tel:+[phone] St, [facility] [place] [address] 101, tel:[phone] [place], [place], [address]. tel:[phone] ring Provider: Moncho Slaughter MD, [address], [place], [id number]. tel:[phone] Arthritis Arthritis Rheumatoid Dec-2 Kasandra KAUFMAN Consulting [facility] arthritis w/o Moncho. 5794 Provider: Zehra Shahid rheumatoid 5 [facility] Roberto Delunaid PLLC, 5794 PLLC factor of MD Hi, [facility] multiple sites [place], Neurology [place], [place], Services Of [place], [id number], [address], [place] [place] [place] [id number], tel:[phone] [address] [place] [address] 101, tel:[phone] [place], [place], [address]. tel:[phone] ring Provider: Moncho Slaughter MD, [address], [place], [id number]. tel:[phone] Arthritis Arthritis Rheumatoid Jan- Kasandra KAUFMAN Consulting [facility] arthritis, Moncho. 5794 Provider: Zehra Shahid unspecifiedOth 5 [facility] Roberto Dobson [facility], 5794 PLLC er intermediate teacher MD Hi, [facility] (current) drug [place], Neurology [facility], Services Of [place], [id number], [address], [place] [place] [place] [id number], tel:[phone] [address] [place] [address] 101, tel:[phone] [place], [place], [address]. tel:[phone] ring Provider: Moncho Slaughter MD, [address], [place], [address]. tel:[phone] Arthritis Arthritis Kasandra KAUFMAN Consulting [facility] Moncho. 5794 Provider: Zehra Shahid [address] [place] [address] Roberto [facility], 5794 PLLC MD Hi, [facility] [place], Neurology [place], [place], Services Of [place], [id number], [address], [place] [place] [place] [id number], tel:[phone] [place] [address] 101, tel:+[phone] [place], [place], [address]. tel:[phone] ring Provider: Moncho Slaughter MD, [address], [place], [id number]. tel:[phone] Arthritis Arthritis Sep-2 Kasandra KAUFMAN Consulting [facility] Moncho. 5794 Provider: Associates Associates 4 [facility] Myron [facility], [address] [facility], [address] [facility], [place], [place], [place], [place], [id number], [place], [place], [address]. [id number], tel:+ tel:[phone] tel:+ [facility] [phone] Provider: Moncho Slaughter MD, [address], [place], [id number]. tel:[phone] Arthritis Arthritis May- Kasandra KAUFMAN Referring [facility] Moncho. 5794 Provider: Zehra Associates 3 [facility] Moncho [facility]aughter [facility], 5[address] DESTINY Do MD, [address] [place], [place], [facility], [id number], [place], [place], [place], [id number], tel: [phone]. [place] [address] tel: tel: [phone] Arthritis Arthritis Feb- Kasandra KAUFMAN Referring [facility] Moncho. 5794 Provider: Zehra Associates 2 [facility] Moncho Slaughter [facility], 5794 [facility], [address] [place], [place], [facility], [id number], [place], [place], [place]. [place], [id number], tel: [phone]. [place] [address] tel:[phone] tel:[phone] Arthritis Arthritis Stuart-0 Kasandra KAUFMAN Referring [facility] Moncho. 5794 Provider: Associates Associates 2 [facility] Moncho DIXON, 5794 [facility], [address] [facility], [place], [place], [place], [id number], [place], [place], [place]. [place], [id number], tel:[phone]. [place] 87[address]82 tel:+[phone] tel:[phone] Arthritis Arthritis Kasandra KAUFMAN [facility] 8-201 Moncho. 5794 Provider: Associates Associates 1 Harpreet Moncho Slaughter [facility], 5794 [facility] MD Hi, [address]794 [facility] Jackeline, [facility], [place], [place], [place], [id number], [place], [place], [place]. [place], [id number], tel:[phone]. [place] 720782 tel:+[phone] tel:[phone] 712401 Family History Family Member Diagnosis Age At Onset Mother Rheumatoid arthritis Immunizations Vaccine Date Status Comments Pneumococcal conjugate PCV 13 administered Note: patient best knowledge ; Source: Other Provider Influenza, injectable, MDCK, administered Note: patient best knowledge Flucelvax Quad 2017-2018Y ; Source: Other Provider Influenza, injectable, administered Note: patient best knowledge quadrivalent, split virus, 18 ; Source: Other Provider years or older Afluria Quad 3156-1091 Influenza, injectable, administered Note: patient best knowledge trivalent, split virus, 4 ; Source: Other Provider years and older, Fluvirin 5822-6248 Influenza, split virus, administered Note: patient best knowledge ; injectable, 3 years and older Source: Other Provider Fluvirin 5869-8349 Flu (split) (3 yrs or older) administered Source: New Immunization Record Influenza virus vaccine, administered Source: Other Provider Injection Yet to receive administered Source: New Immunization Record pneumo (2 yrs or older) administered Source: Other Provider (PPV23) Payers Payer name Insurance type Covered constitution party ID Authorization(s) Medicare [id number] Medicaid MC [id number] Social History Type Description Quantity Date Captured Comments Alcohol Use Details Unknown Caffeine Use Details Unknown Tobacco Use Status Unknown Smoking Status Unknown Sex Female Vital Signs Date / Height Weight BMI Pulse Blood Temperature Respiratory Body Head BMI Pulse Inhaled Time: Rate Pressure Rate Surface Circumference percentile [place] Area No information Chief Complaint And Reason For Visit No information Reason For Referral Reason For Referral No information Plan Of Treatment Date Type Action Status Goal Tobacco cessation counseling completed Goal Tobacco cessation counseling completed Appointment Joyce Simpson BOOKED History Of Present Illness Encounter Date Complaint History Of Present Illness No information Functional Status Date Functional Assessment No information Medications Administered Medication Instructions Dosage Effective Dates (start - stop) Status Comments No information Instructions Date Instruction Additional Information Be sure to have the new doctor send me a copy of his reports. We'll get the labs you had done. Be sure a copy of any labs are sent to me. Call if problems develop. Call if problems develop. We'l get the labs you had done. Risks/benefits of medications discussed, handout given on [facility]
--- OUTSIDE RECORDS SUMMARY | 2018-09-28 16:14 | XMS REPORT | Continuity of Care Document ---
:1955 Author Name [employer] Address Unavailable Unavailable , Care Team Providers Name Role Phone Per KAUFMAN, Jessica Vargas Unavailable Estefany KAUFMAN, Dr. Leonid Hodges Unavailable Kasandra KAUFMAN, Moncho Unavailable Unavailable Valentino KAUFMAN, Sudeep Amanda Unavailable Aleyda KAUFMAN, Ramón Fong Unavailable Zander MSN NPC, Carolina Unavailable Anya Msn Npc, Taryn A Unavailable More LRT, Jessica Unavailable Unavailable Collazo [employer] CHAIN DIRECTOR, Malorie Unavailable Unavailable Favian GLOBAL SUPPLY CHAIN DIRECTOR, Stacy Unavailable Unavailable Slowik [employer]LO[employer]PPLY CHAIN DIRECTOR, Maritza Unavailable Unavailable Reji NPC, Naty M [...] med prn Procedures EXHALED NITRIC OXIDE MEASUREMENT ([id number]) Status: Completed 12-Jul-2018 PRE AND POST ([id number]) Status: Completed 12-Jul-2018 RESPIRATORY FLOW VOLUME LOOP ([id number]) Status: Completed 04-Jul-2014 PRE AND POST ([id number]) Status: Completed 04-Jul-2014 Arthroscopic Ankle Surgery - Left Status: Completed Sep-2011 Comments: DR CHAPMAN Chest X-ray Status: Completed 12-Jul-2018 Comments: Lungs grossly clear. Improved compared to 01/21/18. Chest X-ray Status: Completed 16-Jul-2015 Comments: compared to 07/04/14: stable, no infiltrates, effusions, normal cariac and mediastinal contours Cpap titration Status: Completed Comments: [facility] sleep lab; 04/08/2005 CT Scan of Chest [...] chest film Hospitalization Status: Completed Jun-2017 Comments: [facility], sinusitis and RLL pneumonia PFT Status: [...] FEV1 2.34 (83) Polysomnography Status: Completed Comments: [facility] sleep lab; 02/26/2005 QUAD REPAIR Status: Completed [...] Comments: DR CHAPMAN CXR PA & LAT ([id number])Result: Are you or could Status: Completed Jun-2018 you become ?: No; When was you last CXR/CT?: over week ago; Campus Supervisor: IGNACIA Pacheco CT THORAX W/O DYE ([id number])Result: Are you or Date: 15-Apr-2018 could you become ?: No; When was you last Status: Completed 2018 CXR/CT?: over week ago; Campus Supervisor: Jessica More, LRT PRE AND POST W/ RT ([id number])Result: Hemoptysis: No Status: Completed 2018 CAT SCAN OF CHEST: CT THORAX W/O DYE ([id number])Result: Date: 10-Apr-2018 Are you or could you become ?: No; Status: Completed 2018 When was you last CXR/CT?: over week ago; Campus Supervisor: LETICIA PachecoT CT THORAX W/O DYE ([id number])Result: Are you or Date: 08-Feb-2018 could you become ?: No; When was you last Status: Completed 2018 CXR/CT?: over week ago; Campus Supervisor: LETICIA PachecoT PRE AND POST ([id number])Result: Hemoptysis: No Status: Completed 10-Dec-2017 CAT SCAN OF CHEST: CT THORAX W/O DYE ([id number])Result: Status: Completed 2017 Are you or could you become ?: No; When was you last CXR/CT?: over week ago; Campus Supervisor: LETICIA PachecoT CHEST X-RAY, PA AND LATERAL ([id number])Result: Are you Status: Completed 2015 or could you become ?: No; When was you last CXR/CT?: OVER WEEK AGO; Campus Supervisor: LETICIA PachecoT CHEST X-RAY, PA AND LATERAL ([id number])Result: Are you Status: Completed 2014 or could you become ?: No; When was you last CXR/CT?: over 1 week ago; Campus Supervisor: IGNACIA Pacheco Immunizations Influenza (3 years and [...] SCAN OF CHEST: CT THORAX W/O DYE ([id number]) Start: 10-Nov-2018 Intent PRE AND POST W/ RT ([id number]) Start: 10-Nov-2018 Intent Pre/Post ([id number]) Start: 14-Nov-2011 Intent RESPIRATORY FLOW VOLUME LOOP ([id number]) Start: 14-Nov-2011 Intent Medical; PRE AND POST RT - Start: 29-Sep-2018 9:15 Appointment Request [facility] Resp Therapy [place] 2, RT2 Medical; CT SCAN CHEST - Start: 29-Sep-2018 9:30 Appointment Request [facility] XRAY [place], Xray Medical; CT SCAN CHEST - Start: 11-Nov-2018 14:30 Appointment Request [facility] XRAY [facility], Xray Medical; PRE AND POST RT - Start: 11-Nov-2018 14:45 Appointment Request [facility] Resp Therapy [facility], RT Medical; FOLLOW UP 30 - 4MO FU NP30,PPRT Start: 11-Nov-2018 15:00 Appointment Request [facility] Anya, Benigno Amanda SPUTUM CULTURE ([id number]) Start: 30-Aug-2018 16:46 Request SPUTUM CYTOLOGY ([id number]) Start: 24-May-2018 16:53 Request [employer] ([id number]) Start: 10-Dec-2017 15:59 Request SPUTUM CYTOLOGY ([id number]) Start: 10-Dec-2017 15:38 Request PNEUMONIA : Referral to Yard Specialist? IMMUNOLOGY Indication:PNEUMONIA BONITA (OBSTRUCTIVE SLEEP APNEA) : FU EITHER Indication:BONITA (OBSTRUCTIVE SLEEP APNEA) BONITA (OBSTRUCTIVE SLEEP APNEA) : FU EITHER - Estefany/Anya Indication:BONITA (OBSTRUCTIVE SLEEP APNEA) Results SPUTUM CULTURE ([id number]) Ordered On: 24-May-2018 CULTURE, SPUTUM see document (Normal) SPUTUM CULTURE ([id number]) Ordered On: 01-Mar-2018 CULTURE, SPUTUM see document (Normal) SPUTUM CULTURE ([id number]) Ordered On: 10-Dec-2017 CULTURE, SPUTUM SEE DOCUMENT (Normal) SPUTUM CULTURE ([id number]) Ordered On: 13-Nov-2017 CULTURE, SPUTUM see document [...] 16:41 To 31-Aug-2018 8:20 Encounter Diagnosis: PNEUMONIA [facility] Office Medication Order 13-Jul-2018 9:42 To 13-Jul-2018 9:50 Encounter Diagnosis: BRONCHIECTASIS [facility] Historical Summary 13-Jul-2018 9:28 To 13-Jul-2018 9:30 [facility] Office Visit 12-Jul-2018 15:00 To 12-Jul-2018 15:35 Encounter Reason: Abnormal Chest Imaging - The referring provider is Dr. JESSICA YOUNG. The primary physician is TAI [facility] Whitney GOEL NP (The patient was [...] had been hospitalized In [facility], in late June 2017 with cough, stridor, and shortness of breath. She was also inpt at [facility] in May 2017, reported by the pt. She had throat swelling, ultimately was placed in the ICU for 5 days but did not require intubation or mechanical ventilation she was on antibiotics and steroids she was seen by ENT and reportedly and laryngosc opy. 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 OR POLYARTHRITIS, RHEUMATOID) [facility] Office Medication Order 10-Jun-2018 16:12 To 10-Jun-2018 16:17 Encounter Diagnosis: BRONCHIECTASIS [facility] Office Medication Order 28-May-2018 14:08 To 28-May-2018 14:54 Encounter Diagnosis: BRONCHIECTASIS [facility] Office Order Only 24-May-2018 16:41 To 24-May-2018 16:58 Encounter Diagnosis: PNEUMONIA [facility] Office Visit 15-Apr-2018 11:04 To 15-Apr-2018 15:56 Encounter Reason: Abnormal Chest Imaging - The referring provider is Dr. JESSICA YOUNG. The primary physician is [facility] Whitney GOEL NP (The patient was [...] had been hospitalized In [facility], in late June 2017 with cough, stridor, and shortness of breath. She was also inpt at [facility] in May 2017, reported by the pt. She had throat swelling, ultimately was placed in the ICU for 5 days but did not require intubation or mechanical ventilation she was on antibiotics and steroids she was seen by ENT and reportedly and laryngosc opy. in [place], She was seen in consultation by ENT [...] Dr. JESSICA YOUNG. The primary physician is [facility] Marcelo GOEL NP (The patient was seen [...] had been hospitalized In [facility], in late June 2017 with cough, stridor, and shortness of breath. She was also inpt at [facility] in May 2017, reported by the pt. She had throat swelling, ultimately was placed in the ICU for 5 days but did not require intubation or mechanical ventilation she was on antibiotics and steroids she was seen by ENT and reportedly and laryngosc opy. in [place], She was seen in consultation by ENT [...] 16:20 To 09-Mar-2018 8:30 Encounter Diagnosis: PNEUMONIA [facility] Office Order Only 01-Mar-2018 14:59 To 01-Mar-2018 15:49 Encounter Diagnosis: PNEUMONIA [facility] Office Historical Summary 08-Feb-2018 11:22 To 08-Feb-2018 11:36 Encounter Reason: Abnormal Chest Imaging - The referring provider is Dr. JESSICA YOUNG. The primary physician is [facility] Whitney GOEL NP (The [...] had been hospitalized In [facility], in late June 2017 with cough, stridor, and shortness of breath. She was also inpt at [facility] in May 2017, reported by the pt. She had throat swelling, ultimately was placed in the ICU for 5 days but did not require intubation or mechanical ventilation she was on antibiotics and steroids she was seen by ENT and reportedly and laryngosc opy. in [place], She was seen in consultation by ENT [...] Dr. JESSICA YOUNG. The primary physician is [facility] Marcelo GOEL NP (The patient was seen [...] had been hospitalized In [facility], in late June 2017 with cough, stridor, and shortness of breath. She was also inpt at [facility] in May 2017, reported by the pt. She had throat swelling, ultimately was placed in the ICU for 5 days but did not require intubation or mechanical ventilation she was on antibiotics and steroids she was seen by ENT and reportedly and laryngosc opy. in [place], She was seen in consultation by ENT [...] Historical Summary 07-Jan-2018 10:30 To 07-Jan-2018 10:34 [facility] Office Medication Order 23-Dec-2017 10:40 To 23-Dec-2017 12:02 Encounter Diagnosis: PNEUMONIA [facility] Office Medication Order 18-Dec-2017 13:33 To 21-Dec-2017 8:03 Encounter Diagnosis: SHORTNESS OF BREATH [place] [facility] Office Visit 10-Dec-2017 15:00 To 11-Dec-2017 10:02 Encounter Reason: Abnormal Chest Imaging - The referring provider is Dr. JESSICA YOUNG. The primary physician is [facility] Whitney GOEL NP (The patient was [...] paulie ayala hospitalized In [facility], in late June with cough, stridor, and shortness of breath. She was also inpt at [facility] in May 2017, reported by the pt. She had throat swelling, ult imately was placed in the ICU for 5 days but did not require intubation or mechanical ventilation she was on antibiotics and steroids she was seen by ENT and reportedly and laryngoscopy. in [facility] he was seen in consultation by [...] included chest x-ray and chest CT ([facility]). Treatment has included antibiotics [...] primary physician is Dr. JESSICA YOUNG ([facility] Office patient was scheduled for [...] primary physician is Dr. JESSICA YOUNG. [facility] Office sleep disorder is characterized [...] primary physician is Dr. JESSICA YOUNG. [facility] Office sleep disorder is characterized [...] [facility]plasty on July 10, 2014. The [facility] mervat for the procedure will [...] primary physician is Dr. JESSICA YOUNG. [facility] Office sleep disorder is characterized [...] LEFT TOTAL KNEE REPLACEMTN on 2011 AT [place]. The surgeon for the procedure will be DR ROMERO. The chief complaint is KNEE PAIN, ARTHRITIS. Recent symptoms include poor exercise tolerance, while recent symptoms do not include fever, chills, fatigue, chest pain, cough, dyspnea, dysuria, urinary frequency , nausea, vomiting, diarrhea, abdominal pain, easy bruising or lower extremity swelling. The patient's last [facility] visit was 22 month(s) ago. Pertinent [...] Historical Summary 02-Jan-2011 8:43 To 02-Jan-2011 8:54 [facility] Historical Summary 31-Dec-2010 17:01 To 31-Dec-2010 17:10 [facility] Office Payers Medicare [facility] [address] [facility] [id number] [place] Group Number: [id number] tel: Medicaid/[employer] C [address] [facility] [address] [place] Group Number: NONE tel: ROSA FIGUEREDO [address] [facility] [id number] tel:
--- OUTSIDE RECORDS SUMMARY | 2018-09-28 16:14 | XMS REPORT | Continuity of Care Document ---
:1955 Author Name Sales Promotion Coordinator, System Address Unavailable Unavailable , Care Team Providers Name Role Phone Per KAUFMAN, Jessica Vargas Unavailable Estefany KAUFMAN, Dr. Leonid Hodges Unavailable Kasandra KAUFMAN, Moncho Unavailable Unavailable Valentino KAUFMAN, Sudeep Amanda Unavailable Aleyda KAUFMAN, Ramón Fong Unavailable nAya Msn Npc, Taryn A Unavailable Favian END LATHE OPERATOR, Stacy Unavailable Unavailable Zander MSN NPC, Senatobia Unavailable More LRT, Jessica Unavailable Unavailable Vale END LATHE OPERATOR, Malorie Unavailable Unavailable Reji NPC, Naty M Unavailable Katherin END LATHE OPERATOR, Maritza Unavailable Unavailable Unavailable Unavailable Problems ABNORMAL CHEST CT (R93.89) (793.2) MD Leonid Allison Dr. BRONCHIECTASIS (J47.9) (494.0) Anya, Msn Npc Taryn A CHRONIC SINUSITIS (J32.9) (473.9) MD Leonid Allison [...] OBESITY (Renamed from OBESE) (E66.9) (278.00) MD eLonid Allison Dr. BONITA (OBSTRUCTIVE SLEEP APNEA) (G47.33) [...] med prn Procedures EXHALED NITRIC OXIDE MEASUREMENT (91687) Status: Completed 12-Jul-2018 PRE AND POST ([id number]) Status: Completed 12-Jul-2018 RESPIRATORY FLOW VOLUME LOOP ([id number]) Status: Completed 04-Jul-2014 PRE AND POST (77009) Status: Completed 04-Jul-2014 Arthroscopic Ankle Surgery - Left Status: Completed Sep-2011 Comments: DR CHAPMAN Chest X-ray Status: Completed 12-Jul-2018 Comments: Lungs grossly clear. Improved compared to 01/21/18. Chest X-ray Status: Completed 16-Jul-2015 Comments: compared to 07/04/14: stable, no infiltrates, effusions, normal cariac and mediastinal contours Cpap titration Status: Completed Comments: [facility] sleep lab; 04/08/2005 CT Scan of Chest [...] chest film Hospitalization Status: Completed Jun-2017 Comments: [facility], sinusitis and RLL pneumonia PFT Status: [...] FEV1 2.34 (83) Polysomnography Status: Completed Comments: [facility] sleep lab; 02/26/2005 QUAD REPAIR Status: Completed [...] Comments: DR CHAPMAN CXR PA & LAT ([id number])Result: Are you or could Status: Completed Jun-2018 you become ?: No; When was you last CXR/CT?: over week ago; Customer Project Manager: IGNACIA Pacheco CT THORAX W/O DYE ([id number])Result: Are you or Date: 15-Apr-2018 could you become ?: No; When was you last Status: Completed 2018 CXR/CT?: over week ago; Customer Project Manager: Jessica More, LRT PRE AND POST W/ RT ([id number])Result: Hemoptysis: No Status: Completed 2018 CAT SCAN OF CHEST: CT THORAX W/O DYE ([id number])Result: Date: 10-Apr-2018 Are you or could you become ?: No; Status: Completed 2018 When was you last CXR/CT?: over week ago; Customer Project Manager: LETICIA PachecoT CT THORAX W/O DYE ([id number])Result: Are you or Date: 08-Feb-2018 could you become ?: No; When was you last Status: Completed 2018 CXR/CT?: over week ago; Customer Project Manager: LETICIA PachecoT PRE AND POST ([id number])Result: Hemoptysis: No Status: Completed 10-Dec-2017 CAT SCAN OF CHEST: CT THORAX W/O DYE ([id number])Result: Status: Completed 2017 Are you or could you become ?: No; When was you last CXR/CT?: over week ago; Customer Project Manager: LETICIA PachecoT CHEST X-RAY, PA AND LATERAL ([id number])Result: Are you Status: Completed 2015 or could you become ?: No; When was you last CXR/CT?: OVER WEEK AGO; Customer Project Manager: LETICIA PachecoT CHEST X-RAY, PA AND LATERAL ([id number])Result: Are you Status: Completed 2014 or could you become ?: No; When was you last CXR/CT?: over 1 week ago; Customer Project Manager: IGNACIA Pacheco Immunizations Influenza (3 years and [...] SCAN OF CHEST: CT THORAX W/O DYE ([id number]) Start: 10-Nov-2018 Intent PRE AND POST W/ RT ([id number]) Start: 10-Nov-2018 Intent Pre/Post ([id number]) Start: 14-Nov-2011 Intent RESPIRATORY FLOW VOLUME LOOP ([id number]) Start: 14-Nov-2011 [address]; [address] SCAN CHEST - Start: 11-Nov-2018 14:30 Appointment Request [facility], Xray Medical; PRE AND POST RT - Start: 11-Nov-2018 14:45 Appointment Request [facility] Resp Therapy [facility], RT Medical; FOLLOW UP 30 - 4MO FU NP30,PPRT Start: 11-Nov-2018 15:00 Appointment Request [facility] Anya, Msn Npc Taryn Amanda SPUTUM CULTURE ([id number]) Start: 30-Aug-2018 16:46 Request SPUTUM CYTOLOGY ([id number]) Start: 24-May-2018 16:53 Request [employer]UM AFB ([id number]) Start: 10-Dec-2017 15:59 Request SPUTUM CYTOLOGY ([id number]) Start: 10-Dec-2017 15:38 Request PNEUMONIA : Referral to Hot Plate Press Operator? IMMUNOLOGY Indication:PNEUMONIA BONITA (OBSTRUCTIVE SLEEP APNEA) : FU EITHER Indication:BONITA (OBSTRUCTIVE SLEEP APNEA) BONITA (OBSTRUCTIVE SLEEP APNEA) : FU EITHER - Estefany/Anya Indication:BONITA (OBSTRUCTIVE SLEEP APNEA) Results SPUTUM CULTURE ([id number]) Ordered On: 24-May-2018 CULTURE, SPUTUM see document (Normal) SPUTUM CULTURE ([id number]) Ordered On: 01-Mar-2018 CULTURE, SPUTUM see document (Normal) SPUTUM CULTURE ([id number]) Ordered On: 10-Dec-2017 CULTURE, SPUTUM SEE DOCUMENT (Normal) SPUTUM CULTURE ([id number]) Ordered On: 13-Nov-2017 CULTURE, SPUTUM see document [...] Historical Summary 06-Sep-2018 9:26 To 06-Sep-2018 16:37 [facility] Office Medication Order 30-Aug-2018 16:41 To 31-Aug-2018 8:20 Encounter Diagnosis: PNEUMONIA [facility] Office Medication Order 13-Jul-2018 9:42 To 13-Jul-2018 9:50 Encounter Diagnosis: BRONCHIECTASIS [facility] Historical Summary 13-Jul-2018 9:28 To 13-Jul-2018 9:30 [facility] Office Office Visit 12-Jul-2018 15:00 To 12-Jul-2018 15:35 Encounter Reason: Abnormal Chest Imaging - The referring provider is Dr. JESSICA YOUNG. The primary physician is T[facility] Whitney GOEL NP (The patient [...] in August 2017 to see the jordan kailey who had been hospitalized In [facility], in late June 2017 with cough, stridor, and shortness of breath. She was also inpt at [facility] in May 2017, reported by the pt. She had throat swelling, ultimately was placed in the ICU for 5 days but did not require intubation or mechanical ventilation she was on antibiotics and steroids she was seen by ENT and reportedly and laryngosc opy. 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, RHEUMATOID) [facility] Office Medication Order 10-Jun-2018 16:12 To 10-Jun-2018 16:17 Encounter Diagnosis: BRONCHIECTASIS [facility] Medication Order 28-May-2018 14:08 To 28-May-2018 14:54 Encounter Diagnosis: BRONCHIECTASIS [facility] Office Order Only 24-May-2018 16:41 To 24-May-2018 16:58 Encounter Diagnosis: PNEUMONIA [facility] Office Visit 15-Apr-2018 11:04 To 15-Apr-2018 15:56 Encounter Reason: Abnormal Chest Imaging - The referring provider is Dr. JESSICA YOUNG. The primary physician is [facility] Whitney GOEL NP (The patient [...] pa kailey who had been hospitalized In [facility], in late June 2017 with cough, stridor, and shortness of breath. She was also inpt at [facility] in May 2017, reported by the pt. She had throat swelling, ultimately was placed in the ICU for 5 days but did not require intubation or mechanical ventilation she was on antibiotics and steroids she was seen by ENT and reportedly and laryngosc opy. in [place], She was seen in consultation by ENT [...] has included chest x-ray and chest CT ([place] AND CT NECK). Treatment has included antibiotics [...] Dr. JESSICA YOUNG. The primary physician is [facility] Marcelo GOEL NP (The patient was [...] in August 2017 to see the jordan kailey who had been hospitalized In [facility], in late June 2017 with cough, stridor, and shortness of breath. She was also inpt at [facility] in May 2017, reported by the pt. She had throat swelling, ultimately was placed in the ICU for 5 days but did not require intubation or mechanical ventilation she was on antibiotics and steroids she was seen by ENT and reportedly and laryngosc opy. in [place], She was seen in consultation by ENT [...] 16:20 To 09-Mar-2018 8:30 Encounter Diagnosis: PNEUMONIA [facility] Office Order Only 01-Mar-2018 14:59 To 01-Mar-2018 15:49 Encounter Diagnosis: PNEUMONIA [facility] Office Historical Summary 08-Feb-2018 11:22 To 08-Feb-2018 11:36 Encounter Reason: Abnormal Chest Imaging - The referring provider is Dr. JESSICA YOUNG. The primary physician is TAI [facility] Whitney GOEL NP (The patient [...] in August 2017 to see the jordan macesalvatore who had been hospitalized In [facility], in late June 2017 with cough, stridor, and shortness of breath. She was also inpt at [facility] in May 2017, reported by the pt. She had throat swelling, ultimately was placed in the ICU for 5 days but did not require intubation or mechanical ventilation she was on antibiotics and steroids she was seen by ENT and reportedly and laryngosc opy. in [place], She was seen in consultation by ENT [...] included chest x-ray and chest CT ([facility] AND CT NECK). Treatment has included antibi [...] Dr. JESSICA YOUNG. The primary physician is [facility] Marcelo GOEL NP (The patient was [...] in August 2017 to see the jordan kailey who had been hospitalized In [facility], in late June 2017 with cough, stridor, and shortness of breath. She was also inpt at [facility] in May 2017, reported by the pt. She had throat swelling, ultimately was placed in the ICU for 5 days but did not require intubation or mechanical ventilation she was on antibiotics and steroids she was seen by ENT and reportedly and laryngosc opy. in [place], She was seen in consultation by ENT [...] Historical Summary 07-Jan-2018 10:30 To 07-Jan-2018 10:34 [facility] Office Medication Order 23-Dec-2017 10:40 To 23-Dec-2017 12:02 Encounter Diagnosis: PNEUMONIA [facility] Office Medication Order 18-Dec-2017 13:33 To 21-Dec-2017 8:03 Encounter Diagnosis: SHORTNESS OF BREATH [facility] Office Visit 10-Dec-2017 15:00 To 11-Dec-2017 10:02 Encounter Reason: Abnormal Chest Imaging - The referring provider is Dr. JESSICA YOUNG. The primary physician is [facility] Office Whitney GOEL NP (The patient [...] patient who had paulie ayala hospitalized In [facility], in late June with cough, stridor, and shortness of breath. She was also inpt at [facility] in May 2017, reported by the pt. She had throat swelling, ult imately was placed in the ICU for 5 days but did not require intubation or mechanical ventilation she was on antibiotics and steroids she was seen by ENT and reportedly and laryngoscopy. in [facility] he was seen in consultation by ENT [...] included chest x-ray and chest CT ([facility] AND [facility] NECK). Treatment has included antibiotics [...] primary physician is Dr. JESSICA YOUNG (The [facility] Office patient was scheduled for [...] primary physician is Dr. JESSICA YOUNG. The [facility] Office sleep disorder is characterized [...] primary physician is Dr. JESSICA YOUNG. The [facility] Office sleep disorder is characterized [...] [facility] arthroplasty on July 10, 2014. The [facility] mervat for the procedure will be [...] primary physician is Dr. JESSICA YOUNG. The [facility] Office sleep disorder is characterized [...] LEFT TOTAL KNEE REPLACEMTN on 2011 AT [facility]. The surgeon for the procedure will be DR ROMERO. The chief complaint is KNEE PAIN, ARTHRITIS. Recent symptoms include poor exercise tolerance, while recent symptoms do not include fever, chills, fatigue, chest pain, cough, dyspnea, dysuria, urinary frequency , nausea, vomiting, diarrhea, abdominal pain, easy bruising or lower extremity swelling. The patient's last self regional healthcare visit was 22 month(s) ago. Pertinent medical [...] Historical Summary 02-Jan-2011 8:43 To 02-Jan-2011 8:54 [facility] Historical Summary 31-Dec-2010 17:01 To 31-Dec-2010 17:10 [facility] Office Payers Medicare [facility] [address] [facility] [address] [place] Group Number: NONE tel: Medicaid/[employer] C [address] [facility] [address] [place] Group Number: NONE tel: ROSA FIGUEREDO [address] [facility] [id number] tel:
--- OUTSIDE RECORDS SUMMARY | 2018-09-28 16:14 | XMS REPORT | Continuity of Care Document ---
:1955 Author Organization [facility] Address [address], [place] [id number] Phone Care Team Providers Name Role Phone Moncho Slaughter MD Unavailable Unavailable Allergies, Adverse Reactions, Alerts Substance Reaction Status Penicillins Active Medications Medication Instructions Dosage Effective Dates Status Comments (start - stop) Celebrex 200 mg TAKE ONE CAPSULE - Active capsule BY MOUTH TWICE A DAY NEEDED Percocet 5 mg-325 take 1 tablet by - Active MDD# 4 DO mg tablet oral route every NOT FILL TILL 6 hours as needed 09/05/18 Plaquenil 200 mg TAKE TWO TABLETS - Active tablet BY MOUTH EVERY DAY methotrexate sodium take 9 Tablet by 22.5 MG - Active 2.5 mg tablet Oral route every week prednisone 5 mg take 1 q.i.d., - [...] Active (20MG) by oral route every day CELECOXIB 200 MG TAKE ONE CAPSULE - No Longer CAPSULE BY MOUTH TWICE A Active DAY NEEDED Problems Condition Effective Dates Clinical Status Comments (start - stop) Rheumatoid arthritis w/o rheumatoid factor, multiple sites Rheumatoid arthritis w/o rheumatoid factor, multiple sites Rheumatoid arthritis w/o rheumatoid factor, multiple sites Other care home (current) drug therapy Rheumatoid arthritis w/o rheumatoid factor of multiple sites Other [employer] [facility] (current) drug therapy Rheumatoid arthritis w/o rheumatoid factor of multiple sites Other care home (current) drug therapy Rheumatoid arthritis w/o rheumatoid factor of multiple sites Rheumatoid arthritis w/o rheumatoid factor of multiple sites Other [employer] [facility] (current) drug therapy Rheumatoid arthritis w/o rheumatoid factor of multiple sites Other [employer] [facility] (current) drug therapy Rheumatoid arthritis w/o rheumatoid factor of multiple sites Other care home (current) drug therapy Rheumatoid arthritis w/o rheumatoid factor of multiple sites Other [employer] [facility] (current) drug therapy Rheumatoid arthritis w/o rheumatoid factor of multiple sites Other [facility] customer [facility] (current) drug therapy Iron deficiency anemia, unspecified Anemia, unspecified Rheumatoid arthritis w/o rheumatoid factor of multiple sites Other [employer] [facility] (current) drug therapy Rheumatoid arthritis w/o rheumatoid factor of multiple sites Rheumatoid arthritis, unspecified Other care home (current) drug therapy Rheumatoid factor negative - Active High risk drug monitoring - Active Mapped from [facility] status Chronic Conditions table on 07/31/2014 by the ICD9 to SNOMED Bulk Mapping Utility. The mapped diagnosis code was intermediate project manager use of medication, V58.69, added by Moncho Slaughter MD, with responsible provider Moncho Slaughter MD. Onset date 03/14/2014; last addressed on 03/14/2014. Localized, primary - Active Mapped from [facility] osteoarthritis of the hand Chronic Conditions table on 05/30/2014 by the ICD9 to SNOMED Bulk Mapping Utility. The mapped diagnosis code was Osteoarthritis, primary, hand, 715.14, added by Moncho Slaughter MD, with responsible provider Moncho Slaughter MD. Onset date 06/02/2012; last addressed on 03/14/2014. Rheumatoid arthritis - Active Mapped from [facility] Chronic Conditions table on 05/30/2014 by the [...] Copied on Encounter Arthritis Arthritis Aug- Kasandra [facility] Moncho. [facility] 9 [facility], 5794 [facility], [facility], [place], [place], [place], [id number], [place], [place]. [id number], tel:[phone] [place] [phone] tel:[phone] Arthritis Arthritis Kasandra [facility] Moncho. 5[facility] 9 [facility], 5[address] [facility] [place], [facility] [place], [place], [place], [place], [id number], [place], [place]. [id number], tel:[phone] [place] [phone] tel:[phone] Arthritis Arthritis Kasandra [facility] Moncho. 5[facility] 9 [facility], 5794 PLLC [place], [facility] [place], [place], [place], [place], [id number], [place], [place]. [id number], tel:[phone] [place] [phone] tel:[phone] Arthritis Arthritis Kasandra [facility] Moncho. 57[facility]achel [facility] 9 [facility], 5[address] PLLC [place], [facility] [place], [place], [place], [place], [id number], [place], [place]. [id number], tel:[phone] [place] [phone] tel:[phone] Arthritis Arthritis July- Kasandra [facility] 0- Moncho. 5[address] [facility] 9 [facility], 5[address] PLL[facility] [place], [facility] [place], [place], [place], [place], [id number], [place], [place]. [id number], tel:[phone] [place] [phone] tel:[phone] Arthritis Arthritis Rheumatoid Apr-1 Kasandra [facility] arthritis w/o Moncho. 5794 Provider: Zehra Shahid rheumatoid 9 [facility], 5794 PLLC Hi munson Downing MD, [facility] multiple sites [place], [address] [place], [place], [place], [id number], [address] Suite [place], [place]. [place], [id number], tel:[phone] [facility], [place] [address] [place], [address]. tel: tel:[phone] lting Provider: Roberto Dobson MD, [facility] Of [address], [address], [place], [address]. tel:[phone] lting Provider: Rafal Ruth MD, [address] [facility] [address], [place], [address]. tel:[phone] lting Provider: Prerna Euceda MD, [address] [place] [address], [address], [place], [address]. tel:[phone] [facility] Provider: Moncho Slaughter MD, [address] [place], [place], [id number]. tel:[phone] Arthritis Arthritis Rheumatoid Dec-0 Kasandra [facility] arthritis w/o Moncho. 5794 Provider: Zehra Shahid rheumatoid 8 [facility], 5794 PLLC Hi munson Downing MD, [facility] multiple sites [place], [address] [place], [place], [place], [id number], St, Suite [place], [place]. [place], [id number], tel:+ [facility], [address] [place], [address]. tel:[phone] tel:[phone] lting Provider: Roberto Dobson MD, [facility] [address], [address], [place], [address]. tel:[phone] lting Provider: Rafal Ruth MD, [address] [facility], [place], [address]. tel:[phone] lting Provider: Prerna Euceda MD, [address] [facility], [address], [place], [address]. tel:[phone] ring Provider: Moncho Slaughter MD, [address] [place], [place], [id number]. tel:[phone] Arthritis Arthritis Rheumatoid Oct-2 Kasandra [facility] arthritis w/o Moncho. 5794 Provider: Zehra Shahid [facility] 8 [facility], 5794 PLLC factor, [place], [facility], [address] [place] [address], [facility], [facility], [employer] customer [employer] [id number], [address] Suite [place], (current) drug [place]. [place], [id number], therapy tel:[phone] [place], [place] [address] [place], [address]. tel:[phone] tel:[phone] lting Provider: Roberto Dobson MD, [facility] [place] [address] [facility], [address], [place], [address]. tel:[phone] lting Provider: Ramón Jurado MD, [address] [place], [address]. tel:[phone] lting Provider: Prerna Euceda MD, [address] [facility], [address], [place], [address]. tel:[phone] ring Provider: Moncho Slaughter MD, [address] [place], [place], [id number]. tel:[phone] Arthritis Arthritis Rheumatoid July-0 Kasandra [facility] arthritis w/o Moncho. 5794 Provider: Zehra Shahid rheumatoid 8 [facility], 5794 PLLC factor of [place], [facility], [address] [place] [address], [facility], [facility], care home [id number], [address] [place], (current) drug [place]. [place], [id number], therapy tel:[phone] [place], [place] [address] [place], [address]. tel:[phone] tel:[phone] lting Provider: Roberto Dobson MD, [facility] [address], [address], [place], [address]. tel:[phone] lting Provider: Ramón Jurado MD, [address] [place], [address]. tel:[phone] lting Provider: Tom Haley MD, [address] [place], [address]. tel:[phone] [facility] Provider: Moncho Slaughter MD, [address] [place], [place], [id number]. tel:[phone] Arthritis Arthritis Rheumatoid Mar-2 Kasandra [facility] arthritis w/o Moncho. 5794 Provider: Associates Associates rheumatoid 8 [facility], [address] [place] [address], Rashida KAUFMAN, [facility], [address] [place], [facility], [facility], care home [id number], Blvd. [facility], (current) drug [place]. [place], [id number], therapy tel:[phone] [place], [place] [address] [place], [address]. tel:[phone] tel:[phone] lting Provider: Roberto Dobson MD, [facility] [address], Suite [facility], [place], [address]. tel:[phone] lting Provider: Ramón Jurado MD, [address] [place], [address]. tel:[phone] lting Provider: Tom Haley MD, [address] [place], [address]. tel:[phone] [facility] Provider: Moncho Slaughter MD, [address] [place], [place], [id number]. tel:[phone] Arthritis Arthritis Rheumatoid Apr- Kasandra [facility] arthritis w/o 7 Moncho. 5794 Provider: Zehra Shahid rheumatoid 8 [facility], 5794 PLLC factor of Rashida Do MD, [facility], [address] [place] [address], [place], [facility], [id number], Blvd[address] Suite [place], [place]. [place], [id number], tel:[phone] [place], [place] [address] [place], [address]. tel:[phone] tel:[phone] lting Provider: Roberto Dobson MD, Neurology Services Of [address], [address]. tel:[phone] lting Provider: Ramón Jurado MD, [address] [place], [address]. tel:[phone] lting Provider: Yonis Leal MD, [address] [place] [address], [address]. tel:[phone] ring Provider: Moncho Slaughter MD, [address] [place], [place], [id number]. tel:[phone] Arthritis Arthritis Rheumatoid Dec-0 Kasandra [facility] arthritis w/o 4201 Moncho. 5794 Provider: Zehar Shahid rheumatoid 7 [facility], 5794 PLLC factor of [place] Do MD, [facility], [address] [place] [address], [facility], [facility], care home [id number], Blvd. [address] [place], (current) drug [place]. [place], [id number], therapy tel:[phone] [place] [address] [place], [address]. tel:[phone] tel:[phone] lting Provider: Roberto Dobson MD, [facility] [address], [address], [address]. tel:[phone] lting Provider: Ramón Jurado MD, [address] [place], [address]. tel:[phone] lting Provider: [place] [facility] [place], [address] [place], [address]. tel:[phone] ring Provider: Moncho Slaughter MD, [address] [place], [place], [id number]. tel:[phone] Arthritis Arthritis Rheumatoid Alli-0 Kasandra [facility] arthritis w/o Moncho. 5794 Provider: Zehra Shahid [facility] 7 [facility], 5794 PLLC factor of [place] Do MD, [facility], [address] [place] [address], [facility] [place], [facility] [place], care home [id number], [address] [place], (current) drug [place]. [place], [id number], therapy tel:[phone] [place], [place] [address] [place], [address]. tel:[phone] tel:[phone] lting Provider: Roberto Dobson MD, [facility] [address], [address], [place], [address]. tel:[phone] lting Provider: Ramón Jurado MD, [address] [place] [address], [address]. tel:[phone] lting Provider: [place] [facility] [place], [address] [place], [address]. tel:[phone] ring Provider: Moncho Slaughter MD, [address] [place], [place], [id number]. tel:[phone] Arthritis Arthritis Rheumatoid Stuart-2 Kasandra [facility] arthritis w/o Moncho. 5794 Provider: Zehra Shahid rheumatoid 7 [facility], 5794 PLLC factor of [place] Do MD, [facility] [place], [address] [place], [facility] [place], [facility] [place], care home [id number], Blvd. [address] [place], (current) drug [place]. [place], [id number], therapy tel:[phone] [place], [place] [address] [place], [address]. tel:[phone] tel:[phone] lting Provider: Roberto Dobson MD, [facility] [address], Suite [facility], [place], [address]. tel:[phone] lting Provider: Ramón Jurado MD, [address] [place], [address]. tel:[phone] lting Provider: [place] [facility], [address] [place], [address]. tel:[phone] ring Provider: Moncho Slaughter MD, [address] [place], [place], [id number]. tel:[phone] Arthritis Arthritis Rheumatoid Sep-2 Kasandra [facility] arthritis w/o Moncho. 5794 Provider: Zehra Shahid [address], 5794 [facility], [facility], [address] [place], [facility], [facility], [employer] customer service [id number], Blvd. [facility], (current) drug [place]. [place], [id number], therapy tel:[phone] [place], [place] [address] [place], [address]. tel:[phone] tel:[phone] lting Provider: Roberto Dobson MD, [facility] [address], Suite [facility], [place], [address]. tel:[phone] lting Provider: Ramón Jurado MD, [address] [place], [address]. tel:[phone] ring Provider: Moncho Slaughter MD, [address] [place], [place], [id number]. tel:[phone] Arthritis Arthritis Rheumatoid Alli-2 Kasandra [facility] arthritis w/o Moncho. 5794 Provider: Zehra salazar 6 [facility], 5794 PLLC factor of Rashida Do MD, [facility] [place], 260 [facility], [facility] [place], care home [id number], [facility]. [facility], (current) drug [place]. [place], [id number], therapyIron tel:[phone] [place], [place] deficiency [address] [place], [address]. tel:[phone] anemia, tel:[phone] lting Provider: Roberto Dobson MD, [facility] [place] [address] [facility], [address], [place], [address]. tel:[phone] ring Provider: Moncho Slaughter MD, [address] [place], [place], [id number]. tel:[phone] Arthritis Arthritis Anemia, Mar-2 Kasandra KAUFMAN [facility] unspecified Moncho. [address] [facility], 5794 [facility], [place], [place], [place], [id number], [place], [place]. [id number], tel:[phone] [place] 638735 tel:[phone] Arthritis Arthritis Rheumatoid Mar-2 Kasandra [facility] arthritis w/o Moncho. 5794 Provider: Zehra Shahid rheumatoid 6 [facility] Dob[facility], 5794 PLLC factor of [place], [facility] [place], Neurology [facility], Services Of [place], [employer] customer service [id number], [address], (current) drug [place]. [place] [place] [id number], therapy tel:+[phone] St, [facility] [place] 86[address] 101, tel:+[phone] [place], [place], [address]. tel:[phone] ring Provider: Moncho Slaughter MD, [address] [place], [place], [id number]. tel:[phone] Arthritis Arthritis Rheumatoid Dec-2 Kasandra [facility] arthritis w/o Moncho. 5794 Provider: Zehra Shahid rheumatoid 5 [facility], 5794 PLLC factor of [place] Hi, [facility] sites [place], Neurology [place], [place], Services Of [place], [id number], [address], [place]. [address]. [place] [id number], tel:[phone] [address] [place] [address] 101, tel:[phone] [place], [place], [address]. tel:[phone] ring Provider: Moncho Slaughter MD, [address] [place], [place], [id number]. tel:[phone] Arthritis Arthritis Rheumatoid Nov- Kasandra [facility] arthritis, Moncho. 5794 Provider: Zehra Shahid unspecifiedOth 5 [facility], 5794 PLLC intermodal customer service MD Hi, [facility] (current) drug [place], [facility], Services Of [place], [id number], [address], [place]. [address] [place] [id number], tel:[phone] [address] [place] [address] 101, tel:+[phone] [place], [place], [address]. tel:[phone] ring Provider: Moncho Slaughter MD, [address] [place], [place], [id number]. tel:[phone] Arthritis Arthritis Sep- Kasandra [facility] Moncho. 5794 Provider: Zehra Shahid 5 [facility], 5794 PLL MD Hi, [facility] [place], Neurology [place], [place], Services Of [place], [id number], [place], [place]. [address] [place] [id number], tel:[phone] [address] [place] [address] 101, tel:+[phone] [place], [place], [address]. tel:[phone] ring Provider: Moncho Slaughter MD, [address] [place], [place], [address]. tel:[phone] Arthritis Arthritis Sep-2 Kasandra [facility] Moncho. 5794 Provider: Associates Associates 4 [facility] Myron [facility], 5794 [facility], [address] [facility], [place], [place], [place], [id number], [place], [place], [address]. [id number], tel:[phone] tel:[phone] tel:[phone] [facility] [phone] Provider: Moncho Slaughter MD, [address] [place], [place], [id number]. tel:[phone] Arthritis Arthritis May- Kasandra KAUFMAN Referring [facility] Moncho. 5794 Provider: Associates Associates 3 [facility] Moncho Slaughter [facility], 5794 [facility] Do MD, [address] [place], [place], [facility], [id number], [place], [place], [place]. [place], [address], tel:[phone]. [place] 615028 tel: tel: [phone] Arthritis Arthritis Feb- Kasandra KAUFMAN Referring [facility] Moncho. 5794 Provider: Associates Associates 2 [facility] Moncho Slaughter [facility], 5794 [facility] Do [facility], [address] [place], [place], [facility], [id number], [place], [place], [place], [address], tel:[phone]. [place] 646384 tel:+[phone] tel:[phone] Arthritis Arthritis Stuart-0 Kasandra KAUFMAN Referring [facility] Moncho. 5794 Provider: Associates Associates 2 [facility] Moncho Slaughter [facility], 5794 [facility] Do MD, [address] [facility], [place], [place], [place], [id number], [place], [place], [place], [address], tel:[phone]. [place] 718631 tel:[phone] tel:[phone] Arthritis Arthritis Aug- Kasandra KAUFMAN [facility] 8-201 Moncho. 5794 Provider: Associates Associates 1 [facility] Moncho Slaughter [facility], 5794 [facility] MD Hi, 5794 [facility], [facility], [place], [place], [place], [id number], [place], [place], [place]. [place], [id number], tel:[phone]. [place] 619853 tel:[phone] tel:[phone] Family History Family Member Diagnosis Age At Onset Mother Rheumatoid arthritis Immunizations Vaccine Date Status Comments Pneumococcal conjugate PCV 13 administered Note: patient best knowledge ; Source: Other Provider Influenza, injectable, MDCK, administered Note: patient best knowledge Flucelvax Quad 2017-2019Y ; Source: Other Provider Influenza, injectable, administered Note: patient best knowledge quadrivalent, split virus, 18 ; Source: Other Provider years or older Afluria Quad 5246-2875 Influenza, injectable, administered Note: patient best knowledge trivalent, split virus, 4 ; Source: Other Provider years and older, Fluvirin 8703-8478 Influenza, split virus, administered Note: patient best knowledge ; injectable, 3 years and older Source: Other Provider Fluvirin 6792-8915 Flu (split) (3 yrs or older) administered Source: New Immunization Record Influenza virus vaccine, administered Source: Other Provider Injection Yet to receive administered Source: New Immunization Record pneumo (2 yrs or older) administered Source: Other Provider (PPV23) Payers Payer name Insurance type Covered libertarian ID Authorization(s) Medicare [id number] Medicaid [id number] Social History Type Description Quantity Date Captured Comments Sex Female Vital Signs Date / Height [...] Goal Tobacco cessation counseling completed Appointment Joyce Sipmson BOOKED History Of Present Illness Encounter Date [...]
--- OUTSIDE RECORDS SUMMARY | 2018-09-28 16:15 | XMS REPORT | Continuity of Care Document ---
:1955 External Reference #:[id number] Author Name Pablo Blackwood N.Carlos Alberto. Address [address] [place] [id number] Care Team Providers Name Role Phone Pablo Blackwood NP Primary Care Physician Unavailable Payers Date Identification Numbers Payment Provider Subscriber Effective: 2006 Policy Number: [id number] Medicare Part B Joyce Simpson Group Name: [facility] [address] PayID: [id number] [place] [address] Effective: 2012 Policy Number: [id number] Medicaid Joyce Simpson PayID: [id number] [address] [place] [address] Problems Active Problems Provider Date Benign essential hypertension Raúl Henry MD Onset: 01/07/2007 Pure hypercholesterolemia Raúl Henry MD Onset: 01/07/2007 Chest pain Clarissa Howell NP Onset: 04/21/2011 Coronary arteriosclerosis Clarissa Howell NP Onset: 04/21/2011 Palpitations Clarissa Howell NP Onset: 04/21/2011 Pre-surgery evaluation Rafal Ruth MD Onset: 08/06/2011 Headache Rafal Ruth MD Onset: 08/06/2011 Deficiency anemias Rafal Ruth MD Onset: 10/21/2011 Overweight Rafal Ruth MD Onset: 10/21/2011 Dermatophytosis of the body Rafal Ruth MD Onset: 11/17/2014 Transient cerebral ischemia Rafal Ruth MD Onset: 11/17/2014 Electrocardiogram abnormal Rafal Ruth MD Onset: 11/17/2014 Preoperative cardiovascular examination Rafal Ruth MD Onset: 08/13/2015 Coronary atherosclerosis due to calcified Rafal Ruth MD Onset: 08/13/2015 coronary lesion Ex-smoker Rafal Ruth MD Onset: 08/13/2015 Dyspnea Rafal Ruth MD Onset: 06/11/2016 Iron deficiency anemia Pablo Blackwood, N.P. Onset: 12/04/2016 Vitamin B12 deficiency (non anaemic) Pablo Blackwood, N.P. Onset: 12/04/2016 Methicillin resistant Staphylococcus aureus Pablo Blackwood, N.P. Onset: infection Low blood pressure Cate Macdonald NP Onset: 03/25/2018 History of cerebrovascular accident without Cate Macdonald NP Onset: 2018 residual deficits Dizziness and giddiness Cate Macdonald NP Onset: 05/31/2018 Mitral valve disorder Cate Macdonald NP Onset: 05/31/2018 Tricuspid valve disorder, non-rheumatic Cate Macdonald NP Onset: 05/31/2018 Aortic valve disorder Cate Macdonald NP Onset: 05/31/2018 Hypertensive heart disease without heart Rafal uRth MD Onset: 07/01/2018 failure Family History Date Family Member(s) Observation Comments : (age 77 Years) Father due to Heart Disease : (age 65 Years) Mother due to Stroke Siblings 7 : (age 36 Years) First Sister due to Cancer, Breast Social History Type Date Description Comments Sex Unknown Marital Status Occupation Unemployed Tobacco Use Start: Unknown End: Unknown Former Cigarette Smoker Smoking Status Reviewed: 07/01/18 Former Cigarette Smoker ETOH Use Rarely consumes alcohol Recreational Drug Use Denies Drug Use Tobacco Use Start: Unknown End: Unknown Patient is a former smoker Allergies, Adverse Reactions, Alerts Active Allergies Reaction Severity Comments Date Pen VK 01/27/2006 Cephalexin 02/26/2016 Medications Active Medications SIG Qnty Indications Ordering Date Provider Venlafaxine HCL ER Take One 30caps Jaison, 07/12/2018 75mg Capsule By Pablo, N.P. Caps ER 24HR Mouth Every Day Venlafaxine HCL ER Take One 30caps Jaison, 06/24/2018 150mg Capsule By Masyolande, N.P. Caps ER 24HR Mouth Every Day Fluconazole 1 by mouth 14tabs Jaison, 06/24/2018 100mg Tablets every day x 14 Mashelle, N.P. 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 Shingrix Nebo, 06/23/2017 50mcg Suspension Mashelle, N.P. Rec Pneumovax 23 Nebo, 06/23/2017 25mcg/0.5ML Mashelle, N.P. Injection Cyanocobalamin 1ml every mos 60units Nebo, 12/04/2016 1000mcg/ML Mashelle, N.P. Solution Iron Up Nebo, 12/04/2016 IV Mashelle, N.P. Clopidogrel Bisulfate Take One Tablet 30tabs Nebo, 09/04/2014 75mg By Mouth Every Mashelle, N.P. Tablets Day Oxycodone HCL 1 po qid prn 40tabs Nebo, 12/12/2011 10mg Tablets Mashelle, N.P. Cyclobenzaprine HCL take one tablet 30tabs Nebo, 08/04/2011 10mg by mouth two Mashelle, N.P. Tablets times a day Amitriptyline HCL 2 po qhs Nebo, 08/04/2011 25mg Mashelle, N.P. Tablets Furosemide Take One Tablet 30tabs Nebo, 02/19/2011 20mg Tablets By Mouth Every Mashelle, N.P. Day Lipitor take one tablet 90tabs Rafal Ruth, 01/17/2011 20mg Tablets by mouth at MD bedtime Alprazolam 1 by mouth 90tabs F41.1 Nebo, 06/21/2010 0.25mg Tablets three times a Mashelle, N.P. day Gabapentin take one Unknown 300mg Capsules capsule by mouth three times a day Famotidine 1 by mouth bid Unknown 20mg Tablets Topiramate 1.5 Tabs by Unknown 200mg Tablets mouth twice a day Nitrostat 1 sl every 5 25tabs Rafal Ruth, 0.4mg Tablets Sub minutes times 3 MD for chest pain, if no relief, call 911 - [facility] keep on file History Medications Fluconazole 1 by mouth qd x 7 7tabs Nebo, 06/24/2018 - 150mg days Mashelle, N.P. 06/24/2018 Tablets Ciprofloxacin HCL 1 by mouth twice a 10tabs Jaison, 02/16/2018 - 500mg day x 5 days Mashelle, N.P. 04/29/2018 Tablets Effexor XR Take One Capsule 30caps Jaison, 12/29/2017 - 150mg Caps By Mouth Every Day Mashelle, N.P. 01/18/2018 ER 24HR Bisoprolol Fumarate 1/2 by mouth every 90tabs I10 Rafal Ruth, 2017 - evening MD 05/31/2018 10mg Tablets Effexor XR Take One Capsule 30caps Jaison, 05/28/2017 - 150mg Caps By Mouth Every Day Masemmanuelle, N.P. 06/23/2017 ER 24HR Doxycycline Hyclate 1 by mouth bid x 20caps Nebo, 05/21/2017 - 10 days Masemmanuelle, N.P. 06/26/2017 100mg Capsules Nicotine Transdermal apply as directed Jaison, 05/18/2017 - System Step 1 every day Mashelle, N.P. 11/12/2017 21mg/24HR Patches 24HR Effexor XR 1 po qd 30caps Jaison, 04/20/2017 - 75mg Caps ER Mashelle, N.P. 04/20/2017 24HR Nicotine apply one patch q 21un Jaison, 04/20/2017 - 14mg/24HR 24hours as Devile, N.P. 05/18/2017 Patches 24HR directed Venlafaxine HCL ER Take One Capsule 30caps Jaison, 04/20/2017 - 75mg By Mouth Every Day Mashelle, N.P. 06/24/2018 Caps ER 24HR Sulfamethoxazole/Trim 1 by mouth twice a 14tabs Jaison, 03/10/2017 - ethoprim DS day Devile, N.P. 04/20/2017 800-160mg Tablets Fluconazole 2 by mouth on day 11tabs Jaison, 08/12/2016 - 100mg 1 then 1 every day Mashelle, N.P. 11/12/2017 Tablets x 9 days Gaviscon 1 tablespoon by Rafal Ruth, 07/23/2016 - 95-358mg/15ML mouth every night MD 04/20/2017 Suspension at bedtime Azithromycin 2 by mouth day one 6tabs Nebo, 02/25/2016 - 250mg then 1 by mouth Devile, N.P. 06/11/2016 Tablets every day x 4 days Fluconazole 1 by mouth every 10tabs Nebo, 02/25/2016 - 100mg day x 10 days Masemmanuelle, N.P. 06/11/2016 Tablets Azithromycin 2 by mouth day one 6tabs Nebo, 04/16/2015 - 250mg then 1 by mouth Devile, N.P. 08/13/2015 Tablets every day x 4 days Nystatin 1 teaspoon four 240ml Nebo, 03/29/2015 - [id number]/ML times a day swish Pablo, N.P. 08/13/2015 Suspension in mouth x 30 secs Diflucan 2 by mouth on day 9tabs Nebo, 02/13/2015 - 100mg Tablets one and then 1 by Pablo, N.P. 02/25/2016 mouth every day x 7 days Ciprofloxacin HCL 1 by mouth twice a 10tabs Nebo, 12/29/2014 - 500mg day x 5 days Devile, N.P. 08/13/2015 Tablets Fluconazole 1 by mouth today 2tabs Nebo, 12/29/2014 - 150mg and repeat in 5 Masemmanuelle, N.P. 02/22/2016 Tablets days Medical Note patient is Nebo, 12/15/2014 - medically cleared Pablo, N.P. 12/29/2014 to care for children Fluconazole 2 po day one then 11tabs Nebo, 12/08/2014 - 100mg 1 po qd x 10 days Masemmanuelle, N.P. 12/29/2014 Tablets Fluconazole 1 by mouth every 7tabs Nebo, 10/23/2014 - 100mg day x 7 days Devile, N.P. 11/17/2014 Tablets Nystatin apply three times 30gm Nebo, 10/23/2014 - [id number]/GM a day to affected Pablo, N.P. 03/29/2015 Cream area Nicoderm CQ 1 patch every day 14units Nebo, 09/04/2014 - 21mg/24HR as directed Pablo, N.P. 06/11/2016 Patches 24HR Levofloxacin 1 po qd x10 days 10 Nebo, 06/20/2014 - 500mg Mashelle, N.P. 10/23/2014 Tablets Fluocinonide apply sparingly to 60gm Jaison, 04/10/2014 - 0.05% itchy rash three Mashelle, N.P. 10/23/2014 Cream times a day Fluconazole 2 by mouth day one 12bs Jaison, 01/12/2014 - 100mg then 1 by mouth Mashelle, N.P. 04/10/2014 Tablets every day x 10 days Levofloxacin 1 po qd x10 days 10 Jaison, 01/12/2014 - 500mg Mashelle, N.P. 04/10/2014 Tablets Potassium Chloride ER Take One Capsule 30caps Rafal Ruth, 12/20/2013 - By Mouth Every Day 07/03/2017 10Meq Capsules ER Nicotine Step 3 on in the morning Lynda 10/06/2013 - off at night ROHINI Romo 10/06/2013 7mg/24HR Patches 24HR Nicotine 1 patch 30[facility] Lynda, 10/06/2013 - 7mg/24HR transdermal qday ROHINI Romo 12/20/2013 Patches 24HR as directed on package Nicotine Step 2 apply new patch ariadna Howell, 09/05/2013 - every 24 hours: 14 ROHINI Romo 10/06/2013 14mg/24HR Patches mg/day for 6 24HR weeks, then 7 mg/day for 2 weeks, and then finish with 7 mg/day for 2 wks Nicotine Step 1 use as directed 42mel Howell, 06/15/2013 - ROHINI Romo 09/05/2013 21mg/24HR Patches 24HR Levofloxacin 1 po qd x10 days 10glendy Blackwood, 05/24/2013 - 500mg Mashelle, N.P. 06/13/2013 Tablets Proair HFA 2 puffs qid prn un Jaison, 05/24/2013 - 108(90Base) Mashelle, N.P. 06/20/2014 mcg/Act Aerosol Prednisone 4 po x 3 days, 30 Jaison, 05/24/2013 - 10mg Tablets then 3 po x 3 days Mashelle, N.P. 12/20/2013 then 2 po x 3 days then 1 po x 3 days Imdur 1 po qd 30tabs Lynda, 01/05/2013 - 30mg Tablets ER Clarissa, [employer] MANAGER 01/26/2013 24HR Plavix 4 tabs po day 5tabs Lynda, 01/05/2013 - 75mg Tablets prior to Clarissa, COMMER[employer] FINANCE MANAGER 01/26/2013 procedure, 1 tab po am of procedure Fluconazole 2 by mouth day one 11ta Jaison, 10/15/2012 - 100mg then 1 by mouth Mashelle, N.P. 12/20/2013 Tablets every day x 10 days Levofloxacin 1 po qd x10 days 10ta Jaison, 08/20/2012 - 500mg Mashelle, N.P. 04/15/2013 Tablets Fluconazole 2 po day one then 11ta Nebo, 06/15/2012 - 100mg 1 po qd x 10 days Mashelle, N.P. 08/20/2012 Tablets Levofloxacin 1 po qd x 10 days 10 Nebo, 06/15/2012 - 750mg Mashelle, N.P. 07/14/2012 Tablets Levaquin 1 po qd x 10 days 10ta Nebo, 04/15/2012 - 750mg Tablets Mashelle, N.P. 06/15/2012 Zithromax Z-Fenrando as directed 1ta Nebo, 02/03/2012 - 250mg Mashelle, N.P. 04/15/2012 Tablets Erythromycin 1 po qid x 10 days 40caps Jaison, 08/14/2011 - 250mg Caps Pablo, N.P. 10/21/2011 DR Sprague Topamax 1/2 tab q am and 1 Jaison, 08/04/2011 - 200mg Tablets tab q hs Devile, N.P. 04/10/2014 Cymbalta 1 po qd 30caps Jaison, 08/04/2011 - 60mg Caps DR Shah, N.P. 04/10/2014 Part Plaquenil 2 by mouth every 60tabs Jaison, 08/04/2011 - 200mg Tablets day Masemmanuelle, N.P. 12/04/2016 Nicoderm CQ apply one patch qd 28units Jaison, 06/18/2011 - 14mg/24HR Pablo, N.P. 08/04/2011 Patches 24HR Nicoderm CQ as directed 30units Jaison, 05/06/2011 - 21mg/24HR Pablo, N.P. 06/18/2011 Patches 24HR Aspirin 1 po qd Lynda, 04/21/2011 - 81mg Tablets ROHINI Romo 11/17/2014 Metoprolol Tartrate take one tablet by 180tabs I10 Rafal Ruth 2010 - mouth twice a day 11/13/2017 50mg Tablets Amitriptyline HCL 1 po qhs 30tabs Jaison, 01/17/2011 - 10mg Pablo, N.P. 08/04/2011 Tablets Celebrex 1 po bid samples Jaison, 01/17/2011 - 200mg Capsules Pablo, N.P. 04/20/2017 Flexeril 1 po tid 15tabs Jaison, 01/17/2011 - 10mg Tablets Pablo, N.P. 01/17/2011 Soma 1 po qid 32tabs Jaison, 01/17/2011 - 350mg Tablets Pablo, N.P. 08/04/2011 Effexor XR Take One Capsule 30caps Jaison, 12/17/2010 - 150mg Caps By Mouth Every Day Pablo, N.P. 04/20/2017 ER 24HR Venlafaxine HCL Take One Capsule 30caps Jaison, 09/09/2010 - 150mg By Mouth Every Day Pablo, N.P. 01/17/2011 Caps ER 24HR Zithromax Z-Fernando as directed 1tabs Jaison, 06/21/2010 - 250mg Pablo, N.P. 01/17/2011 Tablets Cheratussin ac 1 teaspoon every 236ml Jaison, 06/21/2010 - 4-6 h prn cough Pablo, N.P. 01/17/2011 100-10mg/5ML Syrup Chantix 1po qd x 3 60tabs 305.1 Carlos Albarado 01/22/2010 - 0.5mg Tablets days then bid MD Sam 06/21/2010 Zithromax Z-Fernando as directed 1tabs Jaison 07/10/2009 - 250mg Pablo, N.P. 01/22/2010 Tablets Venlafaxine XR 1 po qd 30tabs Jaison, 02/27/2009 - 150mg Pablo, N.P. 07/05/2009 Tablets ER 24HR Lasix 1 po qd 30tabs Elaine, 11/07/2008 - 20mg Tablets MD Raúl 02/19/2011 Methotrexate 9/WK Carlos Albarado 10/19/2008 - 2.5mg MD Sam 01/18/2018 Tablets Nitrostat 1 sl prn 30tabs 714.0 Carlos Albarado 10/12/2008 - 0.4mg Tablets MD Sam 10/19/2008 Sub Gabapentin 1 po bid 30caps Carlos Albarado 08/03/2008 - 300mg MD Sam 11/02/2008 Capsules Nicoderm CQ 1 po qd 28unariadna Blackwood, 06/27/2008 - 7mg/24HR aPblo, N.P. 06/27/2008 Patches 24HR Nicoderm CQ as directed 28unariadna Blackwood, 06/27/2008 - 21mg/24HR Pablo, N.P. 10/12/2008 Patches 24HR Maggi 1 po bid 60tabs Jaison, 06/01/2008 - 60mg Tablets Pablo, N.P. 10/12/2008 Enbrel Q week Carlos Albarado 05/11/2008 - 50mg/ml Solution MD Sam 01/26/2013 Clarithromycin 1 po bid x 14tabs Carlos Albarado 05/11/2008 - 500mg 14 days MD Sam 10/12/2008 Tablets Nicoderm CQ 1 patch qd 28unariadna Blackwood, 04/25/2008 - 14mg/24HR Pablo, N.P. 05/11/2008 Patches 24HR Chantix Starter Pack as Directed 1Probert Blackwood, 03/07/2008 - Pablo, N.P. 04/25/2008 #1Pack Bactrim DS 1 po bid 14tabs Trabout, 08/19/2007 - 800-160 MD Raúl 08/29/2007 Tablets Guaifenesin DM 2 tabs q 12 hours 30tabs Trabout, 08/19/2007 - 600-30mg MD Raúl 05/11/2008 Tablets ER 12HR Effexor XR Take One Capsule 30caps Jaison, 03/29/2007 - 150mg Caps By Mouth Every Day Mashelle, N.P. 09/09/2010 ER 24HR Diltiazem HCL 1 po qd 30caps Nebo, 03/25/2007 - 180mg Devile, N.P. 10/19/2008 Caps ER 24HR Percocet 1-2 po q 6 hr prn 40tabs Nebo, 02/08/2007 - 5-325mg pain Pablo, N.P. 08/19/2007 Tablets Metoprolol Tartrate 1 po bid 60tabs 401.1 Nebo, 01/07/2007 - Mashelle, N.P. 03/11/2011 25mg Tablets Prevacid 1 po bid 30caps 530.11 Dominga Boone 08/14/2006 - 30mg Capsules C, RN MS [employer] 06/20/2014 DR Piper 1 po qd x 10 days 10tabs Nebo, 06/23/2006 - 500mg Tablets Mashelle, N.P. 01/07/2007 Zithromax Z-Fernando as Directed 1Pak Nebo, 01/27/2006 - 250mg Mashelle, N.P. 02/06/2006 Tablets Duratuss GP 1 po q 12 h 24tabs Nebo, 01/27/2006 - 1200mg;120 Mashelle, N.P. 01/07/2007 mg Tablets Hycotuss Expectorant 1 tsp ac hs 120ml Nebo, 07/07/2005 - Mashelle, N.P. 01/27/2006 100mg;5mg/5ML Liquid Zithromax Z-Fernando as directed 1Pak Nebo, 07/07/2005 - 250mg Mashelle, N.P. 01/27/2006 Tablets Celebrex 1 po bid 30caps 715.90 Nebo, 07/07/2005 - 200mg Capsules Mashelle, N.P. 10/12/2008 Methotrexate Dose 9 pills weekly Nebo, 07/07/2005 - Pack Mashelle, N.P. 01/27/2006 2.5mg Tablets Enbrel twice A week Nebo, 07/07/2005 - 25mg Injection Devile, N.P. 01/27/2006 warnowitz Clarinex 1 po qd 30tabs 477.0 [facility], 03/11/2005 - 5mg Tablets Lisa Akhtar MD 06/01/2008 Singulair 1 po q pm 30tabs 477.0 Trabout, 03/11/2005 - 10mg Tablets MD Raúl 08/06/2011 Alprazolam 1 po tid 90tabs 300.02 Nebo, 09/19/2004 - 0.25mg Devile, N.P. 05/11/2008 Tablets Bentyl 1 po qid prn 24caps Jaison, 08/08/2004 - 20mg Capsules Pablo, N.P. 08/19/2007 Tequin 1 po qd x 3 3tabs Jaison, 08/08/2004 - 400mg Tablets Pablo, N.P. 07/07/2005 Diovan 1 po qd 30tabs 401.1 Trabout, 07/18/2004 - 80mg Tablets MD Raúl 08/04/2011 Avelox 1 po qd x 10 days 10tabs Jaison, 07/08/2004 - 400mg Tablets Pablo, N.P. 07/07/2005 Avelox 1 po x 14 days 14tabs Jaison, 05/16/2004 - 400mg Tablets Devile, N.P. 05/16/2004 Nasonex Intranasal 2 sprays ea 1units Jaison, 05/16/2004 - [place]on nostril qd Devile, N.P. 01/07/2007 50mcg Suspension Cipro 1 po bid x 10 days 20tabs Jaison, 05/16/2004 - 500mg Tablets Pablo, N.P. 05/11/2008 Furosemide 1 po qd 30tabs Trabout, - 20mg Tablets MD Raúl 10/12/2008 Enbrel as directed Unknown - Soln Prefill 06/26/[address] Slaughter - taking Unknown - 50mg Tablets 75mg/day 11/12/2017 Cimzia Unknown - 2X 200 mg Kit 01/18/2018 Medications Administered in Office Medication SIG Qnty Indications Ordering Provider Date Pablo Cantor N.P. 01/18/2018 Injection PPD Nurses Schedule [place] 09/02/2016 Injection PPD Pablo Blackwood, N.P. 11/29/2013 Injection Injection, Regadenoson Nuclear Stress Testing 12/29/2012 (Lexiscan) 0.1 MG Injection PPD Nurses Schedule [place] 10/12/2012 Injection PPD Nurses Schedule [place] 09/08/2011 Injection PPD Nurses Schedule [place] 07/09/2009 Injection PPD Dominga Boone, RN MS 07/20/2006 Injection [employer] PPD Nurses Schedule [place] 07/20/2006 Injection PPD Pablo Blackwood N.PRikki 10/21/2004 Injection Immunizations CPT Code Status Date Vaccine Lot # [id number] Given 01/13/2018 Pneumococcal 23 Immunization Adult Or Immunosuppressed Patient 45240 Given 01/04/2018 Influenza Vac, Quadrivalent, Split, 0.5mL Dosage, Im Use 77194 Given 03/10/2017 Influenza Vac, Quadrivalent, Split, 0.5mL Dosage, [id number] Im Use 30375 Given 12/29/2014 Influenza Vac, Quadrivalent, Split, 0.5mL Dosage, [id number] Im Use Q2038 Given 04/07/2013 Fluzone Trivalent Immunization [id number] Q2038 Given 04/20/2012 Fluzone Trivalent Immunization [id number] Q2038 Given 01/17/2011 Fluzone Trivalent Immunization [id number] 30613 Given 01/22/2010 Tdap (Adacel) Ages 7 And Above Only [id number] 24749 Given 03/07/2009 Influenza Virus Vaccine Pandemic Formulation - [id number] 20072 Given 03/07/2009 Afluria Or Fluvirin Flu Vac Intramuscular [id number] 33152 Given 01/31/2008 Afluria Or Fluvirin Flu Vac Intramuscular [id number] 00892 Given 02/23/2006 Afluria Or Fluvirin Flu Vac Intramuscular 26525 Given 02/23/2006 Afluria Or Fluvirin Flu Vac Intramuscular [id number] 39994 Given 03/11/2005 Afluria Or Fluvirin Flu Vac Intramuscular [id number] Vital Signs Date Vital Result Comment 07/01/2018 12:30pm Weight 189.00 lb Heart Rate 84 /min BP Systolic 132 mmHg BP Diastolic 80 mmHg Height 65 inches 5'5" BMI (Body Mass Index) 31.4 kg/m2 06/24/2018 11:27am Body Temperature 97.5 F Weight 186.25 lb Heart Rate 116 /min BP Systolic 106 mmHg BP Diastolic 78 mmHg O2 % BldC Oximetry 95 % 05/31/2018 3:20pm Weight 192.00 lb Heart Rate 68 /min reg BP Systolic Sitting 98 mmHg BP Diastolic Sitting 60 mmHg BP Systolic Standing 80 mmHg BP Diastolic Standing 54 mmHg Respiratory Rate 16 /min Height 65 inches 5'5" BMI (Body Mass Index) 31.9 kg/m2 03/25/2018 12:14pm Weight 191.00 lb Heart Rate 68 /min reg BP Systolic 82 mmHg BP Diastolic 52 mmHg BP Systolic Sitting 110 mmHg BP Diastolic Sitting 62 mmHg BP Systolic Standing 96 mmHg BP Diastolic Standing 68 mmHg Respiratory Rate 16 /min Height 65 inches 5'5" BMI (Body Mass Index) 31.8 kg/m2 02/16/2018 10:56am Body Temperature 97.3 F Weight 190.12 lb Heart Rate 69 /min BP Systolic 98 mmHg BP Diastolic 58 mmHg O2 % BldC Oximetry 98 % 01/26/2018 10:04am Body Temperature 96.8 F Weight 193.12 lb Heart Rate 72 /min BP Systolic 128 mmHg BP Diastolic 70 mmHg O2 % BldC Oximetry 97 % 01/18/2018 10:40am Body Temperature 97.5 F Weight 196.12 lb Heart Rate 66 /min BP Systolic 118 mmHg BP Diastolic 78 mmHg Height 65.4 inches 5'5.40" BMI (Body Mass Index) 32.2 kg/m2 11/13/2017 1:10pm Weight 196.00 lb Heart Rate 60 /min BP Systolic 112 mmHg BP Diastolic 70 mmHg Height 65 inches 5'5" O2 % BldC Oximetry 97 % BMI (Body Mass Index) 32.6 kg/m2 06/26/2017 1:45pm Weight 211.00 lb Heart Rate 84 /min reg BP Systolic 118 mmHg BP Diastolic 66 mmHg Respiratory Rate 16 /min Height 65 inches 5'5" BMI (Body Mass Index) 35.1 kg/m2 06/23/2017 10:52am Body Temperature 98.4 F Weight 205.00 lb Heart Rate 75 /min BP Systolic 112 mmHg BP Diastolic 67 mmHg O2 % BldC Oximetry 97 % 05/21/2017 11:37am Body Temperature 97.7 F Weight 212.00 lb Heart Rate 82 /min BP Systolic 112 mmHg BP Diastolic 70 mmHg O2 % BldC Oximetry 98 % 04/20/2017 8:07am Body Temperature 97.2 F Weight 209.50 lb Heart Rate 47 /min BP Systolic 97 mmHg BP Diastolic 72 mmHg Height 65 inches 5'5" O2 % BldC Oximetry 99 % BMI (Body Mass Index) 34.9 kg/m2 03/10/2017 10:50am Body Temperature 98.4 F Weight 218.00 lb Heart Rate 83 /min BP Systolic 111 mmHg BP Diastolic 70 mmHg O2 % BldC Oximetry 96 % 12/04/2016 10:10am Body Temperature 97.5 F Weight 218.00 lb Heart Rate 90 /min BP Systolic 122 mmHg BP Diastolic 74 mmHg 09/18/2016 8:57am Weight 226.00 lb Heart Rate 64 /min BP Systolic 110 mmHg BP Diastolic 70 mmHg Respiratory Rate 10 /min Height 65 inches 5'5" BMI (Body Mass Index) 37.6 kg/m2 08/19/2016 1:31pm Body Temperature 96.8 F Weight 235.00 lb Heart Rate 85 /min BP Systolic 126 mmHg BP Diastolic 59 mmHg O2 % BldC Oximetry 98 % 07/23/2016 9:55am Weight 235.00 lb Heart Rate 72 /min Reg BP Systolic 110 mmHg BP Diastolic 74 mmHg Height 65 inches 5'5" BMI (Body Mass Index) 39.1 kg/m2 06/11/2016 11:43am Weight 238.00 lb Heart Rate 72 /min reg BP Systolic 104 mmHg BP Diastolic 70 mmHg Height 65 inches 5'5" O2 % BldC Oximetry 99 % O2 Saturation Level with Exercise 98 % BMI (Body Mass Index) 39.6 kg/m2 02/25/2016 2:04pm Body Temperature 97.3 F Weight 233.00 lb Heart Rate 93 /min BP Systolic 128 mmHg BP Diastolic 70 mmHg O2 % BldC Oximetry 96 % 08/13/2015 2:47pm Weight 226.00 lb BP Systolic 140 mmHg BP Diastolic 78 mmHg BP Systolic Recheck 126 mmHg nj BP Diastolic Recheck 82 mmHg nj Height 65 inches 5'5" BMI (Body Mass Index) 37.6 kg/m2 07/02/2015 1:27pm Weight 224.00 lb Heart Rate 68 /min BP Systolic 108 mmHg BP Diastolic 68 mmHg Respiratory Rate 14 /min Height 65 inches 5'5" BMI (Body Mass Index) 37.3 kg/m2 04/16/2015 12:44pm Body Temperature 97.0 F Weight 218.38 lb Heart Rate 72 /min BP Systolic 120 mmHg BP Diastolic 70 mmHg 12/29/2014 8:09am Body Temperature 97.5 F Weight 213.00 lb Heart Rate 70 /min BP Systolic 102 mmHg BP Diastolic 60 mmHg 11/17/2014 10:12am Weight 213.00 lb Heart Rate 64 /min Reg BP Systolic 104 mmHg BP Diastolic 64 mmHg Height 65 inches 5'5" BMI (Body Mass Index) 35.4 kg/m2 10/23/2014 2:27pm Body Temperature 97.0 F Weight 213.25 lb Heart Rate 90 /min BP Systolic 110 mmHg BP Diastolic 70 mmHg O2 % BldC Oximetry 97 % 09/04/2014 11:13am Body Temperature 97.5 F Weight 214.25 lb Heart Rate 84 /min BP Systolic 104 mmHg BP Diastolic 63 mmHg O2 % BldC Oximetry 98 % 06/20/2014 2:07pm Weight 225.00 lb Heart Rate 75 /min Reg BP Systolic 108 mmHg BP Diastolic 72 mmHg Respiratory Rate 18 /min 06/20/2014 9:26am Body Temperature 97.3 F Weight 226.38 lb Heart Rate 79 /min BP Systolic 118 mmHg BP Diastolic 76 mmHg O2 % BldC Oximetry 97 % 04/10/2014 9:04am Body Temperature 98.7 F Weight 225.38 lb Heart Rate 81 /min BP Systolic 108 mmHg BP Diastolic 66 mmHg O2 % BldC Oximetry 98 % 02/02/2014 2:40pm Body Temperature 98.5 F Weight 231.00 lb Heart Rate 72 /min BP Systolic 130 mmHg BP Diastolic 80 mmHg Respiratory Rate 14 /min Height 65 inches 5'5" BMI (Body Mass Index) 38.4 kg/m2 01/12/2014 1:32pm Body Temperature 98.5 F Weight 225.12 lb Heart Rate 68 /min BP Systolic 110 mmHg BP Diastolic 70 mmHg 12/20/2013 10:37am Weight 229.00 lb Heart Rate 66 /min reg BP Systolic 104 mmHg BP Diastolic 72 mmHg Respiratory Rate 16 /min Height 65 inches 5'5" BMI (Body Mass Index) 38.1 kg/m2 11/29/2013 11:02am Body Temperature 98.7 F Weight 223.00 lb Heart Rate 83 /min BP Systolic 110 mmHg BP Diastolic 70 mmHg O2 % BldC Oximetry 97 % 06/15/2013 1:16pm Weight 233.00 lb Heart Rate 64 /min BP Systolic 106 mmHg BP Diastolic 64 mmHg Height 65 inches 5'5" BMI (Body Mass Index) 38.8 kg/m2 05/24/2013 3:04pm Body Temperature 96.2 F Weight 233.00 lb Heart Rate 94 /min BP Systolic 140 mmHg BP Diastolic 80 mmHg O2 % BldC Oximetry 91 % 02/22/2013 11:14am Body Temperature 99.4 F Weight 233.00 lb Heart Rate 88 /min 87 retake BP Systolic 130 mmHg BP Diastolic 90 mmHg O2 % BldC Oximetry 93 % 98 retake 01/25/2013 1:36pm Body Temperature 99.0 F Weight 233.00 lb Heart Rate 84 /min BP Systolic 102 mmHg BP Diastolic 70 mmHg Height 65 inches 5'5" BMI (Body Mass Index) 38.8 kg/m2 01/05/2013 10:25am Weight 235.00 lb Heart Rate 80 /min BP Systolic 114 mmHg BP Diastolic 64 mmHg Height 65 inches 5'5" BMI (Body Mass Index) 39.1 kg/m2 11/24/2012 2:37pm Weight 236.00 lb Heart Rate 74 /min BP Systolic 104 mmHg BP Diastolic 64 mmHg Respiratory Rate 16 /min Height 65 inches 5'5" BMI (Body Mass Index) 39.3 kg/m2 08/20/2012 10:56am Body Temperature 96.0 F Weight 237.25 lb Heart Rate 108 /min BP Systolic 128 mmHg BP Diastolic 78 mmHg O2 % BldC Oximetry 94 % 06/15/2012 2:32pm Body Temperature 98.5 F Weight 242.00 lb Heart Rate 94 /min BP Systolic 120 mmHg BP Diastolic 70 mmHg O2 % BldC Oximetry 98 % 05/04/2012 1:24pm Weight 241.00 lb Heart Rate 88 /min BP Systolic 122 mmHg BP Diastolic 82 mmHg Height 65 inches 5'5" BMI (Body Mass Index) 40.1 kg/m2 04/15/2012 2:13pm Body Temperature 96.1 F Weight 238.12 lb Heart Rate 114 /min BP Systolic 110 mmHg BP Diastolic 86 mmHg O2 % BldC Oximetry 93 % 11/10/2011 2:12pm Body Temperature 98.5 F Weight 248.00 lb Heart Rate 87 /min BP Systolic 120 mmHg BP Diastolic 80 mmHg O2 % BldC Oximetry 98 % 10/21/2011 9:34am Weight 249.00 lb Heart Rate 80 /min reg BP Systolic 112 mmHg large cuff, LA BP Diastolic 82 mmHg large cuff, LA Respiratory Rate 18 /min Height 65 inches 5'5" BMI (Body Mass Index) 41.4 kg/m2 08/14/2011 3:41pm Body Temperature 98.5 F Weight 248.00 lb Heart Rate 92 /min BP Systolic 144 mmHg BP Diastolic 86 mmHg O2 % BldC Oximetry 98 % 08/06/2011 10:58am Weight 250.00 lb Heart Rate 76 /min BP Systolic 108 mmHg BP Diastolic 70 mmHg Height 68 inches 5'8" BMI (Body Mass Index) 38.0 kg/m2 08/04/2011 10:21am Body Temperature 98.2 F Weight 244.00 lb Heart Rate 80 /min BP Systolic 118 mmHg BP Diastolic 68 mmHg O2 % BldC Oximetry 98 % 04/21/2011 10:28am Weight 250.00 lb Heart Rate 72 /min BP Systolic 118 mmHg BP Diastolic 60 mmHg 01/17/2011 10:33am Body Temperature 98.7 F Weight 237.00 lb Heart Rate 83 /min BP Systolic 112 mmHg BP Diastolic 72 mmHg O2 % BldC Oximetry 99 % 06/21/2010 9:15am Body Temperature 98.5 F Weight 242.00 lb Heart Rate 77 /min BP Systolic 100 mmHg BP Diastolic 70 mmHg O2 % BldC Oximetry 98 % 01/22/2010 2:31pm Body Temperature 99.2 F Weight 235.00 lb Heart Rate 88 /min BP Systolic 128 mmHg BP Diastolic 84 mmHg Height 67 inches 5'7" O2 % BldC Oximetry 98 % BMI (Body Mass Index) 36.8 kg/m2 07/05/2009 9:05am Body Temperature 98.5 F Weight 220.00 lb Heart Rate 81 /min BP Systolic 120 mmHg BP Diastolic 80 mmHg Height 68 inches 5'8" O2 % BldC Oximetry 98 % BMI (Body Mass Index) 33.4 kg/m2 11/02/2008 2:00pm Body Temperature 98.5 F Weight 214.00 lb Heart Rate 85 /min BP Systolic 120 mmHg BP Diastolic 80 mmHg O2 % BldC Oximetry 97 % 10/19/2008 2:55pm Body Temperature 97.8 F Weight 213.00 lb Heart Rate 88 /min BP Systolic 120 mmHg BP Diastolic 78 mmHg 10/12/2008 2:04pm Body Temperature 98.7 F Weight 215.00 lb Heart Rate 88 /min BP Systolic 124 mmHg BP Diastolic 72 mmHg O2 % BldC Oximetry 98 % 08/03/2008 2:18pm Body Temperature 98.1 F Weight 222.00 lb Heart Rate 103 /min BP Systolic 130 mmHg BP Diastolic 82 mmHg O2 % BldC Oximetry 97 % 05/11/2008 1:52pm Body Temperature 98.4 F Weight 233.00 lb Heart Rate 102 /min BP Systolic 118 mmHg BP Diastolic 76 mmHg O2 % BldC Oximetry 96 % 03/14/2008 11:15am Body Temperature 98.8 F Weight 236.00 lb Heart Rate 112 /min BP Systolic 138 mmHg BP Diastolic 86 mmHg 08/19/2007 1:10pm Body Temperature 98.8 F Weight 234.00 lb Heart Rate 92 /min BP Systolic 120 mmHg BP Diastolic 80 mmHg 01/07/2007 2:14pm Weight 228.00 lb Heart Rate 114 /min BP Systolic 146 mmHg BP Diastolic 86 mmHg Urine Dipstick - Blood NEGATIVE Urine Dipstick - Protein NEGATIVE Urine Dipstick - Glucose NEGATIVE 06/23/2006 10:06am Body Temperature 97.8 F Weight 237.00 lb Heart Rate 100 /min BP Systolic 130 mmHg BP Diastolic 80 mmHg 01/27/2006 3:43pm Body Temperature 98.6 F Weight 236.00 lb Heart Rate 80 /min BP Systolic 134 mmHg BP Diastolic 82 mmHg 07/07/2005 3:14pm Body Temperature 99.1 F Weight 234.00 lb Heart Rate 112 /min BP Systolic 124 mmHg BP Diastolic 84 mmHg 03/11/2005 1:47pm Body Temperature 98.5 F Weight 229.00 lb Heart Rate 112 /min BP Systolic 110 mmHg BP Diastolic 78 mmHg 08/15/2004 12:39pm Body Temperature 98.4 F Weight 252.00 lb Heart Rate 108 /min BP Systolic 120 mmHg BP Diastolic 70 mmHg 07/08/2004 11:49am Body Temperature 98.6 F Weight 250.00 lb Heart Rate 96 /min BP Systolic 130 mmHg BP Diastolic 86 mmHg 06/04/2004 2:57pm Body Temperature 98.1 F Weight 252.00 lb Heart Rate 120 /min BP Systolic 130 mmHg BP Diastolic 82 mmHg 06/03/2004 1:28pm Body Temperature 98.6 F Weight 252.00 lb Heart Rate 96 /min BP Systolic 128 mmHg BP Diastolic 76 mmHg 05/16/2004 11:22am Body Temperature 98.6 F Weight 220.00 lb Heart Rate 100 /min BP Systolic 120 mmHg BP Diastolic 80 mmHg Results Test Date Facility Test Result H/L Range Note [facility] Abnormal 1 finding 18 Culture <SEE NOTE> Respiratory 12/19/19 [facility] Gram Stain <10 SQUAMOUS EPI 2, 3 Culture W/Gram 18 (315)- - <SEE NOTE> St Gram Stain >25 WBC/LPF Gram Stain MODERATE GRAM PO <SEE NOTE> 4 Respiratory Culture METHICILLIN RESI <SEE NOTE> Abnormal 5 Quantity MANY [id number] 12/18/2017 [facility] Oxacillin >=4 R (315)- - Tetracycline <=1 S Trimethoprim/Sulfamethoxazole <=10 S Erythromycin >=8 R Clindamycin >=8 R Moxifloxacin 1 S Vancomycin <=0.5 S Afb Smear And 12/18/2017 [facility] Afb Culture No acid fast 6 Culture (315)- - randall <SEE NOTE> Aot Request 07/19/2017 [facility] Aot Request Test(s) added 7, 8 (315)- - Tests to be added: cpk Comprehensive Metabolic 07/19/2017 [facility] Glucose 97 mg/dL N 74-106 Panel (315)- - BUN 7 mg/dL N 7-18 Creatinine 0.4 mg/dL Low 0.6-1.3 Glom Filtration Rate, Estimate >60 mL/min >60 If >60 mL/min >60 9 BUN/Creat 17.5 ratio Sodium 135 mmol/L Low 136-145 Potassium 4.1 mmol/L N 3.5-5.1 Chloride 104 mmol/L N 98-107 Carbon Dioxide 25 mmol/L N 21-32 Anion Gap 6 mEq/L Low 8-16 Calcium 8.9 mg/dL N 8.5-10.1 Total Protein 7.7 g/dL N 6.4-8.2 Albumin 3.2 g/dL Low 3.4-5.0 Globulin 4.5 g/dL High 1.9-4.3 Alb/Glob 0.7 ratio Bilirubin,Total 0.2 mg/dL N 0.2-1.0 Sgot/Ast 35 U/L N 15-37 SGPT/Alt 47 U/L N 12-78 Alkaline Phosphatase 90 U/L N 45-117 Laboratory test 07/19/2017 [facility] Magnesium 2.0 mg/ dL N 1.8-2.4 finding (315)- - C-Reactive Protein,Quant 24.9 mg/L High <3.0 CK 480 U/L High 26-192 CBS W/Automated Diff 07/19/2017 [facility] White Blood 9.1 K/uL N 3.1-10.7 (315)- - Count Red Blood Count 4.21 M/uL N 3.90-5.40 Hemoglobin 13.7 gm/dL N 11.6-15.8 Hematocrit 39.4 % N 36.0-46.1 Mean Cell Volume 93.6 fl N 80.9-99.0 Mean Corpuscular HGB 32.5 pg N 25.9-32.7 Mean Corpuscular HGB Conc 34.8 g/dL High 30.8-34.3 Platelet Count 251 K/uL N 155-360 Red Cell Distri Width SD 40.0 fl N 3-47 Red Cell Distri Width %CV 11.9 % N 11.7-14.4 Mean Platelet Volume 9.2 fL N 8.9-12.4 Neut% 80.8 % High 40.4-72.8 Lymph % 13.4 % Low 20.0-42.0 [place] % 5.4 % N 4.3-13.2 Eo% 0.2 % N 0.0-6.6 Bas% 0.2 % N 0.0-1.1 Neut# 7.36 K/uL High 1.8-7.0 Lymph # 1.22 K/uL N 1.0-4.0 [place] # 0.49 K/uL N 0.3-0.9 Eos # 0.02 K/uL N 0.0-0.5 Baso # 0.02 K/uL N 0.0-0.1 Slide Review 07/19/2017 [facility] Slide Review (SEE NOTE ) 10 (315)- - Laboratory test 07/18/2017 [facility] Phosphorous 4.0 mg/ dL N 2.5-4.0 finding (315)- - Magnesium 2.1 mg/dL N 1.8-2.4 CK 854 U/L High 26-192 C-Reactive Protein,Quant 70.4 mg/L High <3.0 Basic Metabolic Panel 07/18/2017 [facility] Glucose 108 mg/dL High 74-106 (315)- - BUN 7 mg/dL N 7-18 Creatinine 0.4 mg/dL Low 0.6-1.3 Glom Filtration Rate, Estimate >60 mL/min >60 If >60 mL/min >60 11 BUN/Creat 17.5 ratio Sodium 131 mmol/L Low 136-145 Potassium 4.4 mmol/L N 3.5-5.1 Chloride 98 mmol/L N 98-107 Carbon Dioxide 25 mmol/L N 21-32 Anion Gap 8 mEq/L N 8-16 Calcium 9.0 mg/dL N 8.5-10.1 CBS W/Automated 07/18/2017 [facility] White Blood 11.3 K/ uL High 3.1-10.7 Diff (315)- - Count Red Blood Count 4.04 M/uL N 3.90-5.40 Hemoglobin 13.3 gm/dL N 11.6-15.8 Hematocrit 37.5 % N 36.0-46.1 Mean Cell Volume 92.8 fl N 80.9-99.0 Mean Corpuscular HGB 32.9 pg High 25.9-32.7 Mean Corpuscular HGB Conc 35.5 g/dL High 30.8-34.3 Platelet Count 235 K/uL N 155-360 Red Cell Distri Width SD 39.0 fl N 3-47 Red Cell Distri Width %CV 11.7 % N 11.7-14.4 Mean Platelet Volume 9.1 fL N 8.9-12.4 Neut% 86.0 % High 40.4-72.8 Lymph % 8.9 % Low 20.0-42.0 Gooding % 4.6 % N 4.3-13.2 Eo% 0.2 % N 0.0-6.6 Bas% 0.3 % N 0.0-1.1 Neut# 9.71 K/uL High 1.8-7.0 Lymph # 1.00 K/uL N 1.0-4.0 Gooding # 0.52 K/uL N 0.3-0.9 Eos # 0.02 K/uL N 0.0-0.5 Baso # 0.03 K/uL N 0.0-0.1 Aot Request 07/18/2017 [facility] Aot Request Test(s) added 12 (315)- - Tests to be added: phosphorus magne <SEE NOTE> 13 Laboratory test 07/17/2017 [facility] Legionella Negative Negative 14 finding (315)- - Urinary Antigen Respiratory 07/17/2017 [facility] Gram Stain <10 SQUAMOUS 15 Culture W/Gram St (315)- - EPI <SEE NOTE> Gram Stain <25 WBC/LPF Gram Stain MODERATE GRAM PO <SEE NOTE> 16 Gram Stain RARE GRAM POSITI <SEE NOTE> 17 Gram Stain RARE YEAST LIKE <SEE NOTE> 18 Respiratory Culture METHICILLIN RESI <SEE NOTE> Abnormal 19 Quantity MANY Respiratory Culture RESPIRATORY GRIFFIN <SEE NOTE> 20 Methicillin Resistant 07/17/2017 [facility] Oxacillin >= 4 R S.Aureus (315)- - Tetracycline >=16 R Trimethoprim/Sulfamethoxazole <=10 S Erythromycin >=8 R Clindamycin >=8 R Moxifloxacin 1 S Vancomycin 1 S Legionella Culture 07/17/2017 [facility] Legionella No Legionella 21 (315)- - Culture sp <SEE NOTE> Comprehensive 07/17/2017 [facility] Glucose 105 mg/dL N 74-10 22 Metabolic Panel (315)- - 6 BUN 6 mg/dL Low 7-18 Creatinine 0.6 mg/dL N 0.6-1.3 Glom Filtration Rate, Estimate >60 mL/min >60 If >60 mL/min >60 23 BUN/Creat 10.0 ratio Sodium 128 mmol/L Low 136-145 Potassium 3.8 mmol/L N 3.5-5.1 Chloride 94 mmol/L Low 98-107 Carbon Dioxide 25 mmol/L N 21-32 Anion Gap 9 mEq/L N 8-16 Calcium 8.8 mg/dL N 8.5-10.1 Total Protein 8.3 g/dL High 6.4-8.2 Albumin 3.5 g/dL N 3.4-5.0 Globulin 4.8 g/dL High 1.9-4.3 Alb/Glob 0.7 ratio Bilirubin,Total 0.3 mg/dL N 0.2-1.0 Sgot/Ast 51 U/L High 15-37 SGPT/Alt 53 U/L N 12-78 Alkaline Phosphatase 106 U/L N 45-117 Laboratory test finding 07/17/2017 [facility] CK 1341 U/ L High 26-192 24 (315)- - Troponin-I < 0.015 ng/mL 25 CBS W/Automated 07/17/2017 [facility] White Blood 12.4 K/ uL High 3.1-10.7 Diff (315)- - Count Red Blood Count 4.28 M/uL N 3.90-5.40 Hemoglobin 14.0 gm/dL N 11.6-15.8 Hematocrit 40.0 % N 36.0-46.1 Mean Cell Volume 93.5 fl N 80.9-99.0 Mean Corpuscular HGB 32.7 pg N 25.9-32.7 Mean Corpuscular HGB Conc 35.0 g/dL High 30.8-34.3 Platelet Count 234 K/uL N 155-360 Red Cell Distri Width SD 39.5 fl N 3-47 Red Cell Distri Width %CV 11.9 % N 11.7-14.4 Mean Platelet Volume 8.6 fL Low 8.9-12.4 Neut% 70.5 % N 40.4-72.8 Lymph % 13.8 % Low 20.0-42.0 Gooding % 10.9 % N 4.3-13.2 Eo% 4.1 % N 0.0-6.6 Bas% 0.7 % N 0.0-1.1 Neut# 8.73 K/uL High 1.8-7.0 Lymph # 1.71 K/uL N 1.0-4.0 [place] # 1.35 K/uL High 0.3-0.9 Eos # 0.51 K/uL High 0.0-0.5 Baso # 0.09 K/uL N 0.0-0.1 Slide Review 07/17/2017 [facility] Slide Review DIFF ORDERED (315)- - Differential-WBC 07/17/2017 [facility] Total Cells 100 # CELLS Confirm (315)- - Counted Neutrophils% 67 % N 33-73 Lymph% 16 % Low 20-42 Atypical Lymph% 2 % N 0-7 Monocyte% 11 % High 0-10 Eosinophil% 3 % N 0-5 Basophil% 1 % N 0-2 Platelet Estimate NORMAL Polychromasia 0-1+ Anisocytosis 0-1+ Lipid 06/23/2017 [facility] Cholesterol 162 mg/dL 50-199 26 Triglycerides 87 mg/dL 30-200 HDL 57 mg/dL 35-85 27 Chol/ HDL Ratio 2.8 ratio Low 3.7-5.6 VLDL 17 mg/dL 2-29 LDL (Calc) 87 mg/dL 20-99 28 Comprehensive Met Panel-[facility] 06/23/2017 [facility] Sodium 133 mmol/L Low 135 -146 29 Potassium 5.5 mmol/L High 3.5-5.2 Chloride# 97 mmol/L 97-110 30 Carbon Dioxide 30 mmol/L 24-34 Glucose 90 mg/dL 70-105 BUN 18 mg/dL 6-26 Creatinine 0.6 mg/dL 0.5-1.4 Calcium 9.8 mg/dL 8.5-10.2 Total Protein 7.2 g/dL 6.0-8.0 Albumin 4.3 g/dL 3.6-4.9 Globulin 2.9 g/dL 2.0-3.5 A/G Ratio 1.5 Ratio 1.0-2.2 Total Bilirubin 0.4 mg/dL 0.1-1.3 Alkaline Phosphatase 91 U/L 24-140 Alt 38 U/L 3-42 Ast 32 U/L 8-42 Freda Egfr >60 >60 31 Non Freda Egfr >60 >60 32 Anion Gap 6 mmol/L 5-15 33 Laboratory test 03/10/2017 [facility] Urine Culture Microbiology res Abnormal 34 finding <SEE NOTE> Hemoglobin A1c 01/20/2017 [facility] Hemoglobin A1c 5.5 % 4.1-5 .9 Estimated Average Glucose Calc 111 71-140 [facility] NONREACTIVE Nonreactive 35 finding Antibody Lipid Treatment 02/25/2016 [facility] Cholesterol 135 mg/dL 50-199 Triglycerides 120 mg/dL 30-200 HDL 46 mg/dL 35-85 36 Chol/ HDL Ratio 2.9 ratio Low 3.7-5.6 VLDL 24 mg/dL 2-29 LDL (Calc) 65 mg/dL 20-99 37 Alt 14 U/L 3-42 Ast 19 U/L 8-42 Laboratory test 12/29/2014 [facility] Urine Culture Microbiology res Abnormal 38 finding <SEE NOTE> Lipid 06/20/2014 [facility] Cholesterol 141 mg/dL 50-199 39 Triglycerides 84 mg/dL 30-200 HDL 41 mg/dL 35-85 40 Chol/ HDL Ratio 3.4 ratio Low 3.7-5.6 VLDL 17 mg/dL 2-29 LDL (Calc) 83 mg/dL 20-99 41 Comprehensive Metabolic (CMP) 06/20/2014 [facility] Sodium 134 mmol/L 134- 142 Potassium 4.6 mmol/L 3.5-5.2 Chloride 105 mmol/L 97-109 Carbon Dioxide 21 mmol/L Low 24-34 Glucose 90 mg/dL 70-105 BUN 10 mg/dL 6-26 Creatinine 0.6 mg/dL 0.5-1.4 Calcium 9.0 mg/dL 8.5-10.2 Total Protein 6.9 g/dL 6.0-8.0 Albumin 4.1 g/dL 3.6-4.9 Globulin 2.8 g/dL 2.0-3.5 A/G Ratio 1.5 Ratio 1.0-2.2 Total Bilirubin 0.3 mg/dL 0.1-1.3 Alkaline Phosphatase 88 U/L 24-140 Alt 17 U/L 3-42 Ast 23 U/L 8-42 Anion Gap 13 mmol/L 6-14 Freda Egfr >60 >60 42 Non Freda Egfr >60 >60 43 CBC With Auto Diff 06/20/2014 [facility] 8.4 K/uL 4.1-11.0 RBC 3.84 M/uL Low 4.00-5.40 Hemoglobin 10.0 gm/dL Low 12.0-16.0 Hematocrit 31.2 % Low 36.0-47.0 MCV 81.3 fL 80.0-97.0 MCH 26.1 pg Low 27.0-32.0 MCHC 32.1 g/dL 32.0-36.0 RDW 19.7 % High 11.5-14.5 PLT Count 214 K/ul 140-400 Neutrophil 69.6 % 35.0-75.0 Lymphocyte 20.5 % 16.0-52.0 Monocyte 6.5 % 2.0-10.0 Eosinophil 1.9 % 0.0-5.0 Basophil 1.5 % 0.0-4.0 Abs Neutrophils 5.8 K/uL 2.1-8.0 Abs Lymphocytes 1.7 K/uL 0.8-5.5 Abmon 0.5 K/uL 0.1-1.0 Abs Eosinophils 0.2 K/uL 0.0-0.5 Abs Basophils 0.1 K/uL 0.0-0.3 Urine Culture 09/21/2013 [facility] Urine Culture See Note 44 (315)- - Urinalysis With 09/21/2013 [facility] Urine Color YELLOW Yellow Microscopic (315)- - Urine Clarity CLEAR Clear Urine Glucose - Dipstick NEGATIVE mg/dL Negative Urine Bilirubin - Dipstick NEGATIVE Negative Urine Ketone NEGATIVE mg/dL Negative Urine Specific [place] 1.015 1.010-1.030 Urine Blood NEGATIVE Negative Urine PH 7.5 6.5-7.5 Urine Protein - Dipstick NEGATIVE mg/dL Negative Urine Urobilinogen - Dipstick 0.2 E.U./dL 0.2-1.0 Urine Nitrite - Dipstick NEGATIVE Negative Urine Leuk Esterase NEGATIVE Negative Urine RBC NONE SEEN rbc/hpf 0-7 Urine WBC 10-20 wbc/hpf High 0-7 Urine Epithelial Cells VERY FEW NONESEEN/lpf Urine Bacteria VERY FEW NONESEEN CBC With Diff 01/05/2013 [facility] WBC 6.5 K/UL (4.1-11.0) [phone] RBC 4.11 M/UL (4.00-5.40) HGB 12.0 GM/DL (12.0-16.0) HCT 35.8 % Low (36.0-47.0) 45 MCV 87.1 FL (80.0-95.0) MCH 29.1 pg (27.0-32.0) MCHC 33.5 g/dL (32.0-36.0) RDW 16.9 % High (10.5-14.5) PLT 182 K/UL (150-400) MPV 8.6 FL (7.1-10.7) Neut % 58.5 % (35.0-75.0) Lymph % 31.2 % (16.0-52.0) [place] % 6.0 % (0-8.0) Eos % 3.6 % (0-5.0) Baso % 0.7 % (0-4.0) Neut # 3.8 K/UL (1.8-7.7) Lymph # 2.0 K/UL (1.2-4.8) [place]ing # 0.4 K/UL (0-0.8) Eos # 0.2 K/UL (0-0.5) Baso # 0.0 K/UL (0-0.2) BMP (Basic) 01/05/2013 [facility] Sodium 139 mmol/L (136-145) [phone] Potassium 4.8 mmol/L (3.6-5.2) Chloride 104 mmol/L (100-108) Co2 25 mmol/L (22-31) Anion Gap 10 mmol/L (7-16) Urea Nitrogen 8 mg/dL (7-24) Creatinine 0.8 mg/dL (0.6-1.0) BUN/Creat Ratio 10.0 RATIO (10.0-20.0) Glucose 83 mg/dL (70-99) Calcium 8.8 mg/dL (8.4-10.2) GFR 79 ML/MIN/1.73M2 (>59) GFR ( Amer) >90 ML/MIN/1.73M2 (>59) GFR Interpretation <SEE NOTE> 46 CBC With Auto Diff 08/20/2012 [facility] WBC 7.1 K/uL 4.1-11.0 47 RBC 4.24 M/uL 4.00-5.40 Hemoglobin 12.1 gm/dL 12.0-16.0 Hematocrit 36.7 % 36.0-47.0 MCV 86.6 fL 80.0-97.0 MCH 28.4 pg 27.0-32.0 MCHC 32.8 g/dL 32.0-36.0 RDW 18.6 % High 11.5-14.5 PLT Count 234 K/ul 140-400 Neutrophil 64.0 % 35.0-75.0 Lymphocyte 25.2 % 16.0-52.0 Monocyte 6.2 % 2.0-10.0 Eosinophil 3.6 % 0.0-5.0 Basophil 1.0 % 0.0-4.0 Abs Neutrophils 4.5 K/uL 2.1-8.0 Abs Lymphocytes 1.8 K/uL 0.8-5.5 Abs Monocytes 0.4 K/uL 0.1-1.0 Abs Eosinophils 0.3 K/uL 0.0-0.5 Abs Basophils 0.1 K/uL 0.0-0.3 Laboratory test finding 08/20/2012 [facility] TSH 1.09 uIU/mL 0.34-5.60 Vitamin B12 392 pg/mL 180-914 Comprehensive Metabolic (CMP) 08/20/2012 [facility] Sodium 140 mmol/L 134- 142 Potassium 4.7 mmol/L 3.5-5.2 Chloride 106 mmol/L 97-109 Carbon Dioxide 25 mmol/L 24-34 Glucose 112 mg/dL High 70-105 BUN 13 mg/dL 6-26 Creatinine 0.8 mg/dL 0.5-1.4 Calcium 9.5 mg/dL 8.5-10.2 Total Protein 7.3 g/dL 6.0-8.0 Albumin 4.5 g/dL 3.6-4.9 Globulin 2.8 g/dL 2.0-3.5 A/G Ratio 1.6 Ratio 1.0-2.2 Total Bilirubin 0.3 mg/dL 0.1-1.3 Alkaline Phosphatase 93 U/L 24-140 Alt 25 U/L 3-42 Ast 30 U/L 8-42 Anion Gap 14 mmol/L 6-14 Freda Egfr >60 >60 48 Non Freda Egfr >60 >60 49 Lipid 08/20/2012 [facility] Cholesterol 157 mg/dL 50-199 Triglycerides 232 mg/dL High 30-200 HDL 37 mg/dL 35-85 50 Chol/ HDL Ratio 4.2 ratio 3.7-5.6 VLDL 46 mg/dL High 2-29 LDL (Calc) 74 mg/dL 20-99 51 Comprehensive Metabolic ([facility]) 08/11/2011 [facility] Sodium 137 mmol/L 134- 142 52 Potassium 4.7 mmol/L 3.5-5.2 Chloride 105 mmol/L 97-109 Carbon Dioxide 25 mmol/L 24-34 Glucose 93 mg/dL 70-105 BUN 16 mg/dL 6-26 Creatinine 0.9 mg/dL 0.5-1.4 Calcium 9.6 mg/dL 8.5-10.2 Total Protein 7.5 g/dL 6.0-8.0 Albumin 4.5 g/dL 3.6-4.9 Globulin 3.0 g/dL 2.0-3.5 A/G Ratio 1.5 Ratio 1.0-2.2 Total Bilirubin 0.3 mg/dL 0.1-1.3 Alkaline Phosphatase 94 U/L 24-140 Alt 27 U/L 3-42 Ast 26 U/L 8-42 Anion Gap 12 mmol/L 6-14 Freda Egfr >60 >60 53 Non Freda Egfr >60 >60 54 CBC With Auto Diff 08/11/2011 [facility] WBC 7.7 K/uL 4.1-11.0 RBC 4.32 M/uL 4.00-5.40 Hemoglobin 11.5 gm/dL Low 12.0-16.0 Hematocrit 35.2 % Low 36.0-47.0 MCV 81.6 fL 80.0-97.0 MCH 26.5 pg Low 27.0-32.0 MCHC 32.5 g/dL 32.0-36.0 RDW 19.6 % High 11.5-14.5 PLT Count 199 K/ul 140-400 Neutrophil 61.5 % 35.0-75.0 Lymphocyte 27.1 % 16.0-52.0 Monocyte 7.4 % 2.0-10.0 Eosinophil 2.6 % 0.0-5.0 Basophil 1.4 % 0.0-4.0 Abs Neutrophils 4.8 K/uL 2.1-8.0 Abs Lymphocytes 2.1 K/uL 0.8-5.5 Abs Monocytes 0.6 K/uL 0.1-1.0 Abs Eosinophils 0.2 K/uL 0.0-0.5 Abs Basophils 0.1 K/uL 0.0-0.3 Lipid 08/11/2011 [facility] Cholesterol 157 mg/dL 50-199 Triglycerides 188 mg/dL 30-200 HDL 39 mg/dL 35-85 55 Chol/ HDL Ratio 4.0 ratio 3.7-5.6 VLDL 38 mg/dL High 2-29 LDL (Calc) 80 mg/dL 20-129 56 CBC With Auto Diff 01/29/2010 [facility] (Do not Use) WBC 7.0 K/ul 4.0- 10.9 57 [facility] [place] [address] [phone] RBC 4.28 M/ul 4.20-5.40 Hemoglobin 11.4 GM/dl Low 12.5-16.0 Hematocrit 34.8 % Low 36.0-47.0 MCV 81.3 FL 80.0-97.0 MCH 26.7 pg Low 27.0-31.0 MCHC 32.9 g/dL 32.0-36.0 RDW 21.7 % High 11.5-14.5 Platelet Count 254 K/ul 140-440 Neutrophils 68.3 % 50-70 Lymphocytes 19.1 % Low 20-44 Monocytes 7.9 % 2-9 Eosinophil 3.8 % 0-4 Basophil 0.9 % 0-2 Absolute Neutrophils 4.8 K/ul 2.05-7.63 Absolute Lymphocytes 1.3 K/ul 0.8-4.8 Absolute Monocytes 0.6 K/ul 0.1-1.0 Absolute Eosinophils 0.3 K/ul 0.1-0.5 Absolute Basophils 0.1 K/ul 0.0-0.3 Hematology Comment (Comm2) N/A CMP 01/29/2010 [facility] (Do not Use) Sodium 136 mmol/L 135-144 [facility] [place] [address] [phone] Potassium 4.8 mmol/L 3.6-5.2 58 Chloride 104 mmol/L 97-110 Carbon Dioxide 27 mmol/L 23-32 Glucose 86 mg/dL 70-105 BUN 7 mg/dL 6-22 Creatinine 0.7 mg/dL 0.5-1.3 BUN/CR 10 Ratio Calcium 9.4 mg/dL 8.6-10.2 Total Protein 6.6 g/dL 5.8-7.8 Albumin 3.8 g/dL 3.5-4.8 Globulin 2.8 g/dL 2.0-3.5 A/G Ratio 1.4 Ratio 1.0-2.2 Total Bilirubin 0.6 mg/dL 0.3-1.2 Alkaline Phosphatase 99 U/L 24-140 Alt 25 U/L 5-45 Ast 32 U/L 12-40 Anion Gap 10 mmol/L 8-16 GFR Calculation > 60 mL/min 60-175 59 GFR For > 60 mL/min 60-175 60 1 Occult Blood X 3 11/14/2008 Done In [facility] 1 Occult Blood NEG -In House (In-House) #2 Occult Blood NEG #3 Occult Blood NEG Laboratory test 10/20/2008 [facility] (Do not Use) TSH 1.51 uIU/ml 0.34 -5.60 finding [facility] [place] [address] [phone] Laboratory test 10/20/2008 [facility] (Do not Use) Vitamin D, 30 ng/mL Low 31-100 finding [facility] [address] [place] [address] [phone] Vitamin B12 376 pg/mL 180-914 CBC With Auto Diff 10/20/2008 [facility] (Do not Use) WBC 6.2 K/ul 4.0- 10.9 [facility] [place], [place] [id number] [phone] RBC 4.26 M/ul 4.20-5.40 Hemoglobin 11.2 GM/dl [...] Hematology Comment (Comm2) N/A Iron Panel 10/20/2008 [employer] (Do not Use) Iron, Total 18 g/dL Low 28-170 [facility] [place], [place] [id number] [phone] Transferrin 350 mg/dL 192-382 Tibc (Calc) 489 g/dL High 261-478 % Saturation (Calc) 3.7 % Low 13.0-45.0 Laboratory test 10/12/2008 [facility] (Do not Use) D-Dimer, 219 NG/ML 0 -349.999 61, 62 finding [facility] [place] [address] [place] [phone] Laboratory test 09/30/2008 [facility] CK 180 U/L 26- 190 finding (315)- - Troponin-I 0.0 NG/ML 0.0-0.6 63 Laboratory test finding 09/30/2008 [facility] CK 172 U/L 26-190 (315)- - Troponin-I 0.1 NG/ML 0.0-0.6 64 Oximetry 09/30/2008 [facility] Oximetry 99 % High 93- 98 (315)- - Fio2 21 21-100 Heart Rate 97 BPM Patient Status RESTING Laboratory test 09/29/2008 [facility] CK-MB (Mass) 3.7 ng /mL 0.0-9.0 finding (315)- - Relative % Index 1.4 % <5 65 Magnesium 2.0 mg/dL 1.7-2.3 CBC W/Automated Diff 09/29/2008 [facility] White Blood 7.9 K/uL 3.1-10.7 (315)- - Count Red Blood Count 4.12 M/uL 3.90-5.40 Hemoglobin [...] % 40.4-72.8 Lymph % 26.8 % 17.0-46.1 [place]ing % 6.5 % 4.3-13.2 Eo% 2.7 % 0.0-6.6 Bas% 1.4 % High 0.0-1.1 Neut# 4.9 K/uL 1.0-7.0 Lymph # 2.1 K/uL 0.8-3.4 Gooding # 0.5 K/uL 0.3-0.9 Eos # 0.2 K/uL 0.0-0.5 Baso # 0.1 K/uL 0.0-0.1 Red Cell Distri Width SD 50 fl High 3-47 Laboratory test finding 09/29/2008 [facility] CK 270 U/L High 26-190 (315)- - Troponin-I 0.0 NG/ML 0.0-0.6 66 Comprehensive Metabolic 09/29/2008 [facility] Glucose 96 mg/dL 76-115 Panel (315)- - BUN 13 mg/dL 5-23 Creatinine 0.7 mg/dL 0.5-1.4 Glom Filtration Rate, Estimate >60 mL/min >60 If >60 mL/min >60 67 BUN/Creat 18.5 Sodium 139 mEq/L 136-145 Potassium 3.8 mEq/L 3.5-5.1 Chloride 103 mEq/L 98-107 Carbon Dioxide 25 mEq/L 21-32 Anion Gap 15 mEq/L 8-16 Calcium 9.0 mg/dL 8.5-10.1 Total Protein 7.7 g/dL 6.3-8.0 Albumin 3.8 g/dL 3.5-5.0 Globulin 3.9 gm/dL 1.9-4.3 Alb/Glob 1.0 Bilirubin,Total 0.2 mg/dL 0.2-1.2 Sgot/Ast 30 U/L 16-40 SGPT/Alt 38 U/L 30-65 Alkaline Phosphatase 129 U/L 50-136 Laboratory test 09/29/2008 [facility] Act Partial 25.8 seconds 21.7-35.7 finding (315)- - Thrombo Time Protime 09/29/2008 [facility] Protime 13.1 seconds 11.8-14.6 (315)- - Inr 1.0 0.9-1.1 68 Laboratory test 09/29/2008 [facility] D-Dimer, 0.38 ug/ mL 69 finding (315)- - Quantitative CBC With Auto 05/12/2008 [employer] (Do not Use) WBC 6.2 K/ul 4.0-10 70 Diff [facility] [address] [place] [address] [phone] RBC 4.67 M/ul 4.20-5.40 Hemoglobin 11.9 GM/dl Low 12.5-16.0 Hematocrit 36.1 % 36.0-47.0 MCV 77.2 FL Low 80.0-97.0 MCH 25.4 pg Low 27.0-31.0 MCHC 32.9 g/dL 32.0-36.0 RDW 19.5 % High 11.5-14.5 Platelet Count 236 K/ul 140-440 Neutrophils 56.9 % 50-70 Lymphocytes 29.5 % 20-44 Monocytes 9.3 % High 2-9 Eosinophil 3.8 % 0-4 Basophil 0.5 % 0-2 Absolute Neutrophils 3.5 K/ul 2.05-7.63 Absolute Lymphocytes 1.8 K/ul 0.8-4.8 Absolute Monocytes 0.6 K/ul 0.1-1.0 Absolute Eosinophils 0.2 K/ul 0.1-0.5 Absolute Basophils 0.0 K/ul 0.0-0.3 Hematology Comment (Comm2) N/A CMP 05/12/2008 [facility] (Do not Use) Sodium 138 mmol/L 135-144 [facility] [place] [address] [phone] Potassium 4.2 mmol/L 3.6-5.2 Chloride 99 mmol/L 97-110 Carbon Dioxide 28 mmol/L 23-33 Glucose 87 mg/dL 70-105 BUN 8 mg/dL 6-22 Creatinine 0.6 mg/dL 0.5-1.3 BUN/CR 13 Ratio 12.0-20.0 Calcium 9.5 mg/dL 8.6-10.2 Total Protein 7.2 g/dL 5.8-7.8 Albumin 3.7 g/dL 3.5-4.8 Globulin 3.5 g/dL 2.0-3.5 A/G Ratio 1.1 Ratio 1.0-2.2 Total Bilirubin 0.5 mg/dL 0.3-1.2 Alkaline Phosphatase 135 U/L 24-140 Alt 29 U/L 4-45 Ast 36 U/L 12-40 Anion Gap 15 mmol/L 8-16 GFR Calculation > 60 mL/min 71 GFR For > 60 mL/min 72 Lipid Panel 05/12/2008 [facility] (Do not Use) Cholesterol 200 mg/dL High 50-199 [facility] [place] [address] [phone] Triglycerides 322 mg/dL High 10-150 73 HDL 28 mg/dL Low 35-85 74 Chol/HDL Ratio 7.1 Ratio 75 VLDL 64 mg/dL LDL (Calc) Triglyceride moon <SEE NOTE> mg/dL 76 Laboratory test 05/12/2008 [facility] (Do not Use) Vitamin D, 25 19 ng/mL Low 31-100 finding [facility] [place] [address] [phone] Direct LDL 136 mg/dL High 20-129 CBC With Auto 08/19/2007 [facility] (Do not Use) WBC-LA 6.8 K/UL 4.1- 11.0 77 Diff [facility] [place] [address] [phone] RBC -LA 4.46 M/UL 4.00-5.40 Hemoglobin - LA 11.6 GM/DL Low 12.0-16.0 Hematocrit - LA 36.1 % 36.0-47.0 MCV -LA 81.0 FL 80.0-95.0 MCH -LA 26.1 pg Abnormal (27.0-32.0) MCHC -LA 32.2 g/dL 32.0-36.0 RDW -LA 20.2 % High 10.5-14.5 Platelet Count 225 K/ul 150-400 MPV -LA 8.8 FL 7.1-10.7 Dtype -LA AUTOMATED DIFFER <SEE NOTE> 78 Neutrophil % -LA 54.8 % 35.0-75.0 Lymphocytes % -LA 29.7 % 16.0-52.0 Monocytes % -LA 11.5 % High 0-8.0 Eosinophils % -LA 3.3 % 0-5.0 Basophils % -LA 0.7 % 0-4.0 Absoulte Neutrophils -LA 3.7 K/UL 1.8-7.7 Absolute Lymphocytes -LA 2.0 K/UL 1.2-4.8 Absolute Monocytes -LA 0.8 K/UL 0-0.8 Absolute Eosinophils -LA 0.2 K/UL 0-0.5 Absolute Basophils -LA 0.0 K/UL 0-0.2 Lipid TX Panel 08/19/2007 [facility] (Do not Use) Ast (Sgot) Liver 36 U/L 11-39 [facility] [place] [address] [phone] Alt (SGPT) Liver Enzyme -LA 48 U/L 25-69 Cholesterol DELETED mg/dL 50-199 Triglycerides DELETED mg/dL 10-150 HDL DELETED mg/dL 35-85 LDL (Calc) DELETED mg/dL 20-129 Chol/HDL Ratio DELETED Ratio VLDL DELETED mg/dL Laboratory 08/19/2007 [facility] (Do not Use) TSH, 1.130 0.360-3.740 test finding [facility] Ultrasensitive-LA mIU/[place] [address] [phone] Lipid Panel 08/19/2007 [facility] (Do not Use) Cholesterol - LA 193 0- 200 [facility] mg/[place] [address] [phone] Triglyceride-LA 235 mg/dL High 30-200 HDL Cholesterol - LA 33 mg/dL Abnormal (>40) 79 Cholesterol/HDL Ratio-LA 5.8 RATIO 80 LDL Cholesterol-LA 113 mg/dL 0-129.999 81 Basic ([facility]) 08/19/2007 [facility] (Do not Use) Sodium 144 mmol/L 136- 145 82 [facility] [place] [address] [phone] Potassium-LA 5.4 mmol/L High 3.6-5.2 Chloride - LA 104 mmol/L 100-108 Co2 (Carbon Dioxide) - LA 29 mmol/L 22-31 Glucose - LA 93 mg/dL 70-99 Calcium 9.5 mg/dL 8.4-10.2 83 BUN 14 mg/dL 7-24 84 Creatinine, Serum 0.8 mg/dL 0.6-1.0 BUN/Creat Ratio - LA 17.5 RATIO 10.0-20.0 Anion Gap - LA 11 mmol/L 7-16 GFR - LA 81 ML/MIN/1. 59.001-9999 GFR () - LA >90 ML/MIN/1. (>59) Basic ([facility]) 05/28/2006 [facility] (Do not Use) Sodium-Na 139 mmol/L 136 -145 85 [facility] [place] [address] [phone] Potassium-LA 4.9 mmol/L 3.6-5.2 Chloride - LA 101 mmol/L 100-108 Co2 (Carbon Dioxide) - LA 29 mmol/L 22-31 Glucose - LA 82 mg/dL 70-99 Calcium - LA 8.9 mg/dL 8.4-10.2 Urea Nitrogen (BUN) - LA 11 mg/dL 7-24 Creatinine, Serum 0.9 mg/dL 0.6-1.0 BUN/Creat Ratio - LA 12.2 RATIO 10.0-20.0 Anion Gap - LA 9 mmol/L 7-16 GFR - LA 71 ML/MIN/1.7 59.001-9999 GFR () - LA 86 ML/MIN/1.7 59.001-9999 CMP 10/21/2004 [facility] (Do not Use) Sodium 143 mmol/L 135-145 [facility] [place] [address] [phone] Potassium 4.8 mmol/L 3.4-5.3 Chloride 107 mmol/L [...] Anion Gap 11 mmol/L 10-20 Laboratory test 10/21/2004 [facility] (Do not Use) TSH 0.58 uIU/ml 0.50 -6.00 finding [facility] [address] [phone] CBC 10/21/2004 [facility] (Do not Use) WBC 7.4 K/ul 4.1-10.9 [facility] [place] [address] [phone] RBC 4.24 M/ul 4.20-6.30 Hemoglobin 12.7 GM/dl [...] Absolute Basophils 0.1 K/ul 0.1-0.3 Laboratory test 05/11/2003 [facility] (Do not Use) Potassium 4.7 mmol/L 3.4-5.3 finding [facility] [place] [place] [address] [phone] Hepatic Liver 06/09/2002 [facility] (Do not Use) Total Protein 7.7 g/dL 6.2-8.3 Panel [facility] [place] [address] [phone] Albumin 4.1 g/dL 3.5-5.0 Total Bilirubin 0.5 mg/dL 0.1-1.3 Direct Bilirubin 0.0 mg/dL 0.0-0.4 Ast 42 U/L 8-42 Alt 35 U/L 3-42 Alkaline Phosphatase 81 U/L 24-108 Laboratory test 05/26/2002 [facility] (Do not Use) TSH 1.70 uIU/ml 0.50 -6.00 finding [facility] [address] [phone] Laboratory test 04/01/2002 [facility] (Do not Use) Esr 47 MM/HR High 0- 20 finding [facility] [place] [address] [phone] Rheumatoid Factor Screen NEGATIVE Basic (BMP) 03/19/2002 [facility] (Do not Use) Sodium 143 mmol/L 135- 145 [facility] [place] [address] [phone] Potassium 5.1 mmol/L 3.4-5.3 Chloride 108 mmol/L 98-111 Carbon Dioxide 26 mmol/L 22-33 Glucose 92 mg/dL 70-105 BUN 14 mg/dL 6-26 Creatinine 0.9 mg/dL 0.5-1.5 BUN/CR 16 Ratio 12.0-20.0 Anion Gap 14 mmol/L 10-20 Calcium 9.6 mg/dL 8.6-10.3 Laboratory test 03/19/2002 [facility] (Do not Use) Deidre Screen Screen for 86 finding [facility] DEIDRE p <[place] [address] NOTE> [phone] Lipid Panel 03/19/2002 [facility] (Do not Use) Cholesterol 207 mg/dL High 50-199 [place] [address] [phone] Triglycerides 278 mg/dL High 30-200 HDL 34 mg/dL Low 35-85 Chol/HDL Ratio 6.1 Ratio VLDL 56 mg/dL LDL (Calc) Triglyceride moon <SEE NOTE> mg/dL 20-129 87 Laboratory test 03/19/2002 [facility] (Do not Use) Esr 50 MM/HR High 0- 20 [place] [address] [phone] CBC 03/19/2002 [facility] (Do not Use) WBC 7.7 K/ul 4.1-10.9 [place] [address] [phone] RBC 4.65 M/ul 4.2-6.3 Hemoglobin 11.7 GM/dl [...] Basophils 0.0 K/ul Low 0.1-0.3 Laboratory test 03/19/2002 [facility] (Do not Use) Direct LDL 140 mg/dL High 20-129 [place] [address] [phone] Microbiology results SOURCE Clean Catch Midstream COLONY COUNT >100,000 CFU/ML PRELIMINARY RESULT Gram Negative Julio. ID & Sensitivity to Follow. 02/17/2018 2:42 PM FINAL RESULT Escherichia coli (Isolate 1) Sensitivity Analysis Isolate 1 --------- AMIKACIN <=16 S AMOXICILLIN/CLAVULANATE <=8/4 S AMPICILLIN >16 R AMPICILLIN/SULBACTAM >16/8 R CEFAZOLIN 4 S CEFEPIME <=8 S CEFOTAXIME <=2 S CEFTRIAXONE <=1 S CEFUROXIME <=4 S CIPROFLOXACIN <=1 S ERTAPENEM <=0.5 S GENTAMYCIN <=2 S IMIPENEM <=1 S LEVOFLOXACIN <=2 S NITROFURANTOIN <=32 S PIPERACILLIN/TAZOBACTAM <=16 S TETRACYCLINE >8 R TOBRAMYCIN <=4 S TRIMETHOPRIM/SULFAMETHOXAZ <=2/38 S S=Sensitive;I=Indeterminate;R=Resistant 2 R06.02 3 <10 SQUAMOUS EPITHELIAL CELLS/LPF 4 MODERATE GRAM POSITIVE COCCI 5 METHICILLIN RESISTANT S.AUREUS 6 No acid fast bacilli isolated after 6 weeks Performed at: - [facility] [address] [id number] [employer]: Tammi Puente MD, Phone: [phone] 7 ACUTE EXAC COPD 8 Tests: cpk Instructions: 9 Note: Persistent reduction for 3 months or more in an eGFR <60 mL/min/1.73 m2 defines CKD. Patients with eGFR values >/=60 mL/min/1.73 m2 may also have CKD if evidence of persistent proteinuria is present. The original MDRD equation for estimated GFR is not valid for patients less than 18 years of age. Additional information may be found at www.kdoqi.org. 10 Instrument flagged sample for slide review. Less than 10% Bands seen, no other immature WBC's seen. RBC morphology essentially normal. Platelet estimate=NORMAL 11 Note: Persistent reduction for 3 months or more in an eGFR <60 mL/min/1.73 m2 defines CKD. Patients with eGFR values >/=60 mL/min/1.73 m2 may also have CKD if evidence of persistent proteinuria is present. The original MDRD equation for estimated GFR is not valid for patients less than 18 years of age. Additional information may be found at www.[email or web address]. 12 Tests: phosphorus magnesium crp cpk Instructions: 13 phosphorus magnesium crp cpk 14 Presumptive negative for L. pneumophila serogroup 1 antigen in urine, suggesting no recent or current infection. Legionnaires' disease cannot be ruled out since other serogroups and species may also cause disease. 15 <10 SQUAMOUS EPITHELIAL CELLS/LPF 16 MODERATE GRAM POSITIVE COCCI 17 RARE GRAM POSITIVE BACILLI 18 RARE YEAST LIKE ORGANISMS 19 METHICILLIN RESISTANT S.AUREUS 20 RESPIRATORY ERIKA 21 No Legionella species isolated. Performed at: - [facility] [address] [id number] [employer]: Tammi Puente MD, Phone: [phone] 22 POSSIBLE PNEUMONIA 23 Note: Persistent reduction for 3 months or more in an eGFR <60 mL/min/1.73 m2 defines CKD. Patients with eGFR values >/=60 mL/min/1.73 m2 may also have CKD if evidence of persistent proteinuria is present. The original MDRD equation for estimated GFR is not valid for patients less than 18 years of age. Additional information may be found at www.kdoqi.org. 24 Result confirmed by repeat analysis. 25 0.0 - 0.045 ng/mL: Normal 0.046 - 0.5 ng/mL: Suggestive 0.6 - 1.5 ng/mL: Consistent 26 This sample is drawn by:DL/CT SCAN TECH 27 Per NCEP ATP III Guidelines: Results lower than 40 mg/dL are suggestive of increased risk for coronary artery disease. Results > or=to 60 mg/dL are considered a negative risk factor. 28 Per NCEP ATP III Guidelines: Normal Population <130 Patients with medical conditions: CHD/DM Optimal: <100 Borderline high: 130-159 High: 160-189 Very high: >189 29 Updated reference range on new analyzer 30 Updated reference range on new analyzer 31 Concerning GFR Guidelines for Americans: Normal function or mild renal disease, if clinically at risk: >/=60 mL/min Moderately decreased: 30-59 Severely decreased: 15-29 Renal failure: <15 32 Concerning GFR Guidelines: Normal function or mild [...] drugs that are excreted by the kidneys. 33 Updated Reference Range 34 Microbiology results SOURCE Clean Catch Midstream COLONY [...] TOBRAMYCIN <=4 S TRIMETHOPRIM/SULFAMETHOXAZ <=2/38 S S=Sensitive;I=Indeterminate;R=Resistant 35 This sample is drawn by:LISSETH/CT SCAN TECH 36 Per NCEP ATP III Guidelines: Results lower than 40 mg/dL are suggestive of increased risk for coronary artery disease. Results > or=to 60 mg/dL are considered a negative risk factor. 37 Per NCEP ATP III Guidelines: Normal Population <130 Patients with medical conditions: CHD/DM Optimal: <100 Borderline high: 130-159 High: 160-189 Very high: >189 38 Microbiology results SOURCE MIDU COLONY COUNT >100,000 [...] TOBRAMYCIN <=4 S TRIMETHOPRIM/SULFAMETHOXAZ <=2/38 S S=Sensitive;I=Indeterminate;R=Resistant 39 This sample is drawn by:stefano/yuliana 40 Per NCEP ATP III Guidelines: Results lower than 40 mg/dL are suggestive of increased risk for coronary artery disease. Results > or=to 60 mg/dL are considered a negative risk factor. 41 Per NCEP ATP III Guidelines: Normal Population <130 Patients with medical conditions: CHD/DM Optimal: <100 Borderline high: 130-159 High: 160-189 Very high: >189 42 Concerning GFR Guidelines for Americans: Normal function or mild renal disease, if clinically at risk: >/=60 mL/min Moderately decreased: 30-59 Severely decreased: 15-29 Renal failure: <15 43 Concerning GFR Guidelines: Normal function or mild [...] drugs that are excreted by the kidneys. 44 COLONY COUNT ! 1,000 - 5,000 CFU/ml Organism 1 ! URETHRAL EIRKA 45 PERFORMED AT [facility] [id number] 46 NORMAL KIDNEY FUNCTION OR MILD DISEASE - GFR >OR=60 CHRONIC KIDNEY DISEASE - GFR 15 - 59 RENAL FAILURE - GFR <15 Est. GFR calculation based on the MDRD study equation, which assumes a steady state for creatinine. Est. GFR should not be used for medication dosing. 47 This sample is drawn by:LISSETH/TAZ 48 Concerning GFR Guidelines for Americans: Normal function or mild renal disease, if clinically at risk: >/=60 mL/min Moderately decreased: 30-59 Severely decreased: 15-29 Renal failure: <15 49 Concerning GFR Guidelines: Normal function or mild [...] drugs that are excreted by the kidneys. 50 Per NCEP ATP III Guidelines: Results lower than 40 mg/dL are suggestive of increased risk for coronary artery disease. Results > or=to 60 mg/dL are considered a negative risk factor. 51 Per NCEP ATP III Guidelines: Optimal: <100 Near optimal: 100-129 Borderline high: 130-159 High: 160-189 Very high: >189 52 This sample is drawn by:STEFANO/YULIANA 53 Concerning GFR Guidelines for Americans: Normal function or mild renal disease, if clinically at risk: >/=60 mL/min Moderately decreased: 30-59 Severely decreased: 15-29 Renal failure: <15 54 Concerning GFR Guidelines: Normal function or mild [...] drugs that are excreted by the kidneys. 55 Per NCEP ATP III Guidelines: Results lower than 40 mg/dL are suggestive of increased risk for coronary artery disease. Results > or=to 60 mg/dL are considered a negative risk factor. 56 Per NCEP ATP III Guidelines: Optimal: <100 Near optimal: 100-129 Borderline high: 130-159 High: 160-189 Very high: >189 57 PLEASE SEND CBC,CMP RESULTS TO DR SAMM ROMERO IN [place].SAMPLE DRAWN BY M/ CT SCAN TECH 58 The difference between the most recent result of 4.2 and the current result of 4.8 exceeds the absolute delta value of 0.5 as defined for this test. 59 Concerning GFR GUIDELINES: Normal Function or Mild [...] drugs that are excreted by the kidneys. 60 Concerning GFR GUIDELINES: Normal Function or Mild Renal Disease, if clinically at risk: >/=60mL/min Moderately decreased: 30-59 Severely decreased: 15-29 Renal Failure: <15 61 LAB DRAW KSLPN 62 Unless otherwise specified, testing performed by [facility] [address] [place] [id number] 63 0 - 0.6 NG/ML: NO EVIDENCE OF MYOCARDIAL INJURY 0.7 - 1.5 NG/ML: MILD ELEVATION, SUGGESTING POSSIBLE MYOCARDIAL INJURY > 1.5 NG/ML: CONSISTENT WITH MYOCARDIAL INJURY 64 0 - 0.6 NG/ML: NO EVIDENCE OF MYOCARDIAL INJURY 0.7 - 1.5 NG/ML: MILD ELEVATION, SUGGESTING POSSIBLE MYOCARDIAL INJURY > 1.5 NG/ML: CONSISTENT WITH MYOCARDIAL INJURY 65 < 5%=non AMI 5 - 10%=borderline for AMI > 10%=positive for AMI FOR DIAGNOSTIC PURPOSES, THE CK-MB RESULT (MASS AND RELATIVE PERCENT INDEX) SHOULD BE USED IN CONJUNCTION WITH OTHER PERTINENT CLINICAL DATA. 66 0 - 0.6 NG/ML: NO EVIDENCE OF MYOCARDIAL INJURY 0.7 - 1.5 NG/ML: MILD ELEVATION, SUGGESTING POSSIBLE MYOCARDIAL INJURY > 1.5 NG/ML: CONSISTENT WITH MYOCARDIAL INJURY 67 Note: Persistent reduction for 3 months or more in an eGFR <60 mL/min/1.73 m2 defines CKD. Patients with eGFR values >/=60 mL/min/1.73 m2 may also have CKD if evidence of persistent proteinuria is present. The original MDRD equation for estimated GFR is not valid for patients less than 18 years of age. Additional information may be found at www.kdoqi.org. 68 THERAPEUTIC INR RANGE: 2.0 - 3.0 DVT, Pulmonary embolus, prophylaxis against venous thrombosis or systemic embolization in high risk patients. 2.5 - 3.5 Mechanical heart valves 69 Note: [facility] has established a 97.89% negative predictive value for thrombotic disease when a cutoff value of 0.5 ug/mL is used. Additional performance parameters for local prevalence of 94.4% as follows: PPV: 9.92%, Sensitivity: 76.47%, Specificity: 61.12% 70 This sample is drawn by: 71 Concerning GFR GUIDELINES: Normal Function or Mild [...] drugs that are excreted by the kidneys. 72 Concerning GFR GUIDELINES: Normal Function or Mild Renal Disease, if clinically at risk: >/=60mL/min Moderately decreased: 30-59 Severely decreased: 15-29 Renal Failure: <15 73 SPECIMEN SLIGHTLY LIPEMIC 74 PER NCEP ATP III GUIDELINES: RESULTS LOWER THAN 40 MG/DL ARE SUGGESTIVE OF INCREASED RISK FOR CORONARY ARTERY DISEASE. RESULTS > OR=TO 60 MG/DL ARE CONSIDERED A NEGATIVE RISK FACTOR. 75 INTERPRETATION OF CHOL-HDL RATIO CHD RISK FEMALE MALE VERY HIGH >8.3 >14.3 HIGH 5.6 - 8.3 6.7 - 14.3 AVERAGE 3.7 - 5.6 4.0 - 6.7 BELOW AVERAGE 2.5 - 3.7 2.7 - 4.0 PROTECTED <2.5 <2.7 76 Triglyceride value>300mg/dl, see Direct LDL result PER NCEP ATP III GUIDELINES: OPTIMAL: <100 NEAR OPTIMAL: 100 - 129 BORDERLINE HIGH: 130 - 159 HIGH: 160 - 189 VERY HIGH: >189 77 Test deleted. Reason: MEDICAID 78 AUTOMATED DIFFERENTIAL 79 PER NCEP ATP III GUIDELINES: RESULTS LOWER THAN 40 MG/DL ARE SUGGESTIVE OF INCREASED RISK FOR CORONARY ARTERY DISEASE. RESULTS > OR=TO 60 MG/DL ARE CONSIDERED A NEGATIVE RISK FACTOR. 80 INTERPRETATION OF CHOL-HDL RATIO CHD RISK FEMALE MALE VERY HIGH >8.3 >14.3 HIGH 5.6- 8.3 6.7- 14.3 AVERAGE 3.7- 5.6 4.0- 6.7 BELOW AVERAGE 2.5- 3.7 2.7- 4.0 PROTECTED <2.5 <2.7 81 PER NCEP ATP III GUIDELINES: OPTIMAL < 100 NEAR OPTIMAL 100 - 129 BORDERLINE HIGH 130 - 159 HIGH 160 - 189 VERY HIGH > 189 82 * 83 * 84 * 85 CC: [facility] FAX: [phone] ATTN: JONNY Ramirez Screen for DEIDRE positive. Sent to Ref Lab for IFA Confirmation with titer and pattern if appropriate. 87 Triglyceride value >250 mg/dl, see Direct LDL result Procedures Date Code Description Status 06/17/2018 80404 ECHO Transthoracis 2D W Spectral Doppler Completed 05/31/2018 46724 Electrocardiogram Complete Completed 04/20/2018 [id number] Mammogram Completed 06/26/2017 80511 Electrocardiogram Complete Completed 03/10/2017 12730 Admin Of Inj (Therapeutic Phrophylactic Or Diagnostic Completed Subq Inj 06/11/[address] Review & Interpretation & Report Only Completed 06/11/2016 79023 Electrocardiogram Complete Completed 11/07/2015 [id number] Mammogram Completed 08/13/2015 23872 Electrocardiogram Complete Completed 01/16/2015 [id number] Colonoscopy Completed 12/29/2014 75013 Admin Of Inj (Therapeutic Phrophylactic Or Diagnostic Completed Subq Inj 11/17/2014 33841 Electrocardiogram Complete Completed 06/20/2014 38987 Electrocardiogram Complete Completed 12/20/2013 79216 Electrocardiogram Complete Completed 05/24/2013 30649 Measure Blood Oxygen Level Single Determination Completed 04/07/2013 91720 Admin Of Inj (Therapeutic Phrophylactic Or Diagnostic Completed Subq Inj 02/22/2013 22002 Measure Blood Oxygen Level Single Determination Completed 01/11/2013 23002 Coronary Angiography With LEFT Heart Catheterization Completed 12/29/2012 98995 Cardiovascular Stress Test W/Interpretation & Report Completed 12/29/2012 65692 Myocardial Perfusion Imaging,Multiple Studies AT Completed Rest&Or Stress 11/24/2012 75655 Electrocardiogram Complete Completed 10/12/2012 41115 Admin Of Inj (Therapeutic Phrophylactic Or Diagnostic Completed Subq Inj 04/15/2012 58257 Measure Blood Oxygen Level Single Determination Completed 04/05/2012 [id number] Mammogram Completed 10/21/2011 44634 Electrocardiogram Complete Completed 08/04/2011 56176 Electrocardiogram Complete Completed 11/20/2010 [id number] Mammogram Completed 06/21/2010 33466 Measure Blood Oxygen Level Single Determination Completed 01/22/2010 64708 Admin Of Inj (Therapeutic Phrophylactic Or Diagnostic Completed Subq Inj 03/07/2009 56951 Admin Of Inj (Therapeutic,Prophylactic Or Diagnostic Completed Subq Or Intr 12/20/2008 [id number] Colonoscopy Completed 10/12/2008 42698 Spirometry /PFT W/O Bronchodialator Completed 07/03/2008 [id number] Bone Mineral Density Test Completed 07/03/2008 [id number] Mammogram Completed 05/28/2006 13050 Electrocardiogram Complete Completed 04/20/2003 15866 Electrocardiogram Complete Completed Encounters Type Date Location Provider Dx Diagnosis Office Visit 07/01/2018 [facility] Rafal Ruht, R06.02 Shortness of 12:30p Cardiology breath Z86.73 Prsnl hx of TIA (TIA), and cereb infrc w/o resid deficits I11.9 Hypertensive heart disease without heart failure I34.0 Nonrheumatic mitral (valve) insufficiency I36.1 Nonrheumatic tricuspid (valve) insufficiency E78.00 Pure hypercholesterolemia, unspecified Z68.31 Body mass index (BMI) 31.0-31.9, adult Office Visit 06/24/2018 11:30a Pablo Lowe, N.P. N76.0 Acute vaginitis B35.9 Dermatophytosis, unspecified Z13.31 Encounter for screening for depression Office Visit 05/31/2018 2:30p [facility] Torres, R06.02 Shortness of Cardiology ROHINI Esposito breath I95.9 Hypotension, unspecified R42 Dizziness and giddiness Z01.810 Encounter for preprocedural cardiovascular examination Z86.73 Prsnl hx of TIA (TIA), and cereb infrc w/o resid deficits E78.00 Pure hypercholesterolemia, unspecified I34.0 Nonrheumatic mitral (valve) insufficiency I36.1 Nonrheumatic tricuspid (valve) insufficiency I35.1 Nonrheumatic aortic (valve) insufficiency Z68.31 Body mass index (BMI) 31.0-31.9, adult Office Visit 03/25/2018 11:30a [facility] Torres, [facility]25.10 [facility] ROHINI Esposito disease of [place] coronary artery w/o ang pctrs I10 Essential (primary) hypertension E78.00 Pure hypercholesterolemia, unspecified R06.02 Shortness of breath R94.31 Abnormal electrocardiogram [ECG] [EKG] I95.9 Hypotension, unspecified Z86.73 Prsnl hx of TIA (TIA), and cereb infrc w/o resid deficits Z68.31 Body mass index (BMI) 31.0-31.9, adult Office Visit 02/16/2018 10:45a Pablo Lowe, R30.0 Dysuria N.P. Office Visit 01/18/2018 10:30a Pablo Lowe, Z00.01 Encounter for N.P. general adult medical exam w abnormal findings J15.211 Pneumonia due to methicillin suscep staph M05.89 Oth rheumatoid arthritis w rheumatoid factor [facility] F33.0 Major depressive disorder, recurrent, mild Z11.1 Encounter for screening for respiratory tuberculosis Z68.32 Body mass index (BMI) 32.0-32.9, adult Office Visit 11/13/2017 1:00p [facility] Rafal Ruth, I10 Essential ( primary) Cardiology hypertension E78.00 Pure hypercholesterolemia, unspecified I25.10 Aths[facility] heart disease of [place] coronary artery w/o ang pctrs R06.02 Shortness of breath Z68.32 Body mass index (BMI) 32.0-32.9, adult Office Visit 06/26/2017 12:50p [facility] Torres, I10 Essential (primary) Cardiology ROHINI Esposito hypertension E78.00 Pure hypercholesterolemia, unspecified R94.31 Abnormal electrocardiogram [ECG] [EKG] R06.02 Shortness of breath Z68.35 Body mass index (BMI) 35.0-35.9, adult Office Visit 06/23/2017 10:00a Pablo Lowe I10 Essential ( primary) N.P. hypertension E78.00 Pure hypercholesterolemia, unspecified Office Visit 05/21/2017 11:45a Pablo Lowe, J01.00 Acute maxillary N.P. sinusitis, unspecified Office Visit 04/20/2017 8:00a Pablo Lowe B35.9 Dermatophytosis, N.P. unspecified F41.1 Generalized anxiety disorder F39 Unspecified mood [affective] disorder Z72.0 Tobacco use Office Visit 03/10/2017 10:45a Pablo Lowe, J02.9 Acute pharyngitis, N.P. unspecified R30.0 Dysuria Z23 Encounter for immunization Office Visit 12/04/2016 10:00a Pablo Lowe, Z00.8 Encounter for other N.P. general examination B37.0 Candidal stomatitis I10 Essential (primary) hypertension B35.9 Dermatophytosis, unspecified Office Visit 09/18/2016 8:40a [facility] Lynda, R06.02 Shortness of Cardiology ROHINI Romo breath I25.10 Athscl heart disease of [place] coronary artery w/o ang pctrs I10 Essential (primary) hypertension E78.00 Pure hypercholesterolemia, unspecified R94.31 Abnormal electrocardiogram [ECG] [EKG] Office Visit 08/19/2016 1:30p Yanira Blackwood B37.0 Candidal Maryannhelle, N.P. stomatitis Office Visit 07/23/2016 9:30a [facility] Rafal Ruth, R06.02 Shortness of Cardiology breath E66.3 Overweight I25.84 Coronary atherosclerosis due to calcified coronary lesion I10 Essential (primary) hypertension Z87.891 Personal history of nicotine dependence E78.00 Pure hypercholesterolemia, unspecified R94.31 Abnormal electrocardiogram [ECG] [EKG] Office Visit 06/11/2016 11:00a [facility] Rafal Ruth, R06.02 Shortness of Cardiology breath E66.3 Overweight I25.84 Coronary atherosclerosis due to calcified coronary lesion I10 Essential (primary) hypertension Z87.891 Personal history of nicotine dependence E78.00 Pure hypercholesterolemia, unspecified R94.31 Abnormal electrocardiogram [ECG] [EKG] Office Visit 02/25/2016 2:00p Pablo Lowe, Z11.59 Encounter for N.P. screening for other viral diseases J01.00 Acute maxillary sinusitis, unspecified Z13.220 Encounter for screening for lipoid disorders E66.9 Obesity, unspecified Z72.89 Other problems related to lifestyle Office Visit 08/13/2015 [facility] Flory, Z01.810 Encounter for 3:00p Cardiology MD Rafal preprocedural cardiovascular examination I25.84 Coronary atherosclerosis due to calcified coronary lesion Z87.891 Personal history of nicotine dependence I10 Essential (primary) hypertension E78.0 Pure hypercholesterolemia R94.31 Abnormal electrocardiogram [ECG] [EKG] G45.9 Transient cerebral ischemic attack, unspecified Office Visit 07/02/2015 [facility] Lynda, I25.84 Coronary 1:20p Cardiology ROHINI Romo atherosclerosis due to calcified coronary lesion Z87.891 Personal history of nicotine dependence I25.10 Athscl heart disease [place] coronary artery w/o ang pctrs I10 Essential (primary) hypertension E78.0 Pure hypercholesterolemia Office Visit 04/16/2015 1:00p Pablo Lowe, J06.9 Acute upper N.P. respiratory infection, unspecified J02.9 Acute pharyngitis, unspecified Office Visit 12/29/2014 8:00a Pablo Lowe N.P. R30.0 Dysuria Z23 Encounter for immunization Office Visit 11/17/2014 [facility] Flory, 110.5 Dermatophytosis Body 9:15a Cardiology MD Rafal 435.9 TIA Ischemia Cerebral Transient Unspec V72.83 Examination Preoperative Other Spec 272.0 Hypercholesterolemia Pure 401.1 Hypertension Benign 414.01 Coronary Atherosclerosis [place] 785.1 Palpitations 278.02 Overweight 794.31 Electrocardiogram (ECG) (EKG) Abnormal Office Visit 10/23/2014 2:30p Pablo Lowe, 110.5 Dermatophytosis Body N.P. Office Visit 09/04/2014 11:15a Pablo Lowe, 435.9 TIA Ischemia Cerebral N.P. Transient Unspec Office Visit 06/20/2014 9:30a Pablo Lowe V72.83 Examination N.P. Preoperative Other Spec 272.0 Hypercholesterolemia Pure Office Visit 06/20/2014 2:00p Monroe Ruth V72.83 Examination Cardiology MD Rafal Preoperative Other Spec 272.0 Hypercholesterolemia Pure 401.1 Hypertension Benign 414.01 Coronary Atherosclerosis [place] 785.1 Palpitations 278.02 Overweight Office Visit 04/10/2014 8:45a Yanira Blackwood 782.1 Rash & Other Pablo, N.P. Nonspec Skin Eruption Office Visit 02/02/2014 2:20p Monroe Howell, 401.1 Hypertension Cardiology ROHINI Romo Benign 414.01 Coronary Atherosclerosis [place] 785.1 Palpitations 276.9 Electrolyte & Fluid Disorder Not Elsewhere Class 478.9 Upper Resp Tract Disease Other & Unspec Office Visit 01/12/2014 1:30p Pablo Lowe, N.P. 529.0 Glossitis Tongue 461.0 Sinusitis Acute Maxillary Office Visit 12/20/2013 10:20a Rafal Jang, 401.1 Hypertension Cardiology Benign 272.0 Hypercholesterolemia Pure 414.01 Coronary Atherosclerosis [place] 785.1 Palpitations Office Visit 11/29/2013 11:00a Pablo Lowe 401.1 Hypertension Benign N.P. 272.0 Hypercholesterolemia Pure V04.81 Need For Prophylactic Vaccination & Inoculation/Influenza V74.1 Screening Examination Pulmonary Tuberculosis Office Visit 06/15/2013 Monroe Howell, 414.01 Coronary 10:20a Cardiology ROHINI Romo Atherosclerosis [place] 401.1 Hypertension Benign 272.0 Hypercholesterolemia Pure Office Visit 05/24/2013 3:15p Pablo Lowe, N.P. 466.0 Bronchitis Acute 786.2 Cough Office Visit 02/22/2013 11:15a Pablo Lowe, N.P. 786.2 Cough 466.0 Bronchitis Acute Office Visit 01/25/2013 10:00a [facility] Clarissa Howell, 478.9 Upper Resp Cardiology [employer] Tract Disease Other & Unspec 272.0 Hypercholesterolemia Pure 401.1 Hypertension Benign 786.50 Pain Chest Unspec 414.01 Coronary Atherosclerosis [place] Office Visit 01/05/2013 10:00a [facility] Clarissa Howell, 786.50 Pain Chest Cardiology [employer] Unspec 414.01 Coronary Atherosclerosis [place] 401.1 Hypertension Benign 272.0 Hypercholesterolemia Pure Office Visit 11/24/2012 2:00p [facility] Perrna Tobias 786.50 Pain Chest Cardiology [place] Unspec 414.01 Coronary Atherosclerosis [place] 272.0 Hypercholesterolemia Pure 401.1 Hypertension Benign 785.1 Palpitations Office Visit 08/20/2012 11:00a Pablo Lowe, 281.9 Anemia Deficiency N.P. Unspec 780.79 Malaise And Fatigue Other 529.0 Glossitis Tongue 401.1 Hypertension Benign 272.0 Hypercholesterolemia Pure 461.0 Sinusitis Acute Maxillary Office Visit 06/15/2012 2:30p Pablo Lowe, N.P. 529.0 Glossitis Tongue 461.0 Sinusitis Acute Maxillary Office Visit 05/04/2012 [facility] Lynda, 414.01 Coronary 10:00a Cardiology Clarissa, [employer] Atherosclerosis [place] 272.0 Hypercholesterolemia Pure 401.1 Hypertension Benign Office Visit 04/15/2012 2:15p Pablo Lowe, N.P. 466.0 Bronchitis Acute 786.2 Cough Office 11/10/2011 Yanira Blackwood V72.83 Examination Preoperative Visit 2:00p Mer Shah Spec N.P. [facility]cholesterolemia Visit 9:20a Cardiology MD Rafal Pure V72.83 Examination Preoperative Other Spec V72.84 Examination Preoperative Unspec 401.1 Hypertension Benign 414.01 Coronary Atherosclerosis [place] 281.9 Anemia Deficiency Unspec 278.02 Overweight Office Visit 08/14/2011 Yanira Blackwood, 527.9 Salivary Gland 3:30p Pablo, N.P. Disease Unspec Office Visit 08/06/2011 [facility] Rafal Ruth, V72.83 Examination 10:20a Cardiology Preoperative Other Spec 401.1 Hypertension Benign V72.84 Examination Preoperative Unspec 272.0 Hypercholesterolemia Pure 414.01 Coronary Atherosclerosis [place] 784.0 Headache Office Visit 08/04/2011 10:30a Pablo Lowe, V72.84 Examination N.P. Preoperative Unspec 401.1 Hypertension Benign 281.9 Anemia Deficiency Unspec Office Visit 04/21/2011 10:00a [facility] Lynda, 401.1 Hypertension Cardiology Clarissa, [employer] Benign 786.59 Pain Chest Other 272.0 Hypercholesterolemia Pure 414.01 Coronary Atherosclerosis [place] 785.1 Palpitations Office Visit 01/17/2011 10:45a Pablo Lowe, N.P. 784.0 Headache V04.81 Need For Prophylactic Vaccination & Inoculation/Influenza Office Visit 06/21/2010 9:00a Pablo Lowe, 466.0 Bronchitis Acute N.P. Office Visit 01/22/2010 2:30p Carlos Arboleda, V72.84 Examination MD Preoperative Unspec 401.1 Hypertension Benign 714.0 Rheumatoid Arthritis 305.1 Tobacco Use Disorder V06.1 Udgmkjidgp-Bqrnkdl-Tilchioj Combined (DTaP) V04.89 Need For Prophylactic Vaccination & Inoculation Other Virus Office Visit 07/05/2009 9:00a Pablo Lowe, V70.5 Examination Health Of N.P. Defined Subpopulations Office Visit 11/02/2008 1:50p Carlos Arboleda, 401.1 Hypertension Reinaldo KAUFMAN 714.0 Rheumatoid Arthritis 786.59 Pain Chest Other Office Visit 10/19/2008 2:30p Carlos Arboleda MD 401.1 Hypertension Benign 714.0 Rheumatoid Arthritis 786.59 Pain Chest Other 704.00 Alopecia Unspec 780.79 Malaise And Fatigue Other Office Visit 10/12/2008 1:50p Carlos Arboleda MD 786.59 Pain Chest Other 401.1 Hypertension Benign 714.0 Rheumatoid Arthritis 780.50 Sleep Disturbance Unspec, Non-Covered Office Visit 08/03/2008 2:10p Carlos Arboleda, 729.2 Neuralgia Neuritis & MD Radiculitis Unspec 079.99 Viral Infection Unspec 784.0 Headache 401.1 Hypertension Benign Office Visit 05/11/2008 1:50p Carlos Arboleda MD 461.0 Sinusitis Acute Maxillary 714.0 Rheumatoid Arthritis 780.79 Malaise And Fatigue Other 401.1 Hypertension Benign Office Visit 03/14/2008 11:00a Yanira Blackwood 461.0 Sinusitis Acute Maxillary Mashelle, N.P. Office Visit 08/19/2007 1:38p Yanira Blackwood 461.0 Sinusitis Acute Maxillary Mashelle, N.P. Office Visit 08/19/2007 1:10p Yanira Henry, 272.0 Hypercholesterolemia Pure MD Raúl 401.1 Hypertension Benign 780.79 Malaise And Fatigue Other 461.0 Sinusitis Acute Maxillary Office Visit 01/07/2007 1:45p Raúl Peralta, V72.84 Examination MD Preoperative Unspec 401.1 Hypertension Benign 714.0 Rheumatoid Arthritis 272.2 Hyperlipidemia Mixed 715.90 Osteoarthrosis Unspec Genlzd Or Localzd Site Unspec 327.23 Apnea, Obstructive Sleep Apnea Adult & Pediatric 530.11 Esophagitis Reflux 300.02 Anxiety Disorder Generalized 477.0 Rhinitis Allergic Due To Pollen Office Visit 06/23/2006 10:00a Pablo Lowe, 034.0 Streptococcal Sore N.P. Throat 461.0 Sinusitis Acute Maxillary Office Visit 05/28/2006 9:15a Pablo Lowe, V72.84 Examination N.P. Preoperative Unspec 374.30 Ptosis Of Eyelid Unspec Office Visit 01/27/2006 3:30p Pablo Lowe, 465.9 URI Upper N.P. Respiratory Infections Acute Unspec Sites Office Visit 07/07/2005 3:15p Pablo Lowe, 466.0 Bronchitis Acute N.P. Office Visit 03/11/2005 2:00p Pablo Lowe, 461.0 Sinusitis Acute N.P. Maxillary 995.3 Allergy Unspec V04.81 Need For Prophylactic Vaccination & Inoculation/Influenza Office Visit 10/21/2004 1:15p Pablo Lowe, 401.1 Hypertension Benign N.P. 780.79 Malaise And Fatigue Other 424.0 Mitral Valve Disorder 714.0 Rheumatoid Arthritis Office Visit 08/15/2004 12:30p Pablo Lowe, 789.00 Pain Abdominal Unspec N.P. Site Office Visit 08/08/2004 5:00p Pablo Lowe, 789.00 Pain Abdominal Unspec N.P. Site Office Visit 07/08/2004 11:15a Pablo Lowe, 401.1 Hypertension Benign N.P. 477.0 Rhinitis Allergic Due To Pollen 789.00 Pain Abdominal Unspec Site 530.11 Esophagitis Reflux Office Visit 06/04/2004 2:45p Pablo Lowe, 053.9 Herpes Zoster W/O N.P. Complication 785.6 Lymph Nodes Enlargement Office Visit 06/03/2004 1:15p Pablo Lowe, 401.1 Hypertension Benign N.P. 300.02 Anxiety Disorder Generalized 053.9 Herpes Zoster W/O Complication Office Visit 05/16/2004 11:15a Pablo Lowe, 401.1 Hypertension Benign N.P. 461.0 Sinusitis Acute Maxillary Office Visit 03/12/2004 2:45p Pablo Lowe, 715.10 Osteoarthrosis N.P. Localized Prim Site Unspec 530.11 Esophagitis Reflux 461.0 Sinusitis Acute Maxillary Office Visit 10/05/2003 2:00p Pablo Lowe, 300.02 Anxiety Disorder N.P. Generalized 569.3 Hemorrhage Rectum & Anus 455.3 Hemorrhoids External W/O Complication Office Visit 08/31/2003 11:00a Pablo Loew, 401.1 Hypertension Benign N.P. 530.11 Esophagitis Reflux 719.00 Effusion Joint Site Unspec 726.90 Enthesopathy Unspec Site Office Visit 08/10/2003 2:00p Pablo Lowe, 719.47 Pain Joint Ankle & N.P. Foot Office Visit 04/20/2003 2:30p Raúl Peralta, V72.83 Examination MD Preoperative Other Spec 401.1 Hypertension Benign 272.2 Hyperlipidemia Mixed 719.46 Pain Joint Lower Leg Office Visit 12/19/2002 2:30p Pablo Lowe, 477.0 Rhinitis Allergic N.P. Due To Pollen Office Visit 11/03/2002 1:45p Raúl Peralta, 709.09 Dyschromia Other MD 228.00 Hemangioma Unspec Site 300.02 Anxiety Disorder Generalized Office Visit 08/25/2002 1:15p Pablo Lowe, 381.01 Otitis Media N.P. Serous Acute 401.1 Hypertension Benign 626.2 Menstruation Excessive Or Frequent Office Visit 08/08/2002 3:15p Pablo Lowe, 401.1 Hypertension Benign N.P. 461.0 Sinusitis Acute Maxillary 465.9 URI Upper Respiratory Infections Acute Unspec Sites 477.0 Rhinitis Allergic Due To Pollen Office Visit 06/16/2002 4:00p Pablo Lowe, 716.90 Arthropathy Unspec N.P. Site Unspec 535.00 Gastritis Acute W/O Hemorrhage Office Visit 06/09/2002 3:00p Pablo Lowe, 789.00 Pain Abdominal Unspec N.P. Site Office Visit 05/26/2002 3:00p Pablo Lowe, V72.3 Examination N.P. Gynecological Office Visit 03/14/2002 4:00p Rafa Soni MD 461.0 Sinusitis Acute Maxillary 401.1 Hypertension Benign 715.90 Osteoarthrosis Unspec Genlzd Or Localzd Site Unspec Office Visit 02/28/2002 4:00p Rafa Soni MD 715.90 Osteoarthrosis Unspec Genlzd Or Localzd Site Unspec 401.1 Hypertension Benign 461.0 Sinusitis Acute Maxillary Office Visit 02/07/2002 4:00p Rafa Soni MD 401.1 Hypertension Benign 473.9 Sinusitis Chronic Unspec Office Visit 01/31/2002 3:45p Rafa Soni MD 461.0 Sinusitis Acute Maxillary 719.40 Pain Joint Site Unspec 401.1 Hypertension Benign Office Visit 01/06/2002 3:15p Rafa Soni MD 466.0 Bronchitis Acute 401.1 Hypertension Benign 381.01 Otitis Media Serous Acute Plan of Treatment Future Appointment(s):11/02/2018 1:00 pm - Cate Macdonald NP at [facility]06/24/2018 - Pablo Blackwood N.PRikkiN76.0 Acute vaginitisComments: diflucan 150mg PO as [id number] Dermatophytosis, unspecifiedComments:use lotrimin creama and diflucan as Rx'dkeep area clean and dryZ13.31 Encounter for screening for depressionComments:denies increased feelings depression/anxiety at this timeAllNew Medication:Venlafaxine HCL ER 150 mg - Take One Capsule By Mouth Every DayFluconazole 100 mg - 1 by mouth every day x 14 daysFluconazole 150 mg - 1 by mouth qd x 7 days
--- OUTSIDE RECORDS SUMMARY | 2018-09-28 16:15 | XMS REPORT | Continuity of Care Document ---
:1955 Author Name Insurance Agency Manager, System Address Unavailable Unavailable , Care Team Providers Name Role Phone Per KAUFMAN, Jessica Vargas Unavailable Estefany KAUFMAN, Dr. Leonid Hodges Unavailable Kasandra KAUFMAN, Moncho Unavailable Unavailable Valentino KAUFMAN, Sudeep Amanda Unavailable Aleyda KAUFMAN, Ramón Fong Unavailable Zander MSN NPC, Carolina Unavailable Anya Msn Npc, Taryn A Unavailable More LRT, Jessica Unavailable Unavailable Collazo WASTE ELIMINATION, Malorie Unavailable Unavailable Favian WASTE ELIMINATION, Stacy Unavailable Unavailable Slowik WASTE ELIMINATION, Maritza Unavailable Unavailable Reji NPC, Naty M [...] Ordered: 15-Apr-2018 Start: 15-Apr-2018 Quantity: 120 {Ampule} Anya, Benigno Aguila Taryn Amanda Comments: BILL MEDICARE PART B, USING J CODE Refills: 5 ALPRAZOLAM, 0.25MG (Oral Tablet); Comments: Medication taken 1 as needed (0.25 MG) as needed. AMITRIPTYLINE HCL, 25MG (Oral Tablet); 2 AT bedtime (25 MG) CELEBREX, 200MG (Oral Capsule); 1 two times [...] Tablet); 1 three times daily (50 MG) Moxifloxacin HCl 400 MG Oral Tablet; 1 (one) Tablet daily for 10 days Ordered : 30-Aug-2018 Start: 30-Aug-2018 Quantity: 10 {Tablet} AYLA Mendoza Comments: Patient should take probiotics while on medication. At first sign of pain in area of achilles tendon , patient should stop the drug and call. Refills: 0 OXYCODONE-ACETAMINOPHEN, 5-325MG Comments: Medication taken (Oral Tablet); needed (5-325 as needed. MG) predniSONE 5 MG Oral Tablet; 6 Tablet DAILY DECREASING BY 5 MG QOD UNTIL GONE for 12 days Ordered: 30-Aug-2018 Start: 30-Aug-2018 Quantity: 42 {Tablet} AYLA Mendoza Refills: 0 RANITIDINE HCL, 150MG (Oral Tablet); 1 Two times daily (150 MG) TOPIRAMATE, 200MG (Oral Tablet); 1 1/2 Daily (200 MG) VENLAFAXINE HCL ER, 150MG (Oral Capsule Extended Release 24 Hour); 1 Daily (150 MG) Ventolin HFA 108 (90 Base) MCG/ACT Inhalation Aerosol Solution; 2 Inhalation four times daily, as needed for 30 days Ordered: 13-Jul-2018 Start: 2018 Quantity: 1 {Inhalation} Benigno Joyner Comments: Medication taken as needed. Refills: 5 Bactrim DS 800-160 MG Oral Tablet; 1 (one) Tablet every twelve hours for 14 days Ordered: 08-Mar-2018 Start: 08-Mar-2018 End: 22-Mar-2018 Quantity: 28 {Tablet} AYLA Mendoza Status: Inactive Refills: 0 C-Pap machine @ +8cm; at bedtime Status: [...] Start: 04-Jul-2014 End: 11-Jul-2014 Quantity: 7 {Tablet} Zander AGUILA Woodland Status: Inactive Refills: 0 METHOTREXATE, 2.5MG (Oral Status: Inactive Tablet); 9 tablets once a week (2.5 MG) PLAQUENIL, 200MG (Oral Tablet); Status: Inactive 2 tabs daily (200 MG) POTASSIUM CHLORIDE ER, 10MEQ Status: Inactive (Oral Capsule Extended Release); 1 Daily (10 MEQ) PREDNISONE, 5MG (Oral Tablet); End: 16-Jul-2015 (5 [...] med prn Procedures EXHALED NITRIC OXIDE MEASUREMENT ([id number]) Status: Completed 12-Jul-2018 PRE AND POST ([id number]) Status: Completed 12-Jul-2018 RESPIRATORY FLOW VOLUME LOOP ([id number]) Status: Completed 04-Jul-2014 PRE AND POST ([id number]) Status: Completed 04-Jul-2014 Arthroscopic Ankle Surgery - Left Status: Completed Sep-2011 Comments: DR CHAPMAN Chest X-ray Status: Completed 12-Jul-2018 Comments: Lungs grossly clear. Improved compared to 01/21/18. Chest X-ray Status: Completed 16-Jul-2015 Comments: compared to 07/04/14: stable, no infiltrates, effusions, normal cariac and mediastinal contours Cpap titration Status: Completed Comments: [facility] sleep lab; 04/08/2005 CT Scan [...] chest film Hospitalization Status: Completed Jun-2017 Comments: [facility], sinusitis and RLL pneumonia PFT Status: [...] FEV1 2.34 (83) Polysomnography Status: Completed Comments: [facility] sleep lab; 02/26/2005 QUAD REPAIR [...] Comments: DR CHAPMAN CXR PA & LAT ([id number])Result: Are you or could Status: Completed Jun-2018 you become ?: No; When was you last CXR/CT?: over week ago; Biology Intern: IGNACIA Pacheco CT THORAX W/O DYE ([id number])Result: Are you or Date: 15-Apr-2018 could you become ?: No; When was you last Status: Completed 2018 CXR/CT?: over week ago; Biology Intern: IGNACIA Pacheco PRE AND POST W/ RT ([id number])Result: Hemoptysis: No Status: Completed 2018 CAT SCAN OF CHEST: CT THORAX W/O DYE ([id number])Result: Date: 10-Apr-2018 Are you or could you become ?: No; Status: Completed 2018 When was you last CXR/CT?: over week ago; Biology Intern: Jessica Kahn, LETICIAT CT THORAX W/O DYE ([id number])Result: Are you or Date: 08-Feb-2018 could you become ?: No; When was you last Status: Completed 2018 CXR/CT?: over week ago; Biology Intern: LETICIA PachecoT PRE AND POST ([id number])Result: Hemoptysis: No Status: Completed 10-Dec-2017 CAT SCAN OF CHEST: CT THORAX W/O DYE ([id number])Result: Status: Completed 2017 Are you or could you become ?: No; When was you last CXR/CT?: over week ago; Biology Intern: LETICIA PachecoT CHEST X-RAY, PA AND LATERAL ([id number])Result: Are you Status: Completed 2015 or could you become ?: No; When was you last CXR/CT?: OVER WEEK AGO; Biology Intern: LETICIA PachecoT CHEST X-RAY, PA AND LATERAL ([id number])Result: Are you Status: Completed 2014 or could you become ?: No; When was you last CXR/CT?: over 1 week ago; Biology Intern: IGNACIA Pacheco Immunizations Influenza (3 years and [...] SCAN OF CHEST: CT THORAX W/O DYE ([id number]) Start: 10-Nov-2018 Intent PRE AND POST W/ RT ([id number]) Start: 10-Nov-2018 Intent Pre/Post ([id number]) Start: 14-Nov-2011 Intent RESPIRATORY FLOW VOLUME LOOP ([id number]) Start: 14-Nov-2011 Intent Medical; CT SCAN CHEST - Start: 11-Nov-2018 14:30 [facility]ointment [facility] X[facility] Xray Medical; PRE AND POST RT - Start: 11-Nov-2018 14:45 Appointment Request [facility] Resp Therapy [facility] RT Medical; FOLLOW UP 30 - 4MO FU NP30,PPRT Start: 11-Nov-2018 15:00 Appointment [facility] Anya, Msn Npc Taryn Amanda SPUTUM CULTURE ([id number]) Start: 30-Aug-2018 16:46 Request SPUTUM CYTOLOGY ([id number]) Start: 24-May-2018 16:53 Request SPUTUM AFB ([id number]) Start: 10-Dec-2017 15:59 Request SPUTUM CYTOLOGY ([id number]) Start: 10-Dec-2017 15:38 Request PNEUMONIA : Referral to Automobile Mechanic Helper? IMMUNOLOGY Indication:PNEUMONIA BONITA (OBSTRUCTIVE SLEEP APNEA) : FU EITHER Indication:BONITA (OBSTRUCTIVE SLEEP APNEA) BONITA (OBSTRUCTIVE SLEEP APNEA) : FU EITHER - Estefany/Anya Indication:BONITA (OBSTRUCTIVE SLEEP APNEA) Results SPUTUM CULTURE ([id number]) Ordered On: 24-May-2018 CULTURE, SPUTUM see document (Normal) SPUTUM CULTURE ([id number]) Ordered On: 01-Mar-2018 CULTURE, SPUTUM see document (Normal) SPUTUM CULTURE ([id number]) Ordered On: 10-Dec-2017 CULTURE, SPUTUM SEE DOCUMENT (Normal) SPUTUM CULTURE ([id number]) Ordered On: 13-Nov-2017 CULTURE, SPUTUM see document [...] Historical Summary 06-Sep-2018 9:26 To 06-Sep-2018 16:37 [facility] Office Medication Order 30-Aug-2018 16:41 To 31-Aug-2018 8:20 Encounter Diagnosis: PNEUMONIA [facility] Office Medication Order 13-Jul-2018 9:42 To 13-Jul-2018 9:50 Encounter Diagnosis: BRONCHIECTASIS [facility] Office Historical Summary 13-Jul-2018 9:28 To 13-Jul-2018 9:30 [facility] Office Visit 12-Jul-2018 15:00 To 12-Jul-2018 15:35 Encounter Reason: Abnormal Chest Imaging - The referring provider is Dr. JESSIAC YOUNG. The primary physician is [facility] Whitney GOEL NP (The patient was [...] jordan kailey who had been hospitalized In [facility], in late June 2017 with cough, stridor, and shortness of breath. She was also inpt at [facility] in May 2017, reported by the pt. She had throat swelling, ultimately was placed in the ICU for 5 days but did not require intubation or mechanical ventilation she was on antibiotics and steroids she was seen by ENT and reportedly and laryngosc opy. in [place], She was seen in consultation by ENT [...] for rheumatoid arthritis. Hemoptysis later recurred. In [place], after reporting recurrent cough and hemoptysis, repeat [...] ARTHRITIS (Renamed from ARTHRITIS OR POLYARTHRITIS, RHEUMATOID) [facility] Medication Order 10-Jun-2018 16:12 To 10-Jun-2018 16:17 Encounter Diagnosis: BRONCHIECTASIS [facility] Medication Order 28-May-2018 14:08 To 28-May-2018 14:54 Encounter Diagnosis: BRONCHIECTASIS [facility] Order Only 24-May-2018 16:41 To 24-May-2018 16:58 Encounter Diagnosis: PNEUMONIA [facility] Office Visit 15-Apr-2018 11:04 To 15-Apr-2018 15:56 Encounter Reason: Abnormal Chest Imaging - The referring provider is Dr. JESSICA YOUNG. The primary physician is [facility] Whitney GOEL NP (The patient was [...] pa kailey who had been hospitalized In [facility], in late June 2017 with cough, stridor, and shortness of breath. She was also inpt at [facility] in May 2017, reported by the pt. She had throat swelling, ultimately was placed in the ICU for 5 days but did not require intubation or mechanical ventilation she was on antibiotics and steroids she was seen by ENT and reportedly and laryngosc opy. in [place], She was seen in consultation by ENT [...] included chest x-ray and chest CT ([facility] AND CT NECK). Treatment has included antibiotics [...] Dr. JESSICA YOUNG. The primary physician is [facility] Marcelo GOEL NP (The patient was seen [...] pa kailey who had been hospitalized In [facility], in late June 2017 with cough, stridor, and shortness of breath. She was also inpt at [facility] in May 2017, reported by the pt. She had throat swelling, ultimately was placed in the ICU for 5 days but did not require intubation or mechanical ventilation she was on antibiotics and steroids she was seen by ENT and reportedly and laryngosc opy. in [place], She was seen in consultation by ENT [...] Diagnosis: PNEUMONIA Medication Order 08-Mar-2018 16:20 To 18-Dec-2018 8:30 Encounter Diagnosis: PNEUMONIA [facility] Order Only 01-Mar-2018 14:59 To 01-Mar-2018 15:49 Encounter Diagnosis: PNEUMONIA [facility] Historical Summary 08-Feb-2018 11:22 To 08-Feb-2018 11:36 Encounter Reason: Abnormal Chest Imaging - The referring provider is Dr. JESSICA YOUNG. The primary physician is [facility] Whitney GOEL NP (The patient was [...] jordan kailey who had been hospitalized In [facility], in late June 2017 with cough, stridor, and shortness of breath. She was also inpt at [facility] in May 2017, reported by the pt. She had throat swelling, ultimately was placed in the ICU for 5 days but did not require intubation or mechanical ventilation she was on antibiotics and steroids she was seen by ENT and reportedly and laryngosc opy. in [place], She was seen in consultation by ENT [...] ([place] AND CT NECK). Treatment has included antibi [...] Dr. JESSICA YOUNG. The primary physician is [facility] Marcelo GOEL NP (The patient [...] jordan kailey who had been hospitalized In [facility], in late June 2017 with cough, stridor, and shortness of breath. She was also inpt at [facility] in May 2017, reported by the pt. She had throat swelling, ultimately was placed in the ICU for 5 days but did not require intubation or mechanical ventilation she was on antibiotics and steroids she was seen by ENT and reportedly and laryngosc opy. in [place], She was seen in consultation by ENT [...] Historical Summary 07-Jan-2018 10:30 To 07-Jan-2018 10:34 [facility] Office Medication Order 23-Dec-2017 10:40 To 23-Dec-2017 12:02 Encounter Diagnosis: PNEUMONIA [facility] Office Medication Order 18-Dec-2017 13:33 To 21-Dec-2017 8:03 Encounter Diagnosis: SHORTNESS OF BREATH [facility] Office Visit 10-Dec-2017 15:00 To 11-Dec-2017 10:02 Encounter Reason: Abnormal Chest Imaging - The referring provider is Dr. JESSICA YOUNG. The primary physician is [facility] Whitney GOEL NP (The patient was [...] patient who had paulie ayala hospitalized In [facility], in late June with cough, stridor, and shortness of breath. She was also inpt at [facility] in May 2017, reported by the pt. She had throat swelling, ult imately was placed in the ICU for 5 days but did not require intubation or mechanical ventilation she was on antibiotics and steroids she was seen by ENT and reportedly and laryngoscopy. in [facility] he was seen in consultation by ENT [...] included chest x-ray and chest CT ([facility] AND CT NECK). Treatment has included [...] primary physician is Dr. JESSICA YOUNG (The [facility] patient was scheduled for [...] primary physician is Dr. JESSICA YOUNG. The [facility] sleep disorder is characterized [...] primary physician is Dr. JESSICA YOUNG. [facility] sleep disorder is characterized [...] [facility] arthroplasty on July 10, 2014. [facility] mervat for the procedure will be [...] primary physician is Dr. JESSICA YOUNG. The [facility] sleep disorder is characterized [...] LEFT TOTAL KNEE REPLACEMTN on 2011 AT [place]. The surgeon for the procedure will be DR ROMERO. The chief complaint is KNEE PAIN, ARTHRITIS. Recent symptoms include poor exercise tolerance, while recent symptoms do not include fever, chills, fatigue, chest pain, cough, dyspnea, dysuria, urinary frequency , nausea, vomiting, diarrhea, abdominal pain, easy bruising or lower extremity swelling. The patient's last [facility] was 22 month(s) ago. Pertinent [...] Historical Summary 02-Jan-2011 8:43 To 02-Jan-2011 8:54 [facility] Historical Summary 31-Dec-2010 17:01 To 31-Dec-2010 17:10 [facility] Payers Medicare [facility] [address] [facility] [id number] [place] Group Number: [id number] tel: Medicaid/Comp [employer] C [address] [facility] [address] [place] Group Number: NONE tel: ROSA FIGUEREDO [id number] [facility] [id number] [place] tel:
--- OUTSIDE RECORDS SUMMARY | 2018-09-28 16:16 | XMS REPORT | Continuity of Care Document ---
:1955 Author Organization [facility] Address [address], [place] [id number] Phone Care Team Providers Name Role Phone Moncho Slaughter MD Unavailable Unavailable Allergies, Adverse Reactions, Alerts Substance Reaction Status Penicillins Active Medications Medication Instructions Dosage Effective Status Comments Dates (start - stop) Plaquenil 200 mg tablet TAKE TWO TABLETS - Active BY MOUTH EVERY DAY methotrexate sodium 2.5 take 9 Tablet by 22.5 MG - Active mg tablet Oral route every week Percocet 5 mg-325 mg take 1 tablet by - Active MDD# 4 DO tablet oral route every NOT FILL 6 hours as needed TILL 08/06/18 CELECOXIB 200 MG TAKE ONE CAPSULE - Active CAPSULE BY MOUTH TWICE A DAY NEEDED prednisone 5 mg tablet take 1 q.i.d., - Active t.id., b.i.d. and q.d. each for 3 [...] oral route every day Topamax 200 mg tablet take 1 tablet by 200 MG - Active oral route every day Lasix 20 mg tablet take 1 tablet by 20 MG - Active oral route every day as needed Effexor 37.5 mg Tab take 1 tablet 37.5 MG - Active (37.5MG) by oral route every day with food Lipitor 20 mg Tab take 1 tablet 20 MG - Active (20MG) by oral route every day HYDROXYCHLOROQUINE 200 TAKE TWO TABLETS - No Longer MG TAB BY MOUTH EVERY Active DAY Problems Condition Effective Dates Clinical Status Comments (start - stop) Rheumatoid arthritis w/o rheumatoid factor, multiple sites Rheumatoid arthritis w/o rheumatoid factor, multiple sites Rheumatoid arthritis w/o rheumatoid factor, multiple sites Other half-way (current) drug therapy Rheumatoid arthritis w/o rheumatoid factor of multiple sites Other half-way (current) drug therapy Rheumatoid arthritis w/o rheumatoid factor of multiple sites Other half-way (current) drug therapy Rheumatoid arthritis w/o rheumatoid factor of multiple sites Rheumatoid arthritis w/o rheumatoid factor of multiple sites Other intermission coordinator (current) drug therapy Rheumatoid arthritis w/o rheumatoid factor of multiple sites Other half-way (current) drug therapy Rheumatoid arthritis w/o rheumatoid factor of multiple sites Other intermission coordinator (current) drug therapy Rheumatoid arthritis w/o rheumatoid factor of multiple sites Other half-way (current) drug therapy Rheumatoid arthritis w/o rheumatoid factor of multiple sites Other intermission coordinator (current) drug therapy Iron deficiency anemia, unspecified Anemia, unspecified Rheumatoid arthritis w/o rheumatoid factor of multiple sites Other half-way (current) drug therapy Rheumatoid arthritis w/o rheumatoid factor of multiple sites Rheumatoid arthritis, unspecified Other intermission coordinator (current) drug therapy Rheumatoid factor negative - Active High risk drug monitoring - Active Mapped from [facility] status Chronic Conditions table on 07/31/2014 by the ICD9 to SNOMED Bulk Mapping Utility. 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 Onset date 03/14/2014; last addressed on 03/14/2014. Localized, primary - Active Mapped from [facility] osteoarthritis of the hand Chronic Conditions table on 05/30/2014 by the ICD9 to SNOMED Bulk Mapping Utility. The mapped diagnosis code was Osteoarthritis, primary, hand, 715.14, added by Moncho Slaughter MD, with responsible provider Moncho Slaughter MD. Onset date 06/02/2012; last addressed on 03/14/2014. Rheumatoid arthritis - Active Mapped from [facility] Chronic Conditions table on 05/30/2014 by the [...] For Visit Copied on Encounter Arthritis Arthritis Aug-0 Kasandra KAUFMAN [facility] Moncho. [facility], [address] [facility], [facility], [place], [place], [place], [id number], [place], [place]. [id number], tel:[phone] [place] [phone] tel:[phone] Arthritis Arthritis July-2 Kasandra KAUFMAN [facility] Moncho. 5[facility], [address] [facility], [facility], [place], [place], [place], [id number], [place], [place]. [id number], tel:[phone] [place] 681226 tel:[phone] Arthritis Arthritis July- Kasandra [facility] Moncho. 5794 [facility], [address] [place], [facility], [place], [place], [place], [id number], [place], [place]. [id number], tel:[phone] [place] 961508 tel:[phone] Arthritis Arthritis July- Kasandra KAUFMAN [facility] 0 Moncho. [facility], [address] [facility] [place], [facility], [place], [place], [place], [id number], [place], [place]. [id number], tel:[phone] [place] 794208 tel:[phone] Arthritis Arthritis July-0 [facility] C [facility] 9 [facility], 5[address] PLLC [address] [facility], [address], [place], [place], [id number], [id number], [place]. tel:[phone] tel:[phone] Arthritis Arthritis Rheumatoid Apr-1 Kasandra KAUFMAN [facility] arthritis w/o [place]. 5794 Provider: Zehra Shahid rheumatoid 9 [facility], 5794 PLLC Hi munson Downing MD, [facility] multiple sites [place], [address] [place], [place], [place], [id number], St, Suite [place], [place]. [place], [id number], tel:[phone] [facility], [address] [place], [address]. tel:+ tel:[phone] lting Provider: Roberto Dobson MD, [facility] [address], [address], [address]. tel:[phone] lting Provider: Rafal Ruth MD, [address] [facility] [address], [place], [address]. tel:[phone] lting Provider: Prerna Euceda MD, [address] [facility], [address], [place], [address]. tel:[phone] [facility] Provider: Moncho Slaughter MD, [address], [place], [id number]. tel:[phone] Arthritis Arthritis Rheumatoid Dec-0 Kasandra KAUFMAN [facility] arthritis w/o [place]. 5794 Provider: Zehra Shahid rheumatoid 8 [facility], 5794 PLLC Hi munson Downing MD, [facility] multiple sites [place], [address] [place], [place], [place], [id number], St, Suite [place], [place]. [place], [id number], tel:[phone] [facility], [address] [place], [address]. tel:+ tel:[phone] lting Provider: Roberto Dobson MD, [facility] Of [address], [address], [place], [address]. tel:[phone] lting Provider: Rafal Ruth MD, [address] [facility], [place], [address]. tel:[phone] lting Provider: Prerna Euceda MD, [address] [facility], [address], [place], [address]. tel:[phone] ring Provider: Moncho Slaughter MD, [address], [place], [id number]. tel:[phone] Arthritis Arthritis Rheumatoid Kasandra KAUFMAN [facility] arthritis w/o [place]. 5794 Provider: Zehra Shahid [facility] 8 [facility], 5794 PLLC factor, [place], [facility], [address] [place] [address], [facility], [facility], intermission coordinator [id number], Blvd. Suite [place], (current) drug [place]. [place], [id number], therapy tel:[phone] [place], [place] [address] [place], [address]. tel:[phone] tel:[phone] lting Provider: Roberto Dobson MD, [facility] [place] [address] [facility], [address], [place], [address]. tel:[phone] lting Provider: Ramón Jurado MD, [address] [place], [address]. tel:[phone] lting Provider: Prerna Euceda MD, [address] [facility], [address], [place], [address]. tel:[phone] ring Provider: Moncho Slaughter MD, [address], [place], [id number]. tel:[phone] Arthritis Arthritis Rheumatoid Kasandra KAUFMAN [facility] arthritis w/o [place]. 5794 Provider: Zehra Shahid [facility] 8 [facility], 5794 PLLC factor of [place], Rashida KAUFMAN, [facility], [address] [place] [address], [facility], [facility], intermission coordinator [id number], Blvd. Suite [place], (current) drug [place]. [place], [id number], therapy tel:[phone] [place], [place] [address] [place], [address]. tel:+ tel:[phone] lting Provider: Roberto Dobson MD, [facility] [address], [address], [place], [address]. tel:[phone] lting Provider: Ramón Jurado MD, [address] [place], [address]. tel:[phone] lting Provider: Tom Haley MD, [address] [place], [address]. tel:[phone] ring Provider: Moncho Slaughter MD, [address], [place], [id number]. tel:[phone] Arthritis Arthritis Rheumatoid Mar-2 Kasandra KAUMFAN [facility] arthritis w/o 8 Moncho. 5794 Provider: Associates Associates rheumatoid 8 [facility], [facility], Rashida KAUFMAN, [facility], [address] [place], [facility], [facility], intermission coordinator [id number], Blvd. [facility], (current) drug [place]. [place], [id number], therapy tel:[phone] [place] [address] [place], [address]. tel:[phone] tel:[phone] lting Provider: Roberto Dobson MD, [facility] [address], [address], [place], [address]. tel:[phone] lting Provider: Ramón Jurado MD, [address] [place], [address]. tel:[phone] lting Provider: Tom Haley MD, [address] [place] [address], [address]. tel:[phone] [facility] Provider: Moncho Slaughter MD, [address], [place], [id number]. tel:[phone] Arthritis Arthritis Rheumatoid Apr- Kasandra KAUFMAN [facility] arthritis w/o [place]. 5794 Provider: Zehra Shahid rheumatoid 8 [facility], 5794 PLLC factor of [place] Do MD, [facility], [address] [place] [address], [place], [facility], [id number], Blvd. Suite [place], [place]. [place], [id number], tel:[phone] [place], [place] [address] [place], [address]. tel:[phone] tel:[phone] lting Provider: Roberto Dobson MD, [facility] Of [address], [address]. tel:[phone] lting Provider: Ramón Jurado MD, [address] [place], [address]. tel:[phone] lting Provider: Yonis Leal MD, [address] [place], [address]. tel:[phone] ring Provider: Moncho Slaughter MD, [address], [place], [id number]. tel:[phone] Arthritis Arthritis Rheumatoid Dec-0 Kasandra KAUFMAN [facility] arthritis w/o 4201 [place]. 5794 Provider: Zehra Shahid rheumatoid 7 [facility], 5794 PLLC factor of [place] Do MD, [facility], [address] [place], [facility], [facility], half-way [id number], Blvd. Suite [place], (current) drug [place]. [place], [id number], therapy tel:[phone] [place], [place] [address] [place], [address]. tel:[phone] tel:[phone] lting Provider: Roberto Dobson MD, [facility] [address], [place] [address], [place], [address]. tel:[phone] lting Provider: Ramón Jurado MD, [address] [place], [address]. tel:[phone] lting Provider: [facility], [address] [place], [address]. tel:[phone] ring Provider: Moncho Slaughter MD, [address], [place], [id number]. tel:[phone] Arthritis Arthritis Rheumatoid Alli-0 Kasandra KAUFMAN [facility] arthritis w/o [place]. 5794 Provider: Zehra Shahid [facility] 7 [facility], 5794 PLLC factor of [place] Do MD, [facility], [address] [place] [address], [facility], [facility], half-way [id number], Blvd. Suite [place], (current) drug [place]. [place], [id number], therapy tel:[phone] [place], [place] [address] [place], [address]. tel:[phone] tel:[phone] lting Provider: Roberto Dobson MD, [facility] [address], Suite [facility], [place], [address]. tel:[phone] lting Provider: Ramón Jurado MD, [address] [place], [address]. tel:[phone] lting Provider: [place] [facility], [address] [place], [address]. tel:[phone] ring Provider: Moncho Slaughter MD, [address], [place], [id number]. tel:[phone] Arthritis Arthritis Rheumatoid Stuart-2 Kasandra KAUFMAN [facility] arthritis w/o [place]. 5794 Provider: Zehra Shahid rheumatoid 7 [facility], 5794 PLLC factor of Rashiad Do MD, [facility], [address] [place], [facility] [place], [facility], intermission coordinator [id number], Blvd. Suite [place], (current) drug [place]. [place], [id number], therapy tel:[phone] [place], [place] [address] [place], [address]. tel:+ tel:[phone] lting Provider: Roberto Dobson MD, [facility] [address], Suite [facility], [place], [address]. tel:[phone] lting Provider: Ramón Jurado MD, [address] [place], [address]. tel:[phone] lting Provider: [facility], [address] [place], [address]. tel:[phone] ring Provider: Moncho Slaughter MD, [address], [place], [id number]. tel:[phone] Arthritis Arthritis Rheumatoid Sep-2 Kasandra KAUFMAN [facility] arthritis w/o [place]. 5794 Provider: Zehra Shahid rheumatoid 6 [facility], 5794 [facility]C [facility], [facility], [address] [place], [facility], [facility], intermission coordinator [id number], Blvd. [facility], (current) drug [place]. [place], [id number], therapy tel:[phone] [place], [place] [address] [place], [address]. tel:[phone] tel:[phone] lting Provider: Roberto Dobson MD, [facility] [address], Suite [facility], [place], [address]. tel:[phone] lting Provider: Ramón Jurado MD, [address] [place], [address]. tel:[phone] [facility] Provider: Moncho Slaughter MD, [address], [place], [id number]. tel:[phone] Arthritis Arthritis Rheumatoid Alli-2 Kasandra KAUFMAN [facility] arthritis w/o Mon[place]. 5794 Provider: Associates Associates rheumatoid 6 [facility], 5794 PLLC factor of [place], [facility] [place], [address] [place], [facility], [facility] [place], intermission coordinator [id number], vd. [facility], (current) drug [place]. [place], [id number], therapyIron tel:[phone] [place], [place] deficiency [address] [place], [address]. tel:[phone] anemia, tel:[phone] unspecified [phone] lting Provider: Roberto Dobson MD, [facility] Of [address], [address], [place], [address]. tel:[phone] ring Provider: Moncho Slaughter MD, [address], [place], [id number]. tel:[phone] Arthritis Arthritis Anemia, Mar-2 Kasandra KAUFMAN [facility] Health unspecified [place]. 5794 [facility] [address] [place] [address] PLLC, 5794 [facility]C [facility], [place], [place], [place], [id number], [place], [place]. [id number], tel:[phone] [place] 369513 tel:[phone] Arthritis Arthritis Rheumatoid Mar-2 Kasandra KAUFMAN [facility] arthritis w/o [place]. 5794 Provider: Associates Associates rheumatoid 6 [facility] Roberto Dobson PLLC, 5794 PLLC factor of [place], [facility] [place], Neurology [facility], Services Of [place], half-way [id number], [address], (current) drug [place]. [place] [id number], therapy tel:[phone] St, [facility] [place] 8[address] 101, tel:[phone] [place], [place], [address]. tel:[phone] [facility] Provider: Moncho Slaughter MD, [address], [place], [address]. tel:[phone] Arthritis Arthritis Rheumatoid Dec-2 Kasandra KAUFMAN [facility] arthritis w/o [place]. 5794 Provider: Zehra Shahid rheumatoid 5 [facility] Roberto Delunaid PLLC, 5794 PLLC factor of [place], [facility] sites [place], Neurology [place], [place], Services Of [place], [id number], [address], [place]. [place] [id number], tel:[phone] [address] [place] [address] 101, tel:+[phone] [place], [place], [address]. tel:[phone] ring Provider: Moncho Slaughter MD, [address], [place], [id number]. tel:[phone] Arthritis Arthritis Rheumatoid Jan- Kasandra KAUFMAN [facility] arthritis, Mon[place]. 5794 Provider: Zehra Shahid unspecifiedOth 5 [facility] Roberto Dobson PLLC, 5794 PLLC er half-way MD Hi, [facility] (current) drug [place], Neurology [facility], Services Of [place], [id number], [address], [place]. [place] [id number], tel:[phone] [place] [address] 101, tel:[phone] [place], [place], [address]. tel:[phone] ring Provider: Moncho Slaughter MD, [address], [place], [id number]. tel:[phone] Arthritis Arthritis Sep- Kasandra KAUFMAN [facility] Moncho. 5794 Provider: Zehra Shahid 5 [facility] Roberto Dobson PLLC, 5794 PLLC MD Hi, [facility] [place], Neurology [place], [place], Services Of [place], [id number], [address], [place]. [place] [id number], tel:[phone] [place] [address] 101, tel:[phone] [place], [place], [address]. tel:[phone] ring Provider: Moncho Slaughter MD, [address], [place], [id number]. tel:[phone] Arthritis Arthritis Sep-2 Kasandra KAUFMAN [facility] Moncho. 5794 Provider: Associates Associates 4 [facility] Myron [facility], 5[address] [facility], [address] [facility], [facility], [place], [place], [place], [id number], [place], [place], [address]. [id number], tel:[phone] tel:[phone] tel:+ [facility] [phone] Provider: Moncho Slaughter MD, [address], [place], [id number]. tel:[phone] Arthritis Arthritis May- Kasandra KAUFMAN Referring [facility] Moncho. 5794 Provider: Associates Associates 3 [facility] Moncho Slaughter [facility], 5794 [facility], 5[address] [facility], [place], [place], [place], [id number], [place], [place], [place]. [place], [id number], tel: [phone]. [place] [address] tel: tel: [phone] Arthritis Arthritis Dec- Kasandra KAUFMAN Referring [facility] Moncho. 5794 Provider: Associates Associates 2 [facility] Moncho Slaughter [facility], 5794 [facility] MD, [address] [facility], [place], [place], [place], [id number], [place], [place], [place]. [place], [id number], tel:[phone]. [place] [address] tel:+[phone] tel:[phone] Arthritis Arthritis Stuart-0 Kasandra KAUFMAN Referring [facility] Moncho. 5794 Provider: Associates Associates 2 [facility] Moncho Slaughter [facility], 5794 [facility] Do MD, [address] [facility], [place], [place], [place], [id number], [place], [place], [place]. [place], [address], tel:[phone]. [place] 307216 tel:[phone] tel:[phone] Arthritis Arthritis Kasandra KAUFMAN [facility] 8-201 [place]. 5794 Provider: [facility] 1 [facility] Moncho Slaughter [facility], 5794 [facility] MD Hi, 5794 [facility], [facility], [place], [facility], [id number], [place], [place], [place]. [place], [id number], tel:[phone]. [place] 975149 tel:+[phone] tel:[phone] Family History Family Member Diagnosis Age At [...] Other Provider years or older Afluria Quad 0599-7865 Influenza, injectable, administered Note: patient best knowledge trivalent, split virus, 4 ; Source: Other Provider years and older, Fluvirin 6192-3759 Influenza, split virus, administered Note: patient best knowledge ; injectable, 3 years and older Source: Other Provider Fluvirin [id number] Flu (split) (3 yrs or older) administered Source: New Immunization Record Influenza virus vaccine, administered Source: Other Provider Injection Yet to receive administered Source: New Immunization Record pneumo (2 yrs or older) administered Source: Other Provider ([id number]) Payers Payer name Insurance type Covered constitution party ID Authorization(s) Medicare [id number] Medicaid [id number] Social History Type Description Quantity Date Captured [...] completed Goal Tobacco cessation counseling completed Appointment Joyec Simpson BOOKED History Of Present Illness Encounter [...]
--- OUTSIDE RECORDS SUMMARY | 2018-09-28 16:16 | XMS REPORT | Continuity of Care Document ---
:1955 Author Name Electronic Induction Hardener, System Address Unavailable Unavailable , Care Team Providers Name Role Phone Per KAUFMAN, Jessica Vargas Unavailable Estefany KAUFMAN, Dr. Leonid Hodges Unavailable Kasandra KAUFMAN, Moncho Unavailable Unavailable Valentino KAUFMAN, Sudeep Amanda Unavailable Aleyda KAUFMAN, Ramón Fong Unavailable Anya Msn Npc, Taryn A Unavailable Favian SEAFOOD FARMER, Stacy Unavailable Unavailable Vale SEAFOOD FARMER, Malorie Unavailable Unavailable Reji NPC, Naty M Unavailable Katherin SEAFOOD FARMER, Maritza Unavailable Unavailable Zander MSN NPC, Kanona Unavailable More LRT, Jessica Unavailable Unavailable Unavailable Unavailable Problems ABNORMAL CHEST [...] STATUS FOR OBESITY) (Z98.84) (V45.86) MD Leonid Alilson Dr. Allergies and Adverse Reactions Penicillins (Allergy) [...] End: 11-Jul-2014 Quantity: 7 {Tablet} Zander AGUILA Kanona Status: Inactive Refills: 0 METHOTREXATE, 2.5MG (Oral [...] med prn Procedures EXHALED NITRIC OXIDE MEASUREMENT (20522) Status: Completed 12-Jul-2018 PRE AND POST ([id number]) Status: Completed 12-Jul-2018 RESPIRATORY FLOW VOLUME LOOP ([id number]) Status: Completed 04-Jul-2014 PRE AND POST ([id number]) Status: Completed 04-Jul-2014 Arthroscopic Ankle Surgery - Left Status: Completed Sep-2011 Comments: DR CHAPMAN Chest X-ray Status: Completed 12-Jul-2018 Comments: Lungs grossly clear. Improved compared to 01/21/18. Chest X-ray Status: Completed 16-Jul-2015 Comments: compared to 07/04/14: stable, no infiltrates, effusions, normal cariac and mediastinal contours Cpap titration Status: Completed Comments: [facility] sleep lab; 04/08/2005 CT Scan of Chest [...] chest film Hospitalization Status: Completed Jun-2017 Comments: [place] [facility], sinusitis and RLL pneumonia PFT Status: [...] FEV1 2.34 (83) Polysomnography Status: Completed Comments: [facility] sleep lab; 02/26/2005 QUAD REPAIR Status: Completed [...] Comments: DR CHAPMAN CXR PA & LAT ([id number])Result: Are you or could Status: Completed Jun-2018 you become ?: No; When was you last CXR/CT?: over week ago; Outbound Sales Professional: IGNACIA Pacheco CT THORAX W/O DYE ([id number])Result: Are you or Date: 15-Apr-2018 could you become ?: No; When was you last Status: Completed 2018 CXR/CT?: over week ago; Outbound Sales Professional: IGNACIA Pacheco PRE AND POST W/ RT ([id number])Result: Hemoptysis: No Status: Completed 2018 CAT SCAN OF CHEST: CT THORAX W/O DYE ([id number])Result: Date: 10-Apr-2018 Are you or could you become ?: No; Status: Completed 2018 When was you last CXR/CT?: over week ago; Outbound Sales Professional: Jessica Kahn, LETICIAT CT THORAX W/O DYE ([id number])Result: Are you or Date: 08-Feb-2018 could you become ?: No; When was you last Status: Completed 2018 CXR/CT?: over week ago; Outbound Sales Professional: LETICIA PacehcoT PRE AND POST ([id number])Result: Hemoptysis: No Status: Completed 10-Dec-2017 CAT SCAN OF CHEST: CT THORAX W/O DYE ([id number])Result: Status: Completed 2017 Are you or could you become ?: No; When was you last CXR/CT?: over week ago; Outbound Sales Professional: LETICIA PachecoT CHEST X-RAY, PA AND LATERAL ([id number])Result: Are you Status: Completed 2015 or could you become ?: No; When was you last CXR/CT?: OVER WEEK AGO; Outbound Sales Professional: LETICIA PachecoT CHEST X-RAY, PA AND LATERAL ([id number])Result: Are you Status: Completed 2014 or could you become ?: No; When was you last CXR/CT?: over 1 week ago; Outbound Sales Professional: IGNACIA Pahceco Immunizations Influenza (3 years and up) On: [...] SCAN OF CHEST: CT THORAX W/O DYE ([id number]) Start: 10-Nov-2018 Intent PRE AND POST W/ RT ([id number]) Start: 10-Nov-2018 Intent Pre/Post ([id number]) Start: 14-Nov-2011 Intent RESPIRATORY FLOW VOLUME LOOP ([id number]) Start: 14-Nov-2011 Intent Medical; CT SCAN CHEST - Start: 11-Nov-2018 14:30 Appointment Request [facility] XRAY [facility] Xray Medical; PRE AND POST RT - Start: 11-Nov-2018 14:45 Appointment Request [facility] Resp Therapy [facility] RT Medical; FOLLOW UP 30 - 4MO FU NP30,PPRT Start: 11-Nov-2018 15:00 Appointment Request [facility] Office Anya, Msn Npc Taryn Amanda SPUTUM CULTURE ([id number]) Start: 30-Aug-2018 16:46 Request SPUTUM CYTOLOGY ([id number]) Start: 24-May-2018 16:53 Request [employer] ([id number]) Start: 10-Dec-2017 15:59 Request SPUTUM CYTOLOGY ([id number]) Start: 10-Dec-2017 15:38 Request PNEUMONIA : Referral to Casualty Claim Adjuster? IMMUNOLOGY Indication:PNEUMONIA BONITA (OBSTRUCTIVE SLEEP APNEA) : FU EITHER Indication:BONITA (OBSTRUCTIVE SLEEP APNEA) BONITA (OBSTRUCTIVE SLEEP APNEA) : FU EITHER - Estefany/Anya Indication:BONITA (OBSTRUCTIVE SLEEP APNEA) Results SPUTUM CULTURE ([id number]) Ordered On: 24-May-2018 CULTURE, SPUTUM see document (Normal) SPUTUM CULTURE ([id number]) Ordered On: 01-Mar-2018 CULTURE, SPUTUM see document (Normal) SPUTUM CULTURE ([id number]) Ordered On: 10-Dec-2017 CULTURE, SPUTUM SEE DOCUMENT (Normal) SPUTUM CULTURE ([id number]) Ordered On: 13-Nov-2017 CULTURE, SPUTUM see document [...] Historical Summary 06-Sep-2018 9:26 To 06-Sep-2018 16:37 [facility] Office Medication Order 30-Aug-2018 16:41 To 31-Aug-2018 8:20 Encounter Diagnosis: PNEUMONIA [facility] Office Medication Order 13-Jul-2018 9:42 To 13-Jul-2018 9:50 Encounter Diagnosis: BRONCHIECTASIS [facility] Office Historical Summary 13-Jul-2018 9:28 To 13-Jul-2018 9:30 [facility] Office Visit 12-Jul-2018 15:00 To 12-Jul-2018 15:35 Encounter Reason: Abnormal Chest Imaging - The referring provider is Dr. JESSICA YOUNG. The primary physician is [facility] Whitney GOEL NP (The [...] jordan kailey who had been hospitalized In [facility], in late June 2017 with cough, stridor, and shortness of breath. She was also inpt at [facility] in May 2017, reported by the pt. She had throat swelling, ultimately was placed in the ICU for 5 days but did not require intubation or mechanical ventilation she was on antibiotics and steroids she was seen by ENT and reportedly and laryngosc opy. 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 Office Medication Order 10-Jun-2018 16:12 To 10-Jun-2018 16:17 Encounter Diagnosis: BRONCHIECTASIS [facility] Office Medication Order 28-May-2018 14:08 To 28-May-2018 14:54 Encounter Diagnosis: BRONCHIECTASIS [facility] Order Only 24-May-2018 16:41 To 24-May-2018 16:58 Encounter Diagnosis: PNEUMONIA [facility] Office Office Visit 15-Apr-2018 11:04 To 15-Apr-2018 15:56 Encounter Reason: Abnormal Chest Imaging - The referring provider is Dr. JESSICA YOUNG. The primary physician is [facility] Whitney GOEL NP (The [...] pa kailey who had been hospitalized In [facility], in late June 2017 with cough, stridor, and shortness of breath. She was also inpt at [facility] in May 2017, reported by the pt. She had throat swelling, ultimately was placed in the ICU for 5 days but did not require intubation or mechanical ventilation she was on antibiotics and steroids she was seen by ENT and reportedly and laryngosc opy. in [place], She was seen in consultation by ENT [...] included chest x-ray and chest CT ([facility] AND CT NECK). Treatment has included antibiotics [...] Dr. JESSICA YOUNG. The primary physician is [facility] Marcelo GOEL NP (The patient [...] pa kailey who had been hospitalized In [facility], in late June 2017 with cough, stridor, and shortness of breath. She was also inpt at [facility] in May 2017, reported by the pt. She had throat swelling, ultimately was placed in the ICU for 5 days but did not require intubation or mechanical ventilation she was on antibiotics and steroids she was seen by ENT and reportedly and laryngosc opy. in [place], She was seen in consultation by ENT [...] 16:20 To 18-Dec-2018 8:30 Encounter Diagnosis: PNEUMONIA [facility] Office Order Only 01-Mar-2018 14:59 To 01-Mar-2018 15:49 Encounter Diagnosis: PNEUMONIA [facility] Office Historical Summary 08-Feb-2018 11:22 To 08-Feb-2018 11:36 Encounter Reason: Abnormal Chest Imaging - The referring provider is Dr. JESSICA YOUNG. The primary physician is TAI [facility] Whitney GOEL NP (The [...] jordan kailey who had been hospitalized In [facility], in late June 2017 with cough, stridor, and shortness of breath. She was also inpt at [facility] in May 2017, reported by the pt. She had throat swelling, ultimately was placed in the ICU for 5 days but did not require intubation or mechanical ventilation she was on antibiotics and steroids she was seen by ENT and reportedly and laryngosc opy. in [place], She was seen in consultation by ENT [...] Dr. JESSICA YOUNG. The primary physician is [facility] Marcelo GOEL NP (The patient was [...] jordan kailey who had been hospitalized In [facility], in late June 2017 with cough, stridor, and shortness of breath. She was also inpt at [facility] in May 2017, reported by the pt. She had throat swelling, ultimately was placed in the ICU for 5 days but did not require intubation or mechanical ventilation she was on antibiotics and steroids she was seen by ENT and reportedly and laryngosc opy. in [place], She was seen in consultation by ENT [...] Historical Summary 07-Jan-2018 10:30 To 07-Jan-2018 10:34 [facility] Office Medication Order 23-Dec-2017 10:40 To 23-Dec-2017 12:02 Encounter Diagnosis: PNEUMONIA [facility] Office Medication Order 18-Dec-2017 13:33 To 21-Dec-2017 8:03 Encounter Diagnosis: SHORTNESS OF BREATH [facility] Office Office Visit 10-Dec-2017 15:00 To 11-Dec-2017 10:02 Encounter Reason: Abnormal Chest Imaging - The referring provider is Dr. JESSICA YOUNG. The primary physician is [facility] Whitney GOEL NP (The [...] patient who had paulie ayala hospitalized In [facility], in late June with cough, stridor, and shortness of breath. She was also inpt at [facility] in May 2017, reported by the pt. She had throat swelling, ult imately was placed in the ICU for 5 days but did not require intubation or mechanical ventilation she was on antibiotics and steroids she was seen by ENT and reportedly and laryngoscopy. in [facility] he was seen in consultation by ENT [...] included chest x-ray and chest CT ([facility] AND [facility] NECK). Treatment has included [...] primary physician is Dr. JESSICA YOUNG (The [facility] Office patient was scheduled for annual followup [...] primary physician is Dr. JESSICA YOUNG. The [facility] Office sleep disorder is characterized as obstructive [...] primary physician is Dr. JESSICA YOUNG. The [facility] Office sleep disorder is characterized as obstructive [...] [facility] arthroplasty on July 10, 2014. The [facility] mervat for the procedure will be [...] primary physician is Dr. JESSICA YOUNG. The [facility] Office sleep disorder is characterized as obstructive [...] LEFT TOTAL KNEE REPLACEMTN on 2011 AT [place]. The surgeon for the procedure will be DR ROMERO. The chief complaint is KNEE PAIN, ARTHRITIS. Recent symptoms include poor exercise tolerance, while recent symptoms do not include fever, chills, fatigue, chest pain, cough, dyspnea, dysuria, urinary frequency , nausea, vomiting, diarrhea, abdominal pain, easy bruising or lower extremity swelling. The patient's last [facility] visit was 22 month(s) ago. Pertinent medical [...] Historical Summary 02-Jan-2011 8:43 To 02-Jan-2011 8:54 [facility] Historical Summary 31-Dec-2010 17:01 To 31-Dec-2010 17:10 [facility] Office Payers Medicare [facility] [address] [facility] [address] [place] Group Number: [id number] tel: Medicaid/[employer] C [address] [facility] [address] [place] Group Number: NONE tel: ROSA FIGUEREDO [id number] [facility] [id number] [place] tel:
--- OUTSIDE RECORDS SUMMARY | 2018-09-28 16:16 | XMS REPORT | Continuity of Care Document ---
:1955 Author Name Msw, System Address Unavailable Unavailable , Care Team Providers Name Role Phone Per KAUFMAN, Jessica Vargas Unavailable Estefany KAUFMAN, Dr. Leonid Hodges Unavailable Kasandra KAUFMAN, Moncho Unavailable Unavailable Valentino KAUFMAN, Sudeep Amanda Unavailable Aleyda KAUFMAN, Ramón Fong Unavailable Anya Msn Npc, Taryn A Unavailable Favian PAPER ROLL MACHINE OPERATOR, Stacy Unavailable Unavailable Vale PAPER ROLL MACHINE OPERATOR, Malorie Unavailable Unavailable Reji NPC, Naty M Unavailable Katherin PAPER ROLL MACHINE OPERATOR, Maritza Unavailable Unavailable Zander MSN NPC, [place] Unavailable More LRT, Jessica Unavailable Unavailable Unavailable [...] End: 11-Jul-2014 Quantity: 7 {Tablet} Zander AGUILA [place] Status: Inactive Refills: 0 METHOTREXATE, 2.5MG (Oral [...] med prn Procedures EXHALED NITRIC OXIDE MEASUREMENT ([id number]) Status: Completed 12-Jul-2018 PRE AND POST ([id number]) Status: Completed 12-Jul-2018 RESPIRATORY FLOW VOLUME LOOP ([id number]) Status: Completed 04-Jul-2014 PRE AND POST ([id number]) Status: Completed 04-Jul-2014 Arthroscopic Ankle Surgery - Left Status: Completed Sep-2011 Comments: DR CHAPMAN Chest X-ray Status: Completed 12-Jul-2018 Comments: Lungs grossly clear. Improved compared to 01/21/18. Chest X-ray Status: Completed 16-Jul-2015 Comments: compared to 07/04/14: stable, no infiltrates, effusions, normal cariac and mediastinal contours Cpap titration Status: Completed Comments: [facility] sleep lab; 04/08/2005 CT Scan [...] chest film Hospitalization Status: Completed Jun-2017 Comments: [facility], sinusitis and RLL pneumonia PFT Status: [...] 2.34 (83) Polysomnography Status: Completed Comments: [facility] sleep lab; 02/26/2005 QUAD REPAIR Status: Completed 2008 Comments: Right. DR CHAPMAN Sputum gram stain C & S Status: Completed Comments: Positive. (12/18/), + MRSA, and (03/07/18) + for MRSA, and corynebacterium striatum # 05/26/18: Many Moraxella catarrhalis. Total Knee Replacement - Right Status: Completed 2008 Comments: DR CHAPMAN CXR PA & LAT ([id number])Result: Are you or could Status: Completed Jun-2018 you become ?: No; When was you last CXR/CT?: over week ago; Retail Assistant Store Manager: Jessica Kahn, LETICIAT CT THORAX W/O DYE ([id number])Result: Are you or Date: 15-Apr-2018 could you become ?: No; When was you last Status: Completed 2018 CXR/CT?: over week ago; Retail Assistant Store Manager: IGNACIA Pacheco PRE AND POST W/ RT ([id number])Result: Hemoptysis: No Status: Completed 2018 CAT SCAN OF CHEST: CT THORAX W/O DYE ([id number])Result: Date: 10-Apr-2018 Are you or could you become ?: No; Status: Completed 2018 When was you last CXR/CT?: over week ago; Retail Assistant Store Manager: Jessica Kahn, LETICIAT CT THORAX W/O DYE ([id number])Result: Are you or Date: 08-Feb-2018 could you become ?: No; When was you last Status: Completed 2018 CXR/CT?: over week ago; Retail Assistant Store Manager: LETICIA PachecoT PRE AND POST ([id number])Result: Hemoptysis: No Status: Completed 10-Dec-2017 CAT SCAN OF CHEST: CT THORAX W/O DYE ([id number])Result: Status: Completed 2017 Are you or could you become ?: No; When was you last CXR/CT?: over week ago; Retail Assistant Store Manager: Jessica Kahn, LETICIAT CHEST X-RAY, PA AND LATERAL ([id number])Result: Are you Status: Completed 2015 or could you become ?: No; When was you last CXR/CT?: OVER WEEK AGO; Retail Assistant Store Manager: LETICIA PachecoT CHEST X-RAY, PA AND LATERAL ([id number])Result: Are you Status: Completed 2014 or could you become ?: No; When was you last CXR/CT?: over 1 week ago; Retail Assistant Store Manager: IGNACIA Pacheco Immunizations Influenza (3 years [...] SCAN OF CHEST: CT THORAX W/O DYE ([id number]) Start: 10-Nov-2018 Intent PRE AND POST W/ RT ([id number]) Start: 10-Nov-2018 Intent Pre/Post ([id number]) Start: 14-Nov-2011 Intent RESPIRATORY FLOW VOLUME LOOP ([id number]) Start: 14-Nov-2011 Intent Medical; CT SCAN CHEST - Start: 11-Nov-2018 14:30 Appointment Request [facility] XRAY [facility], Xray Medical; PRE AND POST RT - Start: 11-Nov-2018 14:45 Appointment Request [facility] Resp Therapy [facility], RT Medical; FOLLOW UP 30 - 4MO FU NP30,PPRT Start: 11-Nov-2018 15:00 Appointment Request [facility] Anya, Benigno Amanda SPUTUM CULTURE ([id number]) Start: 30-Aug-2018 16:46 Request SPUTUM CYTOLOGY ([id number]) Start: 24-May-2018 16:53 Request SPUTUM AFB ([id number]) Start: 10-Dec-2017 15:59 Request SPUTUM CYTOLOGY ([id number]) Start: 10-Dec-2017 15:38 Request PNEUMONIA : Referral to Printing Table Worker? IMMUNOLOGY Indication:PNEUMONIA BONITA (OBSTRUCTIVE SLEEP APNEA) : FU EITHER Indication:BONITA (OBSTRUCTIVE SLEEP APNEA) BONITA (OBSTRUCTIVE SLEEP APNEA) : FU EITHER - [place]/Anya Indication:BONITA (OBSTRUCTIVE SLEEP APNEA) Results SPUTUM CULTURE ([id number]) Ordered On: 24-May-2018 CULTURE, SPUTUM see document (Normal) SPUTUM CULTURE ([id number]) Ordered On: 01-Mar-2018 CULTURE, SPUTUM see document (Normal) SPUTUM CULTURE ([id number]) Ordered On: 10-Dec-2017 CULTURE, SPUTUM SEE DOCUMENT (Normal) SPUTUM CULTURE ([id number]) Ordered On: 13-Nov-2017 CULTURE, SPUTUM see document [...] 12/10/2017. Effective: 10-Dec-2017 Expiration date unspecified Encounters Medication Order 30-Aug-2018 16:41 To 31-Aug-2018 8:20 Encounter Diagnosis: PNEUMONIA [facility] Office Medication Order 13-Jul-2018 9:42 To 13-Jul-2018 9:50 Encounter Diagnosis: BRONCHIECTASIS [facility] Office Historical Summary 13-Jul-2018 9:28 To 13-Jul-2018 9:30 [facility] Office Visit 12-Jul-2018 15:00 To 12-Jul-2018 15:35 Encounter Reason: Abnormal Chest Imaging - The referring provider is Dr. JESSICA YOUNG. The primary physician is TAI [facility] Whitney GOEL NP (The patient was [...] pa kailey who had been hospitalized In [facility], in late June 2017 with cough, stridor, and shortness of breath. She was also inpt at [facility] in May 2017, reported by the pt. She had throat swelling, ultimately was placed in the ICU for 5 days but did not require intubation or mechanical ventilation she was on antibiotics and steroids she was seen by ENT and reportedly and laryngosc opy. 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 JESSICA YOUNG. The primary physician is TAI [facility] Whitney GOEL NP (The patient was seen for routine annual BONTIA fu in Oct 2017. She has mild [...] pa kailey who had been hospitalized In [facility], in late June 2017 with cough, stridor, and shortness of breath. She was also inpt at [facility] in May 2017, reported by the pt. She had throat swelling, ultimately was placed in the ICU for 5 days but did not require intubation or mechanical ventilation she was on antibiotics and steroids she was seen by ENT and reportedly and laryngosc opy. in [place], She was seen in consultation by ENT [...] was referred by a primary care provider. John Paul khaliltigre presentation was 8 month(s) ago. Presentation included [...] Dr. JESSICA YOUNG. The primary physician is [facility] Marcelo GOEL NP (The patient was seen [...] jordan kailey who had been hospitalized In [facility], in late June 2017 with cough, stridor, and shortness of breath. She was also inpt at [facility] in May 2017, reported by the pt. She had throat swelling, ultimately was placed in the ICU for 5 days but did not require intubation or mechanical ventilation she was on antibiotics and steroids she was seen by ENT and reportedly and laryngosc opy. in [place], She was seen in consultation by ENT [...] 16:20 To 09-Mar-2018 8:30 Encounter Diagnosis: PNEUMONIA [facility] Office Order Only 01-Mar-2018 14:59 To 01-Mar-2018 15:49 Encounter Diagnosis: PNEUMONIA [facility] Office Historical Summary 08-Feb-2018 11:22 To 08-Feb-2018 11:36 Encounter Reason: Abnormal Chest Imaging - The referring provider is Dr. JESSICA YOUNG. The primary physician is [facility] Whitney GOEL NP (The patient [...] jordan kailey who had been hospitalized In [facility], in late June 2017 with cough, stridor, and shortness of breath. She was also inpt at [facility] in May 2017, reported by the pt. She had throat swelling, ultimately was placed in the ICU for 5 days but did not require intubation or mechanical ventilation she was on antibiotics and steroids she was seen by ENT and reportedly and laryngosc opy. in [place], She was seen in consultation by ENT [...] included chest x-ray and chest CT (JUNE PISECO AND CT NECK). Treatment has included antibi [...] Dr. JESSICA YOUNG. The primary physician is [facility] Marcelo GOEL NP (The patient was [...] jordan bonner who had been hospitalized In [facility], in late June 2017 with cough, stridor, and shortness of breath. She was also inpt at [facility] in May 2017, reported by the pt. She had throat swelling, ultimately was placed in the ICU for 5 days but did not require intubation or mechanical ventilation she was on antibiotics and steroids she was seen by ENT and reportedly and laryngosc opy. in [place], She was seen in consultation by ENT [...] Historical Summary 07-Jan-2018 10:30 To 07-Jan-2018 10:34 [facility] Office Medication Order 23-Dec-2017 10:40 To 23-Dec-2017 12:02 Encounter Diagnosis: PNEUMONIA [facility] Office Medication Order 18-Dec-2017 13:33 To 21-Dec-2017 8:03 Encounter Diagnosis: SHORTNESS OF BREATH [facility] Office Visit 10-Dec-2017 15:00 To 11-Dec-2017 10:02 Encounter Reason: Abnormal Chest Imaging - The referring provider is Dr. JESSICA YOUNG. The primary physician is TAI [facility] Whitney GOEL NP (The patient [...] patient who had paulie ayala hospitalized In [facility], in late June with cough, stridor, and shortness of breath. She was also inpt at [facility] in May 2017, reported by the pt. She had throat swelling, ult imately was placed in the ICU for 5 days but did not require intubation or mechanical ventilation she was on antibiotics and steroids she was seen by ENT and reportedly and laryngoscopy. in [facility] he was seen in consultation by [...] included chest x-ray and chest CT (JUNE COR AND AND CT NECK). Treatment has included antibiotics [...] primary physician is Dr. JESSICA YOUNG (The [facility] patient was scheduled for annual followup [...] primary physician is Dr. JESSICA YOUNG. The [facility] sleep disorder is characterized as obstructive [...] primary physician is Dr. JESSICA YOUNG. The [facility] sleep disorder is characterized as obstructive [...] gasping during sleep or weight gain. The pa tient describes this as unchanged. Associated symptoms include [...] [facility] arthroplasty on July 10, 2014. The [facility] mervat for the procedure will be [...] primary physician is Dr. JESSICA YOUNG. The [facility] sleep disorder is characterized as obstructive [...] LEFT TOTAL KNEE REPLACEMTN on 2011 AT [facility]. The surgeon for the procedure will be DR ROMERO. The chief complaint is KNEE PAIN, ARTHRITIS. Recent symptoms include poor exercise tolerance, while recent symptoms do not include fever, chills, fatigue, chest pain, cough, dyspnea, dysuria, urinary frequency , nausea, vomiting, diarrhea, abdominal pain, easy bruising or lower extremity swelling. [facility] month([facility]) ago. Pertinent [...] Historical Summary 02-Jan-2011 8:43 To 02-Jan-2011 8:54 [facility] Historical Summary 31-Dec-2010 17:01 To 31-Dec-2010 17:10 [facility] Payers Medicare [facility] [address] [facility] [address] [place] Group Number: NONE tel: Medicaid/[employer] C [address] [facility] [address] [place] Group Number: NONE tel: ROSA FIGUEREDO [address] [facility] [id number] tel:
[2018-09-28 16:25] VITALS: BP 130/73
--- NOTE | 2018-09-28 16:41 | UC ---
Skin Complaint HPI - HPI Summary HPI Summary: Pt presents with bruising to dorsum of right hand. Pt states approx 5 days ago an area "swelled up" and looked bruise. Since this time, swelling improved, but bruising extended to fingers. mild TTP no open wounds no paresthesia no analgesia taken. Pt is on plavix. Pt is also on bactrim for skin infection elsewhere Pt does not recall trauma, but states bruises easily medications reviewed this visit - History of Current Complaint Chief Complaint: UCUpperExtremity Time Seen by Provider: 09/28/18 16:40 Stated Complaint: RT HAND BRUISING Hx Obtained From: Patient Hx Last Menstrual Period: n/a ?: No Onset/Duration: Gradual Onset Pain Intensity: 2 - Allergy/Home Medications Allergies/Adverse Reactions: Allergies Allergy/AdvReac Type Severity Reaction Status Date / Time Penicillins Allergy Severe Hives Verified 09/28/18 16:16 Home Medications: Home Medications Sulfamethox/Trimethoprim DS* [Bactrim DS 800/160 TAB*] 1 tab PO BID 09/28/18 [ History Confirmed 09/28/18] PMH/Surg Hx/FS Hx/Imm Hx Previously Healthy: Yes Cardiovascular History: Hypertension - Surgical History Surgical History: Yes Surgery Procedure, Year, and Place: Hysterectomy, bilateral knee replacement, ankle surgery, appendectomy, cholecystectomy, R hand tendon surgery, stomach stapling. - Family History Known Family History: Positive: Hypertension, Non-Contributory - Social History Occupation: Unemployed Lives: With Family Alcohol Use: Rare Alcohol Amount: states about every 2 weeks has a drink Substance Use Type: None Smoking Status (MU): Former Smoker Type: Cigarettes Amount Used/How Often: 1/2 PPD When Did the Patient Quit Smoking/Using Tobacco: 2018 Household Exposure Type: Cigarettes - Immunization History Most Recent Influenza Vaccination: 2017 Most Recent Tetanus Shot: unknown Most Recent Pneumonia Vaccination: none Review of Systems All Other Systems Reviewed And Are Negative: Yes Constitutional: Positive: Negative Skin: Positive: Other - bruising right hand/fingers Musculoskeletal: Positive: Negative Neurological: Positive: Negative Is Patient Immunocompromised?: No Physical Exam - Summary Physical Exam Summary: Vital Signs Reviewed: Yes A+Ox3, no distress Eyes: Conjunctiva Clear, MELANI. EOM intact and full ENT: Hearing grossly normal TM x 2 clear, mmoist, uvula midline, no exudate, no erythema Neck: Positive: Supple Respiratory: Positive: No respiratory distress, No accessory muscle use + CTA throughout no w/r Cardiovascular: RRR nl s1, s2 no m/r CBT <2 sec abd soft + BS nt/nd no guarding, no distension Musculoskeletal Exam: Full flex/ext elbow, wrist + pronate/supinate +mild TTP mid metacarpals dorsum hand no pain with palp phalanges Neurological: Positive: Alert, + sensation throughout + thumb up, a ok, finger cross, finger spread + gross sensation throughout Psychological: Positive: Normal Response To real estate rep Skin: Positive: no rash, Pt with apparent resolving ecchymosis right dorsum hand with radiation of ecchymosis to prox margins middle 3 digits no open wounds mild edema dorsum no fluctuance, erythema, warmth Triage Information Reviewed: Yes Vital Signs: Initial Vital Signs Temp 98.2 F 09/28/18 16:18 Pulse 79 09/28/18 16:18 Resp 16 09/28/18 16:18 BP 130/73 09/28/18 16:18 Pulse Ox 100 09/28/18 16:18 Procedures - Splinting Right Upper Extremity Location: RUE, volar Hand-Made Type: orthoglass Splint: volar Pre-Proc Neuro Vasc Exam: normal Post-Proc Neuro Vasc Exam: normal Diagnostics - Radiology No standard instances Radiology Interpretation Completed By: Radiologist - Patient Name: ROSA FIGUEREDO Medical Record#: [id number] Ordering Physician: Lianna Little MD Acct.#: [id number] : 1955 Age: 63 Sex: F Location: [facility] Exam Date: 09/28/181646 ADM Status: REG ER Order Information: HAND - RIGHT MINIMUM 3 VIEWS Accession Number: [id number] CPT: 04533 Indication: Right hand injury. 4 views of the right hand are reviewed. There has been resection of the trapezium. Degenerative changes with irregular lucency is noted at the base of the first and second metacarpal. No fracture is identified. IMPRESSION: Presumed removal of the trapezium. Degenerative changes of the base of the first metacarpal as well as the second carpal metacarpal joint. <Electronically signed by Kailey Harding MD in OV> 09/28/181702 Dictated By: Kailey Harding MD Dictated Date/Time: 09/28/181702 Transcribed Date/Time: 09/28/181701 Copy to: CC:Lianna Little MD; Pablo Blackwood NP Imaging - [facility] Imaging - [facility] Imaging - [facility] [id number] [place] [id number] ph ) ph ([phone]) ph ([phone]) This report is only to be considered final once signed by the Provider(s) as displayed in the "<Electronically Signed by >" field (s). Absence of a signature indicates the report is in a draft status and still needs to be finalized. In the event this document was created by someone other than the signing Provider, the individual initiating the document will be listed in the "Entered by:" or "Dictated by:" ulrich. 1 of 1 Course/Dx - Course Course Of Treatment: Pt with ecchymosis right dorsum hand. states started 5 days ago with single swollen, ecchymosis - spread to fingers this week pain improved. unknown trauma , RHD, no open wounds vss pt with good CSM right hand Ecchymosis - appears later stage with extenstion to fingers and mild edema dorsum suspect local blood vessel trauma and not resolving will plce in splint for comfort and supprot elevate f/u with pcp return precautions pt comfortable and in agreement with plan - Diagnoses Provider Diagnosis: Hematoma, Contusion of right hand Discharge - Sign-Out/Discharge Documenting (check all that apply): Patient Departure All imaging exams completed and their final reports reviewed: Yes - Discharge Plan Condition: Stable Disposition: HOME Patient Education Materials: Contusion in Adults (ED), Hematoma (ED) Referrals: Pablo Blackwood NP [Primary Care Provider] - Additional Instructions: - wear splint for comfort and support - elevate your arm to help decrease swelling - Okay to take tylenol every 6 hours as needed for discomfort - contact your doctor tomorrow to schedule a follow-up appointment. Contact your doctor or go to the emergency department if you have increased swelling, pain, fever, red streaking or any other concerns. - Billing Disposition and Condition Condition: STABLE Disposition: Home
== END 2018-09-28 17:37 | disposition home or self-care (01) ==
LOC: UCCORT 16:02
DX: S60.221A Contusion of right hand, initial encounter (principal); X58.XXXA Exposure to other specified factors, initial encounter; Y92.9 Unspecified place or not applicable; M19.041 Primary osteoarthritis, right hand; I10 Essential (primary) hypertension; Z79.01 Long term (current) use of anticoagulants; Z96.653 Presence of artificial knee joint, bilateral; Z88.0 Allergy status to penicillin; Z87.891 Personal history of nicotine dependence
CPT/HCPCS: 99212; G0463

== ENCOUNTER 2020-04-02 20:03 | Inpatient (IN) ==
[2020-04-02 22:46] LABS: ABS Eosinophils 0.1 10^3/ul (0-0.6); ABS Lymphocytes 0.9 10^3/ul (1.0-4.8); ABS Monocytes 0.7 10^3/ul (0-0.8); ABS Neutrophils 6.7 10^3/ul (1.5-7.7); Eosinophil % 1.2 %; Hematocrit 41 % (35-47); Hemoglobin 13.5 g/dL (12.0-16.0); Lymphocyte % 10.4 %; Mean Corpuscular HGB Conc 33 g/dL (31-36); Mean Corpuscular Hemoglobin 30 pg (27-31); Mean Corpuscular Volume 92 fL (80-97); Mean Platelet Volume 7.5 fL (7.4-10.4); Platelet Count 151 10^3/uL (150-450); Red Blood Count 4.44 10^6 /uL (3.70-4.87); Red Cell Distribution Width 14 % (10-15); White Blood Count 8.4 10^3/uL (3.5-10.8)
[2020-04-02 23:02] LABS: Albumin 3.5 g/dL (3.2-5.2); Albumin/Globulin Ratio 0.8 (1-3); BUN/Creatinine Ratio 13.8 (8-20); Calcium 8.6 mg/dL (8.6-10.3); EGFR African American 111.8 (>60); EGFR Non-African American 92.4 (>60); Globulin 4.3 g/dL (2-4); Potassium 4.7 mmol/L (3.5-5.0); Total Bilirubin 0.3 mg/dL (0.2-1.0); Total Protein 7.8 g/dL (6.4-8.9)
[2020-04-02 23:04] LABS: Troponin I 0.01 ng/mL (<0.03)
[2020-04-02 23:37] LABS: Ferritin 99.8 ng/mL (11-307)
[2020-04-03] MEDS ORDERED: Iohexol 350 (CONTRAST) 500 ML MDV IV ONE (01:21)
[2020-04-03] MEDS ORDERED: Remdesivir 100 mg Vial 200 MG in NS 0.9% 250 ml 210 ML IV ONE (01:56)
[2020-04-03] MEDS ORDERED: NS 0.9% 1000 ml BAG 1,000 ML IV ONE (02:11)
[2020-04-03] MEDS: Dexamethasone IV 4 MG/ML VIAL 1 ml VIAL IV SLOW PU SCH (02:45)
[2020-04-03] MEDS: Albuterol HFA INHALER 8 gm MDI INH SCH ×5 (06:30→22:53)
[2020-04-03] MEDS: Venlafaxine XR 75 mg PO SCH (08:36)
[2020-04-03] MEDS: Enoxaparin 40 MG/0.4 ML SYR SUBCUT SCH ×2 (08:36→17:17)
[2020-04-03] MEDS: oxyCODONE/Acetamin 5/325 mg TAB PO PRN ×3 (08:36→21:31)
[2020-04-03] MEDS ORDERED: guaiFENesin 100 mg/5 ml LIQ unit dose cup PO PRN (10:59)
[2020-04-04] MEDS: Albuterol HFA INHALER 8 gm MDI INH SCH ×6 (02:04→23:20)
[2020-04-04] MEDS: Enoxaparin 40 MG/0.4 ML SYR SUBCUT SCH ×2 (05:52→16:31)
[2020-04-04 06:02] LABS: ABS Eosinophils 0.1 10^3/ul (0-0.6); ABS Lymphocytes 1.4 10^3/ul (1.0-4.8); ABS Monocytes 0.6 10^3/ul (0-0.8); Eosinophil % 1.5 %; Hematocrit 35 % (35-47); Hemoglobin 12.1 g/dL (12.0-16.0); Lymphocyte % 22.9 %; Mean Corpuscular HGB Conc 34 g/dL (31-36); Mean Corpuscular Hemoglobin 31 pg (27-31); Mean Corpuscular Volume 90 fL (80-97); Mean Platelet Volume 7.2 fL (7.4-10.4); Platelet Count 138 10^3/uL (150-450); Red Blood Count 3.93 10^6 /uL (3.70-4.87); Red Cell Distribution Width 14 % (10-15); White Blood Count 6.1 10^3/uL (3.5-10.8)
[2020-04-04 06:26] LABS: Albumin/Globulin Ratio 0.9 (1-3); BUN/Creatinine Ratio 21.2 (8-20); Calcium 8.3 mg/dL (8.6-10.3); EGFR African American 144.6 (>60); EGFR Non-African American 119.5 (>60); Globulin 3.4 g/dL (2-4); Potassium 3.4 mmol/L (3.5-5.0); Total Bilirubin 0.3 mg/dL (0.2-1.0); Total Protein 6.4 g/dL (6.4-8.9)
[2020-04-04] MEDS ORDERED: Potassium Chlor 20 meq TAB.ER PO ONE (07:09)
[2020-04-04] MEDS: Dexamethasone IV 4 MG/ML VIAL 1 ml VIAL IV SLOW PU SCH (09:20)
[2020-04-04] MEDS: Venlafaxine XR 75 mg PO SCH (09:26)
[2020-04-04] MEDS: Remdesivir 100 mg Vial 100 MG in NS 0.9% 250 ml 230 ML IV SCH (09:35)
[2020-04-04] MEDS: oxyCODONE/Acetamin 5/325 mg TAB PO PRN ×2 (11:52→20:08)
[2020-04-05] MEDS: oxyCODONE/Acetamin 5/325 mg TAB PO PRN ×3 (01:18→14:34)
[2020-04-05] MEDS: Albuterol HFA INHALER 8 gm MDI INH SCH ×6 (03:08→23:47)
[2020-04-05] MEDS: Enoxaparin 40 MG/0.4 ML SYR SUBCUT SCH ×2 (05:46→18:12)
[2020-04-05 06:23] LABS: Albumin 3.3 g/dL (3.2-5.2); Albumin/Globulin Ratio 0.8 (1-3); BUN/Creatinine Ratio 22.4 (8-20); Calcium 8.4 mg/dL (8.6-10.3); EGFR African American 127.5 (>60); EGFR Non-African American 105.3 (>60); Potassium 3.9 mmol/L (3.5-5.0); Total Bilirubin 0.3 mg/dL (0.2-1.0); Total Protein 7.3 g/dL (6.4-8.9)
[2020-04-05] MEDS: Remdesivir 100 mg Vial 100 MG in NS 0.9% 250 ml 230 ML IV SCH (10:07)
[2020-04-05] MEDS: Dexamethasone IV 4 MG/ML VIAL 1 ml VIAL IV SLOW PU SCH (10:15)
[2020-04-05] MEDS ORDERED: NS 0.9% 1000 ml BAG 1,000 ML IV SCH (10:15)
[2020-04-05] MEDS: Venlafaxine XR 75 mg PO SCH (10:19)
[2020-04-06] MEDS: Albuterol HFA INHALER 8 gm MDI INH SCH ×2 (02:07→09:09)
[2020-04-06] MEDS: oxyCODONE/Acetamin 5/325 mg TAB PO PRN ×3 (02:07→17:47)
[2020-04-06 06:19] LABS: Albumin 3.1 g/dL (3.2-5.2); Calcium 8.3 mg/dL (8.6-10.3); Total Bilirubin 0.2 mg/dL (0.2-1.0)
[2020-04-06] MEDS: Enoxaparin 40 MG/0.4 ML SYR SUBCUT SCH ×2 (06:24→17:46)
[2020-04-06 06:25] LABS: Albumin/Globulin Ratio 0.8 (1-3); BUN/Creatinine Ratio 19.6 (8-20); EGFR African American 132.7 (>60); EGFR Non-African American 109.7 (>60); Globulin 3.8 g/dL (2-4); Total Protein 6.9 g/dL (6.4-8.9)
[2020-04-06 07:22] LABS: ABS Eosinophils 0.1 10^3/ul (0-0.6); ABS Lymphocytes 1.4 10^3/ul (1.0-4.8); ABS Monocytes 0.7 10^3/ul (0-0.8); ABS Neutrophils 5.5 10^3/ul (1.5-7.7); Eosinophil % 1.1 %; Hematocrit 39 % (35-47); Hemoglobin 12.7 g/dL (12.0-16.0); Lymphocyte % 18.5 %; Mean Corpuscular HGB Conc 33 g/dL (31-36); Mean Corpuscular Hemoglobin 30 pg (27-31); Mean Corpuscular Volume 92 fL (80-97); Mean Platelet Volume 7.5 fL (7.4-10.4); Nucleated Red Blood Cells % 0.1; Platelet Count 165 10^3/uL (150-450); Red Blood Count 4.23 10^6 /uL (3.70-4.87); Red Cell Distribution Width 14 % (10-15); White Blood Count 7.8 10^3/uL (3.5-10.8)
[2020-04-06] MEDS: Venlafaxine XR 75 mg PO SCH (08:15)
[2020-04-06] MEDS: Dexamethasone IV 4 MG/ML VIAL 1 ml VIAL IV SLOW PU SCH (08:16)
[2020-04-06] MEDS: Mometasone/Formoter 100/5 MDI INH SCH ×2 (08:28→20:35)
[2020-04-06] MEDS: Remdesivir 100 mg Vial 100 MG in NS 0.9% 250 ml 230 ML IV SCH (10:03)
[2020-04-06] MEDS ORDERED: Albuterol/Ipratropium NEB.SOL (2.5/0.5 MG) 3 ML NEB.SOLN INH SCH (11:00)
[2020-04-06] MEDS ORDERED: Albuterol HFA INHALER 8 gm MDI INH PRN (11:17)
[2020-04-06] MEDS ORDERED: Ipratropium HFA INHALER(NF) (ALTERNATIVE = NEBS) INH SCH (13:00)
[2020-04-06] MEDS ORDERED: Albuterol HFA INHALER 8 gm MDI INH SCH (13:00)
[2020-04-07] MEDS: oxyCODONE/Acetamin 5/325 mg TAB PO PRN ×3 (02:02→14:18)
[2020-04-07] MEDS: Enoxaparin 40 MG/0.4 ML SYR SUBCUT SCH (05:22)
[2020-04-07] MEDS: Venlafaxine XR 75 mg PO SCH (08:02)
[2020-04-07] MEDS: Mometasone/Formoter 100/5 MDI INH SCH (08:04)
[2020-04-07] MEDS: Dexamethasone IV 4 MG/ML VIAL 1 ml VIAL IV SLOW PU SCH (08:05)
[2020-04-07 12:29] VITALS: BP 134/42
== END 2020-04-07 18:01 | disposition home or self-care (01) | DRG 177 ==
LOC: ED 20:03 → MED 04-03 01:54
PROVIDERS: ADMIT Student in an Organized Health Care Education/Training Program; ATTEND Student in an Organized Health Care Education/Training Program